=== PATIENT | female | born 1945 | race Caucasian/White ===

== ENCOUNTER 2018-04-26 21:48 | Emergency (ER) | payer OTHER, SELFPAY ==
[2018-04-26 22:07] VITALS: BP 138/64; PULSE 80; RESP 18; TEMP 36.8; O2SAT 96; BMI 33.3
--- NOTE | 2018-04-26 22:59 | DI.CT.S_ITS ---
PROCEDURE: CT HEAD/BRAIN WO CON INDICATIONS: fall with head injury TECHNIQUE: Noncontrast 4.5 mm thick angled axial sections acquired from the foramen magnum to the vertex, with coronal and sagittal reformats. For radiation dose reduction, the following was used: automated exposure control, adjustment of mA and/or kV according to patient size. COMPARISON: None. FINDINGS: Image quality: Excellent. CSF spaces: Basal cisterns are patent. No extra-axial fluid collections. The ventricles are symmetric in size and shape. Brain: No intracranial bleeds or masses. There is cerebral volume loss for age, with resultant ventricular and sulcal prominence. There are periventricular and deep white matter chronic small vessel ischemic changes. There is intracranial internal carotid artery atherosclerosis. Encephalomalacia is present within the right frontal temporal lobe, consistent with old ischemia. Skull and face: Calvarium and visualized facial bones appear intact, without suspicious lesions. Hyperostosis frontalis is incidentally noted. Sinuses: Visualized sinuses and mastoids are clear. IMPRESSION: 1. No acute intracranial process. 2. Moderate atrophy and chronic microvascular ischemic changes. Dictated by: Gertrude Melendez M.D. on 04/27/2018 at 7:52 Approved by: Gertrude Melendez M.D. on 04/27/2018 at 7:53
--- NOTE | 2018-04-26 22:59 | DI.CT.S_ITS ---
PROCEDURE: CT FACIAL BONES WO CON INDICATIONS: fall with facial swelling TECHNIQUE: Noncontrast 2.5 mm thick axial images acquired from the mandible through the frontal sinuses, with coronal and sagittal reformatting. For radiation dose reduction, the following was used: automated exposure control, adjustment of mA and/or kV according to patient size. COMPARISON: [facility], CT, CT HEAD/BRAIN WO CON, 04/26/2018, 23:06. FINDINGS: Image quality: Excellent. Bones and teeth: Orbital morales are intact. Sinus morales show no fracture or deformity. Nasal bones and septum are intact. Visualized portions of the mandible demonstrate no fractures or subluxation. There is a nondisplaced fracture of the left zygomatic arch. Pterygoid plates are intact. Visualized portions of the skull base and auditory canals are intact. Sinuses: Paranasal sinuses are aerated, without fluid levels, mucosal thickening, or mucoceles. Mastoid air cells are aerated. Soft tissues: Left periorbital soft tissue edema is present. No enlarged lymph nodes. No soft tissue lacerations or debris. Vascular: Visualized vascular structures appear normal in the absence of contrast. Bony vascular foramina and canals are intact. IMPRESSION: 1. Nondisplaced fracture of the left zygomatic arch. Dictated by: Gertrude Melendez M.D. on 04/27/2018 at 7:53 Approved by: Gertrude Melendez M.D. on 04/27/2018 at 7:55
[2018-04-26 23:14] VITALS: BP 137/62; PULSE 72; RESP 16; O2SAT 95
[2018-04-26] MEDS: TET,DIPH,PERTUSS(ACELL),VAC/PF 0.5 ML SYRINGE IM (23:30)
[2018-04-27 00:54] VITALS: BP 151/76; PULSE 86; RESP 18; O2SAT 96
--- NOTE | 2018-04-27 00:56 | PC.NURSE ---
patient ambulated from the ED with steady gait. patient did not want pre pack medications or prescriptions. Provider aware and ok with patient to be discharged.
--- NOTE | 2018-04-27 19:52 | ED.FALL ---
HPI - Fall General Chief Complaint: Fall Stated Complaint: GLF Time Seen by Provider: 04/26/18 22:10 Source: patient Mode of arrival: ambulatory Limitations: no limitations History of Present Illness HPI Narrative: 73-year-old nonsmoking female presents with a chief complaint of a mechanical fall resulting in facial injury. She was walking in her driveway dog jumped on her and force her to fall forward striking her face. She denies any loss of consciousness nor nausea or vomiting. She has full recall of the event. She denies any blood thinners or alcohol. She denies any distracting injuries. She has no blurred vision or trouble with ambulation. MD complaint: fall Onset (ago): minute(s) Fall from: standing Fall witnessed: yes, by family Place fall occurred: home Loss of consciousness: none Prolonged down time: no Symptoms prior to fall: none Context: tripped/slipped Location of injury: face Severity: mild Associated symptoms (after fall): headache Related Data Previous Rx's Medication Instructions Recorded hydrocodone-acetaminophen 1 tab PO Q4-6H PRN #14 tab 04/27/18 Allergies Allergy/AdvReac Type Severity Reaction Status Date / Time No Known Drug Allergies Allergy Verified 04/26/18 22:13 Review of Systems Review of Systems All systems reviewed & are unremarkable except as noted in HPI and below Constitutional Denies chills, Denies fever(s), Denies lethargy and Denies weakness Eyes Denies change in vision, Denies eye discharge, Denies irritation and Denies loss of vision ENT Ears, Nose, Mouth, and Throat: Denies change in voice, Denies neck pain and Denies sore throat Comments: Face pain and swelling Cardiovascular Denies chest pain, Denies irregular heart rhythm, Denies lightheadedness, Denies palpitations, Denies dyspnea, Denies dyspnea on exertion and Denies orthopnea Respiratory Denies cough, Denies dyspnea, Denies dyspnea on exertion and Denies wheezing Gastrointestinal Gastrointestinal: Denies abdominal pain, Denies change in bowel habits, Denies diarrhea, Denies nausea and Denies vomiting Genitourinary Denies hematuria, Denies flank pain, Denies urinary incontinence and Denies urinary urgency Musculoskeletal Denies neck pain Integumentary/Breasts Denies pruritus, Denies erythema, Denies rash and Denies wounds Neurologic Denies confusion, Denies loss of vision and Denies weakness Psychiatric Denies anxiety, Denies confusion, Denies depression, Denies homicidal ideation and Denies suicidal ideation Endocrine Denies palpitations Hematologic/Lymphatic Denies easy bruising Allergic/Immunologic Denies wheezing Exam Narrative Exam Narrative: GENERAL: Pleasant 73-year-old female, GCS 15, AO x3, mild distress HEAD: left-sided facial swelling over zygoma Atraumatic. EYES: Pupils equal round and reactive. Extraocular motions intact. No scleral icterus. No injection or drainage. No hyphema ENT: No nasal septal hematoma. Abrasion on nose but no laceration or suspicion of fracture Nose without bleeding, purulent drainage or septal hematoma. Throat without erythema, tonsillar hypertrophy or exudate. Uvula midline. Airway patent. NECK: Trachea midline. No JVD or lymphadenopathy. Supple, nontender, no meningeal signs. CARDIOVASCULAR: Regular rate and rhythm without murmurs, gallops, or rubs. RESPIRATORY: Clear to auscultation. Breath sounds equal bilaterally. No wheezes, rales, or rhonchi. GASTROINTESTINAL: Abdomen soft, non-tender, nondistended. No hepato-splenomegaly, or palpable masses. No guarding. EXTREMITIES: No clubbing, cyanosis, or edema. No joint tenderness, effusion, or edema noted. BACK: Nontender without deformity or crepitance. No flank tenderness. NEURO: AOx3. SKIN: No rash or erythema. Initial Vital Signs Initial Vital Signs: Vital Signs Temperature 98.3 F 04/26/18 22:07 Pulse Rate 80 04/26/18 22:07 Respiratory Rate 18 04/26/18 22:07 Blood Pressure 138/64 04/26/18 22:07 Pulse Oximetry 96 04/26/18 22:07 [facility] Social History Smoking Status: Never smoker Course Orders Ordered: Discontinued Medications Hydrocodone Bitart/Acetaminophen (Vicodin Prepack) 1 bottle MISC SEEINSTR ONE Stop: 04/27/18 00:31 Last Admin: 04/27/18 00:54 Dose: Not Given Diphtheria/Tetanus/Acell Pertussis (Adacel) 0.5 ml IM .ONCE ONE Stop: 04/26/18 23:20 Last Admin: 04/26/18 23:30 Dose: 0.5 ml Ondansetron HCl (Zofran Odt Prepack) 1 bottle MISC SEEINSTR ONE Stop: 04/27/18 00:31 Last Admin: 04/27/18 00:54 Dose: Not Given MDM - Fall Medical Records Attestation: I reviewed the patient's medical records. Imaging Data CT scan - head: Attestation: I personally reviewed and interpreted this imaging study as follows: Radiologist's impression: [address] [address] [address] Scan Report Signed Patient: Nithya Tavarez MMR#: [id number] : 3Acct:[id number] Age/Sex: 73 / FDate of Service: 04/26/18 Loc: ED Accession Number: [id number] Procedure: CT facial bones wo con Ordering Provider: Deondre Bush D.O. PROCEDURE: CT FACIAL BONES WO CON INDICATIONS: fall with facial swelling TECHNIQUE: Noncontrast 2.5 mm thick axial images acquired from the mandible through the frontal sinuses, with coronal and sagittal reformatting. For radiation dose reduction, the following was used: automated exposure control, adjustment of mA and/or kV according to patient size. COMPARISON: [facility], CT, CT HEAD/BRAIN WO CON, 04/26/2018, 23:06. FINDINGS: Image quality: Excellent. Bones and teeth: Orbital morales are intact. Sinus morales show no fracture or deformity. Nasal bones and septum are intact. Visualized portions of the mandible demonstrate no fractures or subluxation. There is a nondisplaced fracture of the left zygomatic arch. Pterygoid plates are intact. Visualized portions of the skull base and auditory canals are intact. Sinuses: Paranasal sinuses are aerated, without fluid levels, mucosal thickening, or mucoceles. Mastoid air cells are aerated. Soft tissues: Left periorbital soft tissue edema is present. No enlarged lymph nodes. No soft tissue lacerations or debris. Vascular: Visualized vascular structures appear normal in the absence of contrast. Bony vascular foramina and canals are intact. IMPRESSION: 1. Nondisplaced fracture of the left zygomatic arch. Dictated by: Gertrude Melendez M.D. on 04/27/2018 at 7:53 Approved by: Gertrude Melendez M.D. on 04/27/2018 at 7:55 Discharge Plan Departure Patient Disposition: Home Clinical Impression: Zygomatic fracture Discharge Date/Time: 04/27/18 00:55 Interventions: ED Discharge Assessment Last Done: 04/27/18 00:54 Instructions: DI for Zygomatic Fracture Activity Restrictions/Additional Instructions: There is no evidence of an emergent or life threatening illness at this time, but follow up with your doctor in 1-2 days is recommended nonetheless to continue to rule out serious underlying causes of your symptoms. Please call the office for an appointment. Please return to the Emergency Department for any worsening or persistent symptoms. Please take medications as directed. Prescriptions: New hydrocodone-acetaminophen 5-325 mg tablet 1 tab PO Q4-6H PRN (Reason: pain) Qty: 14 RF: 0 Referrals: Shiraz Martin DMD [Physician] -
== END 2018-04-27 00:55 | disposition home or self-care (01) ==
PROVIDERS: Emergency Provider Emergency Medicine
DX: S02.402A Zygomatic fracture, unspecified side, initial encounter for closed fracture (principal); W01.0XXA Fall on same level from slipping, tripping and stumbling without subsequent striking against object, initial encounter
CPT/HCPCS: 70450; 70486; 90471; 99282; 99284; 90715

== ENCOUNTER → 2018-05-03 07:58 | Outpatient (CLI) | payer OTHER, SELFPAY ==
[2018-05-03 10:37] LABS: Alanine Aminotransferase 22 IU/L (9-52); Albumin 4.1 g/dL (3.5-5.0); Albumin Globulin Ratio 1.5 (1.0-2.8); Alkaline Phosphatase 70 U/L (38-126); Aspartate Aminotransferase 27 IU/L (14-36); BUN Creatinine Ratio 17.5 (6-22); Bilirubin Total 0.6 mg/dL (0.2-1.3); Blood Urea Nitrogen 14 mg/dL (7-17); Calcium 9.4 mg/dL (8.4-10.2); Carbon Dioxide 27 mmol/L (22-32); Chloride 102 mmol/L (98-107); Cholesterol 207 mg/dL (140-199); Estimated Glomerular Filt Rate > 60.0 mL/min (>60); Globulin 2.8 g/dL (1.7-4.1); Glucose 116 mg/dL (80-110); HDL Cholesterol 58 mg/dL (40-60); HEMOLYSIS 47 (0-50); LDL Cholesterol Calculated 121 mg/dL (<100); Potassium 4.6 mmol/L (3.4-5.1); Sodium 140 mmol/L (137-145); Total Protein 6.9 g/dL (6.3-8.2); Triglycerides 140 mg/dL (35-150)
[2018-05-03 11:09] LABS: Thyroid Stimulating Hormone 3.92 uIU/mL (0.47-4.68)
== END ==
PROVIDERS: Visit Provider Internal Medicine
DX: E78.00 Pure hypercholesterolemia, unspecified (principal)
CPT/HCPCS: 36415; 80053; 80061; 84443

== ENCOUNTER → 2018-08-29 09:52 | Outpatient (CLI) | payer OTHER, SELFPAY ==
--- NOTE | 2018-08-29 | DI.MG.S_ITS ---
BILATERAL DIGITAL SCREENING MAMMOGRAM 3D/2D WITH CAD: 08/29/2018 CLINICAL: Routine screening. Family history of breast cancer. Comparison is made to exams dated: 08/06/2017 mammogram, 06/19/2016 mammogram, and 05/30/2015 mammogram - [facility]. There are scattered fibroglandular elements in both breasts. Current study was also evaluated with a Computer Aided Detection (CAD) system. There are benign calcifications in both breasts. There also is a benign biopsy clip in the right breast. No significant masses, calcifications, or other findings are seen in either breast. There has been no significant interval change. IMPRESSION: There is no mammographic evidence of malignancy. A 1 year screening mammogram is recommended. This exam was interpreted at Station ID: [id number]. NOTE: For mammograms, a report in lay terms will be sent to the patient. Approximately 15% of breast malignancies will not be visualized mammographically. In the management of a palpable breast mass, a negative mammogram must not discourage biopsy of a clinically suspicious lesion. Electronically Signed By: George wolf/joseph:08/29/2018 10:41:52 letter sent: Normal Exam ACR BI-RADS Category 2: Benign Finding(s) 3342F
== END ==
PROVIDERS: PCP Internal Medicine; Visit Provider Internal Medicine
DX: Z12.31 Encounter for screening mammogram for malignant neoplasm of breast (principal); Z80.3 Family history of malignant neoplasm of breast
CPT/HCPCS: 77063; 77067

== ENCOUNTER 2018-09-05 08:50 | Day surgery (SDC) | payer OTHER, SELFPAY ==
[2018-09-05] VITALS (7 sets, daily range): BP systolic 104–131; BP diastolic 54–81; PULSE 74–91; RESP 14–18; TEMP 36.2–36.9; O2SAT 95–97; BMI 35.3
--- NOTE | 2018-09-05 | PATH_ITS ---
[facility] Accession Number: [id number] . 01 Material submitted: . COLON POLYP AT 30CM . 02 Diagnosis: Biopsy, Colon Polyp at 30 cm: Tubular adenoma involving both biopsy fragments. MRV/09/08/2018 . 02 Electronically signed: . Sebas Thomason MD, Pathologist NPI- [id number] . 01 Gross description: . COLON POLYP AT 30CM: Received in formalin are 2 fragment(s) of koch, soft tissue measuring 0.3 x 0.3 x 0.3 cm to 0.3 x 0.3 x 0.2 cm submitted entirely in 1 cassette(s) /CKI /CKI . 02 Pathologist provided ICD-10: D12.4 . 02 CPT . 224032 Performed at: 01 [facility] [address] [place] [address], [place], [place] [id number] MD Randy Hutton MD Phone: [phone] Performed at: [facility] [address] [place], [place] [id number] MD Maine Terry MD Phone: [phone]
[2018-09-05] MEDS: SODIUM CHLORIDE 0.9% 1,000 ML 200 ML IV (09:47)
--- NOTE | 2018-09-05 10:22 | PM.HP.1 ---
History of Present Illness Date Patient Seen: 09/05/18 Time Patient Seen: 10:22 Chief complaint: [id number] SCREENING COLONOSCOPY Narrative: The patient is a woman here for screening colonoscopy. She is not sure when her last exam was but she is reasonably sure was over 10 years ago. Her grandmother may have had colon cancer. She is pretty sure she did. Patient History Medical History Anxiety (Acute) Arthritis (Acute) Depression (Acute) History of urinary incontinence (Acute) Hyperlipidemia (Acute) Hypothyroidism (Acute) Surgical History History of dilatation and curettage (Acute) History of throat surgery (Acute) Social History household members: spouse Smoking Status: Never smoker Family & Social History Social History: household members spouse Tobacco & Substance use: Smoking Status Never smoker alcohol intake frequency 0-2 drinks per day Substance Use Type does not use Meds Home Medications Medication Instructions Recorded Confirmed Type Vitamin D3 1,000 mg PO DAILY 09/05/18 09/05/18 History diclofenac sodium 50 mg PO QID PRN 09/05/18 09/05/18 History levothyroxine 88 mcg PO DAILY 09/05/18 09/05/18 History gsyubsfy-ojwz-rsq-folic acid 1 tab PO DAILY PRN 09/05/18 09/05/18 History sertraline 50 mg PO DAILY 09/05/18 09/05/18 History sertraline 100 mg PO DAILY 09/05/18 09/05/18 History Allergies Allergy/AdvReac Type Severity Reaction Status Date / Time No Known Drug Allergies Allergy Verified 09/05/18 09:53 Review of Systems Review of Systems All systems reviewed & are unremarkable except as noted in HPI and below Exam Vital Signs (past 8 hours): - 09/05/18 09:26 Temperature 98.5 F Pulse Rate 91 H Respiratory Rate 18 Blood Pressure 131/81 Pulse Oximetry 96 Oxygen Delivery Method Room Air Narrative Exam Narrative: Very pleasant cooperative woman in no apparent distress. Little overweight. Her eyes are nonicteric. Lungs are clear to auscultation. No rales or rhonchi. Heart regular rate and rhythm without murmur gallop. Abdomen is protuberant soft nontender without mass. Patient is alert and oriented x3. Assessment & Plan Assessment & Plan narrative: Patient for screening colonoscopy. I have discussed the procedure and the rationale with the patient including risks of bleeding, perforation which would necessitate a major operation, failure to find remove all lesions and the potential to tattoo. They appeared to understand and wished to proceed.
--- NOTE | 2018-09-05 10:24 | PM.PREOP ---
Pre-operative Note Interval Note History & Physical reviewed/Exam performed by Physician: Yes Changes to H&P: No ASA Class (for procedural sedation): II
[2018-09-05] MEDS: MIDAZOLAM 5 MG/5 ML VIAL IV (10:43)
[2018-09-05] MEDS: fentaNYL 250 MCG/5 ML INJ IV (10:44)
--- NOTE | 2018-09-05 11:09 | PM.OP.ENDO ---
Operative Date/Time/Diagnoses Date of procedure: 09/05/18 Time of procedure: 11:09 Post-op diagnosis: same (Sigmoid diverticulosis. One polyp at 30 cm. ) Procedure & Clinicians Study performed: Colonoscopy with cold biopsy Same procedure as scheduled: Yes Indications: Screening Surgeon: Cliff Longoria Procedure Notes SCOAP/Timeout: Perform Procedure in detail: The patient was placed in the left lateral decubitus position and underwent IV sedation directed by the surgeon consisting of fentanyl and Versed. Digital exam was unremarkable. The scope was inserted and advanced through the rectum into the sigmoid, descending, transverse, and ascending colon. A stiffener was applied as was pressure to the abdominal wall in order to reach the cecum.. The cecum was reached identified by the ileocecal valve and the appendiceal opening. The scope was gradually brought out. No Polyps were found. The scope ultimately was retroflexed in the rectum. The appearance was remarkable for scarring on old hemorrhoidal disease but no active inflammation was seen.. The scope was removed and the patient tolerated the procedure well. prep was very good. Scope withdrawal time: 12-1/2 minutes Sedation minutes: 34 Findings: diverticulosis (Sigmoid) and polyp (30 cm) Specimen(s): other (Polyp) Complications: none Recommendations: Colonscopy in 5 years Follow up: as needed Disposition: PACU
--- NOTE | 2018-09-05 11:12 | P.OP.ENDO_ITS ---
Operative Date/Time/Diagnoses Date of procedure: 09/05/18 Time of procedure: 11:09 Post-op diagnosis: same (Sigmoid diverticulosis. One polyp at 30 cm. ) Procedure & Clinicians Study performed: Colonoscopy with cold biopsy Same procedure as scheduled: Yes Indications: Screening Surgeon: Cliff Longoria Procedure Notes SCOAP/Timeout: Perform Procedure in detail: The patient was placed in the left lateral decubitus position and underwent IV sedation directed by the surgeon consisting of fentanyl and Versed. Digital exam was unremarkable. The scope was inserted and advanced through the rectum into the sigmoid, descending, transverse, and asc ending colon. A stiffener was applied as was pressure to the abdominal wall in order to reach the cecum.. The cecum was reached identified by the ileocecal valve and the appendiceal opening. The scope was gradually brought out. No Polyps were found. The scope ultimately was retroflexed in the rectum. The appearance was remarkable for scarring on old hemorrhoidal disease but no active inflammation was seen.. The scope was removed and the patient tolerated the procedure well. prep was very good. Scope withdrawal time: 12-1/2 minutes Sedation minutes: 34 Findings: diverticulosis (Sigmoid) and polyp (30 cm) Specimen(s): other (Polyp) Complications: none Recommendations: Colonscopy in 5 years Follow up: as needed Disposition: PACU
== END 2018-09-05 12:13 | disposition home or self-care (01) ==
PROVIDERS: PCP Internal Medicine; Visit Provider Specialist
PROC: 0DJD8ZZ Inspection of Lower Intestinal Tract, Via Natural or Artificial Opening Endoscopic (ICD-10-PCS; CPT 45378; principal; 2018-09-05 09:45)
DX: Z12.11 Encounter for screening for malignant neoplasm of colon (principal); F41.9 Anxiety disorder, unspecified; E78.5 Hyperlipidemia, unspecified; E03.9 Hypothyroidism, unspecified; D12.4 Benign neoplasm of descending colon; K57.30 Diverticulosis of large intestine without perforation or abscess without bleeding
CPT/HCPCS: 45380; 99152; 99153; J2250; J3010

== ENCOUNTER → 2018-09-30 07:08 | Outpatient (CLI) | payer OTHER, SELFPAY ==
[2018-09-30 08:22] LABS: Glucose 122 mg/dL (80-110)
[2018-09-30 09:02] LABS: Vitamin B12 353 pg/mL (239-931)
== END ==
PROVIDERS: PCP Internal Medicine; Visit Provider Internal Medicine
DX: G62.9 Polyneuropathy, unspecified (principal)
CPT/HCPCS: 36415; 82607; 82947

== ENCOUNTER → 2019-07-16 14:32 | Outpatient (CLI) | payer OTHER, SELFPAY | PROVIDERS: PCP Internal Medicine; Referring Provider Internal Medicine; Visit Provider Internal Medicine | DX: M85.851 Other specified disorders of bone density and structure, right thigh (principal); Z78.0 Asymptomatic menopausal state; E07.9 Disorder of thyroid, unspecified; Z87.891 Personal history of nicotine dependence | CPT/HCPCS: 77080 ==

== ENCOUNTER → 2020-06-14 12:26 | Outpatient (CLI) | payer OTHER, SELFPAY ==
--- NOTE | 2020-06-14 12:28 | DI.MG.S_ITS ---
BILATERAL DIGITAL SCREENING MAMMOGRAM 3D/2D WITH CAD: 06/14/2020 CLINICAL: Routine screening. Family history of breast cancer. Comparison is made to exams dated: 08/29/2018 mammogram, 08/06/2017 mammogram, and 06/19/2016 mammogram - [facility]. There are scattered fibroglandular elements in both breasts. Current study was also evaluated with a Computer Aided Detection (CAD) system. There are benign calcifications in both breasts. There also is a biopsy clip in the right breast. No significant masses, calcifications, or other findings are seen in either breast. There has been no significant interval change. IMPRESSION: BENIGN There is no mammographic evidence of malignancy. A 1 year screening mammogram is recommended. This exam was interpreted at Station ID: [id number]. NOTE: For mammograms, a report in lay terms will be sent to the patient. Approximately 15% of breast malignancies will not be visualized mammographically. In the management of a palpable breast mass, a negative mammogram must not discourage biopsy of a clinically suspicious lesion. Electronically Signed By: Andi pinzon/joseph:06/14/2020 14:23:53 letter sent: Normal Exam ACR BI-RADS Category 2: Benign Finding(s) 3342F
== END ==
PROVIDERS: PCP Internal Medicine; Referring Provider Internal Medicine; Visit Provider Internal Medicine
DX: Z12.31 Encounter for screening mammogram for malignant neoplasm of breast (principal); Z80.3 Family history of malignant neoplasm of breast
CPT/HCPCS: 77063; 77067

== ENCOUNTER → 2020-08-09 08:10 | Outpatient (CLI) | payer OTHER, SELFPAY ==
[2020-08-09 09:34] LABS: Alanine Aminotransferase 18 IU/L (<35); Albumin 4.2 g/dL (3.5-5.0); Albumin Globulin Ratio 1.4 (1.0-2.8); Alkaline Phosphatase 64 U/L (38-126); Aspartate Aminotransferase 29 IU/L (14-36); BUN Creatinine Ratio 19.3 (6-22); Bilirubin Total 0.5 mg/dL (0.2-1.3); Blood Urea Nitrogen 17 mg/dL (7-17); Calcium 9.7 mg/dL (8.4-10.2); Carbon Dioxide 29 mmol/L (22-32); Chloride 102 mmol/L (98-107); Cholesterol 216 mg/dL (140-199); Estimated Glomerular Filt Rate > 60.0 mL/min (>60); Globulin 3.1 g/dL (1.7-4.1); Glucose 115 mg/dL (80-110); HDL Cholesterol 48 mg/dL (40-60); HEMOLYSIS < 15 (0-50); LDL Cholesterol Calculated 144 mg/dL (<100); Potassium 4.2 mmol/L (3.4-5.1); Sodium 137 mmol/L (137-145); Total Protein 7.3 g/dL (6.3-8.2); Triglycerides 119 mg/dL (35-150)
[2020-08-09 10:06] LABS: TSH w/ Reflex to FT4 3.27 uIU/mL (0.47-4.68)
== END ==
PROVIDERS: PCP Internal Medicine; Referring Provider Internal Medicine; Visit Provider Internal Medicine
DX: E03.9 Hypothyroidism, unspecified (principal); E78.00 Pure hypercholesterolemia, unspecified
CPT/HCPCS: 80053; 80061; 84443

== ENCOUNTER → 2020-09-29 13:49 | Outpatient (CLI) | payer OTHER, SELFPAY ==
[2020-09-29 15:57] LABS: Free T3, Triiodothyronine Free 2.72 pg/mL (2.77-5.27); Free T4, Direct Thyroxine 1.01 ng/dL (0.78-2.19)
== END ==
PROVIDERS: PCP Internal Medicine; Referring Provider Internal Medicine; Visit Provider Internal Medicine
DX: E03.9 Hypothyroidism, unspecified (principal)
CPT/HCPCS: 36415; 84439; 84481

== ENCOUNTER → 2021-01-18 14:56 | Outpatient (CLI) | payer OTHER, SELFPAY ==
[2021-01-18 16:11] LABS: Free T3, Triiodothyronine Free 3.41 pg/mL (2.77-5.27)
[2021-01-18 16:25] LABS: TSH w/ Reflex to FT4 1.15 uIU/mL (0.47-4.68)
== END ==
PROVIDERS: PCP Internal Medicine; Referring Provider Internal Medicine; Visit Provider Internal Medicine
DX: E03.9 Hypothyroidism, unspecified (principal)
CPT/HCPCS: 36415; 84443; 84481

== ENCOUNTER 2021-04-14 14:20 | Observation (INO) | payer OTHER, SELFPAY ==
[2021-04-14] VITALS (35 sets, daily range): BP systolic 143–213; BP diastolic 56–145; PULSE 64–97; RESP 10–43; TEMP 36.5; O2SAT 91–100; BMI 34.3; BMI 35.4
--- NOTE | 2021-04-14 14:28 | DI.RAD.S_ITS ---
PROCEDURE: XR HUMERUS LT 2V INDICATIONS: left upper arm pain after fall TECHNIQUE: 3 views of the humerus were acquired. COMPARISON: None. FINDINGS: Bones: The left shoulder demonstrates anterior dislocation. There is a fracture of the greater tuberosity. Soft tissues: No suspicious soft tissue calcifications. IMPRESSION: Anterior dislocation with fracture of the greater tuberosity Dictated by: Salvador Bedoya M.D. on 04/14/2021 at 15:05 Approved by: Salvador Bedoya M.D. on 04/14/2021 at 15:08
[2021-04-14] MEDS: HYDROMORPHONE 0.5 MG INJ IV ×3 (15:05→23:53)
--- NOTE | 2021-04-14 15:26 | ED_ITS ---
HPI - Fall <Guillermo Hopson PA-C - Last Filed: 04/14/21 19:57> General Chief Complaint: Fall Stated Complaint: Fall Time Seen by Provider: 04/14/21 14:55 Source: patient Mode of arrival: EMS History of Present Illness HPI Narrative: Patient is a 76-year-old female presenting to the emergency department today for an evaluation of left arm pain following a ground level fall. Patient states that she was walking when she tripped and fell today landing on her left side and immediately feeling pain in her left arm. She states the pain travels from her shoulder to her left elbow. She denies feeling any numbness and tingling in the left upper extremity. Of note, she denies hitting her head or losing consciousness as a result of the fall and she denies feeling dizzy or lightheadedness prior to falling. She denies fever, chills, chest pain, shortness of breath, nausea, vomiting, diarrhea, dizziness, changes in vision. No other concerns voiced at this time. Related Data Home Medications Medication Instructions Recorded Confirmed Vitamin D3 1,000 mg PO DAILY 09/05/18 09/05/18 diclofenac sodium 50 mg 50 mg PO QID PRN 09/05/18 09/05/18 tablet,delayed release levothyroxine 88 mcg tablet 88 mcg PO DAILY 09/05/18 09/05/18 dngrtnrn-aadt-qry-folic acid 1 mg 1 tab PO DAILY PRN 09/05/18 09/05/18 tablet sertraline 100 mg tablet 100 mg PO DAILY 09/05/18 09/05/18 sertraline 50 mg tablet 50 mg PO DAILY 09/05/18 09/05/18 Allergies Allergy/AdvReac Type Severity Reaction Status Date / Time No Known Drug Allergies Allergy Verified 04/14/21 14:29 Review of Systems <Guillermo Hopson PA-C - Last Filed: 04/14/21 19:57> Constitutional Constitutional: Denies chills, Denies fever(s), Denies frequent falls, Denies lethargy and Denies weakness ENT Ears, Nose, Mouth, and Throat: Denies dizziness Cardiovascular Cardiovascular: Denies chest pain, Denies irregular heart rhythm, Denies lightheadedness, Denies palpitations, Denies dyspnea, Denies dyspnea on exertion and Denies orthopnea Respiratory Respiratory: Denies cough, Denies dyspnea, Denies dyspnea on exertion and Denies wheezing Gastrointestinal Gastrointestinal: Denies abdominal pain, Denies change in bowel habits, Denies diarrhea, Denies nausea and Denies vomiting Musculoskeletal Musculoskeletal: Reports arthralgias (Left shoulder), Denies numbness and Denies tingling Integumentary/Breasts Skin/Breast: Denies pruritus, Denies erythema, Denies rash and Denies wounds Neurologic Neurologic: Denies behavioral changes, Denies confusion, Denies dizziness, Denies frequent falls, Denies numbness, Denies tingling and Denies weakness Psychiatric Psychiatric: Denies behavioral changes and Denies confusion Endocrine Endocrine: Denies palpitations Allergic/Immunologic Allergic/Immunologic: Denies wheezing Patient History <Guillermo Hopson PA-C - Last Filed: 04/14/21 19:57> Medical History (Updated 04/14/21 @ 21:52 by Rocio Epperson MD) Anxiety Arthritis Depression History of urinary incontinence Hyperlipidemia Hypothyroidism Surgical History History of dilatation and curettage History of throat surgery Social History household members: spouse Smoking Status: Never smoker Smoking Status: Never smoker alcohol intake frequency: holidays/special occasions only Substance Use Type: does not use Exam <Guillermo Hopson PA-C - Last Filed: 04/14/21 19:57> Narrative Exam Narrative: GENERAL: 76 year old patient appears stated age. Well-developed patient, in mild distress. HEAD: Atraumatic. Normocephalic. EYES: Pupils equal round and reactive. Extraocular motions intact. No scleral icterus. No injection or drainage. ENT: Nose without bleeding, purulent drainage. Throat without erythema, tonsillar hypertrophy or exudate. Airway patent. NECK: Trachea midline. Non tender CARDIOVASCULAR: Regular rate and rhythm without murmurs, gallops, or rubs. RESPIRATORY: Clear to auscultation. Breath sounds equal bilaterally. No wheezes, rales, or rhonchi. GASTROINTESTINAL: Abdomen soft, non-tender, nondistended. EXTREMITIES: No edema. Positive site sign left upper extremity. Tenderness to palpation from the left shoulder extending distally to the left elbow. No significant swelling or ecchymosis appreciated throughout the left upper extremity. Capillary refill less than 2 seconds. BACK: Nontender without deformity or crepitance. No flank tenderness. NEURO: AOx3. SKIN: No rash or erythema of visible areas Initial Vital Signs Initial Vital Signs: Vital Signs Blood Pressure 213/94 H 04/14/21 14:34 Cardio Pulses: radial pulses present on the left <Rocio Epperson MD - Last Filed: 04/14/21 21:53> Initial Vital Signs Initial Vital Signs: Vital Signs Blood Pressure 213/94 H 04/14/21 14:34 <Rocio Epperson MD - Last Filed: 04/14/21 21:53> Orthopedic Joint Reduction Left shoulder: Time of procedure: 19:17 Time Out Performed: Yes Side: left Joint Reduction Location: shoulder Analgesia: procedural sedation Amount of anesthesic used (mL): 70 Shoulder Technique Used (if applicable): traction/counter-traction Technique used: traction/counter-traction Post-reduction neuro exam: intact Post-reduction vascular: intact Post Reduction X-Ray Obtained: Yes Post Reduction X-Ray Results: reduced Splint Applied: Yes Patient Tolerated Procedure: Well Additional Comments: Known fracture prior to reduction. Has been reviewed with Ortho. Will plan for CT scan out at the shoulders reduced. Procedural Sedation Time of procedure: 19:18 Consent signed: Yes Time out performed: Yes Indication: fracture/dislocation reduction ASA Class: III Mallampati Airway Classification: Class II Preparation: air sampling and monitoring applied, pulse oximeter, capnometry used, supplemental O2 applied, suction/airway equipment at bedside and IV secured IV Propofol dose (mg): 70 Intraservice time/total sedation time (min): 12 ED Sedation Level: Moderate (Concious) Patient Tolerated Procedure: Well Complications: significant emergence reaction Interventions: Oxygen applied Course <Guillermo Hopson PA-C - Last Filed: 04/14/21 19:57> Course Course Narrative: Left humerus x-ray obtained Orders Ordered: ED Orders 04/14/21 14:28 XR humerus LT 2V Stat 04/14/21 15:30 COVID19 - ADMIT (HEAD BATCHER swab/PCR) Stat Complete Blood Count AUTO DIFF Stat 04/14/21 19:03 XR shoulder LT 1V Stat 04/14/21 19:19 CT UE LT wo con Stat 04/14/21 19:52 CT chest abd pel w con Stat 04/14/21 19:53 CT cervical spine wo con Stat CT head/brain wo con Stat 04/14/21 20:00 EKG-12 Lead Stat 04/14/21 20:05 Comprehensive Metabolic Panel Stat Troponin I Stat 04/14/21 20:15 COVID19 - ADMIT (HEAD BATCHER swab/PCR) Stat Acetaminophen (Acetaminophen 325 Mg Tablet) 325 mg PO Q6HR PRN PRN Reason: Fever/Mild Pain (1-3) Last Admin: 04/14/21 16:41 Dose: 325 mg Documented by: KRISHNA Discontinued Medications Hydromorphone HCl (Hydromorphone 0.5 Mg Inj) 0.5 mg IV NOW ONE Stop: 04/14/21 14:59 Last Admin: 04/14/21 15:05 Dose: 0.5 mg Documented by: KRISHNA Hydromorphone HCl (Hydromorphone 0.5 Mg Inj) 0.5 mg IV NOW ONE Stop: 04/14/21 15:47 Last Admin: 04/14/21 15:51 Dose: 0.5 mg Documented by: KRISHNA Hydromorphone HCl (Hydromorphone 1 Mg Inj) 1 mg IV NOW ONE Stop: 04/14/21 19:46 Last Admin: 04/14/21 19:53 Dose: 1 mg Documented by: IVANIA Hydromorphone HCl (Hydromorphone 1 Mg Inj) 1 mg IV NOW ONE Stop: 04/14/21 19:57 Ketorolac Tromethamine (Ketorolac 30 Mg/Ml Vial) 15 mg IV NOW ONE Stop: 04/14/21 19:16 Last Admin: 04/14/21 19:20 Dose: 15 mg Documented by: KRISHNA Lorazepam (Lorazepam 2 Mg/Ml Inj) 0.5 mg IV NOW ONE Stop: 04/14/21 19:20 Last Admin: 04/14/21 19:22 Dose: 0.5 mg Documented by: KRISHNA Oxycodone HCl (Oxycodone Ir 5 Mg Tablet) 5 mg PO NOW ONE Stop: 04/14/21 16:36 Last Admin: 04/14/21 16:41 Dose: 5 mg Documented by: KRISHNA Propofol (Propofol 200 Mg/20 Ml Vial) 150 mg IV NOW ONE Stop: 04/14/21 17:07 Last Admin: 04/14/21 19:04 Dose: 70 mg Documented by: KBRYERS Consultations Consultation #1: Consult with Dr. Montelongo, requests that we attempt to reduce the left anterior shoulder dislocation in the ER. Following reduction he requested that we obtain a CT and have patient follow up with [facility] earliest available appointment. Time: 17:51 Vital Signs Vital signs: Vital Signs - 8 hr 04/14/21 14:34 04/14/21 15:10 04/14/21 15:12 Pulse Rate 70 Respiratory Rate 18 Blood Pressure 213/94 H 169/77 H Pulse Oximetry 98 04/14/21 15:55 04/14/21 17:34 04/14/21 18:00 Pulse Rate 68 64 74 Respiratory Rate 18 18 15 Blood Pressure 188/81 H 170/78 H Pulse Oximetry 96 96 96 04/14/21 18:25 04/14/21 18:27 04/14/21 18:30 Pulse Rate 75 74 76 Respiratory Rate 14 15 15 Blood Pressure 172/79 H 172/79 H 163/77 H Pulse Oximetry 95 95 97 04/14/21 18:35 04/14/21 18:40 04/14/21 18:45 Pulse Rate 78 79 80 Respiratory Rate 15 15 15 Blood Pressure 163/77 H 164/77 H 160/77 H Pulse Oximetry 96 95 96 04/14/21 18:50 04/14/21 18:55 04/14/21 18:56 Pulse Rate 79 88 87 Respiratory Rate 12 28 H 20 Blood Pressure 155/75 H 163/81 H Pulse Oximetry 96 97 98 04/14/21 19:00 04/14/21 19:05 04/14/21 19:10 Pulse Rate 86 79 87 Respiratory Rate 23 35 H 30 H Blood Pressure 154/65 H 178/80 H Pulse Oximetry 96 98 98 04/14/21 19:11 04/14/21 19:15 04/14/21 19:17 Pulse Rate 86 92 H 87 Respiratory Rate 39 H 33 H 35 H Blood Pressure 197/84 H 156/79 H Pulse Oximetry 100 98 04/14/21 19:20 04/14/21 19:25 04/14/21 19:35 Pulse Rate 97 H 86 85 Respiratory Rate 43 H 25 H 17 Blood Pressure 162/56 H 160/71 H Pulse Oximetry 99 97 98 04/14/21 19:39 04/14/21 19:40 04/14/21 19:42 Pulse Rate 84 84 86 Respiratory Rate 10 L 10 L 22 Blood Pressure 196/145 H 160/71 H Pulse Oximetry 96 96 97 04/14/21 19:45 04/14/21 19:46 04/14/21 19:50 Pulse Rate 88 88 90 Respiratory Rate 24 20 21 Blood Pressure 181/91 H 152/68 H Pulse Oximetry 97 98 97 04/14/21 19:55 04/14/21 20:00 04/14/21 20:05 Pulse Rate 88 81 80 Respiratory Rate 23 14 21 Blood Pressure 158/72 H 150/73 H 146/66 H Pulse Oximetry 98 95 96 04/14/21 20:10 Pulse Rate 78 Respiratory Rate 17 Blood Pressure 159/73 H Pulse Oximetry 91 <Rocio Epperson MD - Last Filed: 04/14/21 21:53> Course Additional Information: 8pm Care is reviewed with Guillermo Hopson. Her left shoulder was reduced relatively easily with propofol however as she was coming out of sedation she was increasingly agitated and complaining of increasing pain. Initial thought was more an emergence reaction with the dramatic affect of behavior exhibited. Now with propofol has definitely worn off and she has been here long enough that the ketamine given by medics should also have worn off she is still having dramatic pain far out of proportion for her injury. She is completely re-examined. She states that with the fall it was the freddie ulder in her armpit area that was hurting most. At this point she is tender along her neck more left lateral side, trapezius, shoulder, axilla, left chest. I am concerned that were missing other injuries that are actually the source of her pain. With her mental status at actually seems to be deteriorating while she is here in the emergency department will backup with evaluation and look at head neck chest abdomen pelvis CT. Will add labs and an EKG. Will continue to use Dilaudid for pain control. Even when she is sedated enough that she is having decreased respiratory effort she still complaining of severe pain. 930pm extended workup has now been completed. There is no evidence of STEMI, river other chest fractures, no scapular abnormalities. She has no intracranial hemorrhage no cervical spine trauma and no alternate explanation for this severe pain that she was experiencing. At this time the shoulder has been reduced and with large amounts of narcotic requiring continued oxygen saturation monitoring and intermittent oxygen administration she is finally resting. Care is reviewed with the hospitalist, Dr. Parra. Be admitted to the hospitalist service for pain control given her advanced age, severe pain and the fact that she lives independently. Care is briefly reviewed with Dr. Montelongo, orthopedist. Shared with him that the shoulder was successfully reduced she is in a sling. They will consult in the morning for further recommendations but anticipate sling and pain control with outpatient orthopedic follow-up as the only additional orthopedic intervention at this time. Patient is safe for transfer to the floor. Orders Ordered: ED Orders 04/14/21 14:28 XR humerus LT 2V Stat 04/14/21 15:30 COVID19 - ADMIT (HEAD BATCHER swab/PCR) Stat Complete Blood Count AUTO DIFF Stat 04/14/21 19:03 XR shoulder LT 1V Stat 04/14/21 19:19 CT UE LT wo con Stat 04/14/21 19:52 CT chest abd pel w con Stat 04/14/21 19:53 CT cervical spine wo con Stat CT head/brain wo con Stat 04/14/21 20:00 EKG-12 Lead Stat 04/14/21 20:05 Comprehensive Metabolic Panel Stat Troponin I Stat 04/14/21 20:15 COVID19 - ADMIT (HEAD BATCHER swab/PCR) Stat Acetaminophen (Acetaminophen 325 Mg Tablet) 325 mg PO Q6HR PRN PRN Reason: Fever/Mild Pain (1-3) Last Admin: 04/14/21 16:41 Dose: 325 mg Documented by: KRISHNA Discontinued Medications Hydromorphone HCl (Hydromorphone 0.5 Mg Inj) 0.5 mg IV NOW ONE Stop: 04/14/21 14:59 Last Admin: 04/14/21 15:05 Dose: 0.5 mg Documented by: KRISHNA Hydromorphone HCl (Hydromorphone 0.5 Mg Inj) 0.5 mg IV NOW ONE Stop: 04/14/21 15:47 Last Admin: 04/14/21 15:51 Dose: 0.5 mg Documented by: KRISHNA Hydromorphone HCl (Hydromorphone 1 Mg Inj) 1 mg IV NOW ONE Stop: 04/14/21 19:46 Last Admin: 04/14/21 19:53 Dose: 1 mg Documented by: IVANIA Hydromorphone HCl (Hydromorphone 1 Mg Inj) 1 mg IV NOW ONE Stop: 04/14/21 19:57 Ketorolac Tromethamine (Ketorolac 30 Mg/Ml Vial) 15 mg IV NOW ONE Stop: 04/14/21 19:16 Last Admin: 04/14/21 19:20 Dose: 15 mg Documented by: KRISHNA Lorazepam (Lorazepam 2 Mg/Ml Inj) 0.5 mg IV NOW ONE Stop: 04/14/21 19:20 Last Admin: 04/14/21 19:22 Dose: 0.5 mg Documented by: KRISHNA Oxycodone HCl (Oxycodone Ir 5 Mg Tablet) 5 mg PO NOW ONE Stop: 04/14/21 16:36 Last Admin: 04/14/21 16:41 Dose: 5 mg Documented by: KRISHNA Propofol (Propofol 200 Mg/20 Ml Vial) 150 mg IV NOW ONE Stop: 04/14/21 17:07 Last Admin: 04/14/21 19:04 Dose: 70 mg Documented by: KRISHNA Vital Signs Vital signs: Vital Signs - 8 hr 04/14/21 14:34 04/14/21 15:10 04/14/21 15:12 Pulse Rate 70 Respiratory Rate 18 Blood Pressure 213/94 H 169/77 H Pulse Oximetry 98 04/14/21 15:55 04/14/21 17:34 04/14/21 18:00 Pulse Rate 68 64 74 Respiratory Rate 18 18 15 Blood Pressure 188/81 H 170/78 H Pulse Oximetry 96 96 96 04/14/21 18:25 04/14/21 18:27 04/14/21 18:30 Pulse Rate 75 74 76 Respiratory Rate 14 15 15 Blood Pressure 172/79 H 172/79 H 163/77 H Pulse Oximetry 95 95 97 04/14/21 18:35 04/14/21 18:40 04/14/21 18:45 Pulse Rate 78 79 80 Respiratory Rate 15 15 15 Blood Pressure 163/77 H 164/77 H 160/77 H Pulse Oximetry 96 95 96 04/14/21 18:50 04/14/21 18:55 04/14/21 18:56 Pulse Rate 79 88 87 Respiratory Rate 12 28 H 20 Blood Pressure 155/75 H 163/81 H Pulse Oximetry 96 97 98 04/14/21 19:00 04/14/21 19:05 04/14/21 19:10 Pulse Rate 86 79 87 Respiratory Rate 23 35 H 30 H Blood Pressure 154/65 H 178/80 H Pulse Oximetry 96 98 98 04/14/21 19:11 04/14/21 19:15 04/14/21 19:17 Pulse Rate 86 92 H 87 Respiratory Rate 39 H 33 H 35 H Blood Pressure 197/84 H 156/79 H Pulse Oximetry 100 98 04/14/21 19:20 04/14/21 19:25 04/14/21 19:35 Pulse Rate 97 H 86 85 Respiratory Rate 43 H 25 H 17 Blood Pressure 162/56 H 160/71 H Pulse Oximetry 99 97 98 04/14/21 19:39 04/14/21 19:40 04/14/21 19:42 Pulse Rate 84 84 86 Respiratory Rate 10 L 10 L 22 Blood Pressure 196/145 H 160/71 H Pulse Oximetry 96 96 97 04/14/21 19:45 04/14/21 19:46 04/14/21 19:50 Pulse Rate 88 88 90 Respiratory Rate 24 20 21 Blood Pressure 181/91 H 152/68 H Pulse Oximetry 97 98 97 04/14/21 19:55 04/14/21 20:00 04/14/21 20:05 Pulse Rate 88 81 80 Respiratory Rate 23 14 21 Blood Pressure 158/72 H 150/73 H 146/66 H Pulse Oximetry 98 95 96 04/14/21 20:10 Pulse Rate 78 Respiratory Rate 17 Blood Pressure 159/73 H Pulse Oximetry 91 MDM - Fall <Guillermo Hopson PA-C - Last Filed: 04/14/21 19:57> Lab Data Result diagrams: 04/14/21 15:30 04/14/21 20:05 Labs: Lab Results 04/14/21 04/14/21 04/14/21 Range/Units 15:30 15:30 20:05 WBC 7.4 (4.5-11.0) X10^3/uL RBC 4.25 (4.0-5.2) X10^6/uL Hgb 13.1 (12.0-16.0) g/dL Hct 39.3 (36-46) % MCV 92.3 (80-100) fL MCH 30.7 (26-34) PG MCHC 33.3 (30-36) % RDW 13.7 (11.6-14.8) % Plt Count 187 (150-400) X10^3/uL Neut % (Auto) 74.1 (50-75) % Lymph % (Auto) 17.3 L (25-40) % [place] % (Auto) 7.0 (3-14) % Eos % (Auto) 0.8 L (2-4) % Baso % (Auto) 0.8 (0-2) % Neut # (Auto) 5500 (2949-2372) /uL Lymph # (Auto) 1300 (7854-3513) /uL [place] # (Auto) 500 (0-900) /uL Eos # (Auto) 100 (0-450) /uL Baso # (Auto) 100 (0-100) /uL Sodium 137 (137-145) mmol/L Potassium 4.3 (3.4-5.1) mmol/L Chloride 102 (98-107) mmol/L Carbon Dioxide 29 (22-32) mmol/L BUN 18 H (7-17) mg/dL Creatinine 0.84 (0.52-1.04) mg/dL Estimated GFR > 60.0 (>60) mL/min BUN/Creatinine Ratio 21.4 (6-22) Glucose 179 H (80-110) mg/dL Calcium 9.4 (8.4-10.2) mg/dL Total Bilirubin 0.5 (0.2-1.3) mg/dL AST 39 H (14-36) IU/L ALT 21 (<35) IU/L Alkaline Phosphatase 64 (38-126) U/L Troponin I (0.01-0.034) ng/mL Total Protein 7.2 (6.3-8.2) g/dL Albumin 4.3 (3.5-5.0) g/dL Globulin 2.9 (1.7-4.1) g/dL Albumin/Globulin Ratio 1.5 (1.0-2.8) SARS-CoV-2 (PCR) Negative (Negative) 04/14/21 04/14/21 Range/Units 20:05 20:15 WBC (4.5-11.0) X10^3/uL RBC (4.0-5.2) X10^6/uL Hgb (12.0-16.0) g/dL Hct (36-46) % MCV (80-100) fL MCH (26-34) PG MCHC (30-36) % RDW (11.6-14.8) % Plt Count (150-400) X10^3/uL Neut % (Auto) (50-75) % Lymph % (Auto) (25-40) % [place] % (Auto) (3-14) % Eos % (Auto) (2-4) % Baso % (Auto) (0-2) % Neut # (Auto) (4846-3049) /uL Lymph # (Auto) (5718-4513) /uL [place] # (Auto) (0-900) /uL Eos # (Auto) (0-450) /uL Baso # (Auto) (0-100) /uL Sodium (137-145) mmol/L Potassium (3.4-5.1) mmol/L Chloride (98-107) mmol/L Carbon Dioxide (22-32) mmol/L BUN (7-17) mg/dL Creatinine (0.52-1.04) mg/dL Estimated GFR (>60) mL/min BUN/Creatinine Ratio (6-22) Glucose (80-110) mg/dL Calcium (8.4-10.2) mg/dL Total Bilirubin (0.2-1.3) mg/dL AST (14-36) IU/L ALT (<35) IU/L Alkaline Phosphatase (38-126) U/L Troponin I < 0.012 (0.01-0.034) ng/mL Total Protein (6.3-8.2) g/dL Albumin (3.5-5.0) g/dL Globulin (1.7-4.1) g/dL Albumin/Globulin Ratio (1.0-2.8) SARS-CoV-2 (PCR) Negative (Negative) Point of Care Testing Test Results Not applicable Imaging Data Extremity x-ray #1: Radiologist's Impression: PROCEDURE: XR HUMERUS LT 2V INDICATIONS: left upper arm pain after fall TECHNIQUE: 3 views of the humerus were acquired. COMPARISON: None. FINDINGS: Bones: The left shoulder demonstrates anterior dislocation. There is a fracture of the greater tuberosity. Soft tissues: No suspicious soft tissue calcifications. IMPRESSION: Anterior dislocation with fracture of the greater tuberosity Dictated by: Salvador Bedoya M.D. on 04/14/2021 at 15:05 Approved by: Salvador Bedoya M.D. on 04/14/2021 at 15:08 Extremity x-ray #2: Radiologist's Impression: PROCEDURE: XR SHOULDER LT 1V INDICATIONS: reduction of dislocation TECHNIQUE: 1 views of the shoulder were acquired. COMPARISON: [facility], , XR HUMERUS LT 2V, 04/14/2021, 14:30. FINDINGS: Bones: Interval reduction of earlier noted anterior-inferior dislocation at glenohumeral joint is seen. Fracture involving base of the greater tuberosity with laterally displaced fracture fragment is again noted. Overall shoulder alignment has improved since earlier study. Mild to moderate acromioclavicular joint and glenohumeral joint osteoarthritic changes are seen. No suspicious bony lesions. Visualized ribs appear intact. Soft tissues: No suspicious soft tissue calcifications. IMPRESSION: Interval reduction of earlier noted anterior-inferior glenohumeral joint dislocation with improved shoulder alignment. Fracture involving base of the greater tuberosity with slightly displaced fractured fragments. No new fracture or dislocation. Dictated by: Khari Espinoza M.D. on 04/14/2021 at 19:16 Approved by: Khari Espinoza M.D. on 04/14/2021 at 19:18 CT scan - LUE: Radiologist's Impression: PROCEDURE: CT UE LT WO CON INDICATIONS: Post anterior shoulder dislocation reduction TECHNIQUE: Noncontrast 1-1.5 mm thick sections acquired from the acromioclavicular joint to the inferior scapula, with coronal and sagittal reformatting. COMPARISON: None. FINDINGS: Image quality: Excellent. Bones: Acute comminuted fracture involving lateral aspect of humeral head extending to involve greater tuberosity is seen with multiple anterior, lateral and posteriorly displaced fractured fragments. There is also likely Hill-Sachs deformity involving posterior lateral humeral head. There is no glenoid fracture. 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 No suspicious intraosseous lesion. Visualized left upper ribs are intact. Soft tissues: There is no significant glenohumeral joint effusion. No intra- articular loose bodies. No abnormal soft tissue calcifications. Subcutaneous soft tissue edema and swelling along lateral aspect of proximal humerus is seen. No gross full- thickness rotator cuff tendon rupture. No significant rotator cuff muscle atrophy. IMPRESSION: 1. Comminuted fracture involving greater tuberosity of left proximal humerus with mildly displaced fractured fragments. Superimposed Hill-Sachs deformity is also likely present. No evidence of glenoid fracture. Moderate acromioclavicular joint and glenohumeral joint osteoarthritis. 2. No abnormal soft tissue calcifications. No gross full-thickness rotator cuff tendon rupture. No significant joint effusion or intra-articular loose bodies. Dictated by: Khari Espinoza M.D. on 04/14/2021 at 19:44 Approved by: Khari Espinoza M.D. on 04/14/2021 at 19:47 MDM Narrative Medical decision making narrative: Patient is a 76-year-old female presenting to the emergency department today for an evaluation of left arm pain following a ground level fall. To consider fracture versus dislocation versus strain versus sprain. Left humerus x-ray showed anterior dislocation with fracture of the greater tuberosity. Propofol was used for conscious sedation and the dislocation was reduced. Post reduction shoulder x-ray shows interval reduction of earlier noted anterior-inferior glenohumeral joint dislocation with improved shoulder alignment. CT of the left upper extremity was obtained after patient was placed in sling. <Rocio Epperson MD - Last Filed: 04/14/21 21:53> Lab Data Labs: Lab Results 04/14/21 04/14/21 04/14/21 Range/Units 15:30 15:30 20:05 WBC 7.4 (4.5-11.0) X10^3/uL RBC 4.25 (4.0-5.2) X10^6/uL Hgb 13.1 (12.0-16.0) g/dL Hct 39.3 (36-46) % MCV 92.3 (80-100) fL MCH 30.7 (26-34) PG MCHC 33.3 (30-36) % RDW 13.7 (11.6-14.8) % Plt Count 187 (150-400) X10^3/uL Neut % (Auto) 74.1 (50-75) % Lymph % (Auto) 17.3 L (25-40) % [place] % (Auto) 7.0 (3-14) % Eos % (Auto) 0.8 L (2-4) % Baso % (Auto) 0.8 (0-2) % Neut # (Auto) 5500 (7620-9859) /uL Lymph # (Auto) 1300 (4280-3802) /uL [place] # (Auto) 500 (0-900) /uL Eos # (Auto) 100 (0-450) /uL Baso # (Auto) 100 (0-100) /uL Sodium 137 (137-145) mmol/L Potassium 4.3 (3.4-5.1) mmol/L Chloride 102 (98-107) mmol/L Carbon Dioxide 29 (22-32) mmol/L BUN 18 H (7-17) mg/dL Creatinine 0.84 (0.52-1.04) mg/dL Estimated GFR > 60.0 (>60) mL/min BUN/Creatinine Ratio 21.4 (6-22) Glucose 179 H (80-110) mg/dL Calcium 9.4 (8.4-10.2) mg/dL Total Bilirubin 0.5 (0.2-1.3) mg/dL AST 39 H (14-36) IU/L ALT 21 (<35) IU/L Alkaline Phosphatase 64 (38-126) U/L Troponin I (0.01-0.034) ng/mL Total Protein 7.2 (6.3-8.2) g/dL Albumin 4.3 (3.5-5.0) g/dL Globulin 2.9 (1.7-4.1) g/dL Albumin/Globulin Ratio 1.5 (1.0-2.8) SARS-CoV-2 (PCR) Negative (Negative) 04/14/21 04/14/21 Range/Units 20:05 20:15 WBC (4.5-11.0) X10^3/uL RBC (4.0-5.2) X10^6/uL Hgb (12.0-16.0) g/dL Hct (36-46) % MCV (80-100) fL MCH (26-34) PG MCHC (30-36) % RDW (11.6-14.8) % Plt Count (150-400) X10^3/uL Neut % (Auto) (50-75) % Lymph % (Auto) (25-40) % [place] % (Auto) (3-14) % Eos % (Auto) (2-4) % Baso % (Auto) (0-2) % Neut # (Auto) (0833-7633) /uL Lymph # (Auto) (8799-6227) /uL [place] # (Auto) (0-900) /uL Eos # (Auto) (0-450) /uL Baso # (Auto) (0-100) /uL Sodium (137-145) mmol/L Potassium (3.4-5.1) mmol/L Chloride (98-107) mmol/L Carbon Dioxide (22-32) mmol/L BUN (7-17) mg/dL Creatinine (0.52-1.04) mg/dL Estimated GFR (>60) mL/min BUN/Creatinine Ratio (6-22) Glucose (80-110) mg/dL Calcium (8.4-10.2) mg/dL Total Bilirubin (0.2-1.3) mg/dL AST (14-36) IU/L ALT (<35) IU/L Alkaline Phosphatase (38-126) U/L Troponin I < 0.012 (0.01-0.034) ng/mL Total Protein (6.3-8.2) g/dL Albumin (3.5-5.0) g/dL Globulin (1.7-4.1) g/dL Albumin/Globulin Ratio (1.0-2.8) SARS-CoV-2 (PCR) Negative (Negative) Point of Care Testing Test Results Not applicable Imaging Data CT scan - head: Radiologist's Impression: FINDINGS:? Image quality:? Excellent.? ? CSF spaces:? Basal cisterns are patent.? No extra-axial fluid collections.? The ventricles are symmetric in size and shape.? ? Brain:? No intracranial bleeds or masses.? 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 There is cerebral volume loss for age, with resultant ventricular and sulcal prominence.? There are periventricular and deep white matter chronic small vessel ischemic changes.? There is intracranial internal carotid artery atherosclerosis.? ? Skull and face:? Calvarium and visualized facial bones appear intact, without suspicious lesions.? ? Sinuses:? Visualized sinuses and mastoids are clear.? ? IMPRESSION:? No CT evidence of acute intracranial pathology.? No significant changes from previous study.? No acute skull fracture. ? ? Dictated by: Khari Espinoza M.D. on 04/14/2021 at 21:03 ? ? CT - cervical spine: Radiologist's Impression: FINDINGS:? Image quality:? Excellent.? ? Bones:? No fractures or dislocations.? Decreased disc height and degenerative endplate changes throughout cervical spine is seen more prominent at C5-6 and C6-7 levels.? There is suggestion of broad-based disc bulge and bilateral facet hypertrophic changes seen at C4-5 through C6-7 levels causing [id number] central canal stenosis and b ilateral neural foraminal narrowing.? Visualized superior ribs are intact.? ? Soft tissues:? Prevertebral soft tissues are normal in thickness.? No paravertebral hematomas.? No apical pneumothoraces.? ? ? IMPRESSION:? 1. No acute cervical spine fracture or dislocation. 2. Degenerative disc disease throughout cervical spine as above. ? ? Dictated by: Khari Espinoza M.D. on 04/14/2021 at 21:01 ? ? TRauma CT chest/abd/pelvic: Radiologist's Impression: FINDINGS:? Image quality:? Excellent.? ? CHEST:? Lungs:? No pulmonary contusions or lacerations.? There is biapical scarring.? Scattered atelectasis in periphery of bilateral lung boyd are seen.? 5 mm solid nodule is seen in lateral aspect of right middle lobe series 3, image 179. 3 mm solid nodule in anterior aspect of right middle lobe is seen series 3, image 163. 4 mm solid nodule in anterior aspect of left upper lobe is noted series 3, image 148.? Mild centrilobular emphysema is seen.? No acute airspace opacities.? No pneumothorax or hemothorax.? Central and peripheral airways appear patent and normal in caliber.? ? Mediastinum:? No mediastinal hematomas.? Heart size is normal.? No pericardial effusion.? Thoracic aorta and pulmonary arteries demonstrate normal size and enhancement.? Calcified lymph node is seen in right paratracheal space.? No mediastinal or hilar david opathy.? Esophagus is normal in caliber.? There is a large hiatal hernia.? ? Chest wall:? No rib fractures.? No subcutaneous emphysema.? No axillary or supraclavicular adenopathy.? Thyroid gland is within normal limits.? ? ? ABDOMEN:? Solid organs:? Liver is normal in size and enhancement, without lacerations.? Well-circumscribed hypodense area involving left hepatic lobe anterior periphery is seen measures 2.2 x 1.9 cm in size series 2, image 52 and likely represent a hepatic cyst.? Well-circumscribed 6 mm hypodensity in right hepatic lobe is also seen series 2, image 54.? Gallbladder is distended.? A few calcified stones are seen in dependent portion of gallbladder lumen, no discrete gallbladder wall thickening or pericholecystic fluid.? Biliary system is non-dilated.? Pancreas enhances normally, without transection.? Spleen is normal in size and enhancement, without lacerations.? No adrenal hematomas.? Both kidneys enhance normally, without hydronephrosis or lacerations.? ? Peritoneum and bowel:? No free fluid or air.? Unenhanced bowel loops demonstrate normal wall thickness and caliber.? ? Nodes and vessels:? No retroperitoneal or mesenteric adenopathy.? Aorta and inferior vena cava are normal in size and enhancement.? Moderate atherosclerotic calcifications throughout abdominal aorta is seen. ? Miscellaneous:? No ventral hernias.? ? ? PELVIS:? Genitourinary:? Bladder wall thickness is normal.? Uterus and right ovary shows no gross abnormality.? 14.9 x 8.7 x 10.4 cm cystic structure is noted in left adnexa with mild mass effect on the adjacent left lateral wall of ladder series 2, image 101 and series 4, image 40.? ? Miscellaneous:? No inguinal hernias or adenopathy.? ? Bones:? Again noted is comminuted fracture involving lateral aspect of left femoral head and likely presence of Hill-Sachs deformity in left humeral head.? No other fracture or dislocation is seen.? No vertebral compression fractures.? Degenerative disc disease in mid to lower thoracic spine and lumbar spine is seen more prominent at L3-4 and L4-5 levels. ? ? IMPRESSION:? 1. Comminuted fracture involving lateral aspect of left humeral head and greater trochanter better evaluated on dedicated left shoulder CT study performed earlier on the same day.? No other fracture or dislocation is seen.? No compression fracture is seen in thoracic and lumbar spine. 2. Scattered atelectasis and scarring in periphery of bilateral lung boyd.? No pleural effusion or pneumothorax.? Airway is patent.? Incidentally noted of tiny solid nodule seen in right upper and middle lobes as above, suggest CT chest follow-up in 12 months for evaluation of stability. 3.? Cholelithiasis, no CT evidence of acute cholecystitis. 4. No acute solid organ injury is seen in chest, abdomen or pelvis. 5. Incidentally noted of large cystic structure in left adnexa which may represent left ovarian cyst versus cystic neoplasm.? Nonurgent pelvic ultrasound can be done for follow-up.? ? Dictated by: Khari Espinoza M.D. on 04/14/2021 at 21:04 ? ? ECG Data Interpretation: Sinus rhythm at a rate of 76 Normal intervals, normal axis No acute ischemic changes Discharge Plan Departure Patient Disposition: Admitted as Observation Clinical Impression: Uncontrolled pain Fracture of proximal end of humerus Qualifiers: Encounter type: initial encounter Fracture type: closed Fracture morphology: other fracture Fracture alignment: displaced Laterality: left Qualified Code(s): S42.292A - Other displaced fracture of upper end of left humerus, initial encounter for closed fracture Anterior shoulder dislocation Qualifiers: Encounter type: initial encounter Laterality: left Qualified Code(s): S43.015A - Anterior dislocation of left humerus, initial encounter Fall Qualifiers: Encounter type: initial encounter Qualified Code(s): W19.XXXA - Unspecified fall, initial encounter Altered mental status Qualifiers: Altered mental status type: delirium Qualified Code(s): R41.0 - Disorientation, unspecified Admit Date/Time: 04/14/21 21:38 Admit Provider: Cee Parra
[2021-04-14 16:41] LABS: COVID19 - ADMIT (NP swab/PCR) Negative (Negative)
[2021-04-14] MEDS: OXYCODONE IR 5 MG TABLET PO (16:41)
[2021-04-14] MEDS: ACETAMINOPHEN 325 MG TABLET PO (16:41)
--- NOTE | 2021-04-14 16:51 | PC.NURSE ---
sister luis enrique cell # [phone]
--- NOTE | 2021-04-14 19:03 | DI.RAD.S_ITS ---
PROCEDURE: XR SHOULDER LT 1V INDICATIONS: reduction of dislocation TECHNIQUE: 1 views of the shoulder were acquired. COMPARISON: [facility], CR, XR HUMERUS LT 2V, 04/14/2021, 14:30. FINDINGS: Bones: Interval reduction of earlier noted anterior-inferior dislocation at glenohumeral joint is seen. Fracture involving base of the greater tuberosity with laterally displaced fracture fragment is again noted. Overall shoulder alignment has improved since earlier study. Mild to moderate acromioclavicular joint and glenohumeral joint osteoarthritic changes are seen. No suspicious bony lesions. Visualized ribs appear intact. Soft tissues: No suspicious soft tissue calcifications. IMPRESSION: Interval reduction of earlier noted anterior-inferior glenohumeral joint dislocation with improved shoulder alignment. Fracture involving base of the greater tuberosity with slightly displaced fractured fragments. No new fracture or dislocation. Dictated by: Khari Espinoza M.D. on 04/14/2021 at 19:16 Approved by: Khari Espinoza M.D. on 04/14/2021 at 19:18
[2021-04-14] MEDS: propofoL 200 MG/20 ML VIAL 150 MG IV (19:04)
--- NOTE | 2021-04-14 19:19 | DI.CT.S_ITS ---
PROCEDURE: CT UE LT WO CON INDICATIONS: Post anterior shoulder dislocation reduction TECHNIQUE: Noncontrast 1-1.5 mm thick sections acquired from the acromioclavicular joint to the inferior scapula, with coronal and sagittal reformatting. COMPARISON: None. FINDINGS: Image quality: Excellent. Bones: Acute comminuted fracture involving lateral aspect of humeral head extending to involve greater tuberosity is seen with multiple anterior, lateral and posteriorly displaced fractured fragments. There is also likely Hill-Sachs deformity involving posterior lateral humeral head. There is no glenoid fracture. 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 No suspicious intraosseous lesion. Visualized left upper ribs are intact. Soft tissues: There is no significant glenohumeral joint effusion. No intra-articular loose bodies. No abnormal soft tissue calcifications. Subcutaneous soft tissue edema and swelling along lateral aspect of proximal humerus is seen. No gross full-thickness rotator cuff tendon rupture. No significant rotator cuff muscle atrophy. IMPRESSION: 1. Comminuted fracture involving greater tuberosity of left proximal humerus with mildly displaced fractured fragments. Superimposed Hill-Sachs deformity is also likely present. No evidence of glenoid fracture. Moderate acromioclavicular joint and glenohumeral joint osteoarthritis. 2. No abnormal soft tissue calcifications. No gross full-thickness rotator cuff tendon rupture. No significant joint effusion or intra-articular loose bodies. Dictated by: Khari Espinoza M.D. on 04/14/2021 at 19:44 Approved by: Khari Espinoza M.D. on 04/14/2021 at 19:47
[2021-04-14] MEDS: KETOROLAC 30 MG/ML VIAL 15 MG IV (19:20)
[2021-04-14] MEDS: LORazepam 2 MG/ML INJ 0.5 MG IV (19:22)
--- NOTE | 2021-04-14 19:52 | DI.CT.S_ITS ---
PROCEDURE: CT CHEST ABD PEL W CON INDICATIONS: trauma, pain out of proportion TECHNIQUE: After the administration of intravenous contrast, 5 mm thick sections acquired from the lung apices to the symphysis. 2.5 mm thick coronal and sagittal reformats were acquired. Additional 7 mm thick coronal maximum intensity projection (MIP) reformats acquired through the lungs. Optional 10-minute delayed imaging may be performed from the kidneys to the bladder. For radiation dose reduction, the following was used: automated exposure control, adjustment of mA and/or kV according to patient size. COMPARISON: None. FINDINGS: Image quality: Excellent. CHEST: Lungs: No pulmonary contusions or lacerations. There is biapical scarring. Scattered atelectasis in periphery of bilateral lung boyd are seen. 5 mm solid nodule is seen in lateral aspect of right middle lobe series 3, image 179. 3 mm solid nodule in anterior aspect of right middle lobe is seen series 3, image 163. 4 mm solid nodule in anterior aspect of left upper lobe is noted series 3, image 148. Mild centrilobular emphysema is seen. No acute airspace opacities. No pneumothorax or hemothorax. Central and peripheral airways appear patent and normal in caliber. Mediastinum: No mediastinal hematomas. Heart size is normal. No pericardial effusion. Thoracic aorta and pulmonary arteries demonstrate normal size and enhancement. Calcified lymph node is seen in right paratracheal space. No mediastinal or hilar adenopathy. Esophagus is normal in caliber. There is a large hiatal hernia. Chest wall: No rib fractures. No subcutaneous emphysema. No axillary or supraclavicular adenopathy. Thyroid gland is within normal limits. ABDOMEN: Solid organs: Liver is normal in size and enhancement, without lacerations. Well-circumscribed hypodense area involving left hepatic lobe anterior periphery is seen measures 2.2 x 1.9 cm in size series 2, image 52 and likely represent a hepatic cyst. Well-circumscribed 6 mm hypodensity in right hepatic lobe is also seen series 2, image 54. Gallbladder is distended. A few calcified stones are seen in dependent portion of gallbladder lumen, no discrete gallbladder wall thickening or pericholecystic fluid. Biliary system is non-dilated. Pancreas enhances normally, without transection. Spleen is normal in size and enhancement, without lacerations. No adrenal hematomas. Both kidneys enhance normally, without hydronephrosis or lacerations. Peritoneum and bowel: No free fluid or air. Unenhanced bowel loops demonstrate normal wall thickness and caliber. Nodes and vessels: No retroperitoneal or mesenteric adenopathy. Aorta and inferior vena cava are normal in size and enhancement. Moderate atherosclerotic calcifications throughout abdominal aorta is seen. Miscellaneous: No ventral hernias. PELVIS: Genitourinary: Bladder wall thickness is normal. Uterus and right ovary shows no gross abnormality. 14.9 x 8.7 x 10.4 cm cystic structure is noted in left adnexa with mild mass effect on the adjacent left lateral wall of ladder series 2, image 101 and series 4, image 40. Miscellaneous: No inguinal hernias or adenopathy. Bones: Again noted is comminuted fracture involving lateral aspect of left femoral head and likely presence of Hill-Sachs deformity in left humeral head. No other fracture or dislocation is seen. No vertebral compression fractures. Degenerative disc disease in mid to lower thoracic spine and lumbar spine is seen more prominent at L3-4 and L4-5 levels. IMPRESSION: 1. Comminuted fracture involving lateral aspect of left humeral head and greater trochanter better evaluated on dedicated left shoulder CT study performed earlier on the same day. No other fracture or dislocation is seen. No compression fracture is seen in thoracic and lumbar spine. 2. Scattered atelectasis and scarring in periphery of bilateral lung boyd. No pleural effusion or pneumothorax. Airway is patent. Incidentally noted of tiny solid nodule seen in right upper and middle lobes as above, suggest CT chest follow-up in 12 months for evaluation of stability. 3. Cholelithiasis, no CT evidence of acute cholecystitis. 4. No acute solid organ injury is seen in chest, abdomen or pelvis. 5. Incidentally noted of large cystic structure in left adnexa which may represent left ovarian cyst versus cystic neoplasm. Nonurgent pelvic ultrasound can be done for follow-up. Dictated by: Khari Espinoza M.D. on 04/14/2021 at 21:04 Approved by: Khari Espinoza M.D. on 04/14/2021 at 21:13
[2021-04-14] MEDS: HYDROMORPHONE 1 MG INJ IV (19:53)
--- NOTE | 2021-04-14 19:53 | DI.CT.S_ITS ---
PROCEDURE: CT CERVICAL SPINE WO CON INDICATIONS: fall TECHNIQUE: Noncontrast 3 mm thick sections acquired from the skull base to the T4 level. Sagittal and coronal reformats were then constructed. For radiation dose reduction, the following was used: automated exposure control, adjustment of mA and/or kV according to patient size. COMPARISON: None. FINDINGS: Image quality: Excellent. Bones: No fractures or dislocations. Decreased disc height and degenerative endplate changes throughout cervical spine is seen more prominent at C5-6 and C6-7 levels. There is suggestion of broad-based disc bulge and bilateral facet hypertrophic changes seen at C4-5 through C6-7 levels causing [id number] central canal stenosis and bilateral neural foraminal narrowing. Visualized superior ribs are intact. Soft tissues: Prevertebral soft tissues are normal in thickness. No paravertebral hematomas. No apical pneumothoraces. IMPRESSION: 1. No acute cervical spine fracture or dislocation. 2. Degenerative disc disease throughout cervical spine as above. Dictated by: Khari Espinoza M.D. on 04/14/2021 at 21:01 Approved by: Khari Espinoza M.D. on 04/14/2021 at 21:03
--- NOTE | 2021-04-14 19:53 | DI.CT.S_ITS ---
PROCEDURE: CT HEAD/BRAIN WO CON INDICATIONS: altered mental status after fall TECHNIQUE: Noncontrast 4.5 mm thick angled axial sections acquired from the foramen magnum to the vertex, with coronal and sagittal reformats. For radiation dose reduction, the following was used: automated exposure control, adjustment of mA and/or kV according to patient size. COMPARISON: [facility], CT, CT HEAD/BRAIN WO CON, 04/26/2018, 23:06. FINDINGS: Image quality: Excellent. CSF spaces: Basal cisterns are patent. No extra-axial fluid collections. The ventricles are symmetric in size and shape. Brain: No intracranial bleeds or masses. 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 There is cerebral volume loss for age, with resultant ventricular and sulcal prominence. There are periventricular and deep white matter chronic small vessel ischemic changes. There is intracranial internal carotid artery atherosclerosis. Skull and face: Calvarium and visualized facial bones appear intact, without suspicious lesions. Sinuses: Visualized sinuses and mastoids are clear. IMPRESSION: No CT evidence of acute intracranial pathology. No significant changes from previous study. No acute skull fracture. Dictated by: Khari Espinoza M.D. on 04/14/2021 at 21:03 Approved by: Khari Espinoza M.D. on 04/14/2021 at 21:04
[2021-04-14 20:09] LABS: Add Manual Diff / Slide Review NO; Basophils Absolute Auto 100 /uL (0-100); Basophils Percent Auto 0.8 % (0-2); Eosinophils Absolute Auto 100 /uL (0-450); Eosinophils Percent Auto 0.8 % (2-4); Hematocrit 39.3 % (36-46); Hemoglobin 13.1 g/dL (12.0-16.0); Lymphocytes Absolute Auto 1300 /uL (1100-4500); Lymphocytes Percent Auto 17.3 % (25-40); Mean Corpuscular HGB Conc 33.3 % (30-36); Mean Corpuscular Hemoglobin 30.7 PG (26-34); Mean Corpuscular Volume 92.3 fL (80-100); Monocytes Absolute Auto 500 /uL (0-900); Neutrophils Absolute Auto 5500 /uL (1500-7000); Neutrophils Percent Auto 74.1 % (50-75); Platelet Count 187 X10^3/uL (150-400); Red Blood Cell Count 4.25 X10^6/uL (4.0-5.2); Red Cell Distribution Width 13.7 % (11.6-14.8); White Blood Cell Count 7.4 X10^3/uL (4.5-11.0)
[2021-04-14 20:26] LABS: Alanine Aminotransferase 21 IU/L (<35); Albumin 4.3 g/dL (3.5-5.0); Albumin Globulin Ratio 1.5 (1.0-2.8); Alkaline Phosphatase 64 U/L (38-126); Aspartate Aminotransferase 39 IU/L (14-36); BUN Creatinine Ratio 21.4 (6-22); Bilirubin Total 0.5 mg/dL (0.2-1.3); Blood Urea Nitrogen 18 mg/dL (7-17); Calcium 9.4 mg/dL (8.4-10.2); Carbon Dioxide 29 mmol/L (22-32); Chloride 102 mmol/L (98-107); Estimated Glomerular Filt Rate > 60.0 mL/min (>60); Globulin 2.9 g/dL (1.7-4.1); Glucose 179 mg/dL (80-110); HEMOLYSIS < 15 (0-50); Potassium 4.3 mmol/L (3.4-5.1); Sodium 137 mmol/L (137-145); Total Protein 7.2 g/dL (6.3-8.2)
[2021-04-14 20:38] LABS: Troponin I < 0.012 ng/mL (0.01-0.034)
[2021-04-14 21:49] LABS: COVID19 - ADMIT (NP swab/PCR) Negative (Negative)
--- NOTE | 2021-04-14 23:37 | P.HP_ITS ---
History of Present Illness History of Present Illness Date Patient Seen: 04/14/21 Time Patient Seen: 23:37 Chief complaint: Fall Narrative: The patient is a 76-year-old female with a history of anxiety, arthritis, depression, hyperlipidemia, hypothyroidism who was in her usual state of health until earlier today. Patient reports she was in her garage cleaning when she tripped and fell. She had no associated lightheadedness shortness of breath dizzy a tetanus nausea vomiting or diarrhea. Patient states she just lost her balance as there was lots of things in her garage. The patient presented to the emergency room with left arm pain following a fall. She had significant pain in his dish in to numbness and tingling and the left extremity. Patient had multiple imaging studies of the humerus. X-rays revealed anterior dislocation and fracture of the greater tuberosity. The patient did have a follow-up x-ray which revealed reduction of the anterior joint dislocation with improved alignment. There is a fracture involving the base of the greater tube rosity with slightly displaced fractured fragments. The patient had a subsequent upper extremity CT. This revealed a comminuted fracture involving the greater tuberosity of the left proximal humerus with the mildly displaced fracture fragments. There was a superimposed Hill-Sachs deformity. No glenoid fracture. There was no significant joint effusion or intra-articular loose bodies. The patient underwent a CT of the chest abdomen and pelvis. This confirmed a comminuted fracture on the lateral aspect of the left humeral head and greater trochanter. With scattered atelectasis and scarring in the peripheral bilateral lung bases. There was cholelithiasis but no acute cholecystitis. There was a large cystic structure in the left adnexa which may represent an ovarian cyst versus cystic neoplasm. Patient should have a nonurgent pelvic ultrasound as follow-up subsequently. The patient underwent a CT of the cervical spine. This revealed no cervical spine fracture, but there was degenerative disc disease throughout the cervical spine. She also had a head CT. There was no evidence of acute intracranial pathology. No significant changes from her prior study. No acute skull fracture. The patient did have a orthopedic consult from the emergency department. They felt that once the dislocation had been reduce she could be discharged home. Unfortunately she had significant pain and was unable to have her pain managed. She lives home alone she was admitted to the hospital for pain control and ultimate disposition. She required several medications including ketamine, fentanyl, Dilaudid before improvement of her symptoms. Patient History Medical History Anxiety Arthritis Depression History of urinary incontinence Hyperlipidemia Hypothyroidism Surgical History History of dilatation and curettage History of throat surgery Family & Social History Family History (Updated 04/14/21 @ 23:55 by Cee Parra MD) Sister Diabetes mellitus Social History: household members spouse Safety & Behavioral: Feels Safe in Current Yes Environment Been Physically Hurt or No Threatened By a Person Tobacco & Substance use: Smoking Status Never smoker alcohol intake frequency holiday/special occasion Substance Use Type does not use Meds Home Medications and Allergies Home Medications Medication Instructions Recorded Confirmed Type Vitamin D3 1,000 mg PO DAILY 09/05/18 09/05/18 History diclofenac sodium 50 mg 50 mg PO QID PRN 09/05/18 09/05/18 History tablet,delayed release levothyroxine 88 mcg tablet 88 mcg PO DAILY 09/05/18 09/05/18 History atfxrswn-mwlj-yew-folic acid 1 mg 1 tab PO DAILY PRN 09/05/18 09/05/18 History tablet sertraline 100 mg tablet 100 mg PO DAILY 09/05/18 09/05/18 History sertraline 50 mg tablet 50 mg PO DAILY 09/05/18 09/05/18 History Allergies Allergy/AdvReac Type Severity Reaction Status Date / Time No Known Drug Allergies Allergy Verified 04/14/21 14:29 Review of Systems Review of Systems Narrative: 10 point review of systems is negative except as above Exam Vital Signs (past 8 hours): - 04/14/21 15:55 04/14/21 17:34 04/14/21 18:00 Temperature Pulse Rate 68 64 74 Respiratory Rate 18 18 15 Blood Pressure 188/81 H 170/78 H Pulse Oximetry 96 96 96 04/14/21 18:25 04/14/21 18:27 04/14/21 18:30 Temperature Pulse Rate 75 74 76 Respiratory Rate 14 15 15 Blood Pressure 172/79 H 172/79 H 163/77 H Pulse Oximetry 95 95 97 04/14/21 18:35 04/14/21 18:40 04/14/21 18:45 Temperature Pulse Rate 78 79 80 Respiratory Rate 15 15 15 Blood Pressure 163/77 H 164/77 H 160/77 H Pulse Oximetry 96 95 96 04/14/21 18:50 04/14/21 18:55 04/14/21 18:56 Temperature Pulse Rate 79 88 87 Respiratory Rate 12 28 H 20 Blood Pressure 155/75 H 163/81 H Pulse Oximetry 96 97 98 04/14/21 19:00 04/14/21 19:05 04/14/21 19:10 Temperature Pulse Rate 86 79 87 Respiratory Rate 23 35 H 30 H Blood Pressure 154/65 H 178/80 H Pulse Oximetry 96 98 98 04/14/21 19:11 04/14/21 19:15 04/14/21 19:17 Temperature Pulse Rate 86 92 H 87 Respiratory Rate 39 H 33 H 35 H Blood Pressure 197/84 H 156/79 H Pulse Oximetry 100 98 04/14/21 19:20 04/14/21 19:25 04/14/21 19:35 Temperature Pulse Rate 97 H 86 85 Respiratory Rate 43 H 25 H 17 Blood Pressure 162/56 H 160/71 H Pulse Oximetry 99 97 98 04/14/21 19:39 04/14/21 19:40 04/14/21 19:42 Temperature Pulse Rate 84 84 86 Respiratory Rate 10 L 10 L 22 Blood Pressure 196/145 H 160/71 H Pulse Oximetry 96 96 97 04/14/21 19:45 04/14/21 19:46 04/14/21 19:50 Temperature Pulse Rate 88 88 90 Respiratory Rate 24 20 21 Blood Pressure 181/91 H 152/68 H Pulse Oximetry 97 98 97 04/14/21 19:55 04/14/21 20:00 04/14/21 20:05 Temperature Pulse Rate 88 81 80 Respiratory Rate 23 14 21 Blood Pressure 158/72 H 150/73 H 146/66 H Pulse Oximetry 98 95 96 04/14/21 20:10 04/14/21 22:20 Temperature 97.7 F Pulse Rate 78 82 Respiratory Rate 17 18 Blood Pressure 159/73 H 143/79 H Pulse Oximetry 91 94 Oxygen Delivery Method Room Air Oxygen Flow Rate 2 Narrative Exam Narrative: Pleasant female lying in bed more comfortable than earlier but still with some left shoulder pain HENMT Other: HEENT: Normocephalic atraumatic, extraocular muscles are intact, oropharynx is clear Resp Other: Lungs clear to auscultation Cardio Other: Cardiac exam: Regular rate and rhythm normal S1-S2 GI Other: Abdomen soft nontender nondistended Extrem Other: Left arm in a sling Psych Other: Patient is awake alert and appropriate, thought content is normal, no hallucinations, mood and affect appears appropriate Objective Labs Result Diagrams: 04/14/21 15:30 04/14/21 20:05 Labs: Laboratory Results - last 24 hr 04/14/21 04/14/21 04/14/21 15:30 15:30 20:05 WBC 7.4 RBC 4.25 Hgb 13.1 Hct 39.3 MCV 92.3 MCH 30.7 MCHC 33.3 RDW 13.7 Plt Count 187 Neut % (Auto) 74.1 Lymph % (Auto) 17.3 L [place] % (Auto) 7.0 Eos % (Auto) 0.8 L Baso % (Auto) 0.8 Neut # (Auto) 5500 Lymph # (Auto) 1300 [place] # (Auto) 500 Eos # (Auto) 100 Baso # (Auto) 100 Sodium 137 Potassium 4.3 Chloride 102 Carbon Dioxide 29 BUN 18 H Creatinine 0.84 Estimated GFR > 60.0 BUN/Creatinine Ratio 21.4 Glucose 179 H Calcium 9.4 Total Bilirubin 0.5 AST 39 H ALT 21 Alkaline Phosphatase 64 Troponin I Total Protein 7.2 Albumin 4.3 Globulin 2.9 Albumin/Globulin Ratio 1.5 SARS-CoV-2 (PCR) Negative 04/14/21 04/14/21 20:05 20:15 WBC RBC Hgb Hct MCV MCH MCHC RDW Plt Count Neut % (Auto) Lymph % (Auto) [place] % (Auto) Eos % (Auto) Baso % (Auto) Neut # (Auto) Lymph # (Auto) [place] # (Auto) Eos # (Auto) Baso # (Auto) Sodium Potassium Chloride Carbon Dioxide BUN Creatinine Estimated GFR BUN/Creatinine Ratio Glucose Calcium Total Bilirubin AST ALT Alkaline Phosphatase Troponin I < 0.012 Total Protein Albumin Globulin Albumin/Globulin Ratio SARS-CoV-2 (PCR) Negative Assessment & Plan Assessment & Plan narrative: 76-year-old female with a history of hypothyroidism, depression, admitted to the hospital following a ground level fall * Patient suffered a dislocated left shoulder, this was reduced in the emergency department, she has an associated fracture of the greater tuberosity * The patient has significant pain that was difficult to control in the emergency room * Her pain is better controlled at this time * Patient lives alone there is concern regarding her ability for self-care at discharge * Laboratory studies are unremarkable * Imaging studies as above which confirmed a reduced left shoulder dislocation, with a fracture involving the greater tuberosity, all other studies essentially unremarkable, she will require outpatient orthopedic evaluation * Will continue Toradol, Tylenol, Dilaudid for pain control * PT OT consultation tomorrow to determine whether the patient will be able to return home independently or will require nursing home prior to returning home Hypothyroidism * Continue L-thyroxine Depression * Continue Zoloft * Left adnexal cystic structure -patient will require pelvic ultrasound as an outpatient to determine whether this is an ovarian cyst versus cystic neoplasm Patient will be placed on Lovenox for DVT prophylaxis, She reports she is a full code will note that her record accordingly Her sister is her surrogate decision maker and DPOA Patient will be admitted under observation once evaluated by PT OT disposition will be made tomorrow. Time Spent With Patient Critical Care time: I spent a total of [] minutes of critical care time on this patient's care today; this time is exclusive of procedural time.
[2021-04-14] MEDS: KETOROLAC 30 MG/ML VIAL IV (23:47)
[2021-04-14] MEDS: DEXTROSE 5%-0.45% NS 1,000 ML 100 ML IV (23:50)
[2021-04-15] VITALS (7 sets, daily range): BP systolic 127–138; BP diastolic 50–69; PULSE 70–78; RESP 13–18; TEMP 36.6–37.6; O2SAT 94–96
[2021-04-15] MEDS: ACETAMINOPHEN 325 MG TABLET 650 MG PO (04:20)
[2021-04-15] MEDS: CALCIUM CARBONATE 500 MG TAB 1000 MG PO ×2 (06:21→14:42)
[2021-04-15] MEDS: LEVOTHYROXINE 88 MCG TABLET PO (06:21)
[2021-04-15 07:11] LABS: Basophils Absolute Auto 0 /uL (0-100); Basophils Percent Auto 0.3 % (0-2); Eosinophils Absolute Auto 0 /uL (0-450); Eosinophils Percent Auto 0.2 % (2-4); Hematocrit 37.3 % (36-46); Hemoglobin 12.5 g/dL (12.0-16.0); Lymphocytes Absolute Auto 1100 /uL (1100-4500); Lymphocytes Percent Auto 10.9 % (25-40); Mean Corpuscular HGB Conc 33.5 % (30-36); Mean Corpuscular Hemoglobin 30.7 PG (26-34); Mean Corpuscular Volume 91.9 fL (80-100); Monocytes Absolute Auto 800 /uL (0-900); Monocytes Percent Auto 7.5 % (3-14); Neutrophils Absolute Auto 8300 /uL (1500-7000); Neutrophils Percent Auto 81.1 % (50-75); Red Blood Cell Count 4.06 X10^6/uL (4.0-5.2); Red Cell Distribution Width 13.9 % (11.6-14.8); White Blood Cell Count 10.2 X10^3/uL (4.5-11.0)
[2021-04-15 07:24] LABS: BUN Creatinine Ratio 24.1 (6-22); Blood Urea Nitrogen 20 mg/dL (7-17); Calcium 9.2 mg/dL (8.4-10.2); Carbon Dioxide 25 mmol/L (22-32); Chloride 101 mmol/L (98-107); Estimated Glomerular Filt Rate > 60.0 mL/min (>60); Glucose 133 mg/dL (80-110); HEMOLYSIS 34 (0-50); Potassium 4.5 mmol/L (3.4-5.1); Sodium 133 mmol/L (137-145)
[2021-04-15 07:44] LABS: Add Manual Diff / Slide Review SLIDE REVIEW
[2021-04-15 07:45] LABS: Platelet Estimate Adequate on smear; RBC Morphology Normal Morphology
[2021-04-15] MEDS: HYDROCODONE/ACET 5/325 TABLET 2 TAB PO ×2 (08:01→13:30)
[2021-04-15] MEDS: DOCUSATE 100 MG CAPSULE PO ×2 (08:03→22:27)
[2021-04-15] MEDS: ENOXAPARIN 40 MG/0.4 ML SYRINGE SUBCUT (08:03)
--- NOTE | 2021-04-15 09:45 | PT.IIE ---
Medical History (Last Reviewed 04/14/21 @ 23:55 by Cee Parra MD) Anxiety Arthritis Depression History of urinary incontinence Hyperlipidemia Hypothyroidism Physical Therapy Inpatient Evaluation/Re-Eval M1 PT/OT-IP Prior Functional Status Start: 04/15/21 13:37 Freq: NEEDED Status: Active Protocol: Document 04/15/21 09:45 AB (Rec: 04/15/21 13:54 AB [email or web address]) Medical Review Prior Functional Status Medical History Reviewed Yes Communication able to make needs known Mobility and Gait pt stated that she is independent with all mobilities and ambulation without AD Social History Household Members none Living Arrangements House Number of Floors (Floors) One Floor Number of Stairs To Enter/Railing? 2 steps R rail from front entry 2 steps without rails from garage Home Environment High Toilet Home Equipment Front Wheel Walker,Four Wheel Walker,Quad Cane,Straight Cane ,Shower Seat without Backrest, Grab Bars In Shower M2 PT-IP Current Condition Start: 04/15/21 13:37 Freq: NEEDED Status: Active Protocol: Document 04/15/21 09:45 AB (Rec: 04/15/21 13:54 [facility] [place] Physical Therapy Current Condition Current Condition Evaluation Date 04/15/21 Treatment Diagnosis GLF s/p commi L prox humeral fx,L ant humeral disloc w/ reduction; diff walk Onset Date 04/14/21 M3 PT-IP Subjective Start: 04/15/21 13:37 Freq: NEEDED Status: Active Protocol: Document 04/15/21 09:45 AB (Rec: 04/15/21 13:54 [facility] [place] Subjective Physical Therapy Visit Type Type Initial Evaluation Visit Start Time 09:45 Visit Stop Time 10:40 Total Visit Minutes 55 Number of MERCHANDISING EXECUTION MANAGER Visits 0 Physical Therapy Visit Comments Patient Comments agreeable to do PT Therapy Pain Assessment Pain When Pain Assessed At Rest Pain Present Pain Present Pain Reported Location Left Upper Arm Intensity 4 Scale Used increases to 7/10 during mobility Pain Management Techniques Apply Cold,Distraction, Modification of Treatment,Re- positioning,Timing of Activity with Medications M4 PT-IP Mobility and Gait Start: 04/15/21 13:37 Freq: NEEDED Status: Active Protocol: Document 04/15/21 09:45 AB (Rec: 04/15/21 13:54 AB [email or web address]) PT-Bed Mobility Assessment Supine to Sit Supine to Sit Maximum Assistance,1 Person Assistance,2 Person Assistance ,Head of Bed Elevated PT-Transfer Assessment Sit to and From Stand Sit to and from Stand Maximum Assistance,1 Person Assistance,Use of Upper Extremities Equipment Transfer Assistive Device Gait Belt,Front Wheeled Walker Orthotic/Prosthetic Devices or Brace: Yes Transfers Transfer Destination Chair Transfer Technique Stand Step Pivot Transfer Ability Level of Assist Maximum Assistance,1 Person Assistance,Use of Upper Extremities Comments Mobility Comments educated pt on shoulder restrictions/precautions and NWB. pt completed supine to sit max A x 1-2 and max cues. required x 3 attempts to be able to get to sitting position. c/o increase shoulder pain. assisted with sling adjustment/positioning. pt completed sit to stand max A and stand transfer to chair using quad cane max A. agreed to ambulate and completed 10 ft using quad cane max A and max cues. unable to ambulate farther due to c/o increase pain. positioned pt on chair. call light and table placed within reach. Gait Assessment Gait Gait Assistance Required: Maximum Assistance Distance (Feet) 10 Able to Maintain Weight Bearing Status Yes During Gait Assistive Devices Assistive Device Gait Belt,Front Wheeled Walker Orthotic/Prosthetic Devices or Brace: No Gait Deviations General Gait Pattern Antalgic,Decreased Stride Length,Decreased Feet Clearance Factors Limiting Gait Function Factors Limiting Gait Function Decreased Activity Tolerance, Decreased Strength,Difficulty Following Directions,Limited Range of Motion,Pain,Poor Balance,Poor Safety Awareness PT-Balance Assessment Sitting Balance and Reactions Static Sitting Balance Ability Good Dynamic Sitting Balance Ability Fair Standing Balance and Reactions Static Standing Balance Ability Poor Dynamic Standing Balance Ability Poor Device Used quad cane M5 PT-IP Objective Assessments Start: 04/15/21 13:37 Freq: NEEDED Status: Active Protocol: Document 04/15/21 09:45 AB (Rec: 04/15/21 13:54 AB [email or web address]) Orientation Orientation/Cognition Level of Alertness Alert Orientation Name,Place,Situation Safety Awareness Decreased Safety Awareness Gross Range of Motion Lower Extremity ROM Assessment Within Functional Limits Strength Lower Extremity Strength Assessment Left Impaired Hip 4-/5 Knee 3+/5 Muscle Tone Muscle Tone WNL Yes M6 PT-IP Treatment Start: 04/15/21 13:37 Freq: NEEDED Status: Active Protocol: Document 04/15/21 09:45 AB (Rec: 04/15/21 13:54 AB [id number]) Physical Therapy Treatment Education Education Provided Precautions,Weight Bearing Status,Safety M7 PT-IP Assessment and Plan Start: 04/15/21 13:37 Freq: NEEDED Status: Active Protocol: Document 04/15/21 09:45 AB (Rec: 04/15/21 13:54 [id number]) PT Summary Assessment and Plan Potential Rehabilitation Potential Good Status of Condition at Evaluation Evolving Summary Impairments Pain,ROM,Strength,Balance, Coordination,Sensation,Tone, Cognition,Bed Mobility, Transfers,Gait,Activity Tolerance Assessment Summary pt requiring max A and max cues with bed mobility, transfers and ambulation using quad cane and unable to tolerate much activity due to c/o increase pain. Pt will require / assistance availability at this time but pt lives alone and will not have assistance at home. Pt will require SNF rehab at this time to improve strength and independence. Goals Bed Mobility Goal Standby Assistance Transfer Goal Standby Assistance,Cane Gait Goal Standby Assistance,Cane Gait Distance 150 Other Goals up/down 2 steps quad cane SBA Days to Meet Goals 10 Frequency of Treatment Frequency Of Treatment Twice a Day Treatment Plan Physical Therapy Treatment Plan Bed Mobility Training,Transfer Training,Gait Training, Therapeutic Exercise,Balance Retraining,Discharge Planning, Hot or Cold Pack,Neuromuscular Re-ed,Coordination Retraining Precautions Shoulder Precautions Sling Weight Bearing Status Weight Bearing Status Non-Weight Bearing Allowed Weight Bearing Amount (enter % LUE NWB or #) (%) Recommendations To Nursing Amount of Assist Needed 1 Person Assist Discharge Recommendations PT Discharge Recommendations SNF Rehab Transportation Needs at Discharge Wheelchair/Cabulance
[2021-04-15] MEDS: HYDROMORPHONE 0.5 MG INJ IV (10:41)
[2021-04-15] MEDS: KETOROLAC 30 MG/ML VIAL IV (10:43)
--- NOTE | 2021-04-15 12:01 | OT.IP.EVAL ---
Past Medical History (Last Reviewed 04/14/21 @ 23:55 by Cee Parra MD) Anxiety Arthritis Depression History of dilatation and curettage History of throat surgery History of urinary incontinence Hyperlipidemia Hypothyroidism Surgical History (Last Reviewed 04/14/21 @ 23:55 by Cee Parra MD) History of dilatation and curettage History of throat surgery Occupational Therapy Inpatient Evaluation/Re-Eval M1 PT/OT-IP Prior Functional Status Start: 04/15/21 13:37 Freq: NEEDED Status: Active Protocol: Document 04/15/21 15:02 CGR (Rec: 04/15/21 15:20 CGR [id number]) Medical Review Prior Functional Status Medical History Reviewed Yes Communication able to make needs known Mobility and Gait pt stated that she is independent with all mobilities and ambulation without AD Activities of Daily Living and IADL's Pt was IND in all ADLs. Social History Household Members none Living Arrangements House Number of Floors (Floors) One Floor Number of Stairs To Enter/Railing? 2 steps to enter with railing on L assending at front and no rail in garage. Home Environment High Toilet,Tub/Shower Home Equipment Front Wheel Walker,Four Wheel Walker,Quad Cane,Straight Cane ,Shower Seat without Backrest, Grab Bars In Shower Employment Status Retired Additional Social History Comment Pt has a sister that is in town visiting and can stay for a week and an neighbor that is willing to check in on the pt. M1 PT/OT-IP Prior Functional Status Start: 04/15/21 15:02 Freq: NEEDED Status: Active Protocol: Document 04/15/21 15:02 CGR (Rec: 04/15/21 15:20 CGR [id number]) Medical Review Prior Functional Status Medical History Reviewed Yes Communication able to make needs known Mobility and Gait pt stated that she is independent with all mobilities and ambulation without AD Activities of Daily Living and IADL's Pt was IND in all ADLs. Social History Household Members none Living Arrangements House Number of Floors (Floors) One Floor Number of Stairs To Enter/Railing? 2 steps to enter with railing on L assending at front and no rail in garage. Home Environment High Toilet,Tub/Shower Home Equipment Front Wheel Walker,Four Wheel Walker,Quad Cane,Straight Cane ,Shower Seat without Backrest, Grab Bars In Shower Employment Status Retired Additional Social History Comment Pt has a sister that is in town visiting and can stay for a week and an neighbor that is willing to check in on the pt. M2 OT-IP Current Condition Start: 04/15/21 15:02 Freq: Status: Active Protocol: Document 04/15/21 15:02 CGR (Rec: 04/15/21 15:20 CGR [id number]) Occupational Therapy Current Condition Current Condition Evaluation Date 04/15/21 Treatment Diagnosis Fall with L humeral head fx. Diagnosis Onset Date 04/14/21 Weight Bearing Status Weight Bearing Status Non-Weight Bearing M3 OT- IP Subjective and Pain Start: 04/15/21 15:02 Freq: Status: Active Protocol: Document 04/15/21 15:02 CGR (Rec: 04/15/21 15:20 CGR [id number]) OT- Subjective Occupational Therapy Visit Type Type Initial Evaluation Visit Start Time 11:23 Visit Stop Time 12:01 Total Visit Minutes 38 OT Pain Assessment Pain When Pain Assessed At Rest Pain Present Pain Present Denied Pain M4 OT- IP ADL's Start: 04/15/21 15:02 Freq: Status: Active Protocol: Document 04/15/21 15:02 CGR (Rec: 04/15/21 15:20 CGR [id number]) OT [id number] Comments OT Self-Feeding Comments not meal time OT ADL-Grooming General Evaluation Grooming Ability Standby Assistance Areas Needing Assistance Face Washing Comments OT Grooming Comments seated at sink OT ADL-Oral Care Comments Oral Care Comments did not perform. Pt was planning to perform but then got nauseated and returned to chair. OT ADL-Dressing Comments OT Dressing Comments not performed OT ADL-Toileting General Evaluation Toileting Ability Standby Assistance Comments OT Toileting Comments urination seated on toielt OT ADL-Bathing Comments OT Bathing Comments not performed M5 OT- IP IADL's Start: 04/15/21 15:02 Freq: Status: Active Protocol: Document 04/15/21 15:02 CGR (Rec: 04/15/21 15:20 CGR [id number]) OT-Instrumental Activities of Daily Living Deficits IADL Deficits Identified No Deficits Home Safety Awareness Awareness of Need for Assistance at Home Good Awareness Ability to Problem Solve Emergency Able to Problem Solve Situations Medication Management Medication Management No Deficits Identified Money Management Money Management No Deficits Identified Meal Preparation Meal Preparation Caregiver Provides Assist Accounting Systems Analyst Accounting Systems Analyst Caregiver Provides Assist Driving Driving Concerns Identified Regarding Safety M6 OT- IP Functional Cognition Start: 04/15/21 15:02 Freq: Status: Active Protocol: Document 04/15/21 15:02 CGR (Rec: 04/15/21 15:20 CGR [id number]) Cognitive Factors Limiting Selfcare Function Cognitive Ability Level of Alertness Alert Patient Orientation Name,Age,Birthday,Month,Date, Year,Day of Week,Place, Situation Attention Span Ability Capable of Focused Attention, Unable to Sustain Attention Ability to Follow Commands Able to Follow One Step Commands with Increased Time, Able to Follow One Step Commands with Repetition Cognitive Comments Cognitive Assessment Comments Pt is very sleepy during session but is able to answer and participate. OT- Vision and Hearing OT- Hearing Assessment OT- Hearing Assessment WFL OT- Vision Assessment Visual Acuity Glasses All The Time Visual Attentiveness WFL Occular Pursuits WFL Visual Convergence WFL Vision Assessment Comments pt wears trifocals M7 OT- IP Mobility and Balance Start: 04/15/21 15:02 Freq: Status: Active Protocol: Document 04/15/21 15:02 CGR (Rec: 04/15/21 15:20 CGR [id number]) OT-Transfer Assessment Sit to and From Stand Sit to and from Stand Contact Guard Assistance, Minimal Assistance Transfers Transfer Ability Contact Guard Assistance, Minimal Assistance Technique Transfer Destination Chair,Toilet Transfer Technique Stand Step Pivot Devices Transfer Assistive Devices Gait Belt,Small Based Quad Cane Comments Mobility Comments Pt ambulated to toilet from chair then ambulated to sink but reports feeling nauseated and started dryheaving. Bed rolled to pt and pt sat with improvement in symptoms. Pt washed face seated then stood and ambulated ~3 feet to chair . Pt left sitting up in chair. OT- Gait Assessment Gait Gait Assistance Required: Contact Guard Assist,Minimum Assistance Assistive Devices Assistive Device Gait Belt,Small Based Quad Cane Comments Gait Ability Comments Pt needs vc for proper use of quad cane. OT- Balance Assessment Sitting Balance and Reactions Static Sitting Balance Ability Good Dynamic Sitting Balance Ability Good M8 OT- IP Objective Assessments Start: 04/15/21 15:02 Freq: Status: Active Protocol: Document 11/13/21 15:02 CGR (Rec: 04/15/21 15:20 CGR [id number]) OT Gross Range of Motion Upper Extremity Range of Motion Assessment Left Impaired OT Strength Upper Extremity Strength Assessment Left Impaired OT- Coordination Assessment Upper Extremity Finger to Nose Test Left UE Impaired Finger Tapping Test Left UE Impaired OT-Muscle Tone Assessment Muscle Tone WNL Yes OT Sensation Assessment Edema Edema Present Edema Comments LUE M9 OT- IP Assessment and Plan Start: 04/15/21 15:02 Freq: Status: Active Protocol: Document 04/15/21 15:02 CGR (Rec: 04/15/21 15:20 CGR [id number]) OT Summary Assessment and Plan Potential Rehabilitation Potential Good Analytic Complexity at Evaluation High Summary OT Impairments Pain,Range of Motion,Strength, Balance,Coordination, Functional Cognition, Functional Mobility,Grooming, Dressing,Toileting,Bathing, Toilet Transfers,Shower Transfers,Activity Tolerance Progress Towards Goals Slow Progress due to Pain,Slow Progress due to Activity Tolerance Assessment Summary Pt presents as a high complexity evaluation s/p admit for fall with L humeral head fx. Pt appears diaphoretic after getting up to bathroom and requred the bed to be moved for her to sit down. Pt with poor endurance on this date likely d/t medication. Recommend d/c to SNF based on pt's performance today but is likely to progress to ok for d/c home with family assist and home health with private caregivers as needed. Goals Self-Feeding Goal Independent Grooming Goal Independent Dressing Goal Independent Toileting Goal Independent Bathing Goal Independent Toilet Transfer Goal Independent Shower Transfer Goal Independent Days to Meet Goals 10 Frequency of Treatment Frequency Of Treatment Once a Day Treatment Plan OT Treatment Plan ADL Training,Functional Mobility,Patient/Family Education,Discharge Planning Other Treatment Recommendations and Next enduance assessment, shower if Treatment Focus able Discharge Recommendations OT Discharge Recommendations Home vs SNF Home Equipment Needs BSC Transportation Needs at Discharge Private Vehicle
--- NOTE | 2021-04-15 13:03 | CM.DANOTE ---
DCP/Assessment: Reviewed chart. Patient is a 76yr old female admitted [facility]. Primary payor is 1)[employer] 2)Self pay. PCP is Dr. Witt. Met with patient this AM. Patient very pleasant alert and oriented sitting in recliner at time of visit. Patient reports having the most difficulty with controlling pain today. Patient with order to see PT and OT today. Initially, patient thought short term SNF would be beneficial but now she is contemplating going home with home health. Patient's sister currently in town visiting. Initially, sister was going to leave on 04-17 however, she has offered to stay longer to assist patient if needed. Currently patient's preference is to return home with home health. Spoke with Dr. Shah and he reports that he will be working on pain control for this patient today. If patient medically stable may d/c home tomorrow with HH. Current therapy recommendations is home vs. SNF. P: Home with HH vs. SNF when medically appropriate. KJS Discharge Planning/Care Management Advanced directive, confirm from FAMILY Start: 04/15/21 04:09 Freq: Q24H Status: Active Protocol: Document 04/15/21 04:09 (Rec: 04/15/21 04:11 [id number]) Advance Directive, confirm on record Time 04:11 Person contacted caridad Copy received No Time 04:11 Person contacted Caridad Copy received No Advanced directive available on record No CM Discharge Assessment Start: 04/15/21 13:00 Freq: Status: Active Protocol: Document 04/15/21 13:00 KJS (Rec: 04/15/21 13:03 [facility] [id number]) Discharge Planning Assessment Assigned Edger Technician TANK Soni Contact Information Caridad (sister) # Advance Directives? Yes Advance Directives on File Yes: in chart at [facility] History Provided By Patient,Medical Record Prior Living Arrangements House Household Members none Comment Patient's sister in town and can assist for a few days at time of d/c. Type of transporation used prior to Drives own vehicle admit Independent with ADL's Yes Is patient alert and oriented? Yes Needs Assistance With Bathing,Meal Prep,Home Chores / Shopping Caregiver for Another No DME Already Rented / Owned FWW / Walker,Cane Patient/Family Preference Home with Home Health Barriers to Discharge No Discharge Plan Home Transportation Arrangement Family to provide transport. Whiteboard Updated in Patient Room with Yes name and ext. # of Edger Technician Review Status In Process Next Review Type Continued Stay Review
--- NOTE | 2021-04-15 14:44 | P.PN_ITS ---
Subjective Subjective Date Patient Seen: 04/15/21 Time Patient Seen: 14:44 Interval history: continues to have intense L arm pain, required IV pain medications today. Pain medications help but not much. Exam Vital Signs (past 8 hours): - 04/15/21 08:00 04/15/21 12:00 Temperature 99.5 F 97.8 F Pulse Rate 78 70 Respiratory Rate 18 18 Blood Pressure 131/57 L 128/50 L Pulse Oximetry 95 94 Oxygen Delivery Method Room Air Oxygen Flow Rate 0 Narrative Exam Narrative: Pleasant female lying in bed more comfortable than earlier but still with some left shoulder pain HENMT Other:?HEENT:? Normocephalic atraumatic, extraocular muscles are intact, oropharynx is clear Resp Other:?Lungs clear to auscultation Cardio Other:?Cardiac exam: Regular rate and rhythm normal S1-S2 GI Other:?Abdomen soft nontender nondistended Extrem Other:?Left arm in a sling Psych Other:?Patient is awake alert and appropriate, thought content is normal, no martinez llucinations, mood and affect appears appropriate Objective Labs Result Diagrams: 04/15/21 06:55 04/15/21 06:55 Labs: Laboratory Results - last 24 hr 04/14/21 04/14/21 04/14/21 15:30 15:30 20:05 WBC 7.4 RBC 4.25 Hgb 13.1 Hct 39.3 MCV 92.3 MCH 30.7 MCHC 33.3 RDW 13.7 Plt Count 187 Neut % (Auto) 74.1 Lymph % (Auto) 17.3 L Baldwin % (Auto) 7.0 Eos % (Auto) 0.8 L Baso % (Auto) 0.8 Neut # (Auto) 5500 Lymph # (Auto) 1300 Baldwin # (Auto) 500 Eos # (Auto) 100 Baso # (Auto) 100 Platelet Estimate Plt Morphology Comment RBC Morphology Sodium 137 Potassium 4.3 Chloride 102 Carbon Dioxide 29 BUN 18 H Creatinine 0.84 Estimated GFR > 60.0 BUN/Creatinine Ratio 21.4 Glucose 179 H Calcium 9.4 Total Bilirubin 0.5 AST 39 H ALT 21 Alkaline Phosphatase 64 Troponin I Total Protein 7.2 Albumin 4.3 Globulin 2.9 Albumin/Globulin Ratio 1.5 SARS-CoV-2 (PCR) Negative 11/12/21 11/12/21 11/13/21 20:05 20:15 06:55 WBC 10.2 RBC 4.06 Hgb 12.5 Hct 37.3 MCV 91.9 MCH 30.7 MCHC 33.5 RDW 13.9 Plt Count TNP Neut % (Auto) 81.1 H Lymph % (Auto) 10.9 L Baldwin % (Auto) 7.5 Eos % (Auto) 0.2 L Baso % (Auto) 0.3 Neut # (Auto) 8300 H Lymph # (Auto) 1100 Baldwin # (Auto) 800 Eos # (Auto) 0 Baso # (Auto) 0 Platelet Estimate Adequate on smear Plt Morphology Comment RBC Morphology Normal morphology Sodium Potassium Chloride Carbon Dioxide BUN Creatinine Estimated GFR BUN/Creatinine Ratio Glucose Calcium Total Bilirubin AST ALT Alkaline Phosphatase Troponin I < 0.012 Total Protein Albumin Globulin Albumin/Globulin Ratio SARS-CoV-2 (PCR) Negative 04/15/21 06:55 WBC RBC Hgb Hct MCV MCH MCHC RDW Plt Count Neut % (Auto) Lymph % (Auto) Baldwin % (Auto) Eos % (Auto) Baso % (Auto) Neut # (Auto) Lymph # (Auto) Baldwin # (Auto) Eos # (Auto) Baso # (Auto) Platelet Estimate Plt Morphology Comment RBC Morphology Sodium 133 L Potassium 4.5 Chloride 101 Carbon Dioxide 25 BUN 20 H Creatinine 0.83 Estimated GFR > 60.0 BUN/Creatinine Ratio 24.1 H Glucose 133 H Calcium 9.2 Total Bilirubin AST ALT Alkaline Phosphatase Troponin I Total Protein Albumin Globulin Albumin/Globulin Ratio SARS-CoV-2 (PCR) [facility] Medical History Anxiety Arthritis Depression History of urinary incontinence Hyperlipidemia Hypothyroidism Surgical History History of dilatation and curettage History of throat surgery Family History (Updated 04/14/21 @ 23:55 by Cee Parra MD) Sister Diabetes mellitus Social History household members: none Smoking Status: Never smoker Assessment & Plan Assessment & Plan narrative: 76-year-old female with a history of hypothyroidism, depression, admitted to the hospital following a ground level fall. 1. Dislocated left shoulder, reduced. And Left humeral fracture. Likely pathologic after a ground level fall. -Patient suffered a dislocated left shoulder, this was reduced in the emergency department, she has an associated fracture of the greater tuberosity -The patient has significant pain that was difficult to control in the emergency room -Her pain is better controlled at this time, but still significant. -Patient lives alone there is concern regarding her ability for self-care at discharge, continue PT and OT. -Laboratory studies are unremarkable -Imaging studies as above which confirmed a reduced left shoulder dislocation, with a fracture involving the greater tuberosity, all other studies essentially unremarkable, she will require outpatient orthopedic evaluation -Will maximize non-opiate pain management, tylenol, motrin, lidocaine patch, and gabapentin. Opiates for prn relief. -Continue PT/OT 2. Hypothyroidism -Continue L-thyroxine 3. Depression -Continue Zoloft 4. Left adnexal cystic structure -patient will require pelvic ultrasound as an outpatient to determine whether this is an ovarian cyst versus cystic neoplasm Patient will be placed on Lovenox for DVT prophylaxis, She reports she is a full code will note that her record accordingly Her sister is her surrogate decision maker and DPOA Probable discharge home tomorrow if pain is better controlled. Time Spent With Patient Critical Care time: I spent a total of [] minutes of critical care time on this patient's care today; this time is exclusive of procedural time. Quality MIPS - Admit I confirm the patient?s Advance Care Plan is present, Code status is documented, Surrogate decision maker is in patient?s record [If Yes, STOP here]: Yes
[2021-04-15] MEDS: GABAPENTIN 300 MG CAPSULE PO ×2 (14:53→22:27)
[2021-04-15] MEDS: ACETAMINOPHEN 325 MG TABLET 975 MG PO ×2 (14:53→22:26)
--- NOTE | 2021-04-15 15:12 | PT.IPTN ---
Physical Therapy Treatment Note M2 PT-IP Current Condition Start: 04/15/21 13:37 Freq: NEEDED Status: Active Protocol: Document 04/15/21 09:45 AB (Rec: 04/15/21 13:54 AB [id number]) Physical Therapy Current Condition Current Condition Evaluation Date 04/15/21 Treatment Diagnosis GLF s/p commi L prox humeral fx,L ant humeral disloc w/ reduction; diff walk Onset Date 04/14/21 M3 PT-IP Subjective Start: 04/15/21 13:37 Freq: NEEDED Status: Active Protocol: Document 04/15/21 15:12 AB (Rec: 04/15/21 16:02 AB [id number]) Subjective Physical Therapy Visit Type Type Treatment Note Visit Start Time 15:12 Visit Stop Time 15:45 Total Visit Minutes 33 Number of AUTO BODY PAINTER Visits 0 Physical Therapy Visit Comments Patient Comments agreeable to do PT; sister in room with pt Therapy Pain Assessment Pain When Pain Assessed At Rest Pain Present Pain Present Pain Reported Location Left Upper Arm Scale Used pain scale not stated Pain Behaviors Guarding,Holding Area,Moaning, Wincing Pain Management Techniques Apply Cold,Distraction, Modification of Treatment,Re- positioning,Timing of Activity with Medications M4 PT-IP Mobility and Gait Start: 04/15/21 13:37 Freq: NEEDED Status: Active Protocol: Document 04/15/21 15:12 AB (Rec: 04/15/21 16:02 AB [id number]) PT-Transfer Assessment Sit to and From Stand Sit to and from Stand Moderate Assistance,Maximum Assistance,1 Person Assistance ,Use of Upper Extremities Equipment Transfer Assistive Device Gait Belt,Small Based Quad Cane Orthotic/Prosthetic Devices or Brace: Yes Comments Mobility Comments sister in room with pt. From medical case manager's note: pt plans to now go home with sister to assist her and have HHPT. pt' s sister that she can be with pt until . caregiver training conducted. educated sister on pt's shoulder precautions and NWB. educated on sling management. educated on use of safety belt and how to assist pt . sister was able to put safety belt on pt, assisted pt with sit to stand mod to max A and ambulated ~ 10 ft using quad cane mod A and cues. pt presents with unsteady gait with decrease LE elevation and sat back on chair and stated that she is tired and unable to do further activity. informed pt regarding home safety and being able to be more independent. Pt and sister understood and agreed that pt needs 24/7 assistance availability at this time. Gait Assessment Gait Gait Assistance Required: Moderate Assistance,1 Person Assist Distance (Feet) 10 Able to Maintain Weight Bearing Status Yes During Gait Assistive Devices Assistive Device Tripod Cane/Hurry Cane,Small Based Quad Cane Orthotic/Prosthetic Devices or Brace: Yes Gait Deviations General Gait Pattern Ataxic,Decreased Stride Length ,Decreased Feet Clearance,Wide Based Gait Factors Limiting Gait Function Factors Limiting Gait Function Decreased Activity Tolerance, Decreased Strength,Difficulty Following Directions,Limited Range of Motion,Pain,Poor Balance,Poor Safety Awareness M5 PT-IP Objective Assessments Start: 04/15/21 13:37 Freq: NEEDED Status: Active Protocol: Document 04/15/21 09:45 AB (Rec: 04/15/21 13:[email or web address] [facility] Orientation Orientation/Cognition Level of Alertness Alert Orientation Name,Place,Situation Safety Awareness Decreased Safety Awareness Gross Range of Motion Lower Extremity ROM Assessment Within Functional Limits Strength Lower Extremity Strength Assessment Left Impaired Hip 4-/5 Knee 3+/5 Muscle Tone Muscle Tone WNL Yes M6 PT-IP Treatment Start: 04/15/21 13:37 Freq: NEEDED Status: Active Protocol: Document 04/15/21 15:12 AB (Rec: 04/15/21 16:02 AB [id number]) Physical Therapy Treatment Education Education Provided Precautions,Weight Bearing Status,Safety Brace Education [place],Caregiver M7 PT-IP Assessment and Plan Start: 04/15/21 13:37 Freq: NEEDED Status: Active Protocol: Document 04/15/21 15:12 AB (Rec: 04/15/21 16:02 AB [id number]) PT Summary Assessment and Plan Potential Rehabilitation Potential Fair Summary Impairments Pain,ROM,Strength,Balance, Coordination,Sensation,Tone, Cognition,Bed Mobility, Transfers,Gait,Activity Tolerance Assessment Summary caregiver training initiated but pt unable to tolerate much activity. Pt's sister also only can stay until and pt will be alone. pt currently has a L prox comminuted fx and is on a sling and NWB. pt requiring mod to max A for sit to stand and mod A with ambulation using quad cane and unable to ambulate much due to pain. pt will still require SNF rehab at this time and pt is aware. Goals Bed Mobility Goal Standby Assistance Transfer Goal Standby Assistance,Cane Gait Goal Standby Assistance,Cane Gait Distance 150 Other Goals up/down 2 steps quad cane SBA Days to Meet Goals 10 Frequency of Treatment Frequency Of Treatment Twice a Day Treatment Plan Physical Therapy Treatment Plan Bed Mobility Training,Transfer Training,Gait Training, Therapeutic Exercise,Balance Retraining,Discharge Planning, Hot or Cold Pack,Neuromuscular Re-ed,Coordination Retraining Precautions Shoulder Precautions Sling Weight Bearing Status Weight Bearing Status Non-Weight Bearing Allowed Weight Bearing Amount (enter % LUE NWB or #) (%) Recommendations To Nursing Amount of Assist Needed 1 Person Assist Discharge Recommendations PT Discharge Recommendations SNF Rehab Transportation Needs at Discharge Wheelchair/Cabulance
[2021-04-15] MEDS: LIDOCAINE PATCH 1 EACH ADH..PATCH TOP (15:37)
[2021-04-15] MEDS: IBUPROFEN 400 MG TABLET 800 MG PO (22:26)
[2021-04-15] MEDS: SERTRALINE 50 MG TABLET 100 MG PO (22:27)
[2021-04-15] MEDS: SENNOSIDES 8.6 MG TABLET 17.2 MG PO (22:27)
[2021-04-15] MEDS: SODIUM CHLORIDE 0.9% FLUSH 10 ML IV (22:28)
[2021-04-16] MEDS: ACETAMINOPHEN 325 MG TABLET 975 MG PO ×2 (06:12→13:47)
[2021-04-16] MEDS: IBUPROFEN 400 MG TABLET 800 MG PO ×2 (06:14→13:09)
[2021-04-16] MEDS: LEVOTHYROXINE 88 MCG TABLET PO (06:14)
[2021-04-16 06:25] VITALS: BP 151/73; PULSE 84; RESP 17; TEMP 37; O2SAT 95
[2021-04-16 08:36] VITALS: BP 131/56; PULSE 72; RESP 18; TEMP 37.1; O2SAT 92
[2021-04-16] MEDS: DOCUSATE 100 MG CAPSULE PO (08:50)
[2021-04-16] MEDS: GABAPENTIN 300 MG CAPSULE PO ×2 (08:50→14:31)
[2021-04-16] MEDS: CALCIUM CARBONATE 500 MG TAB 1000 MG PO (08:50)
[2021-04-16] MEDS: LIDOCAINE PATCH 1 EACH ADH..PATCH TOP (08:51)
[2021-04-16] MEDS: ENOXAPARIN 40 MG/0.4 ML SYRINGE SUBCUT (08:51)
[2021-04-16] MEDS: SODIUM CHLORIDE 0.9% FLUSH 10 ML IV (08:52)
[2021-04-16] MEDS: OXYCODONE IR 10 MG TABLET PO ×2 (09:23→15:07)
--- NOTE | 2021-04-16 11:51 | PT.IPTN ---
Physical Therapy Treatment Note M2 PT-IP Current Condition Start: 04/15/21 13:37 Freq: NEEDED Status: Active Protocol: Document 04/15/21 09:45 AB (Rec: 04/15/21 13:54 AB [id number]) Physical Therapy Current Condition Current Condition Evaluation Date 04/15/21 Treatment Diagnosis GLF s/p commi L prox humeral fx,L ant humeral disloc w/ reduction; diff walk Onset Date 04/14/21 M3 PT-IP Subjective Start: 04/15/21 13:37 Freq: NEEDED Status: Active Protocol: Document 04/16/21 11:51 AW (Rec: 04/16/21 12:25 AW [id number]) Subjective Physical Therapy Visit Type Type Treatment Note Visit Start Time 11:23 Visit Stop Time 11:51 Total Visit Minutes 28 Notes SPT Araceli participated in tx. Number of MAORI LIAISON ADVISER Visits 0 Physical Therapy Visit Comments Patient Comments Pt had a shower this AM and is willing to participate with PT. Therapy Pain Assessment Pain When Pain Assessed At Rest Pain Present Pain Present Pain Reported Location Left Upper Arm Intensity 6 Scale Used Numeric (0 - 10) Pain Behaviors Guarding,Wincing Pain Management Techniques Apply Cold,Distraction, Modification of Treatment,Re- positioning,Timing of Activity with Medications M4 PT-IP Mobility and Gait Start: 04/15/21 13:37 Freq: NEEDED Status: Active Protocol: Document 04/16/21 11:51 AW (Rec: 04/16/21 12:25 AW [id number]) PT-Transfer Assessment Sit to and From Stand Sit to and from Stand Minimal Assistance,1 Person Assistance,Use of Upper Extremities Equipment Transfer Assistive Device Gait Belt,Small Based Quad Cane Orthotic/Prosthetic Devices or Brace: Yes Transfers Transfer Destination Bed,Chair Transfer Technique Stand Step Pivot Transfer Ability Level of Assist Minimal Assistance,1 Person Assistance,Use of Upper Extremities Comments Mobility Comments Pt was sitting up in chair as PT and SPT arrived. Her sling fit poorly and she agreed to get up to the sink/mirror for fitting. She stood min A x 1 and used SBQC to walk to the mirror min/mod A x 1. Sling was twisted and PT directed pt to sit on the bed. Educated pt on doffing and donning the sling. She then stood and walked back to the mirror for continued education on fitting . Pt then agreed to ambulate in the halls 80 feet with SBQC CGA to the therapy stairs for stair training. She ambulated back to the room in similar fashion and transferred back to the chair. Pt was positioned with legs elevated, pillows under left arm, call light and tray table in reach. Gait Assessment Gait Gait Assistance Required: Contact Guard Assist,Minimum Assistance,1 Person Assist Distance (Feet) 160 Able to Maintain Weight Bearing Status Yes During Gait Assistive Devices Assistive Device Small Based Quad Cane Orthotic/Prosthetic Devices or Brace: Yes Gait Deviations General Gait Pattern Antalgic,Decreased Stride Length,Decreased Feet Clearance,Wide Based Gait Factors Limiting Gait Function Factors Limiting Gait Function Decreased Activity Tolerance, Decreased Strength,Difficulty Following Directions,Limited Range of Motion,Pain,Poor Balance,Poor Safety Awareness Comments Gait Comments See mobility comments for details. Stair Climbing Assessment Evaluation Level of Assist On Stairs Minimal Assistance,Moderate Assistance,1 Person Assistance Devices Stair Climbing Assistive Devices Small Base Quad Cane,Right Railing Technique/Endurance Stair Climbing Direction Ascend and Descend Stair Climbing Technique Step to Step Number of Steps Climbed 3 Stair Climbing Set # Repetitions (reps) 1 Comments Stair Climbing Comments Pt ascended using R rail CGA, turned around at top of stairs , placed SBQC down one step to descend and then had LOB requiring therapist assist to arrest a fall. Pt stated her LOB destiny her which hurt her left arm. Pt was able to descend remaining steps with SBQC held in right hand min/ mod A x 1 and then walked back to the room. PT-Balance Assessment Sitting Balance and Reactions Static Sitting Balance Ability Good Dynamic Sitting Balance Ability Good Standing Balance and Reactions Static Standing Balance Ability Fair Dynamic Standing Balance Ability Poor Device Used quad cane M5 PT-IP Objective Assessments Start: 04/15/21 13:37 Freq: NEEDED Status: Active Protocol: Document 04/15/21 09:45 AB (Rec: 04/15/21 13:54 AB [id number]) Orientation Orientation/Cognition Level of Alertness Alert Orientation Name,Place,Situation Safety Awareness Decreased Safety Awareness Gross Range of Motion Lower Extremity ROM Assessment Within Functional Limits Strength Lower Extremity Strength Assessment Left Impaired Hip 4-/5 Knee 3+/5 Muscle Tone Muscle Tone WNL Yes M6 PT-IP Treatment Start: 04/15/21 13:37 Freq: NEEDED Status: Active Protocol: Document 04/16/21 11:51 AW (Rec: 04/16/21 12:25 AW [id number]) Physical Therapy Treatment Education Education Provided Precautions,Weight Bearing Status,Safety Brace Education Roberto Sanders,Patient M7 PT-IP Assessment and Plan Start: 04/15/21 13:37 Freq: NEEDED Status: Active Protocol: Document 04/16/21 11:51 AW (Rec: 04/16/21 12:25 AW [id number]) PT Summary Assessment and Plan Potential Rehabilitation Potential Good Summary Impairments Pain,ROM,Strength,Balance, Coordination,Sensation,Tone, Cognition,Bed Mobility, Transfers,Gait,Activity Tolerance Progress Towards Goals Progressing Toward Goals,Slow Progress due to Pain,Slow Progress - Other Assessment Summary Pt tolerated increase in activity today but continued to require CGA to min assist for ambulation with SBQC and up to mod assist for stair navigation. She had a LOB on the stairs requiring therapist assist to arrest a fall. Pt expresses desire to go home with home health. This PT spoke briefly with pt's sister who will only be able to stay with the pt until at the latest and is 84 years old herself. Pt will need 24/7 assist with all mobility at discharge and would benefit from SNF rehab to improve her mobility independence before returning home. Goals Bed Mobility Goal Standby Assistance Transfer Goal Standby Assistance,Cane Gait Goal Standby Assistance,Cane Gait Distance 150 Other Goals up/down 2 steps quad cane SBA Days to Meet Goals 10 Frequency of Treatment Frequency Of Treatment Twice a Day Treatment Plan Physical Therapy Treatment Plan Bed Mobility Training,Transfer Training,Gait Training, Therapeutic Exercise,Balance Retraining,Discharge Planning, Hot or Cold Pack,Neuromuscular Re-ed,Coordination Retraining Precautions Shoulder Precautions Sling Weight Bearing Status Weight Bearing Status Non-Weight Bearing Allowed Weight Bearing Amount (enter % LUE NWB or #) (%) Recommendations To Nursing Amount of Assist Needed 1 Person Assist Discharge Recommendations PT Discharge Recommendations Home with 24/7 Assist Available,Home Health,SNF Rehab Transportation Needs at Discharge Wheelchair/Cabulance
--- NOTE | 2021-04-16 12:25 | PT.IPTN ---
Physical Therapy Treatment Note M2 PT-IP Current Condition Start: 04/15/21 13:37 Freq: NEEDED Status: Active Protocol: Document 04/15/21 09:45 AB (Rec: 04/15/21 13:54 AB [id number]) Physical Therapy Current Condition Current Condition Evaluation Date 04/15/21 Treatment Diagnosis GLF s/p commi L prox humeral fx,L ant humeral disloc w/ reduction; diff walk Onset Date 04/14/21 M3 PT-IP Subjective Start: 04/15/21 13:37 Freq: NEEDED Status: Active Protocol: Document 04/16/21 11:51 AW (Rec: 04/16/21 12:25 AW [id number]) Subjective Physical Therapy Visit Type Type Treatment Note Visit Start Time 11:23 Visit Stop Time 11:51 Total Visit Minutes 28 Notes SPT Araceli participated in tx. Number of POSITIVE PRINTER OPERATOR Visits 0 Physical Therapy Visit Comments Patient Comments Pt had a shower this AM and is willing to participate with PT. Therapy Pain Assessment Pain When Pain Assessed At Rest Pain Present Pain Present Pain Reported Location Left Upper Arm Intensity 6 Scale Used Numeric (0 - 10) Pain Behaviors Guarding,Wincing Pain Management Techniques Apply Cold,Distraction, Modification of Treatment,Re- positioning,Timing of Activity with Medications M4 PT-IP Mobility and Gait Start: 04/15/21 13:37 Freq: NEEDED Status: Active Protocol: Document 04/16/21 11:51 AW (Rec: 04/16/21 12:25 AW [id number]) PT-Transfer Assessment Sit to and From Stand Sit to and from Stand Minimal Assistance,1 Person Assistance,Use of Upper Extremities Equipment Transfer Assistive Device Gait Belt,Small Based Quad Cane Orthotic/Prosthetic Devices or Brace: Yes Transfers Transfer Destination Bed,Chair Transfer Technique Stand Step Pivot Transfer Ability Level of Assist Minimal Assistance,1 Person Assistance,Use of Upper Extremities Comments Mobility Comments Pt was sitting up in chair as PT and SPT arrived. Her sling fit poorly and she agreed to get up to the sink/mirror for fitting. She stood min A x 1 and used SBQC to walk to the mirror min/mod A x 1. Sling was twisted and PT directed pt to sit on the bed. Educated pt on doffing and donning the sling. She then stood and walked back to the mirror for continued education on fitting . Pt then agreed to ambulate in the halls 80 feet with SBQC CGA to the therapy stairs for stair training. She ambulated back to the room in similar fashion and transferred back to the chair. Pt was positioned with legs elevated, pillows under left arm, call light and tray table in reach. Gait Assessment Gait Gait Assistance Required: Contact Guard Assist,Minimum Assistance,1 Person Assist Distance (Feet) 160 Able to Maintain Weight Bearing Status Yes During Gait Assistive Devices Assistive Device Small Based Quad Cane Orthotic/Prosthetic Devices or Brace: Yes Gait Deviations General Gait Pattern Antalgic,Decreased Stride Length,Decreased Feet Clearance,Wide Based Gait Factors Limiting Gait Function Factors Limiting Gait Function Decreased Activity Tolerance, Decreased Strength,Difficulty Following Directions,Limited Range of Motion,Pain,Poor Balance,Poor Safety Awareness Comments Gait Comments See mobility comments for details. Stair Climbing Assessment Evaluation Level of Assist On Stairs Minimal Assistance,Moderate Assistance,1 Person Assistance Devices Stair Climbing Assistive Devices Small Base Quad Cane,Right Railing Technique/Endurance Stair Climbing Direction Ascend and Descend Stair Climbing Technique Step to Step Number of Steps Climbed 3 Stair Climbing Set # Repetitions (reps) 1 Comments Stair Climbing Comments Pt ascended using R rail CGA, turned around at top of stairs , placed SBQC down one step to descend and then had LOB requiring therapist assist to arrest a fall. Pt stated her LOB destiny her which hurt her left arm. Pt was able to descend remaining steps with SBQC held in right hand min/ mod A x 1 and then walked back to the room. PT-Balance Assessment Sitting Balance and Reactions Static Sitting Balance Ability Good Dynamic Sitting Balance Ability Good Standing Balance and Reactions Static Standing Balance Ability Fair Dynamic Standing Balance Ability Poor Device Used quad cane M5 PT-IP Objective Assessments Start: 04/15/21 13:37 Freq: NEEDED Status: Active Protocol: Document 04/15/21 09:45 AB (Rec: 04/15/21 13:54 AB [id number]) Orientation Orientation/Cognition Level of Alertness Alert Orientation Name,Place,Situation Safety Awareness Decreased Safety Awareness Gross Range of Motion Lower Extremity ROM Assessment Within Functional Limits Strength Lower Extremity Strength Assessment Left Impaired Hip 4-/5 Knee 3+/5 Muscle Tone Muscle Tone WNL Yes M6 PT-IP Treatment Start: 04/15/21 13:37 Freq: NEEDED Status: Active Protocol: Document 04/16/21 11:51 AW (Rec: 04/16/21 12:25 AW [id number]) Physical Therapy Treatment Education Education Provided Precautions,Weight Bearing Status,Safety Brace Education Roberto Sanders,Patient M7 PT-IP Assessment and Plan Start: 04/15/21 13:37 Freq: NEEDED Status: Active Protocol: Document 04/16/21 11:51 AW (Rec: 04/16/21 12:25 AW [id number]) PT Summary Assessment and Plan Potential Rehabilitation Potential Good Summary Impairments Pain,ROM,Strength,Balance, Coordination,Sensation,Tone, Cognition,Bed Mobility, Transfers,Gait,Activity Tolerance Progress Towards Goals Progressing Toward Goals,Slow Progress due to Pain,Slow Progress - Other Assessment Summary Pt tolerated increase in activity today but continued to require CGA to min assist for ambulation with SBQC and up to mod assist for stair navigation. She had a LOB on the stairs requiring therapist assist to arrest a fall. Pt expresses desire to go home with home health. This PT spoke briefly with pt's sister who will only be able to stay with the pt until at the latest and is 84 years old herself. Pt will need 24/7 assist with all mobility at discharge and would benefit from SNF rehab to improve her mobility independence before returning home. Goals Bed Mobility Goal Standby Assistance Transfer Goal Standby Assistance,Cane Gait Goal Standby Assistance,Cane Gait Distance 150 Other Goals up/down 2 steps quad cane SBA Days to Meet Goals 10 Frequency of Treatment Frequency Of Treatment Twice a Day Treatment Plan Physical Therapy Treatment Plan Bed Mobility Training,Transfer Training,Gait Training, Therapeutic Exercise,Balance Retraining,Discharge Planning, Hot or Cold Pack,Neuromuscular Re-ed,Coordination Retraining Precautions Shoulder Precautions Sling Weight Bearing Status Weight Bearing Status Non-Weight Bearing Allowed Weight Bearing Amount (enter % LUE NWB or #) (%) Recommendations To Nursing Amount of Assist Needed 1 Person Assist Discharge Recommendations PT Discharge Recommendations Home with 24/7 Assist Available,Home Health,SNF Rehab Transportation Needs at Discharge Wheelchair/Cabulance
[2021-04-16 12:26] VITALS: BP 129/63; PULSE 74; RESP 18; TEMP 37.2; O2SAT 93
--- NOTE | 2021-04-16 13:30 | PM.DS.1 ---
History of Present Illness History of Present Illness Date Patient Seen: 04/16/21 Time Patient Seen: 13:30 Chief complaint: Fall Narrative: Per Dr. Parra , The patient is a 76-year-old female with a history of anxiety, arthritis, depression, hyperlipidemia, hypothyroidism who was in her usual state of health until earlier today.? Patient reports she was in her garage cleaning when she tripped and fell.? She had no associated lightheadedness shortness of breath dizzy a tetanus nausea vomiting or diarrhea.? Patient states she just lost her balance as there was lots of things in her garage.? The patient presented to the emergency room with left arm pain following a fall.? She had significant pain in his dish in to numbness and tingling and the left extremity.? Patient had multiple imaging studies of the humerus.? X-rays revealed anterior dislocation and fracture of the greater tuberosity.? The patient did have a follow-up x-ray which revealed reduction of the anterior joint dislocation with improved alignment.? There is a fracture involving the base of the greater tuberosity with slightly displaced fractured fragments.? The patient had a subsequent upper extremity CT.? This revealed a comminuted fracture involving the greater tuberosity of the left proximal humerus with the mildly displaced fracture fragments.? There was a superimposed Hill-Sachs deformity.? No glenoid fracture.? There was no significant joint effusion or intra-articular loose bodies.? The patient underwent a CT of the chest abdomen and pelvis.? This confirmed a comminuted fracture on the lateral aspect of the left humeral head and greater trochanter.? With scattered atelectasis and scarring in the peripheral bilateral lung bases.? There was cholelithiasis but no acute cholecystitis.? There was a large cystic structure in the left adnexa which may represent an ovarian cyst versus cystic neoplasm.? Patient should have a nonurgent pelvic ultrasound as follow-up subsequently.? The patient underwent a CT of the cervical spine.? This revealed no cervical spine fracture, but there was degenerative disc disease throughout the cervical spine.? She also had a head CT.? There was no evidence of acute intracranial pathology.? No significant changes from her prior study.? No acute skull fracture.? The patient did have a orthopedic consult from the emergency department.? They felt that once the dislocation had been reduce she could be discharged home.? Unfortunately she had significant pain and was unable to have her pain managed.? She lives home alone she was admitted to the hospital for pain control and ultimate disposition.? She required several medications including ketamine, fentanyl, Dilaudid before improvement of her symptoms. Discharge Providers Provider Date of admission: 04/14/21 21:38 Discharge Date: 04/16/21 Primary care physician: Nick Witt MD Consults: 04/14/21 23:15 Consult to Occupational Therapy Evaluate & Treat Comment: Physician Instructions: Evaluate and treat Consult to Physical Therapy Evaluate & Treat Comment: Physician Instructions: Evaluate and Treat Discharge provider: Devin Shah DO Summary Hospital Course Discharge Diagnosis: 1. Dislocated left shoulder, reduced. And Left humeral fracture. Likely pathologic after a ground level fall. 2. Hypothyroidism 3. Depression 4. Left adnexal cystic structure Hospital Course: 76-year-old female with a history of hypothyroidism, depression, admitted to the hospital following a ground level fall. She was found to have a dislocated left shoulder as well as a left humeral fracture. She had significant pain and difficulty moving in the emergency room. This improved over the course of her admission. She is able to move around with adequate pain control with a combination of opiate and non opiate pain remedies. She was discharged home with home. She will follow-up with Orthopedic surgery as an outpatient as was recommended in the emergency room. She was also found to have a left adnexal cystic structure and she is recommended to have an outpatient transvaginal ultrasound and follow-up with her primary care provider. Exam Vital Signs (past 8 hours): - 04/16/21 06:25 04/16/21 08:36 04/16/21 12:26 Temperature 98.6 F 98.7 F 98.9 F Pulse Rate 84 72 74 Respiratory Rate 17 18 18 Blood Pressure 151/73 H 131/56 L 129/63 Pulse Oximetry 95 92 93 Oxygen Delivery Method Room Air Oxygen Flow Rate 0 Narrative Exam Narrative: Pleasant female lying in bed more comfortable than earlier but still with some left shoulder pain HENMT Other:?HEENT:? Normocephalic atraumatic, extraocular muscles are intact, oropharynx is clear Resp Other:?Lungs clear to auscultation Cardio Other:?Cardiac exam: Regular rate and rhythm normal S1-S2 GI Other:?Abdomen soft nontender nondistended Extrem Other:?Left arm in a sling Psych Other:?Patient is awake alert and appropriate, thought content is normal, no hallucinations, mood and affect appears appropriate Objective Labs Result Diagrams: 04/15/21 06:55 04/15/21 06:55 [facility] Medical History Anxiety Arthritis Depression History of urinary incontinence Hyperlipidemia Hypothyroidism Surgical History History of dilatation and curettage History of throat surgery Family History (Updated 04/14/21 @ 23:55 by Cee Parra MD) Sister Diabetes mellitus Social History household members: none Smoking Status: Never smoker Discharge Plan Discharge Plan Patient Disposition: Home Provider Discharge Comment: You were admitted to the hospital with a dislocation and humerus fracture after a fall. Please call the orthopedic clinic tomorrow at to schedule a follow up appointment. Pain medications sent to [facility]. Instead of ibuprofen you can continue diclofenac at home. Discharge orders & Medications Prescriptions: New acetaminophen 325 mg Tablet 975 mg PO Q8H 30 Days Qty: 270 RF: 0 lidocaine 5 % Adhesive Patch,Medicated 1 ea topical BEDTIME 30 Days Qty: 30 RF: 0 gabapentin [Neurontin] 300 mg Capsule 300 mg PO TID 30 Days Qty: 90 RF: 0 oxycodone 10 mg Tablet 10 mg PO Q3HR PRN (Reason: Pain, Severe (7-10)) 7 Days Qty: 40 RF: 0 Continued sertraline 100 mg Tablet 100 mg PO DAILY RF: 0 levothyroxine 88 mcg Tablet 88 mcg PO DAILY RF: 0 diclofenac sodium 50 mg Tablet,Delayed Release (Dr/Ec) 50 mg PO QID PRN (Reason: arthritis) RF: 0 sertraline 50 mg Tablet 50 mg PO DAILY RF: 0 fovrtvyp-tocf-uqg-folic acid 1 mg Tablet 1 tab PO DAILY PRN (Reason: if i feel like it) RF: 0 Vitamin D3 1,000 mg PO DAILY RF: 0 Follow up/Referrals: Bruna Montelongo MD [Physician] - 2 Weeks Nick Witt MD [Primary Care Provider] - Diet/Activity/Treatments Diet: Diet as Tolerated Activity: As tolerated Visit Report/Discharge Packet Instructions: Shoulder Dislocation, DI for Shoulder Dislocation, How to Prevent Falls, DI for Prescription Opioid Use, Moderate Sedation Discharge Data Primary Care Provider: Nick Witt Attending Provider: Cee Parra
--- NOTE | 2021-04-16 14:20 | CM.DPC ---
DCP/continued: Reviewed chart. Per provider patient medically stable to d/c home with home health. SOAKER SODA WORKER met with patient and she is aware and agreeable to plan. Patient has no preference in HH agencies therefore, call made to [facility]. Per Raina they can accept referral and they plan to start services on 04-18-21. All information faxed to Raina including, order, F2F, and d/c summary. SOAKER SODA WORKER met with patient and sister/Caridad. All aware and agreeable to d/c plan. No additional d/c planning needs identified. P: Home today with HH arranged through [facility]. TANK Soni
--- NOTE | 2021-04-16 15:49 | PT.IPTN ---
Physical Therapy Treatment Note M2 PT-IP Current Condition Start: 04/15/21 13:37 Freq: NEEDED Status: Active Protocol: Document 04/15/21 09:45 AB (Rec: 04/15/21 13:54 AB [id number]) Physical Therapy Current Condition Current Condition Evaluation Date 04/15/21 Treatment Diagnosis GLF s/p commi L prox humeral fx,L ant humeral disloc w/ reduction; diff walk Onset Date 04/14/21 M3 PT-IP Subjective Start: 04/15/21 13:37 Freq: NEEDED Status: Active Protocol: Document 04/16/21 15:49 AW (Rec: 04/16/21 16:05 AW [id number]) Subjective Physical Therapy Visit Type Type Treatment Note Visit Start Time 15:25 Visit Stop Time 15:49 Total Visit Minutes 24 Notes SPT Araceli participated in tx. Pt's sister, Caridad, was present and participated in caregiver training. Number of APPETIZER PACKER Visits 0 Physical Therapy Visit Comments Patient Comments Pt is preparing for discharge. Therapy Pain Assessment Pain When Pain Assessed At Rest Pain Present Pain Present Pain Reported Location Left Upper Arm Scale Used not quantified Pain Behaviors Guarding,[place] Pain Management Techniques Apply Cold,Distraction, Modification of Treatment,Re- positioning,Timing of Activity with Medications M4 PT-IP Mobility and Gait Start: 04/15/21 13:37 Freq: NEEDED Status: Active Protocol: Document 04/16/21 15:49 JG (Rec: 04/16/21 16:11 JG [id number]) PT-Transfer Assessment Sit to and From Stand Sit to and from Stand Contact Guard Assistance,1 Person Assistance,Use of Upper Extremities Equipment Transfer Assistive Device Gait Belt,Small Based Quad Cane Orthotic/Prosthetic Devices or Brace: Yes Transfers Transfer Destination Chair Transfer Technique Stand Step Pivot Transfer Ability Level of Assist Minimal Assistance,1 Person Assistance,Use of Upper Extremities Comments Mobility Comments Pt was sitting up in chair when PT and SPT arrived. Her sister Caridad was present. Pt agreed to practice fitting the sling and stair amb for her sister to undergo caregiver training. Pt sit>stand, amb chair>sink mirror CGA w/quad cane. Pt stood for sling fitting practice CGA for several minutes. Pt sat in wc while going to/from therapeutic stairs. Pt ascend/ descend three 6 inch stairs CGA w/quad cane. During sling fitting and stair amb, PT provided sister w/caregiver education and pt w/verbal cues . Pt stand>sit CGA. Pt was able to maintain seated balance but required max A for donning clothing items for discharge. Gait Assessment Gait Gait Assistance Required: Contact Guard Assist,Minimum Assistance,1 Person Assist Distance (Feet) 20 Able to Maintain Weight Bearing Status Yes During Gait Assistive Devices Assistive Device Small Based Quad Cane Orthotic/Prosthetic Devices or Brace: Yes Gait Deviations General Gait Pattern Antalgic,Decreased Stride Length,Decreased Feet Clearance,Wide Based Gait Factors Limiting Gait Function Factors Limiting Gait Function Decreased Activity Tolerance, Decreased Strength,Difficulty Following Directions,Limited Range of Motion,Pain,Poor Balance,Poor Safety Awareness Comments Gait Comments See mobility comments for details. Stair Climbing Assessment Evaluation Level of Assist On Stairs Contact Guard Assistance,1 Person Assistance Devices Stair Climbing Assistive Devices Small Base Quad Cane,Right Railing Technique/Endurance Stair Climbing Direction Ascend and Descend Stair Climbing Technique Step to Step Number of Steps Climbed 3 Stair Climbing Set # Repetitions (reps) 1 Comments Stair Climbing Comments Pt ascended using R rail CGA, turned around at top of stairs , and reported that she didn't have a railing for garage steps where she will be accessing house after discharge. Pt descended stairs CGA w/SBQC. Pt maintained balance during stair amb. PT-Balance Assessment Sitting Balance and Reactions Static Sitting Balance Ability Good Dynamic Sitting Balance Ability Good Standing Balance and Reactions Static Standing Balance Ability Fair Dynamic Standing Balance Ability Poor Device Used quad cane M5 PT-IP Objective Assessments Start: 04/15/21 13:37 Freq: NEEDED Status: Active Protocol: Document 04/15/21 09:45 AB (Rec: 04/15/21 13:54 AB [id number]) Orientation Orientation/Cognition Level of Alertness Alert Orientation Name,Place,Situation Safety Awareness Decreased Safety Awareness Gross Range of Motion Lower Extremity ROM Assessment Within Functional Limits Strength Lower Extremity Strength Assessment Left Impaired Hip 4-/5 Knee 3+/5 Muscle Tone Muscle Tone WNL Yes M6 PT-IP Treatment Start: 04/15/21 13:37 Freq: NEEDED Status: Active Protocol: Document 04/16/21 15:49 AW (Rec: 04/16/21 16:05 AW [id number]) Physical Therapy Treatment Education Education Provided Precautions,Weight Bearing Status,Safety Brace Education Donning,[place],Patient, Caregiver Other Treatments Other Treatment Performed Continued to educate pt and her sister on proper fit of soft sling. Pt's sister was able to don the sling after pt got dressed. M7 PT-IP Assessment and Plan Start: 04/15/21 13:37 Freq: NEEDED Status: Active Protocol: Document 04/16/21 15:49 AW (Rec: 04/16/21 16:05 AW [id number]) PT Summary Assessment and Plan Summary Impairments Pain,ROM,Strength,Balance, Coordination,Sensation,Tone, Cognition,Bed Mobility, Transfers,Gait,Activity Tolerance Progress Towards Goals Progressing Toward Goals,Slow Progress due to Pain,Slow Progress - Other Assessment Summary Pt required CGA to min assist for ambulation with SBQC and transfers. Her sister was able to guard and provide appropriate cues. Both pt and her sister understood and could demonstrate donning/ doffing the sling. Pt understands recommendation for SNF rehab but would like to go home with her sister assisting and home health services. Goals Bed Mobility Goal Standby Assistance Transfer Goal Standby Assistance,Cane Gait Goal Standby Assistance,Cane Gait Distance 150 Other Goals up/down 2 steps quad cane SBA Days to Meet Goals 10 Frequency of Treatment Frequency Of Treatment Twice a Day Treatment Plan Physical Therapy Treatment Plan Bed Mobility Training,Transfer Training,Gait Training, Therapeutic Exercise,Balance Retraining,Discharge Planning, Hot or Cold Pack,Neuromuscular Re-ed,Coordination Retraining Precautions Shoulder Precautions Sling Weight Bearing Status Weight Bearing Status Non-Weight Bearing Allowed Weight Bearing Amount (enter % LUE NWB or #) (%) Recommendations To Nursing Amount of Assist Needed 1 Person Assist Discharge Recommendations PT Discharge Recommendations Home with 24/12 Assist Available,Home Health,SNF Rehab,Home vs SNF Transportation Needs at Discharge Private Vehicle,Wheelchair/ Cabulance
--- NOTE | 2021-04-16 16:13 | PC.NURSE ---
Day shift: Paperwork signed and all questions answered. Cleared by PT. Arm in sling. Pt agrees that she will call [facility] for f/u tomorrow. This is in Dr Urias d/c writings. Pt's Sister in room for teachings. scripts sent to Pt's pharmacy electronic. Pt has all personal belongings. CMS remains intact BLE's. Taken to car in WC by SUSY Coronado. Pt was having pain 7/10 on discharge as she worked with PT just prior. Left unit at approx 1415.
--- NOTE | 2021-04-18 14:36 | CM.DPNOTE ---
Late entry, Faxed dc summary to [facility] and received confirm. Mariia Jacome CM assist.
== END 2021-04-16 16:15 | disposition home or self-care (01) ==
LOC: ED 15:06 → AC 21:39
PROVIDERS: Emergency Medicine; Admitting Provider Internal Medicine; Emergency Provider Physician Assistant; PCP Internal Medicine; Visit Provider Internal Medicine
DX: S43.015A Anterior dislocation of left humerus, initial encounter (principal); S42.252A Displaced fracture of greater tuberosity of left humerus, initial encounter for closed fracture; W01.0XXA Fall on same level from slipping, tripping and stumbling without subsequent striking against object, initial encounter; Y93.01 Activity, walking, marching and hiking; G89.11 Acute pain due to trauma; R41.0 Disorientation, unspecified; R93.89 Abnormal findings on diagnostic imaging of other specified body structures; F32.9 Major depressive disorder, single episode, unspecified; E03.9 Hypothyroidism, unspecified; F41.9 Anxiety disorder, unspecified; Z20.822 Contact with and (suspected) exposure to COVID-19
CPT/HCPCS: 23675; 36415; 70450; 71260; 72125; 73020; 73060; 73200; 74177; 80048; 80053; 84484; 85025; 87635; 93005; 93010; 94760; 94762; 96374; 96375; 96376; 97116; 97162; 97167; 97530; 97535; 99152; 99285; 99291; C9803; G0378; J1170; J1650; J1885; J2060; J2704; Q9967

== ENCOUNTER → 2021-07-06 12:44 | Outpatient (CLI) | payer OTHER, SELFPAY ==
[2021-04-14 22:20] VITALS: BMI 35.4
--- NOTE | 2021-07-06 | DI.MRI.S_ITS ---
PROCEDURE: MR SHOULDER LT WO CON INDICATIONS: Pain in left shoulder TECHNIQUE: Noncontrast oblique coronal T2 fast spin echo with fat saturation, oblique sagittal T1 spin echo and T2 fast spin echo with fat saturation, axial T1 spin echo and T2 fast spin echo with fat saturation through the shoulder. COMPARISON: [facility] [place], [place], XR SHOULDER 2+ VIEWS LEFT, 06/22/2021, 11:00. FINDINGS: Image quality: Excellent. Rotator cuff: There is mild T2 signal elevation throughout the supraspinatus and infraspinatus tendons at the humeral insertion sites, extending the musculotendinous junctions, indicating tendinopathy. Full-thickness tearing of the mid and posterior supraspinatus tendon at the humeral insertion site measuring roughly 15 mm anteroposterior. Subscapularis and teres minor tendons are intact. Bones and bursae: No bone marrow contusions nor acute fractures. Flattening deformity of the superior humeral head, suggestive of Hill-Sachs deformity. Moderate acromioclavicular joint degeneration. The acromion demonstrates conventional anatomy, without an os acromiale. No pathologic subacromial-subdeltoid or subcoracoid bursal fluid is present. Capsule and soft tissues: Labrum grossly unremarkable The long head of the biceps tendon demonstrates normal location and morphology. The rotator interval appears normal, without fibrosis. The coracohumeral ligament is normal in thickness. IMPRESSION: 1. 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 2. Acromioclavicular joint osteoarthritis. 3. Possible Hill-Sachs deformity of the humeral head. Dictated by: Zayda Vanessa M.D. on 07/06/2021 at 14:16 Approved by: Zayda Vanessa M.D. on 07/06/2021 at 14:17
== END ==
PROVIDERS: PCP Internal Medicine; Referring Provider Orthopaedic Surgery; Visit Provider Orthopaedic Surgery
DX: M75.122 Complete rotator cuff tear or rupture of left shoulder, not specified as traumatic (principal); M19.012 Primary osteoarthritis, left shoulder; M25.512 Pain in left shoulder
CPT/HCPCS: 73221

== ENCOUNTER → 2021-08-03 10:13 | Outpatient (CLI) | payer OTHER, SELFPAY ==
[2021-04-14 22:20] VITALS: BMI 35.4
--- NOTE | 2021-08-03 10:14 | DI.MG.S_ITS ---
BILATERAL DIGITAL SCREENING MAMMOGRAM 3D/2D WITH CAD: 08/03/2021 CLINICAL: Routine screening. Family history of breast cancer. Comparison is made to exams dated: 06/14/2020 mammogram, 08/29/2018 mammogram, and 08/06/2017 mammogram - [facility]. There are scattered fibroglandular elements in both breasts. Current study was also evaluated with a Computer Aided Detection (CAD) system. There are benign calcifications in both breasts. There also is a biopsy clip in the right breast. No significant masses, calcifications, or other findings are seen in either breast. There has been no significant interval change. IMPRESSION: BENIGN There is no mammographic evidence of malignancy. A 1 year screening mammogram is recommended. This exam was interpreted at Station ID: [id number]. NOTE: For mammograms, a report in lay terms will be sent to the patient. Approximately 15% of breast malignancies will not be visualized mammographically. In the management of a palpable breast mass, a negative mammogram must not discourage biopsy of a clinically suspicious lesion. Electronically Signed By: Pretty white/joseph:08/03/2021 15:08:35 letter sent: Normal Exam ACR BI-RADS Category 2: Benign Finding(s) 3342F
== END ==
PROVIDERS: Family Provider Internal Medicine; PCP Internal Medicine; Referring Provider Internal Medicine; Visit Provider Internal Medicine
DX: Z12.31 Encounter for screening mammogram for malignant neoplasm of breast (principal); Z80.3 Family history of malignant neoplasm of breast
CPT/HCPCS: 77063; 77067

== ENCOUNTER → 2021-09-18 16:48 | Outpatient (CLI) | payer OTHER, SELFPAY ==
[2021-04-14 22:20] VITALS: BMI 35.4
[2021-09-18 18:44] LABS: Cancer Antigen 125 6.7 U/mL (0-35); Carcinoembryonic Antigen 1.5 ng/mL (0.1-3.0)
[2021-09-19 06:19] LABS: Cancer (Carbohydrate) Ag 19-9 12 U/mL (0-35)
[2021-09-20 13:03] LABS: Human Epididymis Prot 4 85.3 pmol/L (0.0-96.9)
== END ==
PROVIDERS: Family Provider Internal Medicine; PCP Internal Medicine; Referring Provider Obstetrics & Gynecology; Visit Provider Obstetrics & Gynecology
DX: N83.202 Unspecified ovarian cyst, left side (principal); N94.89 Other specified conditions associated with female genital organs and menstrual cycle
CPT/HCPCS: 36415; 82378; 86301; 86304; 86305

== ENCOUNTER 2021-09-24 15:40 | Emergency (ER) | payer OTHER, SELFPAY ==
[2021-04-14 22:20] VITALS: BMI 35.4
[2021-09-24 15:48] VITALS: BP 171/74; PULSE 85; RESP 18; TEMP 38.2; O2SAT 94; BMI 35.2
--- NOTE | 2021-09-24 16:07 | ED.CHESTPAIN ---
HPI - Chest Pain General Chief Complaint: Chest Pain Stated Complaint: Feels ill, body aches, chills Time Seen by Provider: 09/24/21 16:04 Source: patient Mode of arrival: Ambulatory Limitations: no limitations History of Present Illness HPI narrative: Patient is a 76-year-old female history of hypothyroid and no left ovarian mass presenting today with vomiting last night and low-grade fever. Up 3 times last night. She denies any diarrhea she is having some periumbilical pain as well. No diarrhea. She says that she hurts from head to toe and has for number of months. She previously my cell in April and had a CT scan which did find a left ovarian mass she just now set up with [facility] on September 18 and is getting further evaluation and biopsy as well. She denies any chest palpitations shortness of breath cough painful or frequent urination. Patient is also complaining of some chest discomfort. She says she has had this numerous times it is nonradiating she denies any shortness of breath with exertion. This does not feel any different than her previous times of chest discomfort. She has no known coronary artery disease. Related Data Home Medications Medication Instructions Recorded Confirmed Vitamin D3 1,000 mg PO DAILY 09/05/18 09/18/21 diclofenac sodium 50 mg 50 mg PO QID PRN 09/05/18 09/18/21 tablet,delayed release levothyroxine 88 mcg tablet 88 mcg PO DAILY 09/05/18 09/18/21 vqvusjni-cozb-zlk-folic acid 1 mg 1 tab PO DAILY PRN 09/05/18 09/18/21 tablet sertraline 100 mg tablet 100 mg PO DAILY 09/05/18 09/18/21 sertraline 50 mg tablet 50 mg PO DAILY 09/05/18 09/18/21 oxybutynin chloride 5 mg 5 mg PO DAILY 09/18/21 09/18/21 tablet,extended release 24 hr Previous Rx's Medication Instructions Recorded ondansetron 4 mg disintegrating 4 mg PO Q8H PRN #10 tab 09/24/21 tablet Allergies Allergy/AdvReac Type Severity Reaction Status Date / Time No Known Drug Allergies Allergy Verified 09/24/21 15:53 Review of Systems Review of Systems Narrative: GENERAL: Denies chills, fatigue, malaise, fever, sweats, travel HEENT: Denies sinus pain, ear pain, sore throat, difficulty swallowing, neck pain RESPIRATORY: Denies dyspnea, cough, wheezing, hemoptysis, sputum. CARDIOVASCULAR: Denies chest pain, palpitations, orthopnea, edema GASTROINTESTINAL: Denies nausea, vomiting, abdominal pain, diarrhea, constipation, melena. : Denies dysuria, frequency, incontinence, hematuria, urinary retention, flank pain. MUSCULOSKELETAL: Denies weakness, joint pain, or bony pain SKIN: No rash, no erythema, no pruritus NEUROLOGIC: Denies weakness, dizziness, headache, numbness, change in speech, confusion PSYCHIATRIC: No concerning psychosocial issues. 12 point review of systems is negative except for those stated above and HPI Patient History Medical History Anxiety Arthritis Depression History of urinary incontinence Hyperlipidemia Hypothyroidism Surgical History History of dilatation and curettage History of throat surgery Family History Sister Diabetes mellitus Social History household members: none Smoking Status: Never smoker Smoking Status: Never smoker alcohol intake frequency: holidays/special occasions only Substance Use Type: does not use Exam Initial Vital Signs Initial Vital Signs: Vital Signs Temperature 100.8 F H 09/24/21 15:48 Pulse Rate 85 09/24/21 15:48 Respiratory Rate 18 09/24/21 15:48 Blood Pressure 171/74 H 09/24/21 15:48 Pulse Oximetry 94 09/24/21 15:48 GENERAL: Alert 76-year-old femaleand in no acute distress. HEENT: Head atraumatic,EOMI, pupils reactive, face symmetric, moist mucous membranes CARDIOVASCULAR: Regular rate and rhythm without murmurs, rubs or gallops. RESPIRATORY: Breath sounds equal bilaterally, no wheezes rales or rhonchi. ABDOMEN: Soft, mid periumbilical and epigastric pain no lower abdominal tenderness no right upper quadrant tenderness no guarding or rebound EXTREMITIES: Normal range of motion, no clubbing or edema. Neurovascularly intact NEUROLOGICAL: Alert and oriented x4.Normal gait and speech. SKIN: Warm, dry, no laceration, no petechiae, no rashes or lesions. Course Orders Ordered: ED Orders 09/24/21 16:00 COVID19 -Nasal RAPID/Pre-Proc Stat Complete Blood Count AUTO DIFF Stat Comprehensive Metabolic Panel Stat Lactate (Lactic Acid) Stat Lipase Stat Procalcitonin Stat Troponin I Stat 09/24/21 16:14 CT abdomen pelvis w con Stat 09/24/21 16:20 Blood Culture Stat 09/24/21 17:24 Urine Microscopic Stat Ondansetron HCl (Ondansetron 4 Mg Odt Prepack) 1 bottle MISC SEEINSTR ONE Stop: 09/24/21 17:50 Discontinued Medications Sodium Chloride (Normal Saline 0.9%) 1,000 mls @ 1,000 mls/hr IV BOLUS ONE Stop: 09/24/21 17:13 Last Admin: 09/24/21 16:22 Dose: 1,000 mls/hr Documented by: ISABEL Vital Signs Vital signs: Vital Signs - 8 hr 09/24/21 15:48 Temperature 100.8 F H Pulse Rate 85 Respiratory Rate 18 Blood Pressure 171/74 H Pulse Oximetry 94 MDM - Chest Pain Lab Data Result diagrams: 09/24/21 16:00 09/24/21 16:00 Labs: Lab Results 09/24/21 09/24/21 09/24/21 Range/Units 16:00 16:00 16:00 WBC 12.8 H (4.5-11.0) X10^3/uL RBC 4.59 (4.0-5.2) X10^6/uL Hgb 13.7 (12.0-16.0) g/dL Hct 40.9 (36-46) % MCV 89.2 (80-100) fL MCH 30.0 (26-34) PG MCHC 33.6 (30-36) % RDW 13.5 (11.6-14.8) % Plt Count 262 (150-400) X10^3/uL Neut % (Auto) 86.8 H (50-75) % Lymph % (Auto) 7.1 L (25-40) % [place] % (Auto) 5.8 (3-14) % Eos % (Auto) 0.1 L (2-4) % Baso % (Auto) 0.2 (0-2) % Neut # (Auto) 03804 H (0109-5049) /uL Lymph # (Auto) 900 L (2662-4293) /uL [place] # (Auto) 700 (0-900) /uL Eos # (Auto) 0 (0-450) /uL Baso # (Auto) 0 (0-100) /uL Sodium 134 L (137-145) mmol/L Potassium 4.1 (3.4-5.1) mmol/L Chloride 99 (98-107) mmol/L Carbon Dioxide 25 (22-32) mmol/L BUN 17 (7-17) mg/dL Creatinine 0.76 (0.52-1.04) mg/dL Estimated GFR > 60 (>60) mL/min BUN/Creatinine Ratio 22.4 H (6-22) Glucose 145 H (80-110) mg/dL Lactate 1.6 (0.7-2.1) mmol/L Calcium 9.9 (8.4-10.2) mg/dL Total Bilirubin 0.7 (0.2-1.3) mg/dL AST 26 (14-36) IU/L ALT 16 (<35) IU/L Alkaline Phosphatase 77 (38-126) U/L Troponin I < 0.012 (0.01-0.034) ng/mL Total Protein 7.6 (6.3-8.2) g/dL Albumin 4.4 (3.5-5.0) g/dL Globulin 3.2 (1.7-4.1) g/dL Albumin/Globulin Ratio 1.4 (1.0-2.8) Lipase 80 (23-300) U/L Procalcitonin (<0.5) ng/mL SARS-CoV-2 (PCR) (Negative) 09/24/21 09/24/21 Range/Units 16:00 16:00 WBC (4.5-11.0) X10^3/uL RBC (4.0-5.2) X10^6/uL Hgb (12.0-16.0) g/dL Hct (36-46) % MCV (80-100) fL MCH (26-34) PG MCHC (30-36) % RDW (11.6-14.8) % Plt Count (150-400) X10^3/uL Neut % (Auto) (50-75) % Lymph % (Auto) (25-40) % [place] % (Auto) (3-14) % Eos % (Auto) (2-4) % Baso % (Auto) (0-2) % Neut # (Auto) (7340-1196) /uL Lymph # (Auto) (8315-5143) /uL [place] # (Auto) (0-900) /uL Eos # (Auto) (0-450) /uL Baso # (Auto) (0-100) /uL Sodium (137-145) mmol/L Potassium (3.4-5.1) mmol/L Chloride (98-107) mmol/L Carbon Dioxide (22-32) mmol/L BUN (7-17) mg/dL Creatinine (0.52-1.04) mg/dL Estimated GFR (>60) mL/min BUN/Creatinine Ratio (6-22) Glucose (80-110) mg/dL Lactate (0.7-2.1) mmol/L Calcium (8.4-10.2) mg/dL Total Bilirubin (0.2-1.3) mg/dL AST (14-36) IU/L ALT (<35) IU/L Alkaline Phosphatase (38-126) U/L Troponin I (0.01-0.034) ng/mL Total Protein (6.3-8.2) g/dL Albumin (3.5-5.0) g/dL Globulin (1.7-4.1) g/dL Albumin/Globulin Ratio (1.0-2.8) Lipase (23-300) U/L Procalcitonin 0.05 (<0.5) ng/mL SARS-CoV-2 (PCR) Negative (Negative) Urine Dip Bedside Urine Glucose Negative Bedside Urine Bilirubin - Negative Bedside Urine Ketone - Negative Urine Specific Gre[place] 1.015 Bedside Urine Occult Blood ++ Bedside Urine pH 7 Bedside Urine Protein - Negative Bedside Urine Urobilinogen - Negative Bedside Urine Nitrite - Negative Bedside Urine Leukocytes + [address] scan - abdomen/pelvis: Radiologist's Impression: Date of Service: 09/24/21 Loc: ED Accession Number: [id number] ?? Procedure: CT abdomen pelvis w con Ordering Provider: Farideh Hull D.O. PROCEDURE:? CT ABDOMEN PELVIS W CON ? INDICATIONS:? 76-year-old female with vomiting, history of ovarian mass ? TECHNIQUE:? After the administration of intravenous contrast, axial sections acquired from the lung bases to the pubic symphysis.? Coronal and sagittal reformats were performed.? For radiation dose reduction, the following was used:? automated exposure control, adjustment of mA and/or kV according to patient size.? ? COMPARISON:? [facility], CT, CT CHEST ABD PEL W CON, 04/14/2021, 20:33. ? FINDINGS: ? Lower thorax: The lung bases are clear.? Heart size normal.? Moderate hiatal hernia present with irregular wall thickening. ? Liver:? Several hepatic cysts noted, stable from the prior exam. ? Biliary system:? Cholelithiasis and gallbladder distension present.? No intra or extrahepatic bile duct dilatation. ? Pancreas:? Unremarkable without mass or inflammation evident. ? Spleen:? Normal in size and density. ? Adrenals:? Normal morphology and density. ? Reproductive system:? Large cystic structure in the left adnexa is again noted unchanged measuring 15 x 9 cm ? Urinary system:? Normal renal size and attenuation. No renal calculi, hydronephrosis, or solid mass present.? Urinary bladder unremarkable. ? Gastrointestinal system:? The bowel is unremarkable without evidence of bowel obstruction or inflammation. The stomach appears unremarkable.? Moderate fecal debris throughout the colon ? Appendix:? Normal appendix identified.? No evidence of appendicitis. ? Peritoneal spaces:? No mesenteric or retroperitoneal adenopathy.? No free air.? No free fluid.? ? Vasculature:? Aortic atherosclerotic vascular calcification noted without evidence of aneurysm. ? Abdominal wall:? Small periumbilical ventral hernia contains fat without bowel involvement ? Musculoskeletal:? Normal bone mineralization.? Degenerative disc disease and arthropathy noted in lower lumbar spine.? Severe central stenosis noted at L4-5? No acute fractures.? ? ? IMPRESSION: ? 1. Moderate hiatal hernia with irregular wall thickening is stable in size from the prior exam.? Consider follow-up direct visualization to assess wall thickening. ? 2. Moderate fecal debris throughout the colon without bowel obstruction ? 3. Cholelithiasis without CT evidence of acute cholecystitis. ? 4. Large left adnexal cystic lesion, stable ? ? ? Approved by: Gaetano Cohen M.D. on 09/24/2021 at 16:30? ECG Data Interpretation: Normal sinus rhythm rate 82 HI interval 134 QRS [address] changes no T-wave inversions MDM Narrative Medical decision making narrative: Patient having symptoms of vomiting last evening. Probable gastroenteritis. She has a stable ovarian cyst with negative cancer markers. This is being closely followed as an outpatient. She was also experiencing some chest discomfort. She has a negative troponin negative EKG this has also happened to her numerous times not any worse today. Patient is tolerating fluids without any difficulty. No signs of significant dehydration. Discussed oral rehydration and with her. Discharge Plan Departure Patient Disposition: Home Clinical Impression: Gastroenteritis Instructions: DI for Viral Gastroenteritis -- Adult Activity Restrictions/Additional Instructions: 1) You have been diagnosed with gastroenteritis 2) What to do: Drink frequent but small amounts of fluids. I recommend Gatorade or a Gatorade-like product, as it has small amounts of sugar and salts that improve fluid retention. (Pedialyte is also a good option) 3) Take medications as directed Zofran 4 mg every 8 hours if needed for nausea or vomiting 4) Follow up with your primary care provider in 2-3 days Please follow-up with [facility] in regards to your ovarian cyst 5) Return to ER if you should have any new or worsening symptoms such as, unable to hold down fluids despite use of anti-nausea medications and the small volume oral rehydration strategy. Prescriptions: New ondansetron 4 mg tablet,disintegrating 4 mg PO Q8H PRN (Reason: nausea and vomiting) Qty: 10 0RF No Action oxybutynin chloride 5 mg tablet extended release 24 hr 5 mg PO DAILY 0RF sertraline 100 mg Tablet 100 mg PO DAILY 0RF levothyroxine 88 mcg Tablet 88 mcg PO DAILY 0RF diclofenac sodium 50 mg Tablet,Delayed Release (Dr/Ec) 50 mg PO QID PRN (Reason: arthritis) 0RF sertraline 50 mg Tablet 50 mg PO DAILY 0RF Label Comments: Pt no longer taking 50 mcg. SHe takes 100 mcg currently tqytbnpz-rafr-fmq-folic acid 1 mg Tablet 1 tab PO DAILY PRN (Reason: if i feel like it) 0RF Label Comments: Pt stated I am no longer taking this. Vitamin D3 1,000 mg PO DAILY 0RF Referrals: Edna Carter MD [Physician] - Sun Oliva MD [Primary Care Provider] -
[2021-09-24 16:10] LABS: Add Manual Diff / Slide Review NO; Basophils Absolute Auto 0 /uL (0-100); Basophils Percent Auto 0.2 % (0-2); Eosinophils Absolute Auto 0 /uL (0-450); Eosinophils Percent Auto 0.1 % (2-4); Hematocrit 40.9 % (36-46); Hemoglobin 13.7 g/dL (12.0-16.0); Lymphocytes Absolute Auto 900 /uL (1100-4500); Lymphocytes Percent Auto 7.1 % (25-40); Mean Corpuscular HGB Conc 33.6 % (30-36); Mean Corpuscular Volume 89.2 fL (80-100); Monocytes Absolute Auto 700 /uL (0-900); Monocytes Percent Auto 5.8 % (3-14); Neutrophils Absolute Auto 11100 /uL (1500-7000); Neutrophils Percent Auto 86.8 % (50-75); Platelet Count 262 X10^3/uL (150-400); Red Blood Cell Count 4.59 X10^6/uL (4.0-5.2); Red Cell Distribution Width 13.5 % (11.6-14.8); White Blood Cell Count 12.8 X10^3/uL (4.5-11.0)
--- NOTE | 2021-09-24 16:14 | DI.CT.S_ITS ---
PROCEDURE: CT ABDOMEN PELVIS W CON INDICATIONS: 76-year-old female with vomiting, history of ovarian mass TECHNIQUE: After the administration of intravenous contrast, axial sections acquired from the lung bases to the pubic symphysis. Coronal and sagittal reformats were performed. For radiation dose reduction, the following was used: automated exposure control, adjustment of mA and/or kV according to patient size. COMPARISON: [facility], CT, CT CHEST ABD PEL W CON, 04/14/2021, 20:33. FINDINGS: Lower thorax: The lung bases are clear. Heart size normal. Moderate hiatal hernia present with irregular wall thickening. Liver: Several hepatic cysts noted, stable from the prior exam. Biliary system: Cholelithiasis and gallbladder distension present. No intra or extrahepatic bile duct dilatation. Pancreas: Unremarkable without mass or inflammation evident. Spleen: Normal in size and density. Adrenals: Normal morphology and density. Reproductive system: Large cystic structure in the left adnexa is again noted unchanged measuring 15 x 9 cm Urinary system: Normal renal size and attenuation. No renal calculi, hydronephrosis, or solid mass present. Urinary bladder unremarkable. Gastrointestinal system: The bowel is unremarkable without evidence of bowel obstruction or inflammation. The stomach appears unremarkable. Moderate fecal debris throughout the colon Appendix: Normal appendix identified. No evidence of appendicitis. Peritoneal spaces: No mesenteric or retroperitoneal adenopathy. No free air. No free fluid. Vasculature: Aortic atherosclerotic vascular calcification noted without evidence of aneurysm. Abdominal wall: Small periumbilical ventral hernia contains fat without bowel involvement Musculoskeletal: Normal bone mineralization. Degenerative disc disease and arthropathy noted in lower lumbar spine. Severe central stenosis noted at L4-5 No acute fractures. IMPRESSION: 1. Moderate hiatal hernia with irregular wall thickening is stable in size from the prior exam. Consider follow-up direct visualization to assess wall thickening. 2. Moderate fecal debris throughout the colon without bowel obstruction 3. Cholelithiasis without CT evidence of acute cholecystitis. 4. Large left adnexal cystic lesion, stable Approved by: Gaetano Cohen M.D. on 09/24/2021 at 16:30
[2021-09-24] MEDS: SODIUM CHLORIDE 0.9% 1,000 ML 1000 ML IV (16:22)
[2021-09-24 16:46] LABS: Alanine Aminotransferase 16 IU/L (<35); Albumin 4.4 g/dL (3.5-5.0); Albumin Globulin Ratio 1.4 (1.0-2.8); Alkaline Phosphatase 77 U/L (38-126); Aspartate Aminotransferase 26 IU/L (14-36); BUN Creatinine Ratio 22.4 (6-22); Bilirubin Total 0.7 mg/dL (0.2-1.3); Blood Urea Nitrogen 17 mg/dL (7-17); Calcium 9.9 mg/dL (8.4-10.2); Carbon Dioxide 25 mmol/L (22-32); Chloride 99 mmol/L (98-107); Estimated Glomerular Filt Rate > 60 mL/min (>60); Globulin 3.2 g/dL (1.7-4.1); Glucose 145 mg/dL (80-110); HEMOLYSIS < 15 (0-50); Lipase 80 U/L (23-300); Potassium 4.1 mmol/L (3.4-5.1); Sodium 134 mmol/L (137-145); Total Protein 7.6 g/dL (6.3-8.2)
[2021-09-24 16:47] LABS: COVID19 -Nasal RAPID Negative (Negative); Lactate (Lactic Acid) 1.6 mmol/L (0.7-2.1)
[2021-09-24 16:58] LABS: Troponin I < 0.012 ng/mL (0.01-0.034)
[2021-09-24 17:03] LABS: Procalcitonin 0.05 ng/mL (<0.5)
[2021-09-24 17:25] VITALS: PULSE 77; RESP 24; O2SAT 96
[2021-09-24 17:30] VITALS: BP 152/60; PULSE 78; RESP 25; TEMP 37.1; O2SAT 96
--- NOTE | 2021-09-24 17:49 | PC.NURSE ---
Pt tolerate PO fluids well
[2021-09-24 17:50] LABS: Bacteria Urine None Seen; Culture Indicated Urine Specimen Cultured; RBC Urine 0-1/HPF (0-5/HPF); WBC Urine 5-10/HPF (0-5/HPF)
[2021-09-24] MEDS: ONDANSETRON 4 MG ODT PREPACK 1 BOTTLE MISC (17:52)
== END 2021-09-24 17:58 | disposition home or self-care (01) ==
PROVIDERS: Emergency Medicine; Emergency Provider Emergency Medicine; Family Provider Internal Medicine; PCP Internal Medicine
DX: K52.9 Noninfective gastroenteritis and colitis, unspecified (principal); Z20.822 Contact with and (suspected) exposure to COVID-19
CPT/HCPCS: 36415; 74177; 80053; 81003; 81015; 83605; 83690; 84145; 84484; 85025; 87040; 87086; 87635; 93005; 96360; 99284; C9803; Q9967

== ENCOUNTER → 2022-01-23 09:00 | Outpatient (CLI) | payer OTHER, SELFPAY ==
[2021-04-14 22:20] VITALS: BMI 35.4
[2022-01-23 11:17] LABS: Hematocrit 40.1 % (36-46); Hemoglobin 13.7 g/dL (12.0-16.0); Mean Corpuscular HGB Conc 34.1 % (30-36); Mean Corpuscular Hemoglobin 30.4 PG (26-34); Mean Corpuscular Volume 89.2 fL (80-100); Platelet Count 270 X10^3/uL (150-400); Red Cell Distribution Width 14.2 % (11.6-14.8); White Blood Cell Count 6.1 X10^3/uL (4.5-11.0)
[2022-01-23 12:02] LABS: Alanine Aminotransferase 14 IU/L (<35); Albumin 4.3 g/dL (3.5-5.0); Albumin Globulin Ratio 1.3 (1.0-2.8); Alkaline Phosphatase 75 U/L (38-126); Aspartate Aminotransferase 26 IU/L (14-36); BUN Creatinine Ratio 16.5 (6-22); Bilirubin Total 0.6 mg/dL (0.2-1.3); Blood Urea Nitrogen 15 mg/dL (7-17); Calcium 9.8 mg/dL (8.4-10.2); Carbon Dioxide 31 mmol/L (22-32); Chloride 101 mmol/L (98-107); Cholesterol 259 mg/dL (140-199); Estimated Glomerular Filt Rate > 60 mL/min (>60); Globulin 3.2 g/dL (1.7-4.1); Glucose 106 mg/dL (80-110); HDL Cholesterol 58 mg/dL (40-60); HEMOLYSIS < 15 (0-50); LDL Cholesterol Calculated 177 mg/dL (<100); Potassium 4.3 mmol/L (3.4-5.1); Sodium 138 mmol/L (137-145); Total Protein 7.5 g/dL (6.3-8.2); Triglycerides 122 mg/dL (35-150)
[2022-01-23 12:06] LABS: Free T3, Triiodothyronine Free 2.55 pg/mL (2.77-5.27)
[2022-01-23 12:19] LABS: Thyroid Stimulating Hormone 1.54 uIU/mL (0.47-4.68)
== END ==
PROVIDERS: Family Provider Internal Medicine; PCP Student in an Organized Health Care Education/Training Program; Referring Provider Student in an Organized Health Care Education/Training Program; Visit Provider Student in an Organized Health Care Education/Training Program
DX: E78.2 Mixed hyperlipidemia (principal); E03.9 Hypothyroidism, unspecified
CPT/HCPCS: 36415; 80053; 80061; 84443; 84481; 85027

== ENCOUNTER → 2022-01-29 16:03 | Outpatient (CLI) | payer OTHER, SELFPAY ==
[2021-04-14 22:20] VITALS: BMI 35.4
--- NOTE | 2022-01-29 16:06 | DI.RAD.S_ITS ---
PROCEDURE: XR LUMBAR SPINE 2-3V INDICATIONS: worsening lower back pain TECHNIQUE: 3 views of the lumbar spine were acquired. COMPARISON: [facility], CT, CT ABDOMEN PELVIS W CON, 09/24/2021, 16:53. [facility], CR, L-SPINE 2-3 VIEWS, 01/12/2016, 13:23. FINDINGS: Bones: 5 tcn-lma-neetzld vertebrae are present. Levo skull doses centered at the L3 level. Multilevel disc height loss with endplate sclerosis and spurring, severe at the L3-L4, L4-L5 and L5-S1 levels. Moderate L4-L5 and L5-S1 facet joint arthropathy. No vertebral body compression fractures. No suspicious bony lesions. Soft tissues: Overlying bowel gas pattern is normal. No suspicious soft tissue calcifications. IMPRESSION: Multilevel lumbar spine spondylosis, most notably with severe disc degeneration L3-L4, L4-L5 and L5-S1. Dictated by: Hollis Marie RRA Interpreted: Andi Quevedo MD on 01/30/2022 at 11:56 Transcribed by: LILIANA on 01/30/2022 at 11:58 Approved by: Andi Quevedo M.D. on 01/30/2022 at 16:51
== END ==
PROVIDERS: Family Provider Internal Medicine; PCP Student in an Organized Health Care Education/Training Program; Referring Provider Student in an Organized Health Care Education/Training Program; Visit Provider Student in an Organized Health Care Education/Training Program
DX: M51.36 Other intervertebral disc degeneration, lumbar region (principal); M47.816 Spondylosis without myelopathy or radiculopathy, lumbar region
CPT/HCPCS: 72100

== ENCOUNTER → 2022-04-16 16:07 | Outpatient (CLI) | payer OTHER, SELFPAY ==
[2021-04-14 22:20] VITALS: BMI 35.4
--- NOTE | 2022-04-16 16:14 | DI.RAD.S_ITS ---
PROCEDURE: XR KNEE LT 3V INDICATIONS: CHRONIC LEFT KNEE PAIN TECHNIQUE: 3 views of the knee were acquired. COMPARISON: [facility] [place], [place], XR KNEE 4+ VIEWS LEFT, 09/13/2020, 14:25. Merged With [facility], [place], KNEE 3V LEFT, 01/12/2016, 13:26. FINDINGS: Bones: No fractures or dislocations. No suspicious bony lesions. Tricompartmental knee joint degeneration, most pronounced and severe at lateral femorotibial compartment. Soft tissues: Small joint effusion. No suspicious soft tissue calcifications. IMPRESSION: 1. Severe degenerative joint disease. 2. Small knee joint effusion. Dictated by: Kevyn Thomas M.D. on 04/17/2022 at 11:01 Approved by: Kevyn Thomas M.D. on 04/17/2022 at 11:03
== END ==
PROVIDERS: Family Provider Internal Medicine; PCP Student in an Organized Health Care Education/Training Program; Referring Provider Student in an Organized Health Care Education/Training Program; Visit Provider Student in an Organized Health Care Education/Training Program
DX: M25.562 Pain in left knee (principal); M17.12 Unilateral primary osteoarthritis, left knee; M25.462 Effusion, left knee
CPT/HCPCS: 73562

== ENCOUNTER 2022-05-11 10:30 | Outpatient (RCR) | payer OTHER, SELFPAY ==
[2021-04-14 22:20] VITALS: BMI 35.4
--- NOTE | 2021-07-26 17:38 | PT.OIE ---
Current Diagnoses Displaced fracture of greater tuberosity of left humerus, initial encounter for closed fracture (07/26/21) Unspecified dislocation of left shoulder joint, subsequent encounter (07/26/21) Past Medical History (Last Reviewed 04/14/21 @ 23:55 by Cee Parra MD) Anxiety Arthritis Depression History of dilatation and curettage History of throat surgery History of urinary incontinence Hyperlipidemia Hypothyroidism Past Surgical History (Last Reviewed 04/14/21 @ 23:55 by Cee Parra MD) History of dilatation and curettage History of throat surgery Visit Care Team Role Provider Type Nikc Witt MD Family Provider Physician Primary Care Provider Specialty: Internal Medicine Address: [address] [place] [address], [address] Email: [email or web address] Kenneth Burkett MD Attending Provider Physician Referring Provider Specialty: Orthopedic Surgery Address: [address] [place] [address], [address] Email: [email or web address] Physical Therapy Initial Evaluation PT-OP-A Visit Information Start: 07/26/21 12:44 Freq: Status: Active Protocol: Document 07/26/21 15:15 AW (Rec: 07/26/21 16:58 AW [id number]) Out-Patient Physical Therapy Visit Information Visit Information Visit Type Initial Evaluation Visit Start Time 14:30 Visit Stop Time 15:15 Total Visit Minutes 45 Visit Number 1 Evaluation Information Evaluation Date 07/26/21 PT-OP-B Current Condition Start: 07/26/21 12:44 Freq: Status: Active Protocol: Document 07/26/21 15:15 AW (Rec: 07/26/21 12:55 AW [id number]) Current Condition History of Current Condition Onset Date April 2021 Current Complaints left shoulder pain History of Current Condition Rd fell in April, resulting in comminuted left proximal humerus fracture with anterior dislocation. She has long-standing left knee pain which she feels may have contributed to her fall. Fracture was treated non- operatively and Rd was sent home in a soft sling after a brief hospital stay. Her sister was visiting from [place] at the time and extended her stay to help for a week but Rd has been managing without assist at home since her sister left. She did have one additional fall within one week of leaving the hospital. She believes she was impaired with oxycodone at that time and denies falls since then. She had home health services - primarily OT - but she was discharged at the end of June. She can get dressed and shower without assist but is doing all overhead activities one-handed. She is currently driving even though she has trouble lifting her arm. Pain is mostly in her anterior and posterior shoulder. She denies neck pain or radiating symptoms to her arm. She lives alone in a single level home with 2 steps to enter using right rail at front of house. Prior Treatments and Tests MRI 07/06/21: 1. 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 2. Acromioclavicular joint osteoarthritis. 3. Possible Hill-Sachs deformity of the humeral head. Future Testing and Treatments Planned None identified Treatment Goals Patient/Caregiver Goals Generally, I want to be able to use my left arm. Specifically, I want to be able to hug my boyfriend. Prior Functional Status Baseline Function- ADL's Independent Baseline Function- Mobility Independent Current Functional Impairments (Reported) Functional Limitations- ADL's Limited use of left arm for most dressing and hygiene tasks Personal Factors Other Personal Factors That May Effect Depression, knee pain, and Therapy/Recovery PT-OP-C Subjective Start: 07/26/21 12:44 Freq: Status: Active Protocol: Document 07/26/21 15:15 AW (Rec: 07/26/21 16:58 AW [id number]) Patient Questionnaires Quick Dash- Upper Extremity Quick Dash UE Score 70 Quick Dash UE Impairment 60 to 79% Impaired (Score 60- 79) OP-PT Pain Assessment Pain Assessment Grid Paper Pain Assessment Grid Completed Yes: Scanned to EMR PT-OP-F Manual Assessment Start: 07/26/21 12:44 Freq: Status: Active Protocol: Document 07/26/21 15:15 AW (Rec: 07/26/21 17:06 AW [id number]) Manual Assessments Soft Tissue Assessment Soft Tissue Mobility Assessment Hypertonicity in left upper traps. Tenderness generally in all surrounding muscles. Generally decreased muscle mass left shoulder compared with right. Joint Mobility Assessment Joint Mobility Assessment Stiffness in all planes of motion left shoulder with significant guarding even with PROM. PT-OP-G Mobility & Gait Start: 07/26/21 12:44 Freq: Status: Active Protocol: Document 07/26/21 15:15 AW (Rec: 07/26/21 17:06 AW [id number]) OP Gait Assessment Comments Gait Comments Generally unsteady and with decreased confidence. PT-OP-J Posture/Palpation/Skin Start: 07/26/21 12:44 Freq: Status: Active Protocol: Document 07/26/21 15:15 AW (Rec: 07/26/21 17:06 AW [id number]) Posture Evaluation Comments Posture Comments Forward shoulder posture bilaterally. Protective of left shoulder. PT-OP-K Range of Motion Start: 07/26/21 12:44 Freq: Status: Active Protocol: Document 07/26/21 15:15 AW (Rec: 07/26/21 17:14 AW [id number]) Cervical Spine Range of Motion Cervical Spine Active Testing Position Sitting Flexion 30 Extension 30 Rotation Left 25 Rotation Right 25 Lateral Flexion Left 45 Lateral Flexion Right 50 Comments Pt denies neck pain with all movements Shoulder Goniometric Range of Motion Shoulder Left Passive Shoulder ROM WFL No Testing Position Sitting Flexion 45 Abduction 55 Internal Rotation Behind Back (text) to left hip Comments ER < neutral passively in supine with 45 degrees abduction Right Active Flexion 140 Abduction 150 External Rotation at 0 degrees Abduction 65 Internal Rotation Behind Back (text) T7 Elbow/Forearm Range of Motion Elbow/Forearm Left Active ROM Testing Position Supine Elbow Flexion (degrees) 115 Elbow Extension (degrees) 5 PT-OP-M Strength Start: 07/26/21 12:44 Freq: Status: Active Protocol: Document 07/26/21 15:15 AW (Rec: 07/26/21 17:14 AW [id number]) Shoulder Strength Shoulder Manual Muscle Testing Right Flexion 4+ Good+ Extension 4+ Good+ Abduction (C5) 4+ Good+ External Rotation 4+ Good+ Internal Rotation 4+ Good+ PT-OP-Q Treatments Start: 07/26/21 12:44 Freq: Status: Active Protocol: Document 07/26/21 15:15 AW (Rec: 07/26/21 17:14 AW [id number]) Therapeutic Exercises Sitting Exercises table slides Sitting Exercise Name table slides Side left Comments flexion and scaption; HEP PT-OP-T Assessment and Plan Start: 07/26/21 12:44 Freq: Status: Active Protocol: Document 07/26/21 15:15 AW (Rec: 07/26/21 17:37 AW [id number]) Physical Therapy Assessment Rehab Potential Rehabilitation Potential Good Evaluation Complexity Number of Personal Factors/Comorbidities 1-2 Number of Body Systems Impaired 3 Clinical Presentation at Evaluation Evolving Impairments Impairments Functional Activities,Pain, Posture,ROM,Soft Tissue Mobility,Strength Goals Three Impairment QuickDash - 70% impairment Highballer Goal (LTG) Pt will score 45% or less impairment on QuickDash as a measure of improved ability to manage ADL's LTG Duration 12 weeks - 10/18/21 Two Impairment shoulder strength Short Term Goal (STG) Pt will improve her strength to be able to lift her arm to 90 degrees elevation to improve her ability to use her left arm in self-care activities. STG Duration 6 weeks - 09/06/21 Longterm Goal (LTG) Nithya will improve her left shoulder strength to be able to lift a book from table height. LTG Duration 12 weeks - 10/18/21 One Impairment shoulder ROM Short Term Goal (STG) Nithya will improve her shoulder flexion PROM to 90 degrees STG Duration 6 weeks - 09/06/21 Highballer Goal (LTG) Nithya will improve her shoulder abduction AROM to 90 degrees. LTG Duration 12 weeks - 10/18/21 Assessment Summary Assessment Nithya attends outpatient physical therapy three months after a fall that resulted in left proximal humerus fracture . She was treated non- operatively and had home health services. She presents with severely limited left shoulder range of motion, significant weakness, and reduced muscle bulk on the left side. She denies neck pain or any paresthesias. PT anticipates she will require extensive manual therapy and instruction in progressive exercise program to address range of motion and strength deficits with the goal of improving use of her left arm in daily activities. Physical Therapy Plan Frequency and Duration Frequency of Treatment 2x/Week Duration of Treatment 12 weeks Plan of Care Start Date 07/26/21 Plan of Care End Date 10/18/21 Therapeutic Interventions Therapeutic Interventions Aquatic Therapy,Home Exercise Program,Joint Mobilizations, Manual Therapy,Neuromuscular Re-education,Self-Care/Home Management,Soft Tissue Mobilization,Therapeutic Activities,Therapeutic Exercises Modalities Cold Pack/Ice Massage,Electric Stimulation,Hot Packs, Ultrasound Next Visit Focus/Plan Next Note Type Treatment Note Next Visit Plan review table slides for independent performance; manual therapy upper traps, pecs; PROM shoulder; consider ice and/or e stim for pain management
--- NOTE | 2021-07-26 17:38 | PT.OPPOC ---
Physical, Occupational & Speech Therapy At [facility] Current Diagnoses Displaced fracture of greater tuberosity of left humerus, initial encounter for closed fracture (07/26/21) Unspecified dislocation of left shoulder joint, subsequent encounter (07/26/21) Visit Care Team Role Provider Type Nick Witt MD Family Provider Physician Primary Care Provider Specialty: Internal Medicine Address: [address] [place] [address], [address] Email: [email or web address] Kenneth Burkett MD Attending Provider Physician Referring Provider Specialty: Orthopedic Surgery Address: [address] [place] [address], [address] Email: [email or web address] Plan Of Care PT-OP-T Assessment and Plan Start: 07/26/21 12:44 Freq: Status: Active Protocol: Document 07/26/21 15:15 AW (Rec: 07/26/21 17:37 AW [id number]) Physical Therapy Assessment Rehab Potential Rehabilitation Potential Good Evaluation Complexity Number of Personal Factors/Comorbidities 1-2 Number of Body Systems Impaired 3 Clinical Presentation at Evaluation Evolving Impairments Impairments Functional Activities,Pain, Posture,ROM,Soft Tissue Mobility,Strength Goals Three Impairment QuickDash - 70% impairment Washery Boss Goal (LTG) Pt will score 45% or less impairment on QuickDash as a measure of improved ability to manage ADL's LTG Duration 12 weeks - 10/18/21 Two Impairment shoulder strength Short Term Goal (STG) Pt will improve her strength to be able to lift her arm to 90 degrees elevation to improve her ability to use her left arm in self-care activities. STG Duration 6 weeks - 09/06/21 Washery Boss Goal (LTG) Nithya will improve her left shoulder strength to be able to lift a book from table height. LTG Duration 12 weeks - 10/18/21 One Impairment shoulder ROM Short Term Goal (STG) Nithya will improve her shoulder flexion PROM to 90 degrees STG Duration 6 weeks - 09/06/21 Washery Boss Goal (LTG) Nithya will improve her shoulder abduction AROM to 90 degrees. LTG Duration 12 weeks - 10/18/21 Assessment Summary Assessment Nithya attends outpatient physical therapy three months after a fall that resulted in left proximal humerus fracture . She was treated non- operatively and had home health services. She presents with severely limited left shoulder range of motion, significant weakness, and reduced muscle bulk on the left side. She denies neck pain or any paresthesias. PT anticipates she will require extensive manual therapy and instruction in progressive exercise program to address range of motion and strength deficits with the goal of improving use of her left arm in daily activities. Physical Therapy Plan Frequency and Duration Frequency of Treatment 2x/Week Duration of Treatment 12 weeks Plan of Care Start Date 07/26/21 Plan of Care End Date 10/18/21 Therapeutic Interventions Therapeutic Interventions Aquatic Therapy,Home Exercise Program,Joint Mobilizations, Manual Therapy,Neuromuscular Re-education,Self-Care/Home Management,Soft Tissue Mobilization,Therapeutic Activities,Therapeutic Exercises Modalities Cold Pack/Ice Massage,Electric Stimulation,Hot Packs, Ultrasound Next Visit Focus/Plan Next Note Type Treatment Note Next Visit Plan review table slides for independent performance; manual therapy upper traps, pecs; PROM shoulder; consider ice and/or e stim for pain management Plan of Care Dates Plan of Care Start Date 07/26/21 Plan of Care End Date 10/18/21 Electronically Signed by: Rox Gomez, ITALO 07/26/21 2305 Please Sign and Return: I have reviewed this Plan of Care and certify that the skilled therapy services above are required to meet the patient?s needs. Physician Signature Date Printed Name and Credentials Clinical Instructor Signature Printed Name and Credentials
--- NOTE | 2021-08-01 12:46 | PT.OTN ---
Current Diagnoses Displaced fracture of greater tuberosity of left humerus, initial encounter for closed fracture (08/01/21) Unspecified dislocation of left shoulder joint, subsequent encounter (08/01/21) Physical Therapy Treatment Note PT-OP-A Visit Information Start: 07/26/21 12:44 Freq: Status: Active Protocol: Document 08/01/21 11:15 AMB (Rec: 08/01/21 12:45 AMB [id number]) Out-Patient Physical Therapy Visit Information Visit Information Visit Type Treatment Note Visit Start Time 11:15 Visit Stop Time 12:00 Total Visit Minutes 45 Visit Number 2 PT-OP-B Current Condition Start: 07/26/21 12:44 Freq: Status: Active Protocol: Document 07/26/21 15:15 AW (Rec: 07/26/21 12:55 AW [id number]) Current Condition History of Current Condition Onset Date April 2021 Current Complaints left shoulder pain History of Current Condition Rd fell in April, resulting in comminuted left proximal humerus fracture with anterior dislocation. She has long-standing left knee pain which she feels may have contributed to her fall. Fracture was treated non- operatively and Rd was sent home in a soft sling after a brief hospital stay. Her sister was visiting from [place] at the time and extended her stay to help for a week but Rd has been managing without assist at home since her sister left. She did have one additional fall within one week of leaving the hospital. She believes she was impaired with oxycodone at that time and denies falls since then. She had home health services - primarily OT - but she was discharged at the end of June. She can get dressed and shower without assist but is doing all overhead activities one-handed. She is currently driving even though she has trouble lifting her arm. Pain is mostly in her anterior and posterior shoulder. She denies neck pain or radiating symptoms to her arm. She lives alone in a single level home with 2 steps to enter using right rail at front of house. Prior Treatments and Tests MRI 07/06/21: 1. 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 2. Acromioclavicular joint osteoarthritis. 3. Possible Hill-Sachs deformity of the humeral head. Future Testing and Treatments Planned None identified Treatment Goals Patient/Caregiver Goals Generally, I want to be able to use my left arm. Specifically, I want to be able to hug my boyfriend. Prior Functional Status Baseline Function- ADL's Independent Baseline Function- Mobility Independent Current Functional Impairments (Reported) Functional Limitations- ADL's Limited use of left arm for most dressing and hygiene tasks Personal Factors Other Personal Factors That May Effect Depression, knee pain, and Therapy/Recovery PT-OP-C Subjective Start: 07/26/21 12:44 Freq: Status: Active Protocol: Document 08/01/21 11:15 AMB (Rec: 08/01/21 12:45 AMB [id number]) OP-PT Subjective Patient Comments Patient Comments Brittany reports she has been doing her table slides, flexion is a lot easier than scaption. PT-OP-F Manual Assessment Start: 07/26/21 12:44 Freq: Status: Active Protocol: Document 07/26/21 15:15 AW (Rec: 07/26/21 17:06 AW [id number]) Manual Assessments Soft Tissue Assessment Soft Tissue Mobility Assessment Hypertonicity in left upper traps. Tenderness generally in all surrounding muscles. Generally decreased muscle mass left shoulder compared with right. Joint Mobility Assessment Joint Mobility Assessment Stiffness in all planes of motion left shoulder with significant guarding even with PROM. PT-OP-G Mobility & Gait Start: 07/26/21 12:44 Freq: Status: Active Protocol: Document 07/26/21 15:15 AW (Rec: 07/26/21 17:06 AW [id number]) OP Gait Assessment Comments Gait Comments Generally unsteady and with decreased confidence. PT-OP-J Posture/Palpation/Skin Start: 07/26/21 12:44 Freq: Status: Active Protocol: Document 07/26/21 15:15 AW (Rec: 07/26/21 17:06 AW [id number]) Posture Evaluation Comments Posture Comments Forward shoulder posture bilaterally. Protective of left shoulder. PT-OP-K Range of Motion Start: 07/26/21 12:44 Freq: Status: Active Protocol: Document 07/26/21 15:15 AW (Rec: 07/26/21 17:14 AW [id number]) Cervical Spine Range of Motion Cervical Spine Active Testing Position Sitting Flexion 30 Extension 30 Rotation Left 25 Rotation Right 25 Lateral Flexion Left 45 Lateral Flexion Right 50 Comments Pt denies neck pain with all movements Shoulder Goniometric Range of Motion Shoulder Left Passive Shoulder ROM WFL No Testing Position Sitting Flexion 45 Abduction 55 Internal Rotation Behind Back (text) to left hip Comments ER < neutral passively in supine with 45 degrees abduction Right Active Flexion 140 Abduction 150 External Rotation at 0 degrees Abduction 65 Internal Rotation Behind Back (text) T7 Elbow/Forearm Range of Motion Elbow/Forearm Left Active ROM Testing Position Supine Elbow Flexion (degrees) 115 Elbow Extension (degrees) 5 PT-OP-M Strength Start: 07/26/21 12:44 Freq: Status: Active Protocol: Document 07/26/21 15:15 AW (Rec: 07/26/21 17:14 AW [id number]) Shoulder Strength Shoulder Manual Muscle Testing Right Flexion 4+ Good+ Extension 4+ Good+ Abduction (C5) 4+ Good+ External Rotation 4+ Good+ Internal Rotation 4+ Good+ PT-OP-Q Treatments Start: 07/26/21 12:44 Freq: Status: Active Protocol: Document 08/01/21 11:15 AMB (Rec: 08/01/21 12:45 AMB [id number]) Therapeutic Exercises Supine Exercises AAROM Supine Exercise Name flexion, abduction, ER Reps/Minutes 2x5 ea rest breaks needed Comments with cane Sitting Exercises table slides Sitting Exercise Name table slides Side left Comments flexion and scaption; HEP Manual Therapy Treatment Soft Tissue Mobilization 1 Body Location upper traps, levator scap Mobilization Type Myofascial Release,Sustained Pressure Comments with education to try to avoid shoulder elevation during ADLs Manual Techniques 1 Type PROM all planes Comments limited into horiz abduction and ER PT-OP-R Modalities Start: 07/26/21 12:44 Freq: Status: Active Protocol: Document 08/01/21 11:15 AMB (Rec: 08/01/21 12:46 AMB [id number]) Hot Pack/Cold Pack Treatment Cold Pack Location L shoulder Patient Position Hooklying Treatment Duration (minutes) 7 Comments HOB elevated PT-OP-T Assessment and Plan Start: 07/26/21 12:44 Freq: Status: Active Protocol: Document 08/01/21 11:15 AMB (Rec: 08/01/21 12:45 AMB [id number]) Physical Therapy Assessment Goals Three Impairment QuickDash - 70% impairment Senior Living Goal (LTG) Pt will score 45% or less impairment on QuickDash as a measure of improved ability to manage ADL's LTG Duration 12 weeks - 10/18/21 Two Impairment shoulder strength Short Term Goal (STG) Pt will improve her strength to be able to lift her arm to 90 degrees elevation to improve her ability to use her left arm in self-care activities. STG Duration 6 weeks - 09/06/21 Senior Living Goal (LTG) Nithya will improve her left shoulder strength to be able to lift a book from table height. LTG Duration 12 weeks - 10/18/21 One Impairment shoulder ROM Short Term Goal (STG) Nithya will improve her shoulder flexion PROM to 90 degrees STG Duration 6 weeks - 09/06/21 Honing Machine Set Up Operator Goal (LTG) Nithya will improve her shoulder abduction AROM to 90 degrees. LTG Duration 12 weeks - 10/18/21 Assessment Summary Assessment Brittany tolerated AAROM activites with HOB elevated but did need hand over hand instruction, PROM tolerated more. Gave written HEP of flexion and abduction AAROM. Physical Therapy Plan Next Visit Focus/Plan Next Visit Plan Review AAROM with cane and table slides, progress manual , follow up on how pt tolerated ice.
--- NOTE | 2021-08-03 10:43 | PT.OTN ---
Current Diagnoses Displaced fracture of greater tuberosity of left humerus, initial encounter for closed fracture (08/03/21) Unspecified dislocation of left shoulder joint, subsequent encounter (08/03/21) Physical Therapy Treatment Note PT-OP-A Visit Information Start: 07/26/21 12:44 Freq: Status: Active Protocol: Document 08/03/21 08:17 AW (Rec: 08/03/21 10:43 AW [id number]) Out-Patient Physical Therapy Visit Information Visit Information Visit Type Treatment Note Visit Start Time 09:00 Visit Stop Time 09:55 Total Visit Minutes 55 Visit Number 3 Evaluation Information Evaluation Date 07/26/21 PT-OP-B Current Condition Start: 07/26/21 12:44 Freq: Status: Active Protocol: Document 07/26/21 15:15 AW (Rec: 07/26/21 12:55 AW [id number]) Current Condition History of Current Condition Onset Date April 2021 Current Complaints left shoulder pain History of Current Condition Rd fell in April, resulting in comminuted left proximal humerus fracture with anterior dislocation. She has long-standing left knee pain which she feels may have contributed to her fall. Fracture was treated non- operatively and Rd was sent home in a soft sling after a brief hospital stay. Her sister was visiting from [place] at the time and extended her stay to help for a week but Rd has been managing without assist at home since her sister left. She did have one additional fall within one week of leaving the hospital. She believes she was impaired with oxycodone at that time and denies falls since then. She had home health services - primarily OT - but she was discharged at the end of June. She can get dressed and shower without assist but is doing all overhead activities one-handed. She is currently driving even though she has trouble lifting her arm. Pain is mostly in her anterior and posterior shoulder. She denies neck pain or radiating symptoms to her arm. She lives alone in a single level home with 2 steps to enter using right rail at front of house. Prior Treatments and Tests MRI 07/06/21: 1. 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 2. Acromioclavicular joint osteoarthritis. 3. Possible Hill-Sachs deformity of the humeral head. Future Testing and Treatments Planned None identified Treatment Goals Patient/Caregiver Goals Generally, I want to be able to use my left arm. Specifically, I want to be able to hug my boyfriend. Prior Functional Status Baseline Function- ADL's Independent Baseline Function- Mobility Independent Current Functional Impairments (Reported) Functional Limitations- ADL's Limited use of left arm for most dressing and hygiene tasks Personal Factors Other Personal Factors That May Effect Depression, knee pain, and Therapy/Recovery PT-OP-C Subjective Start: 07/26/21 12:44 Freq: Status: Active Protocol: Document 08/03/21 08:17 AW (Rec: 08/03/21 10:43 AW [id number]) OP-PT Subjective Patient Comments Patient Comments AAROM with cane at home was painful. Pt reports she used her right arm instead to move her left arm into flexion. PT-OP-F Manual Assessment Start: 07/26/21 12:44 Freq: Status: Active Protocol: Document 07/26/21 15:15 AW (Rec: 07/26/21 17:06 AW [id number]) Manual Assessments Soft Tissue Assessment Soft Tissue Mobility Assessment Hypertonicity in left upper traps. Tenderness generally in all surrounding muscles. Generally decreased muscle mass left shoulder compared with right. Joint Mobility Assessment Joint Mobility Assessment Stiffness in all planes of motion left shoulder with significant guarding even with PROM. PT-OP-G Mobility & Gait Start: 07/26/21 12:44 Freq: Status: Active Protocol: Document 07/26/21 15:15 AW (Rec: 07/26/21 17:06 AW [id number]) OP Gait Assessment Comments Gait Comments Generally unsteady and with decreased confidence. PT-OP-J Posture/Palpation/Skin Start: 07/26/21 12:44 Freq: Status: Active Protocol: Document 07/26/21 15:15 AW (Rec: 07/26/21 17:06 AW [id number]) Posture Evaluation Comments Posture Comments Forward shoulder posture bilaterally. Protective of left shoulder. PT-OP-K Range of Motion Start: 07/26/21 12:44 Freq: Status: Active Protocol: Document 07/26/21 15:15 AW (Rec: 07/26/21 17:14 AW [id number]) Cervical Spine Range of Motion Cervical Spine Active Testing Position Sitting Flexion 30 Extension 30 Rotation Left 25 Rotation Right 25 Lateral Flexion Left 45 Lateral Flexion Right 50 Comments Pt denies neck pain with all movements Shoulder Goniometric Range of Motion Shoulder Left Passive Shoulder ROM WFL No Testing Position Sitting Flexion 45 Abduction 55 Internal Rotation Behind Back (text) to left hip Comments ER < neutral passively in supine with 45 degrees abduction Right Active Flexion 140 Abduction 150 External Rotation at 0 degrees Abduction 65 Internal Rotation Behind Back (text) T7 Elbow/Forearm Range of Motion Elbow/Forearm Left Active ROM Testing Position Supine Elbow Flexion (degrees) 115 Elbow Extension (degrees) 5 PT-OP-M Strength Start: 07/26/21 12:44 Freq: Status: Active Protocol: Document 07/26/21 15:15 AW (Rec: 07/26/21 17:14 AW [id number]) Shoulder Strength Shoulder Manual Muscle Testing Right Flexion 4+ Good+ Extension 4+ Good+ Abduction (C5) 4+ Good+ External Rotation 4+ Good+ Internal Rotation 4+ Good+ PT-OP-Q Treatments Start: 07/26/21 12:44 Freq: Status: Active Protocol: Document 08/03/21 08:17 AW (Rec: 08/03/21 10:43 AW [id number]) Therapeutic Exercises Supine Exercises AAROM Supine Exercise Name flexion, abduction, ER Reps/Minutes 2x5 ea rest breaks needed Comments with cane Sitting Exercises scapular retraction Sitting Exercise Name scapular retraction Resistance AROM Reps/Minutes 3SH x 10 Comments HEP cervical retraction Sitting Exercise Name cervical retraction Resistance AROM Reps/Minutes 3SH x 8 Comments HEP table slides Sitting Exercise Name table slides Side left Comments flexion and scaption; HEP Manual Therapy Treatment Soft Tissue Mobilization 1 Body Location upper traps, levator scap, bicep Mobilization Type Myofascial Release,Sustained Pressure Manual Techniques 1 Type PROM all planes Comments Pt severely guarded. Gentle long axis traction helpful. PT-OP-R Modalities Start: 07/26/21 12:44 Freq: Status: Active Protocol: Document 08/03/21 08:17 AW (Rec: 08/03/21 10:43 AW [id number]) Electric Stimulation Electric Stimulation Interferential Current (IFC) Body Location left shoulder Duration (Minutes) 12 Intensity 10 Target/Sweep Target Patient Position Hooklying Comments HOB elevated PT-OP-T Assessment and Plan Start: 07/26/21 12:44 Freq: Status: Active Protocol: Document 08/03/21 08:17 AW (Rec: 08/03/21 10:43 AW [id number]) Physical Therapy Assessment Goals Three Impairment QuickDash - 70% impairment Livestock Speculator Goal (LTG) Pt will score 45% or less impairment on QuickDash as a measure of improved ability to manage ADL's LTG Duration 12 weeks - 10/18/21 Two Impairment shoulder strength Short Term Goal (STG) Pt will improve her strength to be able to lift her arm to 90 degrees elevation to improve her ability to use her left arm in self-care activities. STG Duration 6 weeks - 09/06/21 Livestock Speculator Goal (LTG) Nithya will improve her left shoulder strength to be able to lift a book from table height. LTG Duration 12 weeks - 10/18/21 One Impairment shoulder ROM Short Term Goal (STG) Nithya will improve her shoulder flexion PROM to 90 degrees STG Duration 6 weeks - 09/06/21 Group Home Goal (LTG) Nithya will improve her shoulder abduction AROM to 90 degrees. LTG Duration 12 weeks - 10/18/21 Assessment Summary Assessment Pt was severely guarded during all ROM activities. Gentle long axis traction was helpful and PROM into abduction did improve. Issued addition to HEP with cervical and scapular retraction. Physical Therapy Plan Next Visit Focus/Plan Next Note Type Treatment Note Next Visit Plan Continue MEMO, table slides. Review cervical and scap retraction. Follow up on response to e-stim.
--- NOTE | 2021-08-11 16:12 | PT.OTN ---
Current Diagnoses Displaced fracture of greater tuberosity of left humerus, initial encounter for closed fracture (08/11/21) Unspecified dislocation of left shoulder joint, subsequent encounter (08/11/21) Physical Therapy Treatment Note PT-OP-A Visit Information Start: 07/26/21 12:44 Freq: Status: Active Protocol: Document 08/11/21 11:15 AMB (Rec: 08/11/21 12:38 AMB [id number]) Out-Patient Physical Therapy Visit Information Visit Information Visit Type Treatment Note Visit Start Time 11:15 Visit Stop Time 12:00 Total Visit Minutes 45 Visit Number 4 PT-OP-B Current Condition Start: 07/26/21 12:44 Freq: Status: Active Protocol: Document 07/26/21 15:15 AW (Rec: 07/26/21 12:55 AW [id number]) Current Condition History of Current Condition Onset Date April 2021 Current Complaints left shoulder pain History of Current Condition Rd fell in April, resulting in comminuted left proximal humerus fracture with anterior dislocation. She has long-standing left knee pain which she feels may have contributed to her fall. Fracture was treated non- operatively and Rd was sent home in a soft sling after a brief hospital stay. Her sister was visiting from [place] at the time and extended her stay to help for a week but Rd has been managing without assist at home since her sister left. She did have one additional fall within one week of leaving the hospital. She believes she was impaired with oxycodone at that time and denies falls since then. She had home health services - primarily OT - but she was discharged at the end of June. She can get dressed and shower without assist but is doing all overhead activities one-handed. She is currently driving even though she has trouble lifting her arm. Pain is mostly in her anterior and posterior shoulder. She denies neck pain or radiating symptoms to her arm. She lives alone in a single level home with 2 steps to enter using right rail at front of house. Prior Treatments and Tests MRI 07/06/21: 1. 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 2. Acromioclavicular joint osteoarthritis. 3. Possible Hill-Sachs deformity of the humeral head. Future Testing and Treatments Planned None identified Treatment Goals Patient/Caregiver Goals Generally, I want to be able to use my left arm. Specifically, I want to be able to hug my boyfriend. Prior Functional Status Baseline Function- ADL's Independent Baseline Function- Mobility Independent Current Functional Impairments (Reported) Functional Limitations- ADL's Limited use of left arm for most dressing and hygiene tasks Personal Factors Other Personal Factors That May Effect Depression, knee pain, and Therapy/Recovery PT-OP-C Subjective Start: 07/26/21 12:44 Freq: Status: Active Protocol: Document 08/11/21 11:15 AMB (Rec: 08/11/21 12:38 AMB [id number]) OP-PT Subjective Patient Comments Patient Comments Pt reports she has been doing her chin tucks, scap retractions, and table slide. Didn't think e-stim was super helpful but not against it, just didn't notice much. PT-OP-F Manual Assessment Start: 07/26/21 12:44 Freq: Status: Active Protocol: Document 07/26/21 15:15 AW (Rec: 07/26/21 17:06 AW [id number]) Manual Assessments Soft Tissue Assessment Soft Tissue Mobility Assessment Hypertonicity in left upper traps. Tenderness generally in all surrounding muscles. Generally decreased muscle mass left shoulder compared with right. Joint Mobility Assessment Joint Mobility Assessment Stiffness in all planes of motion left shoulder with significant guarding even with PROM. PT-OP-G Mobility & Gait Start: 07/26/21 12:44 Freq: Status: Active Protocol: Document 07/26/21 15:15 AW (Rec: 07/26/21 17:06 AW [id number]) OP Gait Assessment Comments Gait Comments Generally unsteady and with decreased confidence. PT-OP-J Posture/Palpation/Skin Start: 07/26/21 12:44 Freq: Status: Active Protocol: Document 07/26/21 15:15 AW (Rec: 07/26/21 17:06 AW [id number]) Posture Evaluation Comments Posture Comments Forward shoulder posture bilaterally. Protective of left shoulder. PT-OP-K Range of Motion Start: 07/26/21 12:44 Freq: Status: Active Protocol: Document 07/26/21 15:15 AW (Rec: 07/26/21 17:14 AW [id number]) Cervical Spine Range of Motion Cervical Spine Active Testing Position Sitting Flexion 30 Extension 30 Rotation Left 25 Rotation Right 25 Lateral Flexion Left 45 Lateral Flexion Right 50 Comments Pt denies neck pain with all movements Shoulder Goniometric Range of Motion Shoulder Left Passive Shoulder ROM WFL No Testing Position Sitting Flexion 45 Abduction 55 Internal Rotation Behind Back (text) to left hip Comments ER < neutral passively in supine with 45 degrees abduction Right Active Flexion 140 Abduction 150 External Rotation at 0 degrees Abduction 65 Internal Rotation Behind Back (text) T7 Elbow/Forearm Range of Motion Elbow/Forearm Left Active ROM Testing Position Supine Elbow Flexion (degrees) 115 Elbow Extension (degrees) 5 PT-OP-M Strength Start: 07/26/21 12:44 Freq: Status: Active Protocol: Document 07/26/21 15:15 AW (Rec: 07/26/21 17:14 AW [id number]) Shoulder Strength Shoulder Manual Muscle Testing Right Flexion 4+ Good+ Extension 4+ Good+ Abduction (C5) 4+ Good+ External Rotation 4+ Good+ Internal Rotation 4+ Good+ PT-OP-Q Treatments Start: 07/26/21 12:44 Freq: Status: Active Protocol: Document 08/11/21 11:15 AMB (Rec: 08/11/21 12:38 AMB [id number]) Therapeutic Exercises Sidelying Exercises abduction Sidelying Exercise Name 0-10 degrees Reps/Minutes 5 Sitting Exercises samantha Comments briefly tried and d/shannan not tolerated scapular retraction Sitting Exercise Name scapular retraction Resistance AROM Reps/Minutes 3SH x 10 Comments HEP cervical retraction Sitting Exercise Name cervical retraction Resistance AROM Reps/Minutes 3SH x 8 Comments HEP table slides Sitting Exercise Name table slides Side left Comments flexion and scaption; HEP Manual Therapy Treatment Soft Tissue Mobilization 1 Body Location upper traps, levator scap, rhomboids Mobilization Type Myofascial Release,Sustained Pressure Manual Techniques 1 Type PROM all planes Comments less guarded into flexion today PT-OP-R Modalities Start: 07/26/21 12:44 Freq: Status: Active Protocol: Document 08/03/21 08:17 AW (Rec: 08/03/21 10:43 AW [id number]) Electric Stimulation Electric Stimulation Interferential Current (IFC) Body Location left shoulder Duration (Minutes) 12 Intensity 10 Target/Sweep Target Patient Position Hooklying Comments HOB elevated PT-OP-T Assessment and Plan Start: 07/26/21 12:44 Freq: Status: Active Protocol: Document 08/11/21 11:15 AMB (Rec: 03/11/22 12:38 AMB [id number]) Physical Therapy Assessment Goals Three Impairment QuickDash - 70% impairment Manager Sterile Goal (LTG) Pt will score 45% or less impairment on QuickDash as a measure of improved ability to manage ADL's LTG Duration 12 weeks - 10/18/21 Two Impairment shoulder strength Short Term Goal (STG) Pt will improve her strength to be able to lift her arm to 90 degrees elevation to improve her ability to use her left arm in self-care activities. STG Duration 6 weeks - 09/06/21 Snf Goal (LTG) Nithya will improve her left shoulder strength to be able to lift a book from table height. LTG Duration 12 weeks - 10/18/21 One Impairment shoulder ROM Short Term Goal (STG) Nithya will improve her shoulder flexion PROM to 90 degrees STG Duration 6 weeks - 09/06/21 Snf Goal (LTG) Nithya will improve her shoulder abduction AROM to 90 degrees. LTG Duration 12 weeks - 10/18/21 Assessment Summary Assessment Pt was less guarded with flexion today, PROM tolerated to approx 120 degrees. Abduction and any rotation continues to be painful. Was able to start on very small AROM that did not increase pt' s pain but pt fatigued very quickly. Physical Therapy Plan Next Visit Focus/Plan Next Note Type Treatment Note Next Visit Plan Continue MEMO, doe slides. Review cervical and scap retraction, shoulder abduction in sidelying.
--- NOTE | 2021-08-15 11:55 | PT.OTN ---
Current Diagnoses Displaced fracture of greater tuberosity of left humerus, initial encounter for closed fracture (08/15/21) Unspecified dislocation of left shoulder joint, subsequent encounter (08/15/21) Physical Therapy Treatment Note PT-OP-A Visit Information Start: 07/26/21 12:44 Freq: Status: Active Protocol: Document 08/15/21 11:38 AW (Rec: 08/15/21 11:50 AW [id number]) Out-Patient Physical Therapy Visit Information Visit Information Visit Type Treatment Note Visit Start Time 09:45 Visit Stop Time 10:30 Total Visit Minutes 45 Visit Number 5 Evaluation Information Evaluation Date 07/26/21 PT-OP-B Current Condition Start: 07/26/21 12:44 Freq: Status: Active Protocol: Document 07/26/21 15:15 AW (Rec: 07/26/21 12:55 AW [id number]) Current Condition History of Current Condition Onset Date April 2021 Current Complaints left shoulder pain History of Current Condition Rd fell in April, resulting in comminuted left proximal humerus fracture with anterior dislocation. She has long-standing left knee pain which she feels may have contributed to her fall. Fracture was treated non- operatively and Rd was sent home in a soft sling after a brief hospital stay. Her sister was visiting from [place] at the time and extended her stay to help for a week but Rd has been managing without assist at home since her sister left. She did have one additional fall within one week of leaving the hospital. She believes she was impaired with oxycodone at that time and denies falls since then. She had home health services - primarily OT - but she was discharged at the end of June. She can get dressed and shower without assist but is doing all overhead activities one-handed. She is currently driving even though she has trouble lifting her arm. Pain is mostly in her anterior and posterior shoulder. She denies neck pain or radiating symptoms to her arm. She lives alone in a single level home with 2 steps to enter using right rail at front of house. Prior Treatments and Tests MRI 07/06/21: 1. 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 2. Acromioclavicular joint osteoarthritis. 3. Possible Hill-Sachs deformity of the humeral head. Future Testing and Treatments Planned None identified Treatment Goals Patient/Caregiver Goals Generally, I want to be able to use my left arm. Specifically, I want to be able to hug my boyfriend. Prior Functional Status Baseline Function- ADL's Independent Baseline Function- Mobility Independent Current Functional Impairments (Reported) Functional Limitations- ADL's Limited use of left arm for most dressing and hygiene tasks Personal Factors Other Personal Factors That May Effect Depression, knee pain, and Therapy/Recovery PT-OP-C Subjective Start: 07/26/21 12:44 Freq: Status: Active Protocol: Document 08/15/21 11:38 AW (Rec: 08/15/21 11:50 AW [id number]) OP-PT Subjective Patient Comments Patient Comments Exercises at home are still bothersome but feel more sore than painful. Sidelying abduction was difficult due to right hip pain in that position. PT-OP-F Manual Assessment Start: 07/26/21 12:44 Freq: Status: Active Protocol: Document 07/26/21 15:15 AW (Rec: 07/26/21 17:06 AW [id number]) Manual Assessments Soft Tissue Assessment Soft Tissue Mobility Assessment Hypertonicity in left upper traps. Tenderness generally in all surrounding muscles. Generally decreased muscle mass left shoulder compared with right. Joint Mobility Assessment Joint Mobility Assessment Stiffness in all planes of motion left shoulder with significant guarding even with PROM. PT-OP-G Mobility & Gait Start: 07/26/21 12:44 Freq: Status: Active Protocol: Document 07/26/21 15:15 AW (Rec: 07/26/21 17:06 AW [id number]) OP Gait Assessment Comments Gait Comments Generally unsteady and with decreased confidence. PT-OP-J Posture/Palpation/Skin Start: 07/26/21 12:44 Freq: Status: Active Protocol: Document 07/26/21 15:15 AW (Rec: 07/26/21 17:06 AW [id number]) Posture Evaluation Comments Posture Comments Forward shoulder posture bilaterally. Protective of left shoulder. PT-OP-K Range of Motion Start: 07/26/21 12:44 Freq: Status: Active Protocol: Document 07/26/21 15:15 AW (Rec: 07/26/21 17:14 AW [id number]) Cervical Spine Range of Motion Cervical Spine Active Testing Position Sitting Flexion 30 Extension 30 Rotation Left 25 Rotation Right 25 Lateral Flexion Left 45 Lateral Flexion Right 50 Comments Pt denies neck pain with all movements Shoulder Goniometric Range of Motion Shoulder Left Passive Shoulder ROM WFL No Testing Position Sitting Flexion 45 Abduction 55 Internal Rotation Behind Back (text) to left hip Comments ER < neutral passively in supine with 45 degrees abduction Right Active Flexion 140 Abduction 150 External Rotation at 0 degrees Abduction 65 Internal Rotation Behind Back (text) T7 Elbow/Forearm Range of Motion Elbow/Forearm Left Active ROM Testing Position Supine Elbow Flexion (degrees) 115 Elbow Extension (degrees) 5 PT-OP-M Strength Start: 07/26/21 12:44 Freq: Status: Active Protocol: Document 07/26/21 15:15 AW (Rec: 07/26/21 17:14 AW [id number]) Shoulder Strength Shoulder Manual Muscle Testing Right Flexion 4+ Good+ Extension 4+ Good+ Abduction (C5) 4+ Good+ External Rotation 4+ Good+ Internal Rotation 4+ Good+ PT-OP-Q Treatments Start: 07/26/21 12:44 Freq: Status: Active Protocol: Document 08/15/21 11:38 AW (Rec: 08/15/21 11:50 AW [id number]) Therapeutic Exercises Sidelying Exercises abduction Sidelying Exercise Name 0-10 degrees Reps/Minutes 5 Comments attempted to modify position but pt unable to tolerate Sitting Exercises scapular retraction Sitting Exercise Name scapular retraction Resistance AROM Reps/Minutes 3SH x 10 Comments HEP cervical retraction Sitting Exercise Name cervical retraction Resistance AROM Reps/Minutes 3SH x 8 Comments HEP table slides Sitting Exercise Name table slides Side left Comments flexion and scaption; HEP Standing Exercises tennis ball self STM Standing Exercise Name pecs Side left Manual Therapy Treatment Soft Tissue Mobilization 1 Body Location upper traps, levator scap, pecs Mobilization Type Myofascial Release,Sustained Pressure Comments Educated pt on use of tennis ball for pectoral mm Manual Techniques 1 Type PROM all planes Comments less guarded into abduction and ER today PT-OP-R Modalities Start: 07/26/21 12:44 Freq: Status: Active Protocol: Document 08/03/21 08:17 AW (Rec: 08/03/21 10:43 AW [id number]) Electric Stimulation Electric Stimulation Interferential Current (IFC) Body Location left shoulder Duration (Minutes) 12 Intensity 10 Target/Sweep Target Patient Position Hooklying Comments HOB elevated PT-OP-T Assessment and Plan Start: 07/26/21 12:44 Freq: Status: Active Protocol: Document 08/15/21 11:38 AW (Rec: 08/15/21 11:50 AW [id number]) Physical Therapy Assessment Goals Three Impairment QuickDash - 70% impairment Prison Goal (LTG) Pt will score 45% or less impairment on QuickDash as a measure of improved ability to manage ADL's LTG Duration 12 weeks - 10/18/21 Two Impairment shoulder strength Short Term Goal (STG) Pt will improve her strength to be able to lift her arm to 90 degrees elevation to improve her ability to use her left arm in self-care activities. STG Duration 6 weeks - 09/06/21 Prison Goal (LTG) Nithya will improve her left shoulder strength to be able to lift a book from table height. LTG Duration 12 weeks - 10/18/21 One Impairment shoulder ROM Short Term Goal (STG) Nithya will improve her shoulder flexion PROM to 90 degrees STG Duration 6 weeks - 09/06/21 Annealing Torch Operator Goal (LTG) Nithya will improve her shoulder abduction AROM to 90 degrees. LTG Duration 12 weeks - 10/18/21 Assessment Summary Assessment Pt tolerated sidelying poorly today so was unable to progress sidelying AROM. Slight improvement in passive external rotation noted. Added more appointments to twice weekly schedule. Physical Therapy Plan Next Visit Focus/Plan Next Note Type Treatment Note Next Visit Plan Continue MEMO, doe slides. Review cervical and scap retraction, shoulder abduction in sidelying if tolerated. Consider gentle isometrics?
--- NOTE | 2021-08-18 12:51 | PT.OTN ---
Current Diagnoses Displaced fracture of greater tuberosity of left humerus, initial encounter for closed fracture (08/18/21) Unspecified dislocation of left shoulder joint, subsequent encounter (08/18/21) Physical Therapy Treatment Note PT-OP-A Visit Information Start: 07/26/21 12:44 Freq: Status: Active Protocol: Document 08/18/21 11:15 AMB (Rec: 08/18/21 12:51 AMB [id number]) Out-Patient Physical Therapy Visit Information Visit Information Visit Type Treatment Note Visit Start Time 11:15 Visit Stop Time 12:00 Total Visit Minutes 45 Visit Number 6 PT-OP-B Current Condition Start: 07/26/21 12:44 Freq: Status: Active Protocol: Document 07/26/21 15:15 AW (Rec: 07/26/21 12:55 AW [id number]) Current Condition History of Current Condition Onset Date April 2021 Current Complaints left shoulder pain History of Current Condition Rd fell in April, resulting in comminuted left proximal humerus fracture with anterior dislocation. She has long-standing left knee pain which she feels may have contributed to her fall. Fracture was treated non- operatively and Rd was sent home in a soft sling after a brief hospital stay. Her sister was visiting from [place] at the time and extended her stay to help for a week but Rd has been managing without assist at home since her sister left. She did have one additional fall within one week of leaving the hospital. She believes she was impaired with oxycodone at that time and denies falls since then. She had home health services - primarily OT - but she was discharged at the end of June. She can get dressed and shower without assist but is doing all overhead activities one-handed. She is currently driving even though she has trouble lifting her arm. Pain is mostly in her anterior and posterior shoulder. She denies neck pain or radiating symptoms to her arm. She lives alone in a single level home with 2 steps to enter using right rail at front of house. Prior Treatments and Tests MRI 07/06/21: 1. 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 2. Acromioclavicular joint osteoarthritis. 3. Possible Hill-Sachs deformity of the humeral head. Future Testing and Treatments Planned None identified Treatment Goals Patient/Caregiver Goals Generally, I want to be able to use my left arm. Specifically, I want to be able to hug my boyfriend. Prior Functional Status Baseline Function- ADL's Independent Baseline Function- Mobility Independent Current Functional Impairments (Reported) Functional Limitations- ADL's Limited use of left arm for most dressing and hygiene tasks Personal Factors Other Personal Factors That May Effect Depression, knee pain, and Therapy/Recovery PT-OP-C Subjective Start: 07/26/21 12:44 Freq: Status: Active Protocol: Document 08/18/21 11:15 AMB (Rec: 08/18/21 12:51 AMB [id number]) OP-PT Subjective Patient Comments Patient Comments Sidelying is hard due to hip pain- better on bed at home than here, but still tough position. PT-OP-F Manual Assessment Start: 07/26/21 12:44 Freq: Status: Active Protocol: Document 07/26/21 15:15 AW (Rec: 07/26/21 17:06 AW [id number]) Manual Assessments Soft Tissue Assessment Soft Tissue Mobility Assessment Hypertonicity in left upper traps. Tenderness generally in all surrounding muscles. Generally decreased muscle mass left shoulder compared with right. Joint Mobility Assessment Joint Mobility Assessment Stiffness in all planes of motion left shoulder with significant guarding even with PROM. PT-OP-G Mobility & Gait Start: 07/26/21 12:44 Freq: Status: Active Protocol: Document 07/26/21 15:15 AW (Rec: 07/26/21 17:06 AW [id number]) OP Gait Assessment Comments Gait Comments Generally unsteady and with decreased confidence. PT-OP-J Posture/Palpation/Skin Start: 07/26/21 12:44 Freq: Status: Active Protocol: Document 07/26/21 15:15 AW (Rec: 07/26/21 17:06 AW [id number]) Posture Evaluation Comments Posture Comments Forward shoulder posture bilaterally. Protective of left shoulder. PT-OP-K Range of Motion Start: 07/26/21 12:44 Freq: Status: Active Protocol: Document 07/26/21 15:15 AW (Rec: 07/26/21 17:14 AW [id number]) Cervical Spine Range of Motion Cervical Spine Active Testing Position Sitting Flexion 30 Extension 30 Rotation Left 25 Rotation Right 25 Lateral Flexion Left 45 Lateral Flexion Right 50 Comments Pt denies neck pain with all movements Shoulder Goniometric Range of Motion Shoulder Left Passive Shoulder ROM WFL No Testing Position Sitting Flexion 45 Abduction 55 Internal Rotation Behind Back (text) to left hip Comments ER < neutral passively in supine with 45 degrees abduction Right Active Flexion 140 Abduction 150 External Rotation at 0 degrees Abduction 65 Internal Rotation Behind Back (text) T7 Elbow/Forearm Range of Motion Elbow/Forearm Left Active ROM Testing Position Supine Elbow Flexion (degrees) 115 Elbow Extension (degrees) 5 PT-OP-M Strength Start: 07/26/21 12:44 Freq: Status: Active Protocol: Document 07/26/21 15:15 AW (Rec: 07/26/21 17:14 AW [id number]) Shoulder Strength Shoulder Manual Muscle Testing Right Flexion 4+ Good+ Extension 4+ Good+ Abduction (C5) 4+ Good+ External Rotation 4+ Good+ Internal Rotation 4+ Good+ PT-OP-Q Treatments Start: 07/26/21 12:44 Freq: Status: Active Protocol: Document 08/18/21 11:15 AMB (Rec: 08/18/21 12:51 AMB [id number]) Therapeutic Exercises Supine Exercises flexion AROM Supine Exercise Name fatigues very quickly Reps/Minutes 1 rep Comments 0-30 degrees Sitting Exercises scapular retraction Sitting Exercise Name scapular retraction Resistance AROM Reps/Minutes 3SH x 10 Comments HEP cervical retraction Sitting Exercise Name cervical retraction Resistance AROM Reps/Minutes 3SH x 8 Comments HEP Manual Therapy Treatment Soft Tissue Mobilization 1 Body Location upper traps, levator scap, pecs Mobilization Type Myofascial Release,Sustained Pressure Manual Techniques 1 Type PROM all planes Comments less guarded into abduction and ER today-- joint distraction helped PT-OP-R Modalities Start: 07/26/21 12:44 Freq: Status: Active Protocol: Document 08/03/21 08:17 AW (Rec: 08/03/21 10:43 AW [id number]) Electric Stimulation Electric Stimulation Interferential Current (IFC) Body Location left shoulder Duration (Minutes) 12 Intensity 10 Target/Sweep Target Patient Position Hooklying Comments HOB elevated PT-OP-T Assessment and Plan Start: 07/26/21 12:44 Freq: Status: Active Protocol: Document 08/18/21 11:15 AMB (Rec: 08/18/21 12:51 AMB [id number]) Physical Therapy Assessment Goals Three Impairment QuickDash - 70% impairment Snf Goal (LTG) Pt will score 45% or less impairment on QuickDash as a measure of improved ability to manage ADL's LTG Duration 12 weeks - 10/18/21 Two Impairment shoulder strength Short Term Goal (STG) Pt will improve her strength to be able to lift her arm to 90 degrees elevation to improve her ability to use her left arm in self-care activities. STG Duration 6 weeks - 09/06/21 Bookkeeping Service Sales Agent Goal (LTG) Nithya will improve her left shoulder strength to be able to lift a book from table height. LTG Duration 12 weeks - 10/18/21 One Impairment shoulder ROM Short Term Goal (STG) Nithya will improve her shoulder flexion PROM to 90 degrees STG Duration 6 weeks - 09/06/21 Snf Goal (LTG) Nithya will improve her shoulder abduction AROM to 90 degrees. LTG Duration 12 weeks - 10/18/21 Assessment Summary Assessment Pt's PROM is showing some improvement, strength is still very limited, pt was able to hold arm in 90 degrees flexion while in supine for a few seconds today which was an improvement, but did not give as HEP, could consider isometrics HEP next visit. Physical Therapy Plan Next Visit Focus/Plan Next Note Type Treatment Note Next Visit Plan Continue AAROM, table slides. Review cervical and scap retraction, Consider gentle isometrics?
--- NOTE | 2021-08-23 12:13 | PT.OTN ---
Current Diagnoses Displaced fracture of greater tuberosity of left humerus, initial encounter for closed fracture (08/23/21) Unspecified dislocation of left shoulder joint, subsequent encounter (08/23/21) Physical Therapy Treatment Note PT-OP-A Visit Information Start: 07/26/21 12:44 Freq: Status: Active Protocol: Document 08/23/21 11:18 AW (Rec: 08/23/21 12:13 AW [id number]) Out-Patient Physical Therapy Visit Information Visit Information Visit Type Treatment Note Visit Start Time 11:15 Visit Stop Time 12:00 Total Visit Minutes 45 Visit Number 7 Evaluation Information Evaluation Date 07/26/21 PT-OP-B Current Condition Start: 07/26/21 12:44 Freq: Status: Active Protocol: Document 07/26/21 15:15 AW (Rec: 07/26/21 12:55 AW [id number]) Current Condition History of Current Condition Onset Date April 2021 Current Complaints left shoulder pain History of Current Condition Rd fell in April, resulting in comminuted left proximal humerus fracture with anterior dislocation. She has long-standing left knee pain which she feels may have contributed to her fall. Fracture was treated non- operatively and Rd was sent home in a soft sling after a brief hospital stay. Her sister was visiting from [place] at the time and extended her stay to help for a week but Rd has been managing without assist at home since her sister left. She did have one additional fall within one week of leaving the hospital. She believes she was impaired with oxycodone at that time and denies falls since then. She had home health services - primarily OT - but she was discharged at the end of June. She can get dressed and shower without assist but is doing all overhead activities one-handed. She is currently driving even though she has trouble lifting her arm. Pain is mostly in her anterior and posterior shoulder. She denies neck pain or radiating symptoms to her arm. She lives alone in a single level home with 2 steps to enter using right rail at front of house. Prior Treatments and Tests MRI 07/06/21: 1. 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 2. Acromioclavicular joint osteoarthritis. 3. Possible Hill-Sachs deformity of the humeral head. Future Testing and Treatments Planned None identified Treatment Goals Patient/Caregiver Goals Generally, I want to be able to use my left arm. Specifically, I want to be able to hug my boyfriend. Prior Functional Status Baseline Function- ADL's Independent Baseline Function- Mobility Independent Current Functional Impairments (Reported) Functional Limitations- ADL's Limited use of left arm for most dressing and hygiene tasks Personal Factors Other Personal Factors That May Effect Depression, knee pain, and Therapy/Recovery PT-OP-C Subjective Start: 07/26/21 12:44 Freq: Status: Active Protocol: Document 08/23/21 11:18 AW (Rec: 08/23/21 12:13 AW [id number]) OP-PT Subjective Patient Comments Patient Comments Nithya hasn't done any ROM exercises since last visit but has done scapular and cervical retraction. She notes two days in that interval where she did not feel the need to take pain medication. PT-OP-F Manual Assessment Start: 07/26/21 12:44 Freq: Status: Active Protocol: Document 07/26/21 15:15 AW (Rec: 07/26/21 17:06 AW [id number]) Manual Assessments Soft Tissue Assessment Soft Tissue Mobility Assessment Hypertonicity in left upper traps. Tenderness generally in all surrounding muscles. Generally decreased muscle mass left shoulder compared with right. Joint Mobility Assessment Joint Mobility Assessment Stiffness in all planes of motion left shoulder with significant guarding even with PROM. PT-OP-G Mobility & Gait Start: 07/26/21 12:44 Freq: Status: Active Protocol: Document 07/26/21 15:15 AW (Rec: 07/26/21 17:06 AW [id number]) OP Gait Assessment Comments Gait Comments Generally unsteady and with decreased confidence. PT-OP-J Posture/Palpation/Skin Start: 07/26/21 12:44 Freq: Status: Active Protocol: Document 07/26/21 15:15 AW (Rec: 07/26/21 17:06 AW [id number]) Posture Evaluation Comments Posture Comments Forward shoulder posture bilaterally. Protective of left shoulder. PT-OP-K Range of Motion Start: 07/26/21 12:44 Freq: Status: Active Protocol: Document 07/26/21 15:15 AW (Rec: 07/26/21 17:14 AW [id number]) Cervical Spine Range of Motion Cervical Spine Active Testing Position Sitting Flexion 30 Extension 30 Rotation Left 25 Rotation Right 25 Lateral Flexion Left 45 Lateral Flexion Right 50 Comments Pt denies neck pain with all movements Shoulder Goniometric Range of Motion Shoulder Left Passive Shoulder ROM WFL No Testing Position Sitting Flexion 45 Abduction 55 Internal Rotation Behind Back (text) to left hip Comments ER < neutral passively in supine with 45 degrees abduction Right Active Flexion 140 Abduction 150 External Rotation at 0 degrees Abduction 65 Internal Rotation Behind Back (text) T7 Elbow/Forearm Range of Motion Elbow/Forearm Left Active ROM Testing Position Supine Elbow Flexion (degrees) 115 Elbow Extension (degrees) 5 PT-OP-M Strength Start: 07/26/21 12:44 Freq: Status: Active Protocol: Document 07/26/21 15:15 AW (Rec: 07/26/21 17:14 AW [id number]) Shoulder Strength Shoulder Manual Muscle Testing Right Flexion 4+ Good+ Extension 4+ Good+ Abduction (C5) 4+ Good+ External Rotation 4+ Good+ Internal Rotation 4+ Good+ PT-OP-Q Treatments Start: 07/26/21 12:44 Freq: Status: Active Protocol: Document 08/23/21 11:18 AW (Rec: 08/23/21 12:13 AW [id number]) Therapeutic Exercises Supine Exercises flexion AROM Supine Exercise Name AROM x 2; isometric hold at 30 degrees held 5 seconds x 2 Comments 0-30 degrees Sitting Exercises shoulder isometrics Sitting Exercise Name flexion, abduction Equipment Used seated pushing into R hand; standing at wall Comments clinic only scapular retraction Sitting Exercise Name scapular retraction Resistance AROM Reps/Minutes 3SH x 10 Comments HEP cervical retraction Sitting Exercise Name cervical retraction Resistance AROM Reps/Minutes 3SH x 8 Comments HEP Manual Therapy Treatment Soft Tissue Mobilization 1 Body Location upper traps, levator scap, pecs Mobilization Type Myofascial Release,Sustained Pressure Manual Techniques 1 Type PROM all planes Comments less guarded into abduction and ER today-- joint distraction helped PT-OP-R Modalities Start: 07/26/21 12:44 Freq: Status: Active Protocol: Document 08/03/21 08:17 AW (Rec: 08/03/21 10:43 AW [id number]) Electric Stimulation Electric Stimulation Interferential Current (IFC) Body Location left shoulder Duration (Minutes) 12 Intensity 10 Target/Sweep Target Patient Position Hooklying Comments HOB elevated PT-OP-T Assessment and Plan Start: 07/26/21 12:44 Freq: Status: Active Protocol: Document 08/23/21 11:18 AW (Rec: 08/23/21 12:13 AW [id number]) Physical Therapy Assessment Goals Three Impairment QuickDash - 70% impairment Fdc Goal (LTG) Pt will score 45% or less impairment on QuickDash as a measure of improved ability to manage ADL's LTG Duration 12 weeks - 10/18/21 Two Impairment shoulder strength Short Term Goal (STG) Pt will improve her strength to be able to lift her arm to 90 degrees elevation to improve her ability to use her left arm in self-care activities. STG Duration 6 weeks - 09/06/21 Real Estate Assessor Goal (LTG) Nithya will improve her left shoulder strength to be able to lift a book from table height. LTG Duration 12 weeks - 10/18/21 One Impairment shoulder ROM Short Term Goal (STG) Nithya will improve her shoulder flexion PROM to 90 degrees STG Duration 6 weeks - 09/06/21 Real Estate Assessor Goal (LTG) Nithya will improve her shoulder abduction AROM to 90 degrees. LTG Duration 12 weeks - 10/18/21 Assessment Summary Assessment PROM continues to progress slowly. Pt did hold 30 degrees flexion while supine today 3 reps 5 seconds each. Initiated isometrics today in flexion and abduction but pt requires lots of cues for set up and direction of force. Will continue to work in clinic before adding to HEP. Physical Therapy Plan Next Visit Focus/Plan Next Note Type Treatment Note Next Visit Plan Continue MEMO, table slides. Review cervical and scap retraction, Consider gentle isometrics?
--- NOTE | 2021-08-25 15:17 | PT.OTN ---
Current Diagnoses Displaced fracture of greater tuberosity of left humerus, initial encounter for closed fracture (08/25/21) Unspecified dislocation of left shoulder joint, subsequent encounter (08/25/21) Physical Therapy Treatment Note PT-OP-A Visit Information Start: 07/26/21 12:44 Freq: Status: Active Protocol: Document 08/25/21 11:15 AMB (Rec: 08/25/21 15:17 AMB [id number]) Out-Patient Physical Therapy Visit Information Visit Information Visit Type Treatment Note Visit Start Time 11:15 Visit Stop Time 12:00 Total Visit Minutes 45 Visit Number 8 PT-OP-B Current Condition Start: 07/26/21 12:44 Freq: Status: Active Protocol: Document 07/26/21 15:15 AW (Rec: 07/26/21 12:55 AW [id number]) Current Condition History of Current Condition Onset Date April 2021 Current Complaints left shoulder pain History of Current Condition Rd fell in April, resulting in comminuted left proximal humerus fracture with anterior dislocation. She has long-standing left knee pain which she feels may have contributed to her fall. Fracture was treated non- operatively and Rd was sent home in a soft sling after a brief hospital stay. Her sister was visiting from [place] at the time and extended her stay to help for a week but Rd has been managing without assist at home since her sister left. She did have one additional fall within one week of leaving the hospital. She believes she was impaired with oxycodone at that time and denies falls since then. She had home health services - primarily OT - but she was discharged at the end of June. She can get dressed and shower without assist but is doing all overhead activities one-handed. She is currently driving even though she has trouble lifting her arm. Pain is mostly in her anterior and posterior shoulder. She denies neck pain or radiating symptoms to her arm. She lives alone in a single level home with 2 steps to enter using right rail at front of house. Prior Treatments and Tests MRI 07/06/21: 1. 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 2. Acromioclavicular joint osteoarthritis. 3. Possible Hill-Sachs deformity of the humeral head. Future Testing and Treatments Planned None identified Treatment Goals Patient/Caregiver Goals Generally, I want to be able to use my left arm. Specifically, I want to be able to hug my boyfriend. Prior Functional Status Baseline Function- ADL's Independent Baseline Function- Mobility Independent Current Functional Impairments (Reported) Functional Limitations- ADL's Limited use of left arm for most dressing and hygiene tasks Personal Factors Other Personal Factors That May Effect Depression, knee pain, and Therapy/Recovery PT-OP-C Subjective Start: 07/26/21 12:44 Freq: Status: Active Protocol: Document 08/25/21 11:15 AMB (Rec: 08/25/21 15:17 AMB [id number]) OP-PT Subjective Patient Comments Patient Comments Nithya states she has noticed improvement in the arm. Especially with lifting it forward. PT-OP-F Manual Assessment Start: 07/26/21 12:44 Freq: Status: Active Protocol: Document 07/26/21 15:15 AW (Rec: 07/26/21 17:06 AW [id number]) Manual Assessments Soft Tissue Assessment Soft Tissue Mobility Assessment Hypertonicity in left upper traps. Tenderness generally in all surrounding muscles. Generally decreased muscle mass left shoulder compared with right. Joint Mobility Assessment Joint Mobility Assessment Stiffness in all planes of motion left shoulder with significant guarding even with PROM. PT-OP-G Mobility & Gait Start: 07/26/21 12:44 Freq: Status: Active Protocol: Document 07/26/21 15:15 AW (Rec: 07/26/21 17:06 AW [id number]) OP Gait Assessment Comments Gait Comments Generally unsteady and with decreased confidence. PT-OP-J Posture/Palpation/Skin Start: 07/26/21 12:44 Freq: Status: Active Protocol: Document 07/26/21 15:15 AW (Rec: 07/26/21 17:06 AW [id number]) Posture Evaluation Comments Posture Comments Forward shoulder posture bilaterally. Protective of left shoulder. PT-OP-K Range of Motion Start: 07/26/21 12:44 Freq: Status: Active Protocol: Document 07/26/21 15:15 AW (Rec: 07/26/21 17:14 AW [id number]) Cervical Spine Range of Motion Cervical Spine Active Testing Position Sitting Flexion 30 Extension 30 Rotation Left 25 Rotation Right 25 Lateral Flexion Left 45 Lateral Flexion Right 50 Comments Pt denies neck pain with all movements Shoulder Goniometric Range of Motion Shoulder Left Passive Shoulder ROM WFL No Testing Position Sitting Flexion 45 Abduction 55 Internal Rotation Behind Back (text) to left hip Comments ER < neutral passively in supine with 45 degrees abduction Right Active Flexion 140 Abduction 150 External Rotation at 0 degrees Abduction 65 Internal Rotation Behind Back (text) T7 Elbow/Forearm Range of Motion Elbow/Forearm Left Active ROM Testing Position Supine Elbow Flexion (degrees) 115 Elbow Extension (degrees) 5 PT-OP-M Strength Start: 07/26/21 12:44 Freq: Status: Active Protocol: Document 07/26/21 15:15 AW (Rec: 07/26/21 17:14 AW [id number]) Shoulder Strength Shoulder Manual Muscle Testing Right Flexion 4+ Good+ Extension 4+ Good+ Abduction (C5) 4+ Good+ External Rotation 4+ Good+ Internal Rotation 4+ Good+ PT-OP-Q Treatments Start: 07/26/21 12:44 Freq: Status: Active Protocol: Document 08/25/21 11:15 AMB (Rec: 08/25/21 15:17 AMB [id number]) Therapeutic Exercises Supine Exercises flexion AROM Supine Exercise Name AROM x 2; isometric hold at 30 degrees held 5 seconds x 2 Comments 0-30 degrees Sitting Exercises shoulder isometrics Sitting Exercise Name flexion, extension Equipment Used seated pushing into R hand; standing at wall Reps/Minutes 5x5 Comments HEP cervical retraction Sitting Exercise Name cervical retraction Resistance AROM Reps/Minutes 3SH x 8 Comments HEP Manual Therapy Treatment Soft Tissue Mobilization 1 Body Location upper traps, levator scap, pecs Mobilization Type Myofascial Release,Sustained Pressure Joint Mobilizations 1 Joint GH AP Grade III Body Position Hooklying Manual Techniques 1 Type PROM all planes Comments less guarded into abduction and ER today-- joint distraction helped PT-OP-R Modalities Start: 07/26/21 12:44 Freq: Status: Active Protocol: Document 08/03/21 08:17 AW (Rec: 08/03/21 10:43 AW [id number]) Electric Stimulation Electric Stimulation Interferential Current (IFC) Body Location left shoulder Duration (Minutes) 12 Intensity 10 Target/Sweep Target Patient Position Hooklying Comments HOB elevated PT-OP-T Assessment and Plan Start: 07/26/21 12:44 Freq: Status: Active Protocol: Document 08/25/21 11:15 AMB (Rec: 08/25/21 15:17 AMB [id number]) Physical Therapy Assessment Goals Three Impairment QuickDash - 70% impairment Mcc Goal (LTG) Pt will score 45% or less impairment on QuickDash as a measure of improved ability to manage ADL's LTG Duration 12 weeks - 10/18/21 Two Impairment shoulder strength Short Term Goal (STG) Pt will improve her strength to be able to lift her arm to 90 degrees elevation to improve her ability to use her left arm in self-care activities. STG Duration 6 weeks - 09/06/21 Bunch Breaker Machine Operator Goal (LTG) Nithya will improve her left shoulder strength to be able to lift a book from table height. LTG Duration 12 weeks - 10/18/21 One Impairment shoulder ROM Short Term Goal (STG) Nithya will improve her shoulder flexion PROM to 90 degrees STG Duration 6 weeks - 09/06/21 Mcc Goal (LTG) Nithya will improve her shoulder abduction AROM to 90 degrees. LTG Duration 12 weeks - 10/18/21 Assessment Summary Assessment Pt better with isometrics today, gave flexion and extension as HEP. Pt needed continued cues for abduction and ER that would make it difficult for HEP at this time . Flexion PROM is improving well, abduction continues to be quite stiff. Physical Therapy Plan Next Visit Focus/Plan Next Note Type Treatment Note Next Visit Plan Continue AAROM, table slides. Review cervical and scap retraction, isometrics for flexion and extension, consider adding more isometrics if form improves.
--- NOTE | 2021-08-31 12:12 | PT.OTN ---
Current Diagnoses Displaced fracture of greater tuberosity of left humerus, initial encounter for closed fracture (08/31/21) Unspecified dislocation of left shoulder joint, subsequent encounter (08/31/21) Physical Therapy Treatment Note PT-OP-A Visit Information Start: 07/26/21 12:44 Freq: Status: Active Protocol: Document 08/31/21 11:17 AW (Rec: 08/31/21 12:12 AW [id number]) Out-Patient Physical Therapy Visit Information Visit Information Visit Type Treatment Note Visit Start Time 11:15 Visit Stop Time 11:55 Total Visit Minutes 40 Visit Number 9 Evaluation Information Evaluation Date 07/26/21 PT-OP-B Current Condition Start: 07/26/21 12:44 Freq: Status: Active Protocol: Document 07/26/21 15:15 AW (Rec: 07/26/21 12:55 AW [id number]) Current Condition History of Current Condition Onset Date April 2021 Current Complaints left shoulder pain History of Current Condition Nithya fell in April, resulting in comminuted left proximal humerus fracture with anterior dislocation. She has long-standing left knee pain which she feels may have contributed to her fall. Fracture was treated non- operatively and Rd was sent home in a soft sling after a brief hospital stay. Her sister was visiting from [place] at the time and extended her stay to help for a week but Nithya has been managing without assist at home since her sister left. She did have one additional fall within one week of leaving the hospital. She believes she was impaired with oxycodone at that time and denies falls since then. She had home health services - primarily OT - but she was discharged at the end of June. She can get dressed and shower without assist but is doing all overhead activities one-handed. She is currently driving even though she has trouble lifting her arm. Pain is mostly in her anterior and posterior shoulder. She denies neck pain or radiating symptoms to her arm. She lives alone in a single level home with 2 steps to enter using right rail at front of house. Prior Treatments and Tests MRI 07/06/21: 1. 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 2. Acromioclavicular joint osteoarthritis. 3. Possible Hill-Sachs deformity of the humeral head. Future Testing and Treatments Planned None identified Treatment Goals Patient/Caregiver Goals Generally, I want to be able to use my left arm. Specifically, I want to be able to hug my boyfriend. Prior Functional Status Baseline Function- ADL's Independent Baseline Function- Mobility Independent Current Functional Impairments (Reported) Functional Limitations- ADL's Limited use of left arm for most dressing and hygiene tasks Personal Factors Other Personal Factors That May Effect Depression, knee pain, and Therapy/Recovery PT-OP-C Subjective Start: 07/26/21 12:44 Freq: Status: Active Protocol: Document 08/31/21 11:17 AW (Rec: 08/31/21 12:12 AW [id number]) OP-PT Subjective Patient Comments Patient Comments Nithya was sick earlier this week but feels better now. She feels extra sore today. PT-OP-F Manual Assessment Start: 07/26/21 12:44 Freq: Status: Active Protocol: Document 07/26/21 15:15 AW (Rec: 07/26/21 17:06 AW [id number]) Manual Assessments Soft Tissue Assessment Soft Tissue Mobility Assessment Hypertonicity in left upper traps. Tenderness generally in all surrounding muscles. Generally decreased muscle mass left shoulder compared with right. Joint Mobility Assessment Joint Mobility Assessment Stiffness in all planes of motion left shoulder with significant guarding even with PROM. PT-OP-G Mobility & Gait Start: 07/26/21 12:44 Freq: Status: Active Protocol: Document 07/26/21 15:15 AW (Rec: 07/26/21 17:06 AW [id number]) OP Gait Assessment Comments Gait Comments Generally unsteady and with decreased confidence. PT-OP-J Posture/Palpation/Skin Start: 07/26/21 12:44 Freq: Status: Active Protocol: Document 07/26/21 15:15 AW (Rec: 07/26/21 17:06 AW [id number]) Posture Evaluation Comments Posture Comments Forward shoulder posture bilaterally. Protective of left shoulder. PT-OP-K Range of Motion Start: 07/26/21 12:44 Freq: Status: Active Protocol: Document 07/26/21 15:15 AW (Rec: 07/26/21 17:14 AW [id number]) Cervical Spine Range of Motion Cervical Spine Active Testing Position Sitting Flexion 30 Extension 30 Rotation Left 25 Rotation Right 25 Lateral Flexion Left 45 Lateral Flexion Right 50 Comments Pt denies neck pain with all movements Shoulder Goniometric Range of Motion Shoulder Left Passive Shoulder ROM WFL No Testing Position Sitting Flexion 45 Abduction 55 Internal Rotation Behind Back (text) to left hip Comments ER < neutral passively in supine with 45 degrees abduction Right Active Flexion 140 Abduction 150 External Rotation at 0 degrees Abduction 65 Internal Rotation Behind Back (text) T7 Elbow/Forearm Range of Motion Elbow/Forearm Left Active ROM Testing Position Supine Elbow Flexion (degrees) 115 Elbow Extension (degrees) 5 PT-OP-M Strength Start: 07/26/21 12:44 Freq: Status: Active Protocol: Document 07/26/21 15:15 AW (Rec: 07/26/21 17:14 AW [id number]) Shoulder Strength Shoulder Manual Muscle Testing Right Flexion 4+ Good+ Extension 4+ Good+ Abduction (C5) 4+ Good+ External Rotation 4+ Good+ Internal Rotation 4+ Good+ PT-OP-Q Treatments Start: 07/26/21 12:44 Freq: Status: Active Protocol: Document 08/31/21 11:17 AW (Rec: 08/31/21 12:12 AW [id number]) Therapeutic Exercises Supine Exercises flexion AROM Supine Exercise Name AROM x 2; isometric hold at 30 degrees held 5 seconds x 2 Comments 0-30 degrees AAROM Supine Exercise Name flexion Reps/Minutes x5 ea rest breaks needed Comments with cane; highly irritable Sitting Exercises closed chain ER Sitting Exercise Name closed chain ER Equipment Used PT stabilizes L shoulder and pt turns away Reps/Minutes x5 AROM flexion Sitting Exercise Name AROM flexion Reps/Minutes 5SH x 3 Comments cues for scapular stability shoulder isometrics Sitting Exercise Name flexion, extension, abduction Equipment Used seated pushing into R hand; standing at wall Reps/Minutes 5x5 Comments flex, ext for HEP; review abduction next visit for possible HEP add scapular retraction Sitting Exercise Name scapular retraction Resistance AROM Reps/Minutes 3SH x 10 Comments HEP Manual Therapy Treatment Soft Tissue Mobilization 1 Body Location upper traps, levator scap, pecs Mobilization Type Myofascial Release,Sustained Pressure Joint Mobilizations 1 Joint GH AP Grade III Body Position Hooklying Manual Techniques 1 Type PROM all planes Comments least guarded into abduction and ER today-- joint distraction helped PT-OP-R Modalities Start: 07/26/21 12:44 Freq: Status: Active Protocol: Document 08/03/21 08:17 AW (Rec: 08/03/21 10:43 AW [id number]) Electric Stimulation Electric Stimulation Interferential Current (IFC) Body Location left shoulder Duration (Minutes) 12 Intensity 10 Target/Sweep Target Patient Position Hooklying Comments HOB elevated PT-OP-T Assessment and Plan Start: 07/26/21 12:44 Freq: Status: Active Protocol: Document 08/31/21 11:17 AW (Rec: 08/31/21 12:12 AW [id number]) Physical Therapy Assessment Goals Three Impairment QuickDash - 70% impairment Public Events Facilities Rental Manager Goal (LTG) Pt will score 45% or less impairment on QuickDash as a measure of improved ability to manage ADL's LTG Duration 12 weeks - 10/18/21 Two Impairment shoulder strength Short Term Goal (STG) Pt will improve her strength to be able to lift her arm to 90 degrees elevation to improve her ability to use her left arm in self-care activities. STG Duration 6 weeks - 09/06/21 Mcc Goal (LTG) Nithya will improve her left shoulder strength to be able to lift a book from table height. LTG Duration 12 weeks - 10/18/21 One Impairment shoulder ROM Short Term Goal (STG) Nithya will improve her shoulder flexion PROM to 90 degrees STG Duration 6 weeks - 09/06/21 M[facility] Goal (LTG) Nithya will improve her shoulder abduction AROM to 90 degrees. LTG Duration 12 weeks - 10/18/21 Assessment Summary Assessment Reviewed isometrics today and pt sets up flexion and extension well. Needs continued cues for abduction. Pt able to lift arm in seated position to ~30 degrees and hold 5 seconds three times. Physical Therapy Plan Next Visit Focus/Plan Next Note Type Progress Note Next Visit Plan Continue AAROM, table slides. Review cervical and scap retraction, isometrics for flexion and extension, consider adding more isometrics if form improves.
--- NOTE | 2021-09-06 13:46 | PT.OTN ---
Current Diagnoses Displaced fracture of greater tuberosity of left humerus, initial encounter for closed fracture (09/06/21) Unspecified dislocation of left shoulder joint, subsequent encounter (09/06/21) Physical Therapy Treatment Note PT-OP-A Visit Information Start: 07/26/21 12:44 Freq: Status: Active Protocol: Document 09/06/21 08:40 AW (Rec: 09/06/21 09:47 AW [id number]) Out-Patient Physical Therapy Visit Information Visit Information Visit Type Progress Note Visit Start Time 09:00 Visit Stop Time 09:45 Total Visit Minutes 45 Visit Number 10 Evaluation Information Evaluation Date 07/26/21 PT-OP-B Current Condition Start: 07/26/21 12:44 Freq: Status: Active Protocol: Document 07/26/21 15:15 AW (Rec: 07/26/21 12:55 AW [id number]) Current Condition History of Current Condition Onset Date April 2021 Current Complaints left shoulder pain History of Current Condition Nithya fell in April, resulting in comminuted left proximal humerus fracture with anterior dislocation. She has long-standing left knee pain which she feels may have contributed to her fall. Fracture was treated non- operatively and Rd was sent home in a soft sling after a brief hospital stay. Her sister was visiting from [place] at the time and extended her stay to help for a week but Nithya has been managing without assist at home since her sister left. She did have one additional fall within one week of leaving the hospital. She believes she was impaired with oxycodone at that time and denies falls since then. She had home health services - primarily OT - but she was discharged at the end of June. She can get dressed and shower without assist but is doing all overhead activities one-handed. She is currently driving even though she has trouble lifting her arm. Pain is mostly in her anterior and posterior shoulder. She denies neck pain or radiating symptoms to her arm. She lives alone in a single level home with 2 steps to enter using right rail at front of house. Prior Treatments and Tests MRI 07/06/21: 1. 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 2. Acromioclavicular joint osteoarthritis. 3. Possible Hill-Sachs deformity of the humeral head. Future Testing and Treatments Planned None identified Treatment Goals Patient/Caregiver Goals Generally, I want to be able to use my left arm. Specifically, I want to be able to hug my boyfriend. Prior Functional Status Baseline Function- ADL's Independent Baseline Function- Mobility Independent Current Functional Impairments (Reported) Functional Limitations- ADL's Limited use of left arm for most dressing and hygiene tasks Personal Factors Other Personal Factors That May Effect Depression, knee pain, and Therapy/Recovery PT-OP-C Subjective Start: 07/26/21 12:44 Freq: Status: Active Protocol: Document 09/06/21 08:40 AW (Rec: 09/06/21 09:47 AW [id number]) OP-PT Subjective Patient Comments Patient Comments Nithya is feeling better now. She reports trying to use the her left arm more and it feels a little stronger. PT-OP-F Manual Assessment Start: 07/26/21 12:44 Freq: Status: Active Protocol: Document 07/26/21 15:15 AW (Rec: 07/26/21 17:06 AW [id number]) Manual Assessments Soft Tissue Assessment Soft Tissue Mobility Assessment Hypertonicity in left upper traps. Tenderness generally in all surrounding muscles. Generally decreased muscle mass left shoulder compared with right. Joint Mobility Assessment Joint Mobility Assessment Stiffness in all planes of motion left shoulder with significant guarding even with PROM. PT-OP-G Mobility & Gait Start: 07/26/21 12:44 Freq: Status: Active Protocol: Document 07/26/21 15:15 AW (Rec: 07/26/21 17:06 AW [id number]) OP Gait Assessment Comments Gait Comments Generally unsteady and with decreased confidence. PT-OP-J Posture/Palpation/Skin Start: 07/26/21 12:44 Freq: Status: Active Protocol: Document 07/26/21 15:15 AW (Rec: 07/26/21 17:06 AW [id number]) Posture Evaluation Comments Posture Comments Forward shoulder posture bilaterally. Protective of left shoulder. PT-OP-K Range of Motion Start: 07/26/21 12:44 Freq: Status: Active Protocol: Document 07/26/21 15:15 AW (Rec: 07/26/21 17:14 AW [id number]) Cervical Spine Range of Motion Cervical Spine Active Testing Position Sitting Flexion 30 Extension 30 Rotation Left 25 Rotation Right 25 Lateral Flexion Left 45 Lateral Flexion Right 50 Comments Pt denies neck pain with all movements Shoulder Goniometric Range of Motion Shoulder Left Passive Shoulder ROM WFL No Testing Position Sitting Flexion 45 Abduction 55 Internal Rotation Behind Back (text) to left hip Comments ER < neutral passively in supine with 45 degrees abduction Right Active Flexion 140 Abduction 150 External Rotation at 0 degrees Abduction 65 Internal Rotation Behind Back (text) T7 Elbow/Forearm Range of Motion Elbow/Forearm Left Active ROM Testing Position Supine Elbow Flexion (degrees) 115 Elbow Extension (degrees) 5 PT-OP-M Strength Start: 07/26/21 12:44 Freq: Status: Active Protocol: Document 07/26/21 15:15 AW (Rec: 07/26/21 17:14 AW [id number]) Shoulder Strength Shoulder Manual Muscle Testing Right Flexion 4+ Good+ Extension 4+ Good+ Abduction (C5) 4+ Good+ External Rotation 4+ Good+ Internal Rotation 4+ Good+ PT-OP-Q Treatments Start: 07/26/21 12:44 Freq: Status: Active Protocol: Document 09/06/21 08:40 AW (Rec: 09/06/21 09:47 AW [id number]) Therapeutic Exercises Supine Exercises flexion AROM Supine Exercise Name flexion AROM; hold at 30-40 deg Reps/Minutes 10SH x 5 Comments quality hold with less shaking Sitting Exercises closed chain ER Sitting Exercise Name closed chain ER Equipment Used PT stabilizes L shoulder and pt turns away Reps/Minutes x5 shoulder isometrics Sitting Exercise Name flexion, extension, abduction Equipment Used seated pushing into R hand; standing at wall Reps/Minutes 5x5 Comments flex, ext for HEP; review abduction next visit for possible HEP add scapular retraction Sitting Exercise Name scapular retraction Resistance AROM Reps/Minutes during isometrics Standing Exercises isometric adduction Standing Exercise Name isometric adduction Side bilateral Equipment Used [employer]; neutral rotation Reps/Minutes 5SH x 10 Comments review next visit Manual Therapy Treatment Soft Tissue Mobilization 1 Body Location upper traps, levator scap, pecs Mobilization Type Myofascial Release,Sustained Pressure Joint Mobilizations 1 Joint GH AP Grade III Body Position Hooklying Manual Techniques 1 Type PROM all planes Comments Flexion improving. ER remains limited to neutral PT-OP-R Modalities Start: 07/26/21 12:44 Freq: Status: Active Protocol: Document 08/03/21 08:17 AW (Rec: 08/03/21 10:43 AW [id number]) Electric Stimulation Electric Stimulation Interferential Current (IFC) Body Location left shoulder Duration (Minutes) 12 Intensity 10 Target/Sweep Target Patient Position Hooklying Comments HOB elevated PT-OP-T Assessment and Plan Start: 07/26/21 12:44 Freq: Status: Active Protocol: Document 09/06/21 08:40 AW (Rec: 09/06/21 09:47 AW [id number]) Physical Therapy Assessment Goals Three Impairment QuickDash - 70% impairment Assisted Goal (LTG) Pt will score 45% or less impairment on QuickDash as a measure of improved ability to manage ADL's LTG Duration 12 weeks - 10/18/21 Two Impairment shoulder strength Short Term Goal (STG) Pt will improve her strength to be able to lift her arm to 90 degrees elevation to improve her ability to use her left arm in self-care activities. 09/06/21 - Pt lifts her arm to 55 degrees in flexion. STG Duration 6 weeks - 09/06/21 Airflight Attendants Supervisor Goal (LTG) Nithya will improve her left shoulder strength to be able to lift a book from table height. LTG Duration 12 weeks - 10/18/21 One Impairment shoulder ROM Short Term Goal (STG) Nithya will improve her shoulder flexion PROM to 90 degrees 09/06/21 - GOAL MET STG Duration 6 weeks - 09/06/21 Airflight Attendants Supervisor Goal (LTG) Nithya will improve her shoulder abduction AROM to 90 degrees. LTG Duration 12 weeks - 10/18/21 Progress Towards Goals Progress Towards Goals Progressing Toward Goals,Slow Progress - Other Progress Comments Pt has progressed her flexion PROM to 90 degrees and AROM to 55 degrees with minimal complaint. She feels she is getting stronger and is using her left arm more in daily function. Assessment Summary Assessment Pt was able to tolerate isometric adduction with trekking poles. She is receptive to cues for postural stability and neutral shoulder rotation during this activity. Strength is improving in flexion/extension and pt states she is using her left arm more in daily activities. Physical Therapy Plan Next Visit Focus/Plan Next Note Type Treatment Note Next Visit Plan Continue AAROM, table slides. Review cervical and scap retraction, isometrics for flexion and extension, consider adding more isometrics if form improves.
--- NOTE | 2021-09-08 16:00 | PT.OTN ---
Current Diagnoses Displaced fracture of greater tuberosity of left humerus, initial encounter for closed fracture (09/08/21) Unspecified dislocation of left shoulder joint, subsequent encounter (09/08/21) Physical Therapy Treatment Note PT-OP-A Visit Information Start: 07/26/21 12:44 Freq: Status: Active Protocol: Document 09/08/21 11:15 AMB (Rec: 09/08/21 13:01 AMB [id number]) Out-Patient Physical Therapy Visit Information Visit Information Visit Type Treatment Note Visit Start Time 11:15 Visit Stop Time 12:00 Total Visit Minutes 45 Visit Number 11 PT-OP-B Current Condition Start: 07/26/21 12:44 Freq: Status: Active Protocol: Document 07/26/21 15:15 AW (Rec: 07/26/21 12:55 AW [id number]) Current Condition History of Current Condition Onset Date April 2021 Current Complaints left shoulder pain History of Current Condition Nithya fell in April, resulting in comminuted left proximal humerus fracture with anterior dislocation. She has long-standing left knee pain which she feels may have contributed to her fall. Fracture was treated non- operatively and Rd was sent home in a soft sling after a brief hospital stay. Her sister was visiting from [place] at the time and extended her stay to help for a week but Nithya has been managing without assist at home since her sister left. She did have one additional fall within one week of leaving the hospital. She believes she was impaired with oxycodone at that time and denies falls since then. She had home health services - primarily OT - but she was discharged at the end of June. She can get dressed and shower without assist but is doing all overhead activities one-handed. She is currently driving even though she has trouble lifting her arm. Pain is mostly in her anterior and posterior shoulder. She denies neck pain or radiating symptoms to her arm. She lives alone in a single level home with 2 steps to enter using right rail at front of house. Prior Treatments and Tests MRI 07/06/21: 1. 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 2. Acromioclavicular joint osteoarthritis. 3. Possible Hill-Sachs deformity of the humeral head. Future Testing and Treatments Planned None identified Treatment Goals Patient/Caregiver Goals Generally, I want to be able to use my left arm. Specifically, I want to be able to hug my boyfriend. Prior Functional Status Baseline Function- ADL's Independent Baseline Function- Mobility Independent Current Functional Impairments (Reported) Functional Limitations- ADL's Limited use of left arm for most dressing and hygiene tasks Personal Factors Other Personal Factors That May Effect Depression, knee pain, and Therapy/Recovery PT-OP-C Subjective Start: 07/26/21 12:44 Freq: Status: Active Protocol: Document 09/08/21 11:15 AMB (Rec: 09/08/21 13:01 AMB [id number]) OP-PT Subjective Patient Comments Patient Comments Nithya reports she was able to get her vacuum up on her counter yesterday with the left arm helping, did have a bit of soreness after that. PT-OP-F Manual Assessment Start: 07/26/21 12:44 Freq: Status: Active Protocol: Document 07/26/21 15:15 AW (Rec: 07/26/21 17:06 AW [id number]) Manual Assessments Soft Tissue Assessment Soft Tissue Mobility Assessment Hypertonicity in left upper traps. Tenderness generally in all surrounding muscles. Generally decreased muscle mass left shoulder compared with right. Joint Mobility Assessment Joint Mobility Assessment Stiffness in all planes of motion left shoulder with significant guarding even with PROM. PT-OP-G Mobility & Gait Start: 07/26/21 12:44 Freq: Status: Active Protocol: Document 07/26/21 15:15 AW (Rec: 07/26/21 17:06 AW [id number]) OP Gait Assessment Comments Gait Comments Generally unsteady and with decreased confidence. PT-OP-J Posture/Palpation/Skin Start: 07/26/21 12:44 Freq: Status: Active Protocol: Document 07/26/21 15:15 AW (Rec: 07/26/21 17:06 AW [id number]) Posture Evaluation Comments Posture Comments Forward shoulder posture bilaterally. Protective of left shoulder. PT-OP-K Range of Motion Start: 07/26/21 12:44 Freq: Status: Active Protocol: Document 07/26/21 15:15 AW (Rec: 07/26/21 17:14 AW [id number]) Cervical Spine Range of Motion Cervical Spine Active Testing Position Sitting Flexion 30 Extension 30 Rotation Left 25 Rotation Right 25 Lateral Flexion Left 45 Lateral Flexion Right 50 Comments Pt denies neck pain with all movements Shoulder Goniometric Range of Motion Shoulder Left Passive Shoulder ROM WFL No Testing Position Sitting Flexion 45 Abduction 55 Internal Rotation Behind Back (text) to left hip Comments ER < neutral passively in supine with 45 degrees abduction Right Active Flexion 140 Abduction 150 External Rotation at 0 degrees Abduction 65 Internal Rotation Behind Back (text) T7 Elbow/Forearm Range of Motion Elbow/Forearm Left Active ROM Testing Position Supine Elbow Flexion (degrees) 115 Elbow Extension (degrees) 5 PT-OP-M Strength Start: 07/26/21 12:44 Freq: Status: Active Protocol: Document 07/26/21 15:15 AW (Rec: 07/26/21 17:14 AW [id number]) Shoulder Strength Shoulder Manual Muscle Testing Right Flexion 4+ Good+ Extension 4+ Good+ Abduction (C5) 4+ Good+ External Rotation 4+ Good+ Internal Rotation 4+ Good+ PT-OP-Q Treatments Start: 07/26/21 12:44 Freq: Status: Active Protocol: Document 09/08/21 14:30 AMB (Rec: 09/10/21 09:20 AMB [id number]) Therapeutic Exercises Sitting Exercises closed chain ER Sitting Exercise Name closed chain ER Equipment Used PT stabilizes L shoulder and pt turns away Reps/Minutes x5 shoulder isometrics Sitting Exercise Name flexion, extension, abduction Equipment Used seated pushing into R hand; standing at wall Reps/Minutes 5x5 Comments flex, ext for HEP; review abduction next visit for possible HEP add scapular retraction Sitting Exercise Name scapular retraction Resistance AROM Reps/Minutes during isometrics Standing Exercises isometric adduction Standing Exercise Name isometric adduction Side bilateral Equipment Used trekking poles; neutral rotation Reps/Minutes 5SH x 10 Comments pt does not have trekking poles at home- options for doorway/cane Manual Therapy Treatment Soft Tissue Mobilization 1 Body Location infraspinatus, suprasinatus, rhomboids, subscap Mobilization Type Myofascial Release,Sustained Pressure Joint Mobilizations 1 Joint GH AP Grade III Body Position Hooklying Manual Techniques 1 Type PROM all planes Comments Flexion improving. ER remains limited to neutral when in abduction PT-OP-R Modalities Start: 07/26/21 12:44 Freq: Status: Active Protocol: Document 08/03/21 08:17 AW (Rec: 08/03/21 10:43 AW [id number]) Electric Stimulation Electric Stimulation Interferential Current (IFC) Body Location left shoulder Duration (Minutes) 12 Intensity 10 Target/Sweep Target Patient Position Hooklying Comments HOB elevated PT-OP-T Assessment and Plan Start: 07/26/21 12:44 Freq: Status: Active Protocol: Document 09/08/21 11:15 AMB (Rec: 09/08/21 13:01 AMB [id number]) Physical Therapy Assessment Goals Three Impairment QuickDash - 70% impairment Television Writer Goal (LTG) Pt will score 45% or less impairment on QuickDash as a measure of improved ability to manage ADL's LTG Duration 12 weeks - 10/18/21 Two Impairment shoulder strength Short Term Goal (STG) Pt will improve her strength to be able to lift her arm to 90 degrees elevation to improve her ability to use her left arm in self-care activities. 09/06/21 - Pt lifts her arm to 55 degrees in flexion. STG Duration 6 weeks - 09/06/21 Jail Goal (LTG) Nithya will improve her left shoulder strength to be able to lift a book from table height. LTG Duration 12 weeks - 10/18/21 One Impairment shoulder ROM Short Term Goal (STG) Nithya will improve her shoulder flexion PROM to 90 degrees 09/06/21 - GOAL MET STG Duration 6 weeks - 09/06/21 Television Writer Goal (LTG) Nithya will improve her shoulder abduction AROM to 90 degrees. LTG Duration 12 weeks - 10/18/21 Assessment Summary Assessment Pt tolerated increased ROM well, does report increased soreness the day after PT. Encouraged in continued HEP, pt does not have trekking poles at home, but could use cane, doorway. Physical Therapy Plan Next Visit Focus/Plan Next Note Type Treatment Note Next Visit Plan Continue AAROM, table slides. Review cervical and scap retraction, isometrics for flexion and extension, consider adding more isometrics if form improves.
--- NOTE | 2021-09-13 13:05 | PT.OTN ---
Current Diagnoses Displaced fracture of greater tuberosity of left humerus, initial encounter for closed fracture (09/13/21) Unspecified dislocation of left shoulder joint, subsequent encounter (09/13/21) Physical Therapy Treatment Note PT-OP-A Visit Information Start: 07/26/21 12:44 Freq: Status: Active Protocol: Document 09/13/21 11:15 AMB (Rec: 09/13/21 12:34 AMB [id number]) Out-Patient Physical Therapy Visit Information Visit Information Visit Type Treatment Note Visit Start Time 11:15 Visit Stop Time 12:00 Total Visit Minutes 45 Visit Number 12 PT-OP-B Current Condition Start: 07/26/21 12:44 Freq: Status: Active Protocol: Document 07/26/21 15:15 AW (Rec: 07/26/21 12:55 AW [id number]) Current Condition History of Current Condition Onset Date April 2021 Current Complaints left shoulder pain History of Current Condition Nithya fell in April, resulting in comminuted left proximal humerus fracture with anterior dislocation. She has long-standing left knee pain which she feels may have contributed to her fall. Fracture was treated non- operatively and Rd was sent home in a soft sling after a brief hospital stay. Her sister was visiting from [place] at the time and extended her stay to help for a week but Nithya has been managing without assist at home since her sister left. She did have one additional fall within one week of leaving the hospital. She believes she was impaired with oxycodone at that time and denies falls since then. She had home health services - primarily OT - but she was discharged at the end of June. She can get dressed and shower without assist but is doing all overhead activities one-handed. She is currently driving even though she has trouble lifting her arm. Pain is mostly in her anterior and posterior shoulder. She denies neck pain or radiating symptoms to her arm. She lives alone in a single level home with 2 steps to enter using right rail at front of house. Prior Treatments and Tests MRI 07/06/21: 1. 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 2. Acromioclavicular joint osteoarthritis. 3. Possible Hill-Sachs deformity of the humeral head. Future Testing and Treatments Planned None identified Treatment Goals Patient/Caregiver Goals Generally, I want to be able to use my left arm. Specifically, I want to be able to hug my boyfriend. Prior Functional Status Baseline Function- ADL's Independent Baseline Function- Mobility Independent Current Functional Impairments (Reported) Functional Limitations- ADL's Limited use of left arm for most dressing and hygiene tasks Personal Factors Other Personal Factors That May Effect Depression, knee pain, and Therapy/Recovery PT-OP-C Subjective Start: 07/26/21 12:44 Freq: Status: Active Protocol: Document 09/13/21 11:15 AMB (Rec: 09/13/21 12:34 AMB [id number]) OP-PT Subjective Patient Comments Patient Comments Nithya reports her shoulder blades are sore after last PT session. PT-OP-F Manual Assessment Start: 07/26/21 12:44 Freq: Status: Active Protocol: Document 07/26/21 15:15 AW (Rec: 07/26/21 17:06 AW [id number]) Manual Assessments Soft Tissue Assessment Soft Tissue Mobility Assessment Hypertonicity in left upper traps. Tenderness generally in all surrounding muscles. Generally decreased muscle mass left shoulder compared with right. Joint Mobility Assessment Joint Mobility Assessment Stiffness in all planes of motion left shoulder with significant guarding even with PROM. PT-OP-G Mobility & Gait Start: 07/26/21 12:44 Freq: Status: Active Protocol: Document 07/26/21 15:15 AW (Rec: 07/26/21 17:06 AW [id number]) OP Gait Assessment Comments Gait Comments Generally unsteady and with decreased confidence. PT-OP-J Posture/Palpation/Skin Start: 07/26/21 12:44 Freq: Status: Active Protocol: Document 07/26/21 15:15 AW (Rec: 07/26/21 17:06 AW [id number]) Posture Evaluation Comments Posture Comments Forward shoulder posture bilaterally. Protective of left shoulder. PT-OP-K Range of Motion Start: 07/26/21 12:44 Freq: Status: Active Protocol: Document 07/26/21 15:15 AW (Rec: 07/26/21 17:14 AW [id number]) Cervical Spine Range of Motion Cervical Spine Active Testing Position Sitting Flexion 30 Extension 30 Rotation Left 25 Rotation Right 25 Lateral Flexion Left 45 Lateral Flexion Right 50 Comments Pt denies neck pain with all movements Shoulder Goniometric Range of Motion Shoulder Left Passive Shoulder ROM WFL No Testing Position Sitting Flexion 45 Abduction 55 Internal Rotation Behind Back (text) to left hip Comments ER < neutral passively in supine with 45 degrees abduction Right Active Flexion 140 Abduction 150 External Rotation at 0 degrees Abduction 65 Internal Rotation Behind Back (text) T7 Elbow/Forearm Range of Motion Elbow/Forearm Left Active ROM Testing Position Supine Elbow Flexion (degrees) 115 Elbow Extension (degrees) 5 PT-OP-M Strength Start: 07/26/21 12:44 Freq: Status: Active Protocol: Document 07/26/21 15:15 AW (Rec: 07/26/21 17:14 AW [id number]) Shoulder Strength Shoulder Manual Muscle Testing Right Flexion 4+ Good+ Extension 4+ Good+ Abduction (C5) 4+ Good+ External Rotation 4+ Good+ Internal Rotation 4+ Good+ PT-OP-Q Treatments Start: 07/26/21 12:44 Freq: Status: Active Protocol: Document 09/13/21 11:15 AMB (Rec: 09/13/21 13:05 AMB [id number]) Therapeutic Exercises Supine Exercises AAROM Supine Exercise Name flexion Reps/Minutes x5 ea rest breaks needed Comments better tolerated Sitting Exercises closed chain ER Sitting Exercise Name closed chain ER Equipment Used PT stabilizes L shoulder and pt turns away Reps/Minutes x5 shoulder isometrics Sitting Exercise Name flexion, extension, abduction Equipment Used seated pushing into R hand; standing at wall Reps/Minutes 5x5 Comments flex, ext for HEP; review abduction next visit for possible HEP add scapular retraction Sitting Exercise Name scapular retraction Resistance AROM Reps/Minutes during isometrics Standing Exercises isometric adduction Standing Exercise Name isometric adduction Side bilateral Reps/Minutes 5SH x 10 Comments cued against bed rail as pt doesn;t have [employer] Manual Therapy Treatment Soft Tissue Mobilization 1 Body Location infraspinatus, suprasinatus, rhomboids, subscap Mobilization Type Myofascial Release,Sustained Pressure Manual Techniques 1 Type PROM all planes Comments Flexion improving. ER remains limited to neutral when in abduction Other Other Manual Treatments instruction in theracane usage vs tennis balls PT-OP-R Modalities Start: 07/26/21 12:44 Freq: Status: Active Protocol: Document 08/03/21 08:17 AW (Rec: 08/03/21 10:43 AW [id number]) Electric Stimulation Electric Stimulation Interferential Current (IFC) Body Location left shoulder Duration (Minutes) 12 Intensity 10 Target/Sweep Target Patient Position Hooklying Comments HOB elevated PT-OP-T Assessment and Plan Start: 07/26/21 12:44 Freq: Status: Active Protocol: Document 09/13/21 11:15 AMB (Rec: 09/13/21 12:34 AMB [id number]) Physical Therapy Assessment Goals Three Impairment QuickDash - 70% impairment Cnc Machinist Goal (LTG) Pt will score 45% or less impairment on QuickDash as a measure of improved ability to manage ADL's LTG Duration 12 weeks - 10/18/21 Two Impairment shoulder strength Short Term Goal (STG) Pt will improve her strength to be able to lift her arm to 90 degrees elevation to improve her ability to use her left arm in self-care activities. 09/06/21 - Pt lifts her arm to 55 degrees in flexion. STG Duration 6 weeks - 09/06/21 Cnc Machinist Goal (LTG) Nithya will improve her left shoulder strength to be able to lift a book from table height. LTG Duration 12 weeks - 10/18/21 One Impairment shoulder ROM Short Term Goal (STG) Nithya will improve her shoulder flexion PROM to 90 degrees 09/06/21 - GOAL MET STG Duration 6 weeks - 09/06/21 Cnc Machinist Goal (LTG) Nithya will improve her shoulder abduction AROM to 90 degrees. LTG Duration 12 weeks - 10/18/21 Assessment Summary Assessment Nithya did well with theracane today. Continues to have tightness at subscap. Physical Therapy Plan Next Visit Focus/Plan Next Note Type Treatment Note Next Visit Plan Continue AAROM, table slides. Review cervical and scap retraction, isometrics for flexion and extension, consider adding more isometrics if form improves.
--- NOTE | 2021-09-15 15:41 | PT.OTN ---
Current Diagnoses Displaced fracture of greater tuberosity of left humerus, initial encounter for closed fracture (09/15/21) Unspecified dislocation of left shoulder joint, subsequent encounter (09/15/21) Physical Therapy Treatment Note PT-OP-A Visit Information Start: 07/26/21 12:44 Freq: Status: Active Protocol: Document 09/15/21 14:30 AMB (Rec: 09/15/21 15:37 AMB [id number]) Out-Patient Physical Therapy Visit Information Visit Information Visit Type Treatment Note Visit Start Time 11:15 Visit Stop Time 12:00 Total Visit Minutes 45 Visit Number 13 PT-OP-B Current Condition Start: 07/26/21 12:44 Freq: Status: Active Protocol: Document 07/26/21 15:15 AW (Rec: 07/26/21 12:55 AW [id number]) Current Condition History of Current Condition Onset Date April 2021 Current Complaints left shoulder pain History of Current Condition Nithya fell in April, resulting in comminuted left proximal humerus fracture with anterior dislocation. She has long-standing left knee pain which she feels may have contributed to her fall. Fracture was treated non- operatively and Rd was sent home in a soft sling after a brief hospital stay. Her sister was visiting from [place] at the time and extended her stay to help for a week but Nithya has been managing without assist at home since her sister left. She did have one additional fall within one week of leaving the hospital. She believes she was impaired with oxycodone at that time and denies falls since then. She had home health services - primarily OT - but she was discharged at the end of June. She can get dressed and shower without assist but is doing all overhead activities one-handed. She is currently driving even though she has trouble lifting her arm. Pain is mostly in her anterior and posterior shoulder. She denies neck pain or radiating symptoms to her arm. She lives alone in a single level home with 2 steps to enter using right rail at front of house. Prior Treatments and Tests MRI 07/06/21: 1. 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 2. Acromioclavicular joint osteoarthritis. 3. Possible Hill-Sachs deformity of the humeral head. Future Testing and Treatments Planned None identified Treatment Goals Patient/Caregiver Goals Generally, I want to be able to use my left arm. Specifically, I want to be able to hug my boyfriend. Prior Functional Status Baseline Function- ADL's Independent Baseline Function- Mobility Independent Current Functional Impairments (Reported) Functional Limitations- ADL's Limited use of left arm for most dressing and hygiene tasks Personal Factors Other Personal Factors That May Effect Depression, knee pain, and Therapy/Recovery PT-OP-C Subjective Start: 07/26/21 12:44 Freq: Status: Active Protocol: Document 09/15/21 14:30 AMB (Rec: 09/15/21 15:37 AMB [id number]) OP-PT Subjective Patient Comments Patient Comments Nithya reports she has continued shoulder pain, she did order a theracane and it gets here tomorrow PT-OP-F Manual Assessment Start: 07/26/21 12:44 Freq: Status: Active Protocol: Document 07/26/21 15:15 AW (Rec: 07/26/21 17:06 AW [id number]) Manual Assessments Soft Tissue Assessment Soft Tissue Mobility Assessment Hypertonicity in left upper traps. Tenderness generally in all surrounding muscles. Generally decreased muscle mass left shoulder compared with right. Joint Mobility Assessment Joint Mobility Assessment Stiffness in all planes of motion left shoulder with significant guarding even with PROM. PT-OP-G Mobility & Gait Start: 07/26/21 12:44 Freq: Status: Active Protocol: Document 07/26/21 15:15 AW (Rec: 07/26/21 17:06 AW [id number]) OP Gait Assessment Comments Gait Comments Generally unsteady and with decreased confidence. PT-OP-J Posture/Palpation/Skin Start: 07/26/21 12:44 Freq: Status: Active Protocol: Document 07/26/21 15:15 AW (Rec: 07/26/21 17:06 AW [id number]) Posture Evaluation Comments Posture Comments Forward shoulder posture bilaterally. Protective of left shoulder. PT-OP-K Range of Motion Start: 07/26/21 12:44 Freq: Status: Active Protocol: Document 07/26/21 15:15 AW (Rec: 07/26/21 17:14 AW [id number]) Cervical Spine Range of Motion Cervical Spine Active Testing Position Sitting Flexion 30 Extension 30 Rotation Left 25 Rotation Right 25 Lateral Flexion Left 45 Lateral Flexion Right 50 Comments Pt denies neck pain with all movements Shoulder Goniometric Range of Motion Shoulder Left Passive Shoulder ROM WFL No Testing Position Sitting Flexion 45 Abduction 55 Internal Rotation Behind Back (text) to left hip Comments ER < neutral passively in supine with 45 degrees abduction Right Active Flexion 140 Abduction 150 External Rotation at 0 degrees Abduction 65 Internal Rotation Behind Back (text) T7 Elbow/Forearm Range of Motion Elbow/Forearm Left Active ROM Testing Position Supine Elbow Flexion (degrees) 115 Elbow Extension (degrees) 5 PT-OP-M Strength Start: 07/26/21 12:44 Freq: Status: Active Protocol: Document 07/26/21 15:15 AW (Rec: 07/26/21 17:14 AW [id number]) Shoulder Strength Shoulder Manual Muscle Testing Right Flexion 4+ Good+ Extension 4+ Good+ Abduction (C5) 4+ Good+ External Rotation 4+ Good+ Internal Rotation 4+ Good+ PT-OP-Q Treatments Start: 07/26/21 12:44 Freq: Status: Active Protocol: Document 09/15/21 14:30 AMB (Rec: 09/15/21 15:37 AMB [id number]) Therapeutic Exercises Sitting Exercises closed chain ER Sitting Exercise Name closed chain ER Equipment Used PT stabilizes L shoulder and pt turns away Reps/Minutes x5 Comments cued scapular retraction shoulder isometrics Sitting Exercise Name flexion, extension, abduction, added ER and IR tolerated well Equipment Used seated pushing into R hand; standing at wall Reps/Minutes 5x5 Comments flex, ext for HEP; samantha Comments briefly tried and d/shannan not tolerated table slides Sitting Exercise Name table slides Side left Comments flexion and scaption; HEP Standing Exercises 1 Standing Exercise Name wall walk-d/c not tolerated Manual Therapy Treatment Soft Tissue Mobilization 1 Body Location infraspinatus, suprasinatus, rhomboids, subscap Mobilization Type Myofascial Release,Sustained Pressure Manual Techniques 1 Type PROM all planes Comments Flexion improving. PT-OP-R Modalities Start: 07/26/21 12:44 Freq: Status: Active Protocol: Document 08/03/21 08:17 AW (Rec: 08/03/21 10:43 AW [id number]) Electric Stimulation Electric Stimulation Interferential Current (IFC) Body Location left shoulder Duration (Minutes) 12 Intensity 10 Target/Sweep Target Patient Position Hooklying Comments HOB elevated PT-OP-T Assessment and Plan Start: 07/26/21 12:44 Freq: Status: Active Protocol: Document 09/15/21 14:30 AMB (Rec: 09/15/21 15:37 AMB [id number]) Physical Therapy Assessment Assessment Summary Assessment Nithya is continuing to have shoulder discomfort with end range motion and it continues to be challenging to lift the arm against gravity for any time. She is doing well with isometrics and passive range, but AAROM continues to be challenging. Physical Therapy Plan Next Visit Focus/Plan Next Note Type Treatment Note Next Visit Plan Provide written handout for isometric ER/IR/abduction at next visit.
--- NOTE | 2021-09-19 15:47 | PT.OTN ---
Current Diagnoses Displaced fracture of greater tuberosity of left humerus, initial encounter for closed fracture (09/19/21) Unspecified dislocation of left shoulder joint, subsequent encounter (09/19/21) Physical Therapy Treatment Note PT-OP-A Visit Information Start: 07/26/21 12:44 Freq: Status: Active Protocol: Document 09/19/21 14:31 AMB (Rec: 09/19/21 15:47 AMB [id number]) Out-Patient Physical Therapy Visit Information Visit Information Visit Type Treatment Note Visit Start Time 14:30 Visit Stop Time 15:15 Total Visit Minutes 45 Visit Number 14 PT-OP-B Current Condition Start: 07/26/21 12:44 Freq: Status: Active Protocol: Document 07/26/21 15:15 AW (Rec: 07/26/21 12:55 AW [id number]) Current Condition History of Current Condition Onset Date April 2021 Current Complaints left shoulder pain History of Current Condition Nithya fell in April, resulting in comminuted left proximal humerus fracture with anterior dislocation. She has long-standing left knee pain which she feels may have contributed to her fall. Fracture was treated non- operatively and Rd was sent home in a soft sling after a brief hospital stay. Her sister was visiting from [place] at the time and extended her stay to help for a week but Nithya has been managing without assist at home since her sister left. She did have one additional fall within one week of leaving the hospital. She believes she was impaired with oxycodone at that time and denies falls since then. She had home health services - primarily OT - but she was discharged at the end of June. She can get dressed and shower without assist but is doing all overhead activities one-handed. She is currently driving even though she has trouble lifting her arm. Pain is mostly in her anterior and posterior shoulder. She denies neck pain or radiating symptoms to her arm. She lives alone in a single level home with 2 steps to enter using right rail at front of house. Prior Treatments and Tests MRI 07/06/21: 1. 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 2. Acromioclavicular joint osteoarthritis. 3. Possible Hill-Sachs deformity of the humeral head. Future Testing and Treatments Planned None identified Treatment Goals Patient/Caregiver Goals Generally, I want to be able to use my left arm. Specifically, I want to be able to hug my boyfriend. Prior Functional Status Baseline Function- ADL's Independent Baseline Function- Mobility Independent Current Functional Impairments (Reported) Functional Limitations- ADL's Limited use of left arm for most dressing and hygiene tasks Personal Factors Other Personal Factors That May Effect Depression, knee pain, and Therapy/Recovery PT-OP-C Subjective Start: 07/26/21 12:44 Freq: Status: Active Protocol: Document 09/19/21 14:31 AMB (Rec: 09/19/21 15:47 AMB [id number]) OP-PT Subjective Patient Comments Patient Comments Nithya reports she is likely going to have surgery to remove an ovarian mass (unsure what kind yet) that has yet to be scheduled, will be down in [facility] and may affect PT appts. PT-OP-F Manual Assessment Start: 07/26/21 12:44 Freq: Status: Active Protocol: Document 07/26/21 15:15 AW (Rec: 07/26/21 17:06 AW [id number]) Manual Assessments Soft Tissue Assessment Soft Tissue Mobility Assessment Hypertonicity in left upper traps. Tenderness generally in all surrounding muscles. Generally decreased muscle mass left shoulder compared with right. Joint Mobility Assessment Joint Mobility Assessment Stiffness in all planes of motion left shoulder with significant guarding even with PROM. PT-OP-G Mobility & Gait Start: 07/26/21 12:44 Freq: Status: Active Protocol: Document 07/26/21 15:15 AW (Rec: 07/26/21 17:06 AW [id number]) OP Gait Assessment Comments Gait Comments Generally unsteady and with decreased confidence. PT-OP-J Posture/Palpation/Skin Start: 07/26/21 12:44 Freq: Status: Active Protocol: Document 07/26/21 15:15 AW (Rec: 07/26/21 17:06 AW [id number]) Posture Evaluation Comments Posture Comments Forward shoulder posture bilaterally. Protective of left shoulder. PT-OP-K Range of Motion Start: 07/26/21 12:44 Freq: Status: Active Protocol: Document 07/26/21 15:15 AW (Rec: 07/26/21 17:14 AW [id number]) Cervical Spine Range of Motion Cervical Spine Active Testing Position Sitting Flexion 30 Extension 30 Rotation Left 25 Rotation Right 25 Lateral Flexion Left 45 Lateral Flexion Right 50 Comments Pt denies neck pain with all movements Shoulder Goniometric Range of Motion Shoulder Left Passive Shoulder ROM WFL No Testing Position Sitting Flexion 45 Abduction 55 Internal Rotation Behind Back (text) to left hip Comments ER < neutral passively in supine with 45 degrees abduction Right Active Flexion 140 Abduction 150 External Rotation at 0 degrees Abduction 65 Internal Rotation Behind Back (text) T7 Elbow/Forearm Range of Motion Elbow/Forearm Left Active ROM Testing Position Supine Elbow Flexion (degrees) 115 Elbow Extension (degrees) 5 PT-OP-M Strength Start: 07/26/21 12:44 Freq: Status: Active Protocol: Document 07/26/21 15:15 AW (Rec: 07/26/21 17:14 AW [id number]) Shoulder Strength Shoulder Manual Muscle Testing Right Flexion 4+ Good+ Extension 4+ Good+ Abduction (C5) 4+ Good+ External Rotation 4+ Good+ Internal Rotation 4+ Good+ PT-OP-Q Treatments Start: 07/26/21 12:44 Freq: Status: Active Protocol: Document 09/19/21 14:31 AMB (Rec: 09/19/21 15:47 AMB [id number]) Therapeutic Exercises Supine Exercises flexion AROM Supine Exercise Name flexion AROM; 30d to 90d Reps/Minutes 10SH x 5 Comments quality hold with less shaking Sitting Exercises shoulder isometrics Sitting Exercise Name flexion, extension, abduction, added ER and IR tolerated well Equipment Used seated pushing into R hand; standing at wall Reps/Minutes 5x5 Comments flex, ext, IR for HEP; table slides Sitting Exercise Name table slides Side left Comments flexion and scaption; HEP Manual Therapy Treatment Soft Tissue Mobilization 1 Body Location infraspinatus, suprasinatus, rhomboids, subscap Mobilization Type Myofascial Release,Sustained Pressure Manual Techniques 1 Type PROM all planes Comments Flexion improving. PT-OP-R Modalities Start: 07/26/21 12:44 Freq: Status: Active Protocol: Document 08/03/21 08:17 AW (Rec: 08/03/21 10:43 AW [id number]) Electric Stimulation Electric Stimulation Interferential Current (IFC) Body Location left shoulder Duration (Minutes) 12 Intensity 10 Target/Sweep Target Patient Position Hooklying Comments HOB elevated PT-OP-T Assessment and Plan Start: 07/26/21 12:44 Freq: Status: Active Protocol: Document 09/19/21 14:31 AMB (Rec: 09/19/21 15:47 AMB [id number]) Physical Therapy Assessment Goals Three Impairment QuickDash - 70% impairment Back Sizer Goal (LTG) Pt will score 45% or less impairment on QuickDash as a measure of improved ability to manage ADL's LTG Duration 12 weeks - 10/18/21 Two Impairment shoulder strength Short Term Goal (STG) Pt will improve her strength to be able to lift her arm to 90 degrees elevation to improve her ability to use her left arm in self-care activities. 09/06/21 - Pt lifts her arm to 55 degrees in flexion. STG Duration 6 weeks - 09/06/21 Back Sizer Goal (LTG) Nithya will improve her left shoulder strength to be able to lift a book from table height. LTG Duration 12 weeks - 10/18/21 One Impairment shoulder ROM Short Term Goal (STG) Nithya will improve her shoulder flexion PROM to 90 degrees 09/06/21 - GOAL MET STG Duration 6 weeks - 09/06/21 Back Sizer Goal (LTG) Nithya will improve her shoulder abduction AROM to 90 degrees. LTG Duration 12 weeks - 10/18/21 Assessment Summary Assessment Nithya is tolerating more, able to hold arm up into flexion 3x before fatigue. Less sore after PT as well. Scapular protraction remains quite challenging, but pt is seeing changes which is motivating to her. Physical Therapy Plan Frequency and Duration Frequency of Treatment 2x/Week Duration of Treatment 12 weeks Plan of Care Start Date 07/26/21 Plan of Care End Date 10/18/21 Therapeutic Interventions Therapeutic Interventions Aquatic Therapy,Home Exercise Program,Joint Mobilizations, Manual Therapy,Neuromuscular Re-education,Self-Care/Home Management,Soft Tissue Mobilization,Therapeutic Activities,Therapeutic Exercises Modalities Cold Pack/Ice Massage,Electric Stimulation,Hot Packs, Ultrasound Next Visit Focus/Plan Next Note Type Treatment Note Next Visit Plan Progress ROM/strengthening as needed, manual for scapular muscles, has pt heard back about surgery scheduling.
--- NOTE | 2021-09-21 17:12 | PT.OTN ---
Current Diagnoses Displaced fracture of greater tuberosity of left humerus, initial encounter for closed fracture (09/21/21) Unspecified dislocation of left shoulder joint, subsequent encounter (09/21/21) Physical Therapy Treatment Note PT-OP-A Visit Information Start: 07/26/21 12:44 Freq: Status: Active Protocol: Document 09/21/21 13:32 AW (Rec: 09/21/21 14:33 AW [id number]) Out-Patient Physical Therapy Visit Information Visit Information Visit Type Treatment Note Visit Start Time 13:45 Visit Stop Time 14:30 Total Visit Minutes 45 Visit Number 15 PT-OP-B Current Condition Start: 07/26/21 12:44 Freq: Status: Active Protocol: Document 07/26/21 15:15 AW (Rec: 07/26/21 12:55 AW [id number]) Current Condition History of Current Condition Onset Date April 2021 Current Complaints left shoulder pain History of Current Condition Nithya fell in April, resulting in comminuted left proximal humerus fracture with anterior dislocation. She has long-standing left knee pain which she feels may have contributed to her fall. Fracture was treated non- operatively and Rd was sent home in a soft sling after a brief hospital stay. Her sister was visiting from [place] at the time and extended her stay to help for a week but Nithya has been managing without assist at home since her sister left. She did have one additional fall within one week of leaving the hospital. She believes she was impaired with oxycodone at that time and denies falls since then. She had home health services - primarily OT - but she was discharged at the end of June. She can get dressed and shower without assist but is doing all overhead activities one-handed. She is currently driving even though she has trouble lifting her arm. Pain is mostly in her anterior and posterior shoulder. She denies neck pain or radiating symptoms to her arm. She lives alone in a single level home with 2 steps to enter using right rail at front of house. Prior Treatments and Tests MRI 07/06/21: 1. 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 2. Acromioclavicular joint osteoarthritis. 3. Possible Hill-Sachs deformity of the humeral head. Future Testing and Treatments Planned None identified Treatment Goals Patient/Caregiver Goals Generally, I want to be able to use my left arm. Specifically, I want to be able to hug my boyfriend. Prior Functional Status Baseline Function- ADL's Independent Baseline Function- Mobility Independent Current Functional Impairments (Reported) Functional Limitations- ADL's Limited use of left arm for most dressing and hygiene tasks Personal Factors Other Personal Factors That May Effect Depression, knee pain, and Therapy/Recovery PT-OP-C Subjective Start: 07/26/21 12:44 Freq: Status: Active Protocol: Document 09/21/21 13:32 AW (Rec: 09/21/21 14:33 AW [id number]) OP-PT Subjective Patient Comments Patient Comments Nithya got her theracane but doesn't feel she is able to get the spots she wants with it. Surgery scheduling still in process. PT-OP-F Manual Assessment Start: 07/26/21 12:44 Freq: Status: Active Protocol: Document 07/26/21 15:15 AW (Rec: 07/26/21 17:06 AW [id number]) Manual Assessments Soft Tissue Assessment Soft Tissue Mobility Assessment Hypertonicity in left upper traps. Tenderness generally in all surrounding muscles. Generally decreased muscle mass left shoulder compared with right. Joint Mobility Assessment Joint Mobility Assessment Stiffness in all planes of motion left shoulder with significant guarding even with PROM. PT-OP-G Mobility & Gait Start: 07/26/21 12:44 Freq: Status: Active Protocol: Document 07/26/21 15:15 AW (Rec: 07/26/21 17:06 AW [id number]) OP Gait Assessment Comments Gait Comments Generally unsteady and with decreased confidence. PT-OP-J Posture/Palpation/Skin Start: 07/26/21 12:44 Freq: Status: Active Protocol: Document 07/26/21 15:15 AW (Rec: 07/26/21 17:06 AW [id number]) Posture Evaluation Comments Posture Comments Forward shoulder posture bilaterally. Protective of left shoulder. PT-OP-K Range of Motion Start: 07/26/21 12:44 Freq: Status: Active Protocol: Document 07/26/21 15:15 AW (Rec: 07/26/21 17:14 AW [id number]) Cervical Spine Range of Motion Cervical Spine Active Testing Position Sitting Flexion 30 Extension 30 Rotation Left 25 Rotation Right 25 Lateral Flexion Left 45 Lateral Flexion Right 50 Comments Pt denies neck pain with all movements Shoulder Goniometric Range of Motion Shoulder Left Passive Shoulder ROM WFL No Testing Position Sitting Flexion 45 Abduction 55 Internal Rotation Behind Back (text) to left hip Comments ER < neutral passively in supine with 45 degrees abduction Right Active Flexion 140 Abduction 150 External Rotation at 0 degrees Abduction 65 Internal Rotation Behind Back (text) T7 Elbow/Forearm Range of Motion Elbow/Forearm Left Active ROM Testing Position Supine Elbow Flexion (degrees) 115 Elbow Extension (degrees) 5 PT-OP-M Strength Start: 07/26/21 12:44 Freq: Status: Active Protocol: Document 07/26/21 15:15 AW (Rec: 07/26/21 17:14 AW [id number]) Shoulder Strength Shoulder Manual Muscle Testing Right Flexion 4+ Good+ Extension 4+ Good+ Abduction (C5) 4+ Good+ External Rotation 4+ Good+ Internal Rotation 4+ Good+ PT-OP-Q Treatments Start: 07/26/21 12:44 Freq: Status: Active Protocol: Document 09/21/21 13:32 AW (Rec: 09/21/21 14:33 AW [id number]) Therapeutic Exercises Supine Exercises flexion AROM Supine Exercise Name flexion AROM; 30d to 70d today due to pain Reps/Minutes 10SH x 5 Sitting Exercises triceps extension Sitting Exercise Name triceps extension Side bilateral Resistance body weight Reps/Minutes 2x5 reps shoulder isometrics Sitting Exercise Name flexion, extension, abduction, added ER and IR tolerated well Equipment Used seated pushing into R hand; standing at wall Reps/Minutes 5x5 Comments flex, ext, IR for HEP; Standing Exercises isometric adduction Standing Exercise Name isometric adduction Side bilateral Equipment Used [place] Reps/Minutes 5SH x 10 Comments pt using cane at home Manual Therapy Treatment Soft Tissue Mobilization 1 Body Location infraspinatus, suprasinatus, rhomboids, subscap Mobilization Type Myofascial Release,Sustained Pressure Manual Techniques 1 Type PROM all planes Comments Flexion improving. PT-OP-R Modalities Start: 07/26/21 12:44 Freq: Status: Active Protocol: Document 08/03/21 08:17 AW (Rec: 08/03/21 10:43 AW [id number]) Electric Stimulation Electric Stimulation Interferential Current (IFC) Body Location left shoulder Duration (Minutes) 12 Intensity 10 Target/Sweep Target Patient Position Hooklying Comments HOB elevated PT-OP-T Assessment and Plan Start: 07/26/21 12:44 Freq: Status: Active Protocol: Document 09/21/21 13:32 AW (Rec: 09/21/21 14:33 AW [id number]) Physical Therapy Assessment Goals Three Impairment QuickDash - 70% impairment Electric Sealing Machine Operator Goal (LTG) Pt will score 45% or less impairment on QuickDash as a measure of improved ability to manage ADL's LTG Duration 12 weeks - 10/18/21 Two Impairment shoulder strength Short Term Goal (STG) Pt will improve her strength to be able to lift her arm to 90 degrees elevation to improve her ability to use her left arm in self-care activities. 09/06/21 - Pt lifts her arm to 55 degrees in flexion. STG Duration 6 weeks - 09/06/21 Long-Term Goal (LTG) Nithya will improve her left shoulder strength to be able to lift a book from table height. LTG Duration 12 weeks - 10/18/21 One Impairment shoulder ROM Short Term Goal (STG) Nithya will improve her shoulder flexion PROM to 90 degrees 09/06/21 - GOAL MET STG Duration 6 weeks - 09/06/21 Long-Term Goal (LTG) Nithya will improve her shoulder abduction AROM to 90 degrees. LTG Duration 12 weeks - 10/18/21 Assessment Summary Assessment Pt feeling slightly more sore today and unable to flex her shoulder past ~70 degrees but was still able to hold it 5 seconds. Pt feels she is using her left arm more often and is encouraged. Physical Therapy Plan Frequency and Duration Frequency of Treatment 2x/Week Duration of Treatment 12 weeks Plan of Care Start Date 07/26/21 Plan of Care End Date 10/18/21 Therapeutic Interventions Therapeutic Interventions Aquatic Therapy,Home Exercise Program,Joint Mobilizations, Manual Therapy,Neuromuscular Re-education,Self-Care/Home Management,Soft Tissue Mobilization,Therapeutic Activities,Therapeutic Exercises Modalities Cold Pack/Ice Massage,Electric Stimulation,Hot Packs, Ultrasound Next Visit Focus/Plan Next Note Type Treatment Note Next Visit Plan Progress ROM/strengthening as needed, manual for scapular muscles, has pt heard back about surgery scheduling.
--- NOTE | 2021-10-05 12:49 | PT.OTN ---
Current Diagnoses Displaced fracture of greater tuberosity of left humerus, initial encounter for closed fracture (10/05/21) Unspecified dislocation of left shoulder joint, subsequent encounter (10/05/21) Physical Therapy Treatment Note PT-OP-A Visit Information Start: 07/26/21 12:44 Freq: Status: Active Protocol: Document 10/05/21 11:15 AMB (Rec: 10/05/21 12:44 AMB [id number]) Out-Patient Physical Therapy Visit Information Visit Information Visit Type Treatment Note Visit Start Time 11:15 Visit Stop Time 12:00 Total Visit Minutes 45 Visit Number 16 PT-OP-B Current Condition Start: 07/26/21 12:44 Freq: Status: Active Protocol: Document 07/26/21 15:15 AW (Rec: 07/26/21 12:55 AW [id number]) Current Condition History of Current Condition Onset Date April 2021 Current Complaints left shoulder pain History of Current Condition Nithya fell in April, resulting in comminuted left proximal humerus fracture with anterior dislocation. She has long-standing left knee pain which she feels may have contributed to her fall. Fracture was treated non- operatively and Rd was sent home in a soft sling after a brief hospital stay. Her sister was visiting from [place] at the time and extended her stay to help for a week but Nithya has been managing without assist at home since her sister left. She did have one additional fall within one week of leaving the hospital. She believes she was impaired with oxycodone at that time and denies falls since then. She had home health services - primarily OT - but she was discharged at the end of June. She can get dressed and shower without assist but is doing all overhead activities one-handed. She is currently driving even though she has trouble lifting her arm. Pain is mostly in her anterior and posterior shoulder. She denies neck pain or radiating symptoms to her arm. She lives alone in a single level home with 2 steps to enter using right rail at front of house. Prior Treatments and Tests MRI 07/06/21: 1. 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 2. Acromioclavicular joint osteoarthritis. 3. Possible Hill-Sachs deformity of the humeral head. Future Testing and Treatments Planned None identified Treatment Goals Patient/Caregiver Goals Generally, I want to be able to use my left arm. Specifically, I want to be able to hug my boyfriend. Prior Functional Status Baseline Function- ADL's Independent Baseline Function- Mobility Independent Current Functional Impairments (Reported) Functional Limitations- ADL's Limited use of left arm for most dressing and hygiene tasks Personal Factors Other Personal Factors That May Effect Depression, knee pain, and Therapy/Recovery PT-OP-C Subjective Start: 07/26/21 12:44 Freq: Status: Active Protocol: Document 10/05/21 11:15 AMB (Rec: 10/05/21 12:44 AMB [id number]) OP-PT Subjective Patient Comments Patient Comments Nithya has missed some PT appointments due to not feeling well the last few weeks. Found a hiatal hernia at the ER and wondering how much that is impacting her pain. Going down to [facility] next week for consult on the ovarian mass. Shoulder has not been as much of a priority because of all the other medical stuff. PT-OP-F Manual Assessment Start: 07/26/21 12:44 Freq: Status: Active Protocol: Document 07/26/21 15:15 AW (Rec: 07/26/21 17:06 AW [id number]) Manual Assessments Soft Tissue Assessment Soft Tissue Mobility Assessment Hypertonicity in left upper traps. Tenderness generally in all surrounding muscles. Generally decreased muscle mass left shoulder compared with right. Joint Mobility Assessment Joint Mobility Assessment Stiffness in all planes of motion left shoulder with significant guarding even with PROM. PT-OP-G Mobility & Gait Start: 07/26/21 12:44 Freq: Status: Active Protocol: Document 07/26/21 15:15 AW (Rec: 07/26/21 17:06 AW [id number]) OP Gait Assessment Comments Gait Comments Generally unsteady and with decreased confidence. PT-OP-J Posture/Palpation/Skin Start: 07/26/21 12:44 Freq: Status: Active Protocol: Document 07/26/21 15:15 AW (Rec: 07/26/21 17:06 AW [id number]) Posture Evaluation Comments Posture Comments Forward shoulder posture bilaterally. Protective of left shoulder. PT-OP-K Range of Motion Start: 07/26/21 12:44 Freq: Status: Active Protocol: Document 07/26/21 15:15 AW (Rec: 07/26/21 17:14 AW [id number]) Cervical Spine Range of Motion Cervical Spine Active Testing Position Sitting Flexion 30 Extension 30 Rotation Left 25 Rotation Right 25 Lateral Flexion Left 45 Lateral Flexion Right 50 Comments Pt denies neck pain with all movements Shoulder Goniometric Range of Motion Shoulder Left Passive Shoulder ROM WFL No Testing Position Sitting Flexion 45 Abduction 55 Internal Rotation Behind Back (text) to left hip Comments ER < neutral passively in supine with 45 degrees abduction Right Active Flexion 140 Abduction 150 External Rotation at 0 degrees Abduction 65 Internal Rotation Behind Back (text) T7 Elbow/Forearm Range of Motion Elbow/Forearm Left Active ROM Testing Position Supine Elbow Flexion (degrees) 115 Elbow Extension (degrees) 5 PT-OP-M Strength Start: 07/26/21 12:44 Freq: Status: Active Protocol: Document 07/26/21 15:15 AW (Rec: 07/26/21 17:14 AW [id number]) Shoulder Strength Shoulder Manual Muscle Testing Right Flexion 4+ Good+ Extension 4+ Good+ Abduction (C5) 4+ Good+ External Rotation 4+ Good+ Internal Rotation 4+ Good+ PT-OP-Q Treatments Start: 07/26/21 12:44 Freq: Status: Active Protocol: Document 10/05/21 11:15 AMB (Rec: 10/05/21 12:44 AMB [id number]) Therapeutic Exercises Supine Exercises elbow extension Reps/Minutes 30x3 Comments with overpressure AAROM Supine Exercise Name flexion Reps/Minutes x5 ea rest breaks needed Comments better tolerated Sitting Exercises shoulder isometrics Sitting Exercise Name flexion, extension, abduction, added ER and IR tolerated well Equipment Used seated pushing into R hand; standing at wall Reps/Minutes 5x5 Comments flex, ext, IR for HEP; Manual Therapy Treatment Soft Tissue Mobilization 1 Body Location infraspinatus, suprasinatus, rhomboids, subscap Mobilization Type Myofascial Release,Sustained Pressure Comments added biceps today Manual Techniques 1 Type PROM all planes Comments Flexion improving. PT-OP-R Modalities Start: 07/26/21 12:44 Freq: Status: Active Protocol: Document 08/03/21 08:17 AW (Rec: 08/03/21 10:43 AW [id number]) Electric Stimulation Electric Stimulation Interferential Current (IFC) Body Location left shoulder Duration (Minutes) 12 Intensity 10 Target/Sweep Target Patient Position Hooklying Comments HOB elevated PT-OP-T Assessment and Plan Start: 07/26/21 12:44 Freq: Status: Active Protocol: Document 10/05/21 11:15 AMB (Rec: 10/05/21 12:44 AMB [id number]) Physical Therapy Assessment Goals Three Impairment QuickDash - 70% impairment Care Home Goal (LTG) Pt will score 45% or less impairment on QuickDash as a measure of improved ability to manage ADL's LTG Duration 12 weeks - 10/18/21 Two Impairment shoulder strength Short Term Goal (STG) Pt will improve her strength to be able to lift her arm to 90 degrees elevation to improve her ability to use her left arm in self-care activities. 09/06/21 - Pt lifts her arm to 55 degrees in flexion. STG Duration 6 weeks - 09/06/21 Television Director Goal (LTG) Nithya will improve her left shoulder strength to be able to lift a book from table height. LTG Duration 12 weeks - 10/18/21 One Impairment shoulder ROM Short Term Goal (STG) Nithya will improve her shoulder flexion PROM to 90 degrees 09/06/21 - GOAL MET STG Duration 6 weeks - 09/06/21 Television Director Goal (LTG) Nithya will improve her shoulder abduction AROM to 90 degrees. LTG Duration 12 weeks - 10/18/21 Assessment Summary Assessment Nithya's PROM in flexion is improving well, active motion continues to be more limited, pt is able to continue to do isometrics, but anti gravity movement continues to be limited. She needed Garett to perform supine to sit transfer at the end of therapy today. Per another therapists report , she needed Garett to recover from LOB as she was exiting the clinic. Physical Therapy Plan Next Visit Focus/Plan Next Note Type Treatment Note Next Visit Plan Progress ROM/strengthening as needed, manual for scapular muscles, has pt heard back about surgery scheduling.
--- NOTE | 2021-10-10 16:35 | PT.OTN ---
Current Diagnoses Displaced fracture of greater tuberosity of left humerus, initial encounter for closed fracture (10/10/21) Unspecified dislocation of left shoulder joint, subsequent encounter (10/10/21) Physical Therapy Treatment Note PT-OP-A Visit Information Start: 07/26/21 12:44 Freq: Status: Active Protocol: Document 10/10/21 14:30 AMB (Rec: 10/10/21 16:34 AMB [id number]) Out-Patient Physical Therapy Visit Information Visit Information Visit Type Treatment Note Visit Start Time 14:30 Visit Stop Time 15:15 Total Visit Minutes 45 Visit Number 17 PT-OP-B Current Condition Start: 07/26/21 12:44 Freq: Status: Active Protocol: Document 07/26/21 15:15 AW (Rec: 07/26/21 12:55 AW [id number]) Current Condition History of Current Condition Onset Date April 2021 Current Complaints left shoulder pain History of Current Condition Nithya fell in April, resulting in comminuted left proximal humerus fracture with anterior dislocation. She has long-standing left knee pain which she feels may have contributed to her fall. Fracture was treated non- operatively and Rd was sent home in a soft sling after a brief hospital stay. Her sister was visiting from [place] at the time and extended her stay to help for a week but Nithya has been managing without assist at home since her sister left. She did have one additional fall within one week of leaving the hospital. She believes she was impaired with oxycodone at that time and denies falls since then. She had home health services - primarily OT - but she was discharged at the end of June. She can get dressed and shower without assist but is doing all overhead activities one-handed. She is currently driving even though she has trouble lifting her arm. Pain is mostly in her anterior and posterior shoulder. She denies neck pain or radiating symptoms to her arm. She lives alone in a single level home with 2 steps to enter using right rail at front of house. Prior Treatments and Tests MRI 07/06/21: 1. 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 2. Acromioclavicular joint osteoarthritis. 3. Possible Hill-Sachs deformity of the humeral head. Future Testing and Treatments Planned None identified Treatment Goals Patient/Caregiver Goals Generally, I want to be able to use my left arm. Specifically, I want to be able to hug my boyfriend. Prior Functional Status Baseline Function- ADL's Independent Baseline Function- Mobility Independent Current Functional Impairments (Reported) Functional Limitations- ADL's Limited use of left arm for most dressing and hygiene tasks Personal Factors Other Personal Factors That May Effect Depression, knee pain, and Therapy/Recovery PT-OP-C Subjective Start: 07/26/21 12:44 Freq: Status: Active Protocol: Document 10/10/21 14:30 AMB (Rec: 10/10/21 16:34 AMB [id number]) OP-PT Subjective Patient Comments Patient Comments Nithya is concerned about her lack of abduction. Going to [place] this week to look at ovaries. PT-OP-F Manual Assessment Start: 07/26/21 12:44 Freq: Status: Active Protocol: Document 07/26/21 15:15 AW (Rec: 07/26/21 17:06 AW [id number]) Manual Assessments Soft Tissue Assessment Soft Tissue Mobility Assessment Hypertonicity in left upper traps. Tenderness generally in all surrounding muscles. Generally decreased muscle mass left shoulder compared with right. Joint Mobility Assessment Joint Mobility Assessment Stiffness in all planes of motion left shoulder with significant guarding even with PROM. PT-OP-G Mobility & Gait Start: 07/26/21 12:44 Freq: Status: Active Protocol: Document 07/26/21 15:15 AW (Rec: 07/26/21 17:06 AW [id number]) OP Gait Assessment Comments Gait Comments Generally unsteady and with decreased confidence. PT-OP-J Posture/Palpation/Skin Start: 07/26/21 12:44 Freq: Status: Active Protocol: Document 07/26/21 15:15 AW (Rec: 07/26/21 17:06 AW [id number]) Posture Evaluation Comments Posture Comments Forward shoulder posture bilaterally. Protective of left shoulder. PT-OP-K Range of Motion Start: 07/26/21 12:44 Freq: Status: Active Protocol: Document 07/26/21 15:15 AW (Rec: 07/26/21 17:14 AW [id number]) Cervical Spine Range of Motion Cervical Spine Active Testing Position Sitting Flexion 30 Extension 30 Rotation Left 25 Rotation Right 25 Lateral Flexion Left 45 Lateral Flexion Right 50 Comments Pt denies neck pain with all movements Shoulder Goniometric Range of Motion Shoulder Left Passive Shoulder ROM WFL No Testing Position Sitting Flexion 45 Abduction 55 Internal Rotation Behind Back (text) to left hip Comments ER < neutral passively in supine with 45 degrees abduction Right Active Flexion 140 Abduction 150 External Rotation at 0 degrees Abduction 65 Internal Rotation Behind Back (text) T7 Elbow/Forearm Range of Motion Elbow/Forearm Left Active ROM Testing Position Supine Elbow Flexion (degrees) 115 Elbow Extension (degrees) 5 PT-OP-M Strength Start: 07/26/21 12:44 Freq: Status: Active Protocol: Document 07/26/21 15:15 AW (Rec: 07/26/21 17:14 AW [id number]) Shoulder Strength Shoulder Manual Muscle Testing Right Flexion 4+ Good+ Extension 4+ Good+ Abduction (C5) 4+ Good+ External Rotation 4+ Good+ Internal Rotation 4+ Good+ PT-OP-Q Treatments Start: 07/26/21 12:44 Freq: Status: Active Protocol: Document 10/10/21 14:30 AMB (Rec: 10/10/21 16:34 AMB [id number]) Therapeutic Exercises Supine Exercises snow richa Reps/Minutes 10 Comments partial ROM, with therapist assist AAROM Supine Exercise Name flexion Reps/Minutes x5 ea rest breaks needed Comments better tolerated Sitting Exercises abduction AAROM Equipment Used dowel Reps/Minutes 5 shoulder isometrics Sitting Exercise Name flexion, extension, abduction, added ER and IR tolerated well Equipment Used seated pushing into R hand; standing at wall Reps/Minutes 5x5 scapular retraction Sitting Exercise Name scapular retraction Resistance AROM Reps/Minutes during isometrics Standing Exercises table slide Standing Exercise Name scaption/abduction Reps/Minutes 10 Manual Therapy Treatment Soft Tissue Mobilization 1 Body Location infraspinatus, suprasinatus, rhomboids, subscap Mobilization Type Myofascial Release,Sustained Pressure Manual Techniques 1 Type PROM all planes Comments Flexion improving, worked more on abduction today, challenging PT-OP-R Modalities Start: 07/26/21 12:44 Freq: Status: Active Protocol: Document 08/03/21 08:17 AW (Rec: 08/03/21 10:43 AW [id number]) Electric Stimulation Electric Stimulation Interferential Current (IFC) Body Location left shoulder Duration (Minutes) 12 Intensity 10 Target/Sweep Target Patient Position Hooklying Comments HOB elevated PT-OP-T Assessment and Plan Start: 07/26/21 12:44 Freq: Status: Active Protocol: Document 10/10/21 14:30 AMB (Rec: 10/10/21 16:34 AMB [id number]) Physical Therapy Assessment Goals Three Impairment QuickDash - 70% impairment Single Needle Operator Goal (LTG) Pt will score 45% or less impairment on QuickDash as a measure of improved ability to manage ADL's LTG Duration 12 weeks - 10/18/21 Two Impairment shoulder strength Short Term Goal (STG) Pt will improve her strength to be able to lift her arm to 90 degrees elevation to improve her ability to use her left arm in self-care activities. 09/06/21 - Pt lifts her arm to 55 degrees in flexion. STG Duration 6 weeks - 09/06/21 Single Needle Operator Goal (LTG) Nithya will improve her left shoulder strength to be able to lift a book from table height. LTG Duration 12 weeks - 10/18/21 One Impairment shoulder ROM Short Term Goal (STG) Nithya will improve her shoulder flexion PROM to 90 degrees 09/06/21 - GOAL MET STG Duration 6 weeks - 09/06/21 Single Needle Operator Goal (LTG) Nithya will improve her shoulder abduction AROM to 90 degrees. LTG Duration 12 weeks - 10/18/21 Assessment Summary Assessment Worked on abduction per Nithya' s request today, educated on PROM vs AROM, that usuallay PROM will improve first, she can continue to work on her isometrics to work on strengthening, did tolerate addition to HEP today. Physical Therapy Plan Next Visit Focus/Plan Next Note Type Treatment Note Next Visit Plan Progress ROM/strengthening as needed, reassess abduction exercises (MEMO davis with cane, table slide abduction.
--- NOTE | 2021-10-17 12:27 | PT.OTN ---
Current Diagnoses Displaced fracture of greater tuberosity of left humerus, initial encounter for closed fracture (10/17/21) Unspecified dislocation of left shoulder joint, subsequent encounter (10/17/21) Physical Therapy Treatment Note PT-OP-A Visit Information Start: 07/26/21 12:44 Freq: Status: Active Protocol: Document 10/17/21 09:53 AW (Rec: 10/17/21 10:32 AW [id number]) Out-Patient Physical Therapy Visit Information Visit Information Visit Type Treatment Note Visit Start Time 09:45 Visit Stop Time 10:30 Total Visit Minutes 45 Visit Number 18 PT-OP-B Current Condition Start: 07/26/21 12:44 Freq: Status: Active Protocol: Document 07/26/21 15:15 AW (Rec: 07/26/21 12:55 AW [id number]) Current Condition History of Current Condition Onset Date April 2021 Current Complaints left shoulder pain History of Current Condition Nithya fell in April, resulting in comminuted left proximal humerus fracture with anterior dislocation. She has long-standing left knee pain which she feels may have contributed to her fall. Fracture was treated non- operatively and Rd was sent home in a soft sling after a brief hospital stay. Her sister was visiting from [place] at the time and extended her stay to help for a week but Nithya has been managing without assist at home since her sister left. She did have one additional fall within one week of leaving the hospital. She believes she was impaired with oxycodone at that time and denies falls since then. She had home health services - primarily OT - but she was discharged at the end of June. She can get dressed and shower without assist but is doing all overhead activities one-handed. She is currently driving even though she has trouble lifting her arm. Pain is mostly in her anterior and posterior shoulder. She denies neck pain or radiating symptoms to her arm. She lives alone in a single level home with 2 steps to enter using right rail at front of house. Prior Treatments and Tests MRI 07/06/21: 1. 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 2. Acromioclavicular joint osteoarthritis. 3. Possible Hill-Sachs deformity of the humeral head. Future Testing and Treatments Planned None identified Treatment Goals Patient/Caregiver Goals Generally, I want to be able to use my left arm. Specifically, I want to be able to hug my boyfriend. Prior Functional Status Baseline Function- ADL's Independent Baseline Function- Mobility Independent Current Functional Impairments (Reported) Functional Limitations- ADL's Limited use of left arm for most dressing and hygiene tasks Personal Factors Other Personal Factors That May Effect Depression, knee pain, and Therapy/Recovery PT-OP-C Subjective Start: 07/26/21 12:44 Freq: Status: Active Protocol: Document 10/17/21 09:53 AW (Rec: 10/17/21 10:32 AW [id number]) OP-PT Subjective Patient Comments Patient Comments Nithya went to [place]. She is planning to have a full hysterectomy likely in November or December. She is excited today that she is able to reach behind her back with her left arm which is helpful to dry off after a shower. PT-OP-F Manual Assessment Start: 07/26/21 12:44 Freq: Status: Active Protocol: Document 07/26/21 15:15 AW (Rec: 07/26/21 17:06 AW [id number]) Manual Assessments Soft Tissue Assessment Soft Tissue Mobility Assessment Hypertonicity in left upper traps. Tenderness generally in all surrounding muscles. Generally decreased muscle mass left shoulder compared with right. Joint Mobility Assessment Joint Mobility Assessment Stiffness in all planes of motion left shoulder with significant guarding even with PROM. PT-OP-G Mobility & Gait Start: 07/26/21 12:44 Freq: Status: Active Protocol: Document 07/26/21 15:15 AW (Rec: 07/26/21 17:06 AW [id number]) OP Gait Assessment Comments Gait Comments Generally unsteady and with decreased confidence. PT-OP-J Posture/Palpation/Skin Start: 07/26/21 12:44 Freq: Status: Active Protocol: Document 07/26/21 15:15 AW (Rec: 07/26/21 17:06 AW [id number]) Posture Evaluation Comments Posture Comments Forward shoulder posture bilaterally. Protective of left shoulder. PT-OP-K Range of Motion Start: 07/26/21 12:44 Freq: Status: Active Protocol: Document 07/26/21 15:15 AW (Rec: 07/26/21 17:14 AW [id number]) Cervical Spine Range of Motion Cervical Spine Active Testing Position Sitting Flexion 30 Extension 30 Rotation Left 25 Rotation Right 25 Lateral Flexion Left 45 Lateral Flexion Right 50 Comments Pt denies neck pain with all movements Shoulder Goniometric Range of Motion Shoulder Left Passive Shoulder ROM WFL No Testing Position Sitting Flexion 45 Abduction 55 Internal Rotation Behind Back (text) to left hip Comments ER < neutral passively in supine with 45 degrees abduction Right Active Flexion 140 Abduction 150 External Rotation at 0 degrees Abduction 65 Internal Rotation Behind Back (text) T7 Elbow/Forearm Range of Motion Elbow/Forearm Left Active ROM Testing Position Supine Elbow Flexion (degrees) 115 Elbow Extension (degrees) 5 PT-OP-M Strength Start: 07/26/21 12:44 Freq: Status: Active Protocol: Document 07/26/21 15:15 AW (Rec: 07/26/21 17:14 AW [id number]) Shoulder Strength Shoulder Manual Muscle Testing Right Flexion 4+ Good+ Extension 4+ Good+ Abduction (C5) 4+ Good+ External Rotation 4+ Good+ Internal Rotation 4+ Good+ PT-OP-Q Treatments Start: 07/26/21 12:44 Freq: Status: Active Protocol: Document 10/17/21 09:53 AW (Rec: 10/17/21 10:32 AW [id number]) Therapeutic Exercises Sitting Exercises samantha Sitting Exercise Name pulleys - abduction and flexion Reps/Minutes 2 min x 2 Comments pt tolerates, states arm gets tired but not painful until end of 2nd set scapular retraction Sitting Exercise Name scapular retraction Resistance AROM Reps/Minutes during isometrics table slides Sitting Exercise Name table slides Side left Comments flexion and scaption; HEP Standing Exercises resisted extension Standing Exercise Name extension Side left Resistance TB1 Reps/Minutes 2x5 Comments clinic only resisted row Standing Exercise Name row Resistance TB1 Reps/Minutes 2x5 Comments clinic only resisted IR Standing Exercise Name IR Resistance TB1 Reps/Minutes 2x5 Comments max cues for set up; clinic only Manual Therapy Treatment Soft Tissue Mobilization 1 Body Location infraspinatus, suprasinatus, rhomboids, subscap, teres minor Mobilization Type Myofascial Release,Sustained Pressure Manual Techniques 1 Type PROM all planes Body Position Sitting Comments Flexion improving, worked more on abduction today, improving PT-OP-R Modalities Start: 07/26/21 12:44 Freq: Status: Active Protocol: Document 08/03/21 08:17 AW (Rec: 08/03/21 10:43 AW [id number]) Electric Stimulation Electric Stimulation Interferential Current (IFC) Body Location left shoulder Duration (Minutes) 12 Intensity 10 Target/Sweep Target Patient Position Hooklying Comments HOB elevated PT-OP-T Assessment and Plan Start: 07/26/21 12:44 Freq: Status: Active Protocol: Document 10/17/21 09:53 AW (Rec: 10/17/21 10:32 AW [id number]) Physical Therapy Assessment Goals Three Impairment QuickDash - 70% impairment General Administrator Goal (LTG) Pt will score 45% or less impairment on QuickDash as a measure of improved ability to manage ADL's LTG Duration 12 weeks - 01/10/22 Two Impairment shoulder strength Short Term Goal (STG) Pt will improve her strength to be able to lift her arm to 90 degrees elevation to improve her ability to use her left arm in self-care activities. 09/06/21 - Pt lifts her arm to 55 degrees in flexion. STG Duration 6 weeks - 11/29/21 [facility] Goal (LTG) Nithya will improve her left shoulder strength to be able to lift a book from table height. LTG Duration 12 weeks - 01/10/22 One Impairment shoulder ROM Short Term Goal (STG) Nithya will improve her shoulder flexion PROM to 90 degrees 09/06/21 - GOAL MET STG Duration 6 weeks - 09/06/21 General Administrator Goal (LTG) Nithya will improve her shoulder abduction AROM to 90 degrees. 10/17/21 - Flexion remains limited and painful LTG Duration 12 weeks - 01/10/22 Progress Towards Goals Progress Towards Goals Progressing Toward Goals,Slow Progress - Other Progress Comments Nithya works hard in therapy. PROM is improving. AROM is much slower to improve but she is now able to reach behind her back to dry off after a shower. Assessment Summary Assessment Nithya tolerated pulleys today in scaption, flexion, abduction without significant increase in pain. Initiated gentle resisted shoulder movement in IR, extension, and scapular retraction. Nithya required max cues to set up. Will plan to continue these exercises in the clinic only. Physical Therapy Plan Frequency and Duration Frequency of Treatment 2x/Week Duration of Treatment 12 weeks Plan of Care Start Date 10/18/21 Plan of Care End Date 01/10/22 Next Visit Focus/Plan Next Note Type Treatment Note Next Visit Plan Progress ROM/strengthening as needed, reassess abduction exercises (snow richa, MEMO with cane, table slide abduction) and lightly resisted IR, ext.
--- NOTE | 2021-10-17 12:27 | PT.OPPOC ---
Physical, Occupational & Speech Therapy At [facility] Current Diagnoses Displaced fracture of greater tuberosity of left humerus, initial encounter for closed fracture (10/17/21) Unspecified dislocation of left shoulder joint, subsequent encounter (10/17/21) Visit Care Team Role Provider Type Nick Witt MD Family Provider Physician Primary Care Provider Specialty: Internal Medicine Address: [address] [place] [address], [id number] Email: [email or web address] Kenneth Burkett MD Attending Provider Physician Referring Provider Specialty: Orthopedics Orthopedic Surgery Address: [address] [place] [address], [id number] Email: [email or web address] Plan Of Care PT-OP-T Assessment and Plan Start: 07/26/21 12:44 Freq: Status: Active Protocol: Document 10/17/21 09:53 AW (Rec: 10/17/21 10:32 AW [id number]) Physical Therapy Assessment Goals Three Impairment QuickDash - 70% impairment Assembled Wood Products Repairer Goal (LTG) Pt will score 45% or less impairment on QuickDash as a measure of improved ability to manage ADL's LTG Duration 12 weeks - 01/10/22 Two Impairment shoulder strength Short Term Goal (STG) Pt will improve her strength to be able to lift her arm to 90 degrees elevation to improve her ability to use her left arm in self-care activities. 09/06/21 - Pt lifts her arm to 55 degrees in flexion. STG Duration 6 weeks - 11/29/21 Assembled Wood Products Repairer Goal (LTG) Nithya will improve her left shoulder strength to be able to lift a book from table height. LTG Duration 12 weeks - 01/10/22 One Impairment shoulder ROM Short Term Goal (STG) Nithya will improve her shoulder flexion PROM to 90 degrees 09/06/21 - GOAL MET STG Duration 6 weeks - 09/06/21 [facility] Goal (LTG) Nithya will improve her shoulder abduction AROM to 90 degrees. 10/17/21 - Flexion remains limited and painful LTG Duration 12 weeks - 01/10/22 Progress Towards Goals Progress Towards Goals Progressing Toward Goals,Slow Progress - Other Progress Comments Nithya works hard in therapy. PROM is improving. AROM is much slower to improve but she is now able to reach behind her back to dry off after a shower. Assessment Summary Assessment Nithya tolerated pulleys today in scaption, flexion, abduction without significant increase in pain. Initiated gentle resisted shoulder movement in IR, extension, and scapular retraction. Nithya required max cues to set up. Will plan to continue these exercises in the clinic only. Physical Therapy Plan Frequency and Duration Frequency of Treatment 2x/Week Duration of Treatment 12 weeks Plan of Care Start Date 10/18/21 Plan of Care End Date 01/10/22 Next Visit Focus/Plan Next Note Type Treatment Note Next Visit Plan Progress ROM/strengthening as needed, reassess abduction exercises (karyn chaudhry, MEMO with cane, table slide abduction) and lightly resisted IR, ext. Plan of Care Dates Plan of Care Start Date 10/18/21 Plan of Care End Date 01/10/22 Electronically Signed by: Rox Gomez, PT 10/17/21 [id number] If you are in agreement with this Plan of Care, please return a signed and dated copy. I have reviewed this Plan of Care and certify that the skilled therapy services above are required to meet the patient?s needs. Physician Signature Date Printed Name and Credentials Clinical Instructor Signature Printed Name and Credentials
--- NOTE | 2021-10-19 12:00 | PT.OTN ---
Current Diagnoses Displaced fracture of greater tuberosity of left humerus, initial encounter for closed fracture (10/19/21) Unspecified dislocation of left shoulder joint, subsequent encounter (10/19/21) Physical Therapy Treatment Note PT-OP-A Visit Information Start: 07/26/21 12:44 Freq: Status: Active Protocol: Document 10/19/21 11:15 DCW (Rec: 10/19/21 12:00 DCW [id number]) Out-Patient Physical Therapy Visit Information Visit Information Visit Type Treatment Note Visit Start Time 11:15 Visit Stop Time 12:00 Total Visit Minutes 45 Visit Number 19 PT-OP-B Current Condition Start: 07/26/21 12:44 Freq: Status: Active Protocol: Document 07/26/21 15:15 AW (Rec: 07/26/21 12:55 AW [id number]) Current Condition History of Current Condition Onset Date April 2021 Current Complaints left shoulder pain History of Current Condition Nithya fell in April, resulting in comminuted left proximal humerus fracture with anterior dislocation. She has long-standing left knee pain which she feels may have contributed to her fall. Fracture was treated non- operatively and Rd was sent home in a soft sling after a brief hospital stay. Her sister was visiting from [place] at the time and extended her stay to help for a week but Nithya has been managing without assist at home since her sister left. She did have one additional fall within one week of leaving the hospital. She believes she was impaired with oxycodone at that time and denies falls since then. She had home health services - primarily OT - but she was discharged at the end of June. She can get dressed and shower without assist but is doing all overhead activities one-handed. She is currently driving even though she has trouble lifting her arm. Pain is mostly in her anterior and posterior shoulder. She denies neck pain or radiating symptoms to her arm. She lives alone in a single level home with 2 steps to enter using right rail at front of house. Prior Treatments and Tests MRI 07/06/21: 1. 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 2. Acromioclavicular joint osteoarthritis. 3. Possible Hill-Sachs deformity of the humeral head. Future Testing and Treatments Planned None identified Treatment Goals Patient/Caregiver Goals Generally, I want to be able to use my left arm. Specifically, I want to be able to hug my boyfriend. Prior Functional Status Baseline Function- ADL's Independent Baseline Function- Mobility Independent Current Functional Impairments (Reported) Functional Limitations- ADL's Limited use of left arm for most dressing and hygiene tasks Personal Factors Other Personal Factors That May Effect Depression, knee pain, and Therapy/Recovery PT-OP-C Subjective Start: 07/26/21 12:44 Freq: Status: Active Protocol: Document 10/19/21 11:15 DCW (Rec: 10/19/21 12:00 DCW [id number]) OP-PT Subjective Patient Comments Patient Comments I was stellar on Saturday, I don't think I will be that good today. PT-OP-F Manual Assessment Start: 07/26/21 12:44 Freq: Status: Active Protocol: Document 07/26/21 15:15 AW (Rec: 07/26/21 17:06 AW [id number]) Manual Assessments Soft Tissue Assessment Soft Tissue Mobility Assessment Hypertonicity in left upper traps. Tenderness generally in all surrounding muscles. Generally decreased muscle mass left shoulder compared with right. Joint Mobility Assessment Joint Mobility Assessment Stiffness in all planes of motion left shoulder with significant guarding even with PROM. PT-OP-G Mobility & Gait Start: 07/26/21 12:44 Freq: Status: Active Protocol: Document 07/26/21 15:15 AW (Rec: 07/26/21 17:06 AW [id number]) OP Gait Assessment Comments Gait Comments Generally unsteady and with decreased confidence. PT-OP-J Posture/Palpation/Skin Start: 07/26/21 12:44 Freq: Status: Active Protocol: Document 07/26/21 15:15 AW (Rec: 07/26/21 17:06 AW [id number]) Posture Evaluation Comments Posture Comments Forward shoulder posture bilaterally. Protective of left shoulder. PT-OP-K Range of Motion Start: 07/26/21 12:44 Freq: Status: Active Protocol: Document 07/26/21 15:15 AW (Rec: 07/26/21 17:14 AW [id number]) Cervical Spine Range of Motion Cervical Spine Active Testing Position Sitting Flexion 30 Extension 30 Rotation Left 25 Rotation Right 25 Lateral Flexion Left 45 Lateral Flexion Right 50 Comments Pt denies neck pain with all movements Shoulder Goniometric Range of Motion Shoulder Left Passive Shoulder ROM WFL No Testing Position Sitting Flexion 45 Abduction 55 Internal Rotation Behind Back (text) to left hip Comments ER < neutral passively in supine with 45 degrees abduction Right Active Flexion 140 Abduction 150 External Rotation at 0 degrees Abduction 65 Internal Rotation Behind Back (text) T7 Elbow/Forearm Range of Motion Elbow/Forearm Left Active ROM Testing Position Supine Elbow Flexion (degrees) 115 Elbow Extension (degrees) 5 PT-OP-M Strength Start: 07/26/21 12:44 Freq: Status: Active Protocol: Document 07/26/21 15:15 AW (Rec: 07/26/21 17:14 AW [id number]) Shoulder Strength Shoulder Manual Muscle Testing Right Flexion 4+ Good+ Extension 4+ Good+ Abduction (C5) 4+ Good+ External Rotation 4+ Good+ Internal Rotation 4+ Good+ PT-OP-Q Treatments Start: 07/26/21 12:44 Freq: Status: Active Protocol: Document 10/19/21 11:15 DCW (Rec: 10/19/21 12:00 DCW [id number]) Therapeutic Exercises Sitting Exercises abduction AAROM Equipment Used dowel Reps/Minutes 5 samantha Sitting Exercise Name pulleys - abduction and flexion Reps/Minutes 2 min x 2 Comments pt could not tolerate today scapular retraction Sitting Exercise Name scapular retraction, circles Resistance AROM Reps/Minutes during isometrics Standing Exercises resisted extension Standing Exercise Name extension Side left Resistance TB1 Reps/Minutes 2x5 Comments clinic only resisted row Standing Exercise Name row Resistance TB1 Reps/Minutes 2x5 Comments clinic only resisted IR Standing Exercise Name IR Resistance TB1 Reps/Minutes 2x5 Comments max cues for set up; clinic only Manual Therapy Treatment Soft Tissue Mobilization 1 Body Location infraspinatus, suprasinatus, rhomboids, subscap, teres minor Mobilization Type Myofascial Release,Sustained Pressure Manual Techniques 1 Type PROM all planes Body Position Sitting Comments Flexion improving, worked more on abduction today, improving PT-OP-R Modalities Start: 07/26/21 12:44 Freq: Status: Active Protocol: Document 08/03/21 08:17 AW (Rec: 08/03/21 10:43 AW [id number]) Electric Stimulation Electric Stimulation Interferential Current (IFC) Body Location left shoulder Duration (Minutes) 12 Intensity 10 Target/Sweep Target Patient Position Hooklying Comments HOB elevated PT-OP-T Assessment and Plan Start: 07/26/21 12:44 Freq: Status: Active Protocol: Document 10/19/21 11:15 DCW (Rec: 10/19/21 12:00 DCW [id number]) Physical Therapy Assessment Goals Three Impairment QuickDash - 70% impairment Custodial Goal (LTG) Pt will score 45% or less impairment on QuickDash as a measure of improved ability to manage ADL's LTG Duration 12 weeks - 01/10/22 Two Impairment shoulder strength Short Term Goal (STG) Pt will improve her strength to be able to lift her arm to 90 degrees elevation to improve her ability to use her left arm in self-care activities. 09/06/21 - Pt lifts her arm to 55 degrees in flexion. STG Duration 6 weeks - 11/29/21 Custodial Goal (LTG) Nithya will improve her left shoulder strength to be able to lift a book from table height. LTG Duration 12 weeks - 01/10/22 One Impairment shoulder ROM Short Term Goal (STG) Nithya will improve her shoulder flexion PROM to 90 degrees 09/06/21 - GOAL MET STG Duration 6 weeks - 09/06/21 Custodial Goal (LTG) Nithya will improve her shoulder abduction AROM to 90 degrees. 10/17/21 - Flexion remains limited and painful LTG Duration 12 weeks - 01/10/22 Assessment Summary Assessment Pt appeared to be more limited today with mobility, feels she overdid it Ольга because she felt good. PROM seems to be improving overall, still struggling with AROM. Physical Therapy Plan Frequency and Duration Frequency of Treatment 2x/Week Duration of Treatment 12 weeks Plan of Care Start Date 10/18/21 Plan of Care End Date 01/10/22 Next Visit Focus/Plan Next Note Type Treatment Note Next Visit Plan Progress ROM/strengthening as needed, reassess abduction exercises (snow richa, AAROM with cane, table slide abduction) and lightly resisted IR, ext.
--- NOTE | 2021-10-24 14:49 | PT.OTN ---
Current Diagnoses Displaced fracture of greater tuberosity of left humerus, initial encounter for closed fracture (10/24/21) Unspecified dislocation of left shoulder joint, subsequent encounter (10/24/21) Physical Therapy Treatment Note PT-OP-A Visit Information Start: 07/26/21 12:44 Freq: Status: Active Protocol: Document 10/24/21 13:49 SAK (Rec: 10/24/21 14:46 SAK [id number]) Out-Patient Physical Therapy Visit Information Visit Information Visit Type Treatment Note Visit Start Time 13:49 Total Visit Minutes 20 Visit Number 19 PT-OP-B Current Condition Start: 07/26/21 12:44 Freq: Status: Active Protocol: Document 07/26/21 15:15 AW (Rec: 07/26/21 12:55 AW [id number]) Current Condition History of Current Condition Onset Date April 2021 Current Complaints left shoulder pain History of Current Condition Nithya fell in April, resulting in comminuted left proximal humerus fracture with anterior dislocation. She has long-standing left knee pain which she feels may have contributed to her fall. Fracture was treated non- operatively and Rd was sent home in a soft sling after a brief hospital stay. Her sister was visiting from [place] at the time and extended her stay to help for a week but Nithya has been managing without assist at home since her sister left. She did have one additional fall within one week of leaving the hospital. She believes she was impaired with oxycodone at that time and denies falls since then. She had home health services - primarily OT - but she was discharged at the end of June. She can get dressed and shower without assist but is doing all overhead activities one-handed. She is currently driving even though she has trouble lifting her arm. Pain is mostly in her anterior and posterior shoulder. She denies neck pain or radiating symptoms to her arm. She lives alone in a single level home with 2 steps to enter using right rail at front of house. Prior Treatments and Tests MRI 07/06/21: 1. 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 2. Acromioclavicular joint osteoarthritis. 3. Possible Hill-Sachs deformity of the humeral head. Future Testing and Treatments Planned None identified Treatment Goals Patient/Caregiver Goals Generally, I want to be able to use my left arm. Specifically, I want to be able to hug my boyfriend. Prior Functional Status Baseline Function- ADL's Independent Baseline Function- Mobility Independent Current Functional Impairments (Reported) Functional Limitations- ADL's Limited use of left arm for most dressing and hygiene tasks Personal Factors Other Personal Factors That May Effect Depression, knee pain, and Therapy/Recovery PT-OP-C Subjective Start: 07/26/21 12:44 Freq: Status: Active Protocol: Document 10/24/21 13:49 SAK (Rec: 10/24/21 14:46 SAK [id number]) OP-PT Subjective Patient Comments Patient Comments Everything hurts today. OVerall getting better but today very sore. PT-OP-F Manual Assessment Start: 07/26/21 12:44 Freq: Status: Active Protocol: Document 07/26/21 15:15 AW (Rec: 07/26/21 17:06 AW [id number]) Manual Assessments Soft Tissue Assessment Soft Tissue Mobility Assessment Hypertonicity in left upper traps. Tenderness generally in all surrounding muscles. Generally decreased muscle mass left shoulder compared with right. Joint Mobility Assessment Joint Mobility Assessment Stiffness in all planes of motion left shoulder with significant guarding even with PROM. PT-OP-G Mobility & Gait Start: 07/26/21 12:44 Freq: Status: Active Protocol: Document 07/26/21 15:15 AW (Rec: 07/26/21 17:06 AW [id number]) OP Gait Assessment Comments Gait Comments Generally unsteady and with decreased confidence. PT-OP-J Posture/Palpation/Skin Start: 07/26/21 12:44 Freq: Status: Active Protocol: Document 07/26/21 15:15 AW (Rec: 07/26/21 17:06 AW [id number]) Posture Evaluation Comments Posture Comments Forward shoulder posture bilaterally. Protective of left shoulder. PT-OP-K Range of Motion Start: 07/26/21 12:44 Freq: Status: Active Protocol: Document 07/26/21 15:15 AW (Rec: 07/26/21 17:14 AW [id number]) Cervical Spine Range of Motion Cervical Spine Active Testing Position Sitting Flexion 30 Extension 30 Rotation Left 25 Rotation Right 25 Lateral Flexion Left 45 Lateral Flexion Right 50 Comments Pt denies neck pain with all movements Shoulder Goniometric Range of Motion Shoulder Left Passive Shoulder ROM WFL No Testing Position Sitting Flexion 45 Abduction 55 Internal Rotation Behind Back (text) to left hip Comments ER < neutral passively in supine with 45 degrees abduction Right Active Flexion 140 Abduction 150 External Rotation at 0 degrees Abduction 65 Internal Rotation Behind Back (text) T7 Elbow/Forearm Range of Motion Elbow/Forearm Left Active ROM Testing Position Supine Elbow Flexion (degrees) 115 Elbow Extension (degrees) 5 PT-OP-M Strength Start: 07/26/21 12:44 Freq: Status: Active Protocol: Document 07/26/21 15:15 AW (Rec: 07/26/21 17:14 AW [id number]) Shoulder Strength Shoulder Manual Muscle Testing Right Flexion 4+ Good+ Extension 4+ Good+ Abduction (C5) 4+ Good+ External Rotation 4+ Good+ Internal Rotation 4+ Good+ PT-OP-Q Treatments Start: 07/26/21 12:44 Freq: Status: Active Protocol: Document 10/24/21 13:49 SAK (Rec: 10/24/21 14:46 SAK [id number]) Therapeutic Exercises Sitting Exercises shoulder extension Sitting Exercise Name AAROM with wand Reps/Minutes 10x5 shoulder rolls Reps/Minutes 5x christine, 5x unil shoulder flex Equipment Used vertical dowel resting on ground Reps/Minutes 10x Comments lean forward samantha Sitting Exercise Name pulleys - abduction and flexion Reps/Minutes 2 min x 2 Comments pt could not tolerate today scapular retraction Sitting Exercise Name scapular retraction, circles Resistance AROM Reps/Minutes during isometrics Standing Exercises pendulum Reps/Minutes 10x Comments states forgot about doing these,helpful resisted extension Standing Exercise Name extension Side left Resistance TB1 Reps/Minutes 2x5 Comments clinic only resisted row Standing Exercise Name row Resistance TB1 Reps/Minutes 2x5 Comments clinic only resisted IR Standing Exercise Name IR Resistance TB1 Reps/Minutes 2x5 Comments max cues for set up; clinic only Manual Therapy Treatment Soft Tissue Mobilization 1 Body Location infraspinatus, suprasinatus, rhomboids, subscap, teres minor Mobilization Type Myofascial Release,Sustained Pressure Manual Techniques 1 Type PROM all planes Body Position Supine Comments pain-free ROM Self-Care/Home Management Treatment Education Patient Education Home Exercise Program,Pain Management,Posture PT-OP-R Modalities Start: 07/26/21 12:44 Freq: Status: Active Protocol: Document 10/24/21 13:49 SAK (Rec: 10/24/21 14:46 [facility] [id number]) Hot Pack/Cold Pack Treatment Cold Pack Location L shoulder Patient Position Hooklying Treatment Duration (minutes) 7 PT-OP-T Assessment and Plan Start: 07/26/21 12:44 Freq: Status: Active Protocol: Document 10/24/21 13:49 [facility] (Rec: 10/24/21 14:46 [facility] [id number]) Physical Therapy Assessment Goals Three Impairment QuickDash - 70% impairment Snf Goal (LTG) Pt will score 45% or less impairment on QuickDash as a measure of improved ability to manage ADL's LTG Duration 12 weeks - 01/10/22 Two Impairment shoulder strength Short Term Goal (STG) Pt will improve her strength to be able to lift her arm to 90 degrees elevation to improve her ability to use her left arm in self-care activities. 09/06/21 - Pt lifts her arm to 55 degrees in flexion. STG Duration 6 weeks - 11/29/21 Snf Goal (LTG) Nithya will improve her left shoulder strength to be able to lift a book from table height. LTG Duration 12 weeks - 01/10/22 One Impairment shoulder ROM Short Term Goal (STG) Nithya will improve her shoulder flexion PROM to 90 degrees 09/06/21 - GOAL MET STG Duration 6 weeks - 09/06/21 Construction Project Coordinator Goal (LTG) Nithya will improve her shoulder abduction AROM to 90 degrees. 10/17/21 -flexion remains limited and painful LTG Duration 12 weeks - 01/10/22 Progress Towards Goals Progress Towards Goals Progressing Toward Goals,Slow Progress - Other Assessment Summary Assessment Difficulty with AROM, though PROM and AAROM improving. Encouraged use of ice and heat at home as needed; patient states she will try to find heating pad, doesn't like ice but was willing to try today. Needed assistance supine to sit. Physical Therapy Plan Frequency and Duration Frequency of Treatment 2x/Week Duration of Treatment 12 weeks Plan of Care Start Date 10/18/21 Plan of Care End Date 01/10/22 Next Visit Focus/Plan Next Note Type Treatment Note Next Visit Plan Continue gentle progression of ROM and strengthening left shoulder per POC. Assess response to ice, AAROM with wand/cane, resumption of pendulums.
--- NOTE | 2021-10-24 14:51 | PT.OPPN ---
Current Diagnoses Displaced fracture of greater tuberosity of left humerus, initial encounter for closed fracture (10/24/21) Unspecified dislocation of left shoulder joint, subsequent encounter (10/24/21) Physical Therapy Progress Note PT-OP-A Visit Information Start: 07/26/21 12:44 Freq: Status: Active Protocol: Document 10/24/21 13:49 SAK (Rec: 10/24/21 14:46 SAK [id number]) Out-Patient Physical Therapy Visit Information Visit Information Visit Type Treatment Note Visit Start Time 13:49 Total Visit Minutes 20 Visit Number 19 PT-OP-B Current Condition Start: 07/26/21 12:44 Freq: Status: Active Protocol: Document 07/26/21 15:15 AW (Rec: 07/26/21 12:55 AW [id number]) Current Condition History of Current Condition Onset Date April 2021 Current Complaints left shoulder pain History of Current Condition Nithya fell in April, resulting in comminuted left proximal humerus fracture with anterior dislocation. She has long-standing left knee pain which she feels may have contributed to her fall. Fracture was treated non- operatively and Rd was sent home in a soft sling after a brief hospital stay. Her sister was visiting from [place] at the time and extended her stay to help for a week but Nithya has been managing without assist at home since her sister left. She did have one additional fall within one week of leaving the hospital. She believes she was impaired with oxycodone at that time and denies falls since then. She had home health services - primarily OT - but she was discharged at the end of June. She can get dressed and shower without assist but is doing all overhead activities one-handed. She is currently driving even though she has trouble lifting her arm. Pain is mostly in her anterior and posterior shoulder. She denies neck pain or radiating symptoms to her arm. She lives alone in a single level home with 2 steps to enter using right rail at front of house. Prior Treatments and Tests MRI 07/06/21: 1. 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 2. Acromioclavicular joint osteoarthritis. 3. Possible Hill-Sachs deformity of the humeral head. Future Testing and Treatments Planned None identified Treatment Goals Patient/Caregiver Goals Generally, I want to be able to use my left arm. Specifically, I want to be able to hug my boyfriend. Prior Functional Status Baseline Function- ADL's Independent Baseline Function- Mobility Independent Current Functional Impairments (Reported) Functional Limitations- ADL's Limited use of left arm for most dressing and hygiene tasks Personal Factors Other Personal Factors That May Effect Depression, knee pain, and Therapy/Recovery PT-OP-C Subjective Start: 07/26/21 12:44 Freq: Status: Active Protocol: Document 10/24/21 13:49 SAK (Rec: 10/24/21 14:46 SAK [id number]) OP-PT Subjective Patient Comments Patient Comments Everything hurts today. OVerall getting better but today very sore. PT-OP-F Manual Assessment Start: 07/26/21 12:44 Freq: Status: Active Protocol: Document 07/26/21 15:15 AW (Rec: 07/26/21 17:06 AW [id number]) Manual Assessments Soft Tissue Assessment Soft Tissue Mobility Assessment Hypertonicity in left upper traps. Tenderness generally in all surrounding muscles. Generally decreased muscle mass left shoulder compared with right. Joint Mobility Assessment Joint Mobility Assessment Stiffness in all planes of motion left shoulder with significant guarding even with PROM. PT-OP-G Mobility & Gait Start: 07/26/21 12:44 Freq: Status: Active Protocol: Document 07/26/21 15:15 AW (Rec: 07/26/21 17:06 AW [id number]) OP Gait Assessment Comments Gait Comments Generally unsteady and with decreased confidence. PT-OP-J Posture/Palpation/Skin Start: 07/26/21 12:44 Freq: Status: Active Protocol: Document 07/26/21 15:15 AW (Rec: 07/26/21 17:06 AW [id number]) Posture Evaluation Comments Posture Comments Forward shoulder posture bilaterally. Protective of left shoulder. PT-OP-K Range of Motion Start: 07/26/21 12:44 Freq: Status: Active Protocol: Document 07/26/21 15:15 AW (Rec: 07/26/21 17:14 AW [id number]) Cervical Spine Range of Motion Cervical Spine Active Testing Position Sitting Flexion 30 Extension 30 Rotation Left 25 Rotation Right 25 Lateral Flexion Left 45 Lateral Flexion Right 50 Comments Pt denies neck pain with all movements Shoulder Goniometric Range of Motion Shoulder Measured in Degrees Left Passive Shoulder ROM WFL No Testing Position Sitting Flexion 45 Abduction 55 Internal Rotation Behind Back (text) to left hip Comments ER < neutral passively in supine with 45 degrees abduction Right Active Flexion 140 Abduction 150 External Rotation at 0 degrees Abduction 65 Internal Rotation Behind Back (text) T7 Elbow/Forearm Range of Motion Elbow/Forearm Measured in Degrees Left Active ROM Testing Position Supine Elbow Flexion (degrees) 115 Elbow Extension (degrees) 5 PT-OP-M Strength Start: 07/26/21 12:44 Freq: Status: Active Protocol: Document 07/26/21 15:15 AW (Rec: 07/26/21 17:14 AW [id number]) Shoulder Strength Shoulder Manual Muscle Testing Right Flexion 4+ Good+ Extension 4+ Good+ Abduction (C5) 4+ Good+ External Rotation 4+ Good+ Internal Rotation 4+ Good+ PT-OP-T Assessment and Plan Start: 07/26/21 12:44 Freq: Status: Active Protocol: Document 10/24/21 13:49 SAK (Rec: 10/24/21 14:46 SAK [id number]) Physical Therapy Assessment Goals Three Impairment QuickDash - 70% impairment [employer]iter Goal (LTG) Pt will score 45% or less impairment on QuickDash as a measure of improved ability to manage ADL's LTG Duration 12 weeks - 01/10/22 Two Impairment shoulder strength Short Term Goal (STG) Pt will improve her strength to be able to lift her arm to 90 degrees elevation to improve her ability to use her left arm in self-care activities. 09/06/21 - Pt lifts her arm to 55 degrees in flexion. STG Duration 6 weeks - 11/29/21 Snf Goal (LTG) Nithya will improve her left shoulder strength to be able to lift a book from table height. LTG Duration 12 weeks - 01/10/22 One Impairment shoulder ROM Short Term Goal (STG) Nithya will improve her shoulder flexion PROM to 90 degrees 09/06/21 - GOAL MET STG Duration 6 weeks - 09/06/21 [employer] Goal (LTG) Nithya will improve her shoulder abduction AROM to 90 degrees. 10/17/21 -flexion remains limited and painful LTG Duration 12 weeks - 01/10/22 Progress Towards Goals Progress Towards Goals Progressing Toward Goals,Slow Progress - Other Assessment Summary Assessment Difficulty with AROM, though PROM and AAROM improving. Encouraged use of ice and heat at home as needed; patient states she will try to find heating pad, doesn't like ice but was willing to try today. Needed assistance supine to sit. Physical Therapy Plan Frequency and Duration Frequency of Treatment 2x/Week Duration of Treatment 12 weeks Plan of Care Start Date 10/18/21 Plan of Care End Date 01/10/22 Next Visit Focus/Plan Next Note Type Treatment Note Next Visit Plan Continue gentle progression of ROM and strengthening left shoulder per POC. Assess response to ice, AAROM with wand/cane, resumption of pendulums.
--- NOTE | 2021-10-31 12:07 | PT.OTN ---
Current Diagnoses Displaced fracture of greater tuberosity of left humerus, initial encounter for closed fracture (10/31/21) Unspecified dislocation of left shoulder joint, subsequent encounter (10/31/21) Physical Therapy Treatment Note PT-OP-A Visit Information Start: 07/26/21 12:44 Freq: Status: Active Protocol: Document 10/31/21 11:03 AW (Rec: 10/31/21 12:07 AW [id number]) Out-Patient Physical Therapy Visit Information Visit Information Visit Type Treatment Note Visit Start Time 11:15 Visit Stop Time 11:56 Total Visit Minutes 41 Visit Number 20 PT-OP-B Current Condition Start: 07/26/21 12:44 Freq: Status: Active Protocol: Document 07/26/21 15:15 AW (Rec: 07/26/21 12:55 AW [id number]) Current Condition History of Current Condition Onset Date April 2021 Current Complaints left shoulder pain History of Current Condition Nithya fell in April, resulting in comminuted left proximal humerus fracture with anterior dislocation. She has long-standing left knee pain which she feels may have contributed to her fall. Fracture was treated non- operatively and Rd was sent home in a soft sling after a brief hospital stay. Her sister was visiting from [place] at the time and extended her stay to help for a week but Nithya has been managing without assist at home since her sister left. She did have one additional fall within one week of leaving the hospital. She believes she was impaired with oxycodone at that time and denies falls since then. She had home health services - primarily OT - but she was discharged at the end of June. She can get dressed and shower without assist but is doing all overhead activities one-handed. She is currently driving even though she has trouble lifting her arm. Pain is mostly in her anterior and posterior shoulder. She denies neck pain or radiating symptoms to her arm. She lives alone in a single level home with 2 steps to enter using right rail at front of house. Prior Treatments and Tests MRI 07/06/21: 1. 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 2. Acromioclavicular joint osteoarthritis. 3. Possible Hill-Sachs deformity of the humeral head. Future Testing and Treatments Planned None identified Treatment Goals Patient/Caregiver Goals Generally, I want to be able to use my left arm. Specifically, I want to be able to hug my boyfriend. Prior Functional Status Baseline Function- ADL's Independent Baseline Function- Mobility Independent Current Functional Impairments (Reported) Functional Limitations- ADL's Limited use of left arm for most dressing and hygiene tasks Personal Factors Other Personal Factors That May Effect Depression, knee pain, and Therapy/Recovery PT-OP-C Subjective Start: 07/26/21 12:44 Freq: Status: Active Protocol: Document 10/31/21 11:03 AW (Rec: 10/31/21 12:07 AW [id number]) OP-PT Subjective Patient Comments Patient Comments I took some aspirin before coming in today. PT-OP-F Manual Assessment Start: 07/26/21 12:44 Freq: Status: Active Protocol: Document 07/26/21 15:15 AW (Rec: 07/26/21 17:06 AW [id number]) Manual Assessments Soft Tissue Assessment Soft Tissue Mobility Assessment Hypertonicity in left upper traps. Tenderness generally in all surrounding muscles. Generally decreased muscle mass left shoulder compared with right. Joint Mobility Assessment Joint Mobility Assessment Stiffness in all planes of motion left shoulder with significant guarding even with PROM. PT-OP-G Mobility & Gait Start: 07/26/21 12:44 Freq: Status: Active Protocol: Document 07/26/21 15:15 AW (Rec: 07/26/21 17:06 AW [id number]) OP Gait Assessment Comments Gait Comments Generally unsteady and with decreased confidence. PT-OP-J Posture/Palpation/Skin Start: 07/26/21 12:44 Freq: Status: Active Protocol: Document 07/26/21 15:15 AW (Rec: 07/26/21 17:06 AW [id number]) Posture Evaluation Comments Posture Comments Forward shoulder posture bilaterally. Protective of left shoulder. PT-OP-K Range of Motion Start: 07/26/21 12:44 Freq: Status: Active Protocol: Document 07/26/21 15:15 AW (Rec: 07/26/21 17:14 AW [id number]) Cervical Spine Range of Motion Cervical Spine Active Testing Position Sitting Flexion 30 Extension 30 Rotation Left 25 Rotation Right 25 Lateral Flexion Left 45 Lateral Flexion Right 50 Comments Pt denies neck pain with all movements Shoulder Goniometric Range of Motion Shoulder Left Passive Shoulder ROM WFL No Testing Position Sitting Flexion 45 Abduction 55 Internal Rotation Behind Back (text) to left hip Comments ER < neutral passively in supine with 45 degrees abduction Right Active Flexion 140 Abduction 150 External Rotation at 0 degrees Abduction 65 Internal Rotation Behind Back (text) T7 Elbow/Forearm Range of Motion Elbow/Forearm Left Active ROM Testing Position Supine Elbow Flexion (degrees) 115 Elbow Extension (degrees) 5 PT-OP-M Strength Start: 07/26/21 12:44 Freq: Status: Active Protocol: Document 07/26/21 15:15 AW (Rec: 07/26/21 17:14 AW [id number]) Shoulder Strength Shoulder Manual Muscle Testing Right Flexion 4+ Good+ Extension 4+ Good+ Abduction (C5) 4+ Good+ External Rotation 4+ Good+ Internal Rotation 4+ Good+ PT-OP-Q Treatments Start: 07/26/21 12:44 Freq: Status: Active Protocol: Document 10/31/21 11:03 AW (Rec: 10/31/21 12:07 AW [id number]) Therapeutic Exercises Sitting Exercises shoulder extension Sitting Exercise Name AAROM with wand Reps/Minutes 10x5 shoulder rolls Reps/Minutes 5x christine, 5x unil shoulder flex Equipment Used vertical dowel resting on ground Reps/Minutes 10x Comments lean forward; pt reports sharp report anterior shoulder abduction AAROM Equipment Used dowel Reps/Minutes 5 scapular retraction Sitting Exercise Name scapular retraction, circles Resistance AROM Standing Exercises wall posture Standing Exercise Name wall posture Comments focus scapular stab Manual Therapy Treatment Soft Tissue Mobilization 1 Body Location infraspinatus, suprasinatus, rhomboids, subscap, teres minor Mobilization Type Myofascial Release,Sustained Pressure Manual Techniques 1 Type PROM all planes Body Position Supine Comments pain-free ROM Self-Care/Home Management Treatment Education Patient Education Home Exercise Program Other Education Reviewed MEMO storm for home. PT-OP-R Modalities Start: 07/26/21 12:44 Freq: Status: Active Protocol: Document 10/24/21 13:49 SAK (Rec: 10/24/21 14:46 SAK [id number]) Hot Pack/Cold Pack Treatment Cold Pack Location L shoulder Patient Position Hooklying Treatment Duration (minutes) 7 PT-OP-T Assessment and Plan Start: 07/26/21 12:44 Freq: Status: Active Protocol: Document 10/31/21 11:03 AW (Rec: 10/31/21 12:07 AW [id number]) Physical Therapy Assessment Goals Three Impairment QuickDash - 70% impairment Rn Charge Goal (LTG) Pt will score 45% or less impairment on QuickDash as a measure of improved ability to manage ADL's LTG Duration 12 weeks - 01/10/22 Two Impairment shoulder strength Short Term Goal (STG) Pt will improve her strength to be able to lift her arm to 90 degrees elevation to improve her ability to use her left arm in self-care activities. 09/06/21 - Pt lifts her arm to 55 degrees in flexion. STG Duration 6 weeks - 11/29/21 Rn Charge Goal (LTG) Nithya will improve her left shoulder strength to be able to lift a book from table height. LTG Duration 12 weeks - 01/10/22 One Impairment shoulder ROM Short Term Goal (STG) Nithya will improve her shoulder flexion PROM to 90 degrees 09/06/21 - GOAL MET STG Duration 6 weeks - 09/06/21 [facility] Goal (LTG) Nithya will improve her shoulder abduction AROM to 90 degrees. 10/17/21 -flexion remains limited and painful LTG Duration 12 weeks - 01/10/22 Assessment Summary Assessment Pt still has not found heating pad at home but will continue to look. PROM is improving. AAROM requires cues for set up but is also improving. Plan to revisit resisted shoulder movements next visit. Physical Therapy Plan Frequency and Duration Frequency of Treatment 2x/Week Duration of Treatment 12 weeks Plan of Care Start Date 10/18/21 Plan of Care End Date 01/10/22 Next Visit Focus/Plan Next Note Type Treatment Note Next Visit Plan Start with pendulums. Continue gentle progression of ROM and strengthening left shoulder per POC. Assess response to AAROM with wand/cane, resumption of pendulums.
--- NOTE | 2021-11-02 12:07 | PT.OTN ---
Current Diagnoses Displaced fracture of greater tuberosity of left humerus, initial encounter for closed fracture (11/02/21) Unspecified dislocation of left shoulder joint, subsequent encounter (11/02/21) Physical Therapy Treatment Note PT-OP-A Visit Information Start: 07/26/21 12:44 Freq: Status: Active Protocol: Document 11/02/21 11:18 AW (Rec: 11/02/21 12:07 AW [id number]) Out-Patient Physical Therapy Visit Information Visit Information Visit Type Treatment Note Visit Start Time 11:16 Visit Stop Time 12:00 Total Visit Minutes 44 Visit Number 21 Number of CONSUMER SERVICES CONSULTANT Visits 0 PT-OP-B Current Condition Start: 07/26/21 12:44 Freq: Status: Active Protocol: Document 07/26/21 15:15 AW (Rec: 07/26/21 12:55 AW [id number]) Current Condition History of Current Condition Onset Date April 2021 Current Complaints left shoulder pain History of Current Condition Nithya fell in April, resulting in comminuted left proximal humerus fracture with anterior dislocation. She has long-standing left knee pain which she feels may have contributed to her fall. Fracture was treated non- operatively and Rd was sent home in a soft sling after a brief hospital stay. Her sister was visiting from [place] at the time and extended her stay to help for a week but Nithya has been managing without assist at home since her sister left. She did have one additional fall within one week of leaving the hospital. She believes she was impaired with oxycodone at that time and denies falls since then. She had home health services - primarily OT - but she was discharged at the end of June. She can get dressed and shower without assist but is doing all overhead activities one-handed. She is currently driving even though she has trouble lifting her arm. Pain is mostly in her anterior and posterior shoulder. She denies neck pain or radiating symptoms to her arm. She lives alone in a single level home with 2 steps to enter using right rail at front of house. Prior Treatments and Tests MRI 07/06/21: 1. 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 2. Acromioclavicular joint osteoarthritis. 3. Possible Hill-Sachs deformity of the humeral head. Future Testing and Treatments Planned None identified Treatment Goals Patient/Caregiver Goals Generally, I want to be able to use my left arm. Specifically, I want to be able to hug my boyfriend. Prior Functional Status Baseline Function- ADL's Independent Baseline Function- Mobility Independent Current Functional Impairments (Reported) Functional Limitations- ADL's Limited use of left arm for most dressing and hygiene tasks Personal Factors Other Personal Factors That May Effect Depression, knee pain, and Therapy/Recovery PT-OP-C Subjective Start: 07/26/21 12:44 Freq: Status: Active Protocol: Document 11/02/21 11:18 AW (Rec: 11/02/21 12:07 AW [id number]) OP-PT Subjective Patient Comments Patient Comments I had a good day yesterday but woke up with hurting again today. PT-OP-F Manual Assessment Start: 07/26/21 12:44 Freq: Status: Active Protocol: Document 07/26/21 15:15 AW (Rec: 07/26/21 17:06 AW [id number]) Manual Assessments Soft Tissue Assessment Soft Tissue Mobility Assessment Hypertonicity in left upper traps. Tenderness generally in all surrounding muscles. Generally decreased muscle mass left shoulder compared with right. Joint Mobility Assessment Joint Mobility Assessment Stiffness in all planes of motion left shoulder with significant guarding even with PROM. PT-OP-G Mobility & Gait Start: 07/26/21 12:44 Freq: Status: Active Protocol: Document 07/26/21 15:15 AW (Rec: 07/26/21 17:06 AW [id number]) OP Gait Assessment Comments Gait Comments Generally unsteady and with decreased confidence. PT-OP-J Posture/Palpation/Skin Start: 07/26/21 12:44 Freq: Status: Active Protocol: Document 07/26/21 15:15 AW (Rec: 07/26/21 17:06 AW [id number]) Posture Evaluation Comments Posture Comments Forward shoulder posture bilaterally. Protective of left shoulder. PT-OP-K Range of Motion Start: 07/26/21 12:44 Freq: Status: Active Protocol: Document 07/26/21 15:15 AW (Rec: 07/26/21 17:14 AW [id number]) Cervical Spine Range of Motion Cervical Spine Active Testing Position Sitting Flexion 30 Extension 30 Rotation Left 25 Rotation Right 25 Lateral Flexion Left 45 Lateral Flexion Right 50 Comments Pt denies neck pain with all movements Shoulder Goniometric Range of Motion Shoulder Left Passive Shoulder ROM WFL No Testing Position Sitting Flexion 45 Abduction 55 Internal Rotation Behind Back (text) to left hip Comments ER < neutral passively in supine with 45 degrees abduction Right Active Flexion 140 Abduction 150 External Rotation at 0 degrees Abduction 65 Internal Rotation Behind Back (text) T7 Elbow/Forearm Range of Motion Elbow/Forearm Left Active ROM Testing Position Supine Elbow Flexion (degrees) 115 Elbow Extension (degrees) 5 PT-OP-M Strength Start: 07/26/21 12:44 Freq: Status: Active Protocol: Document 07/26/21 15:15 AW (Rec: 07/26/21 17:14 AW [id number]) Shoulder Strength Shoulder Manual Muscle Testing Right Flexion 4+ Good+ Extension 4+ Good+ Abduction (C5) 4+ Good+ External Rotation 4+ Good+ Internal Rotation 4+ Good+ PT-OP-Q Treatments Start: 07/26/21 12:44 Freq: Status: Active Protocol: Document 11/02/21 11:18 AW (Rec: 11/02/21 12:07 AW [id number]) Therapeutic Exercises Supine Exercises flexion AROM Supine Exercise Name flexion AROM; 0-45 degrees Reps/Minutes 10SH x 5 Comments improving initiation and eccentric control Sitting Exercises shoulder extension Sitting Exercise Name AAROM with wand Reps/Minutes 10x5 shoulder rolls Reps/Minutes 5x christine, 5x unil abduction AAROM Equipment Used dowel Reps/Minutes 5 triceps extension Sitting Exercise Name triceps extension Side bilateral Resistance body weight Reps/Minutes 2x8 reps shoulder isometrics Sitting Exercise Name flexion, extension, abduction, added ER and IR tolerated well Equipment Used seated pushing into R hand; standing at wall Reps/Minutes 5x5 Standing Exercises pendulum Standing Exercise Name A/P, lateral, circles Comments difficult to relax arm able to focus more on LE weight shift today resisted extension Standing Exercise Name extension Side left Resistance TB1 Reps/Minutes 2x5 Comments clinic only resisted row Standing Exercise Name row Resistance TB1 Reps/Minutes 2x5 Comments clinic only resisted IR Standing Exercise Name IR Resistance TB1 Reps/Minutes 2x5 Comments max cues for set up; clinic only isometric adduction Standing Exercise Name isometric adduction Side bilateral Equipment Used Amarin Reps/Minutes 5SH x 5 Comments pt using cane at home Manual Therapy Treatment Soft Tissue Mobilization 1 Body Location infraspinatus, suprasinatus, rhomboids, subscap, teres minor Mobilization Type Myofascial Release,Sustained Pressure Manual Techniques 1 Type PROM all planes Body Position Supine Comments pain-free ROM PT-OP-R Modalities Start: 07/26/21 12:44 Freq: Status: Active Protocol: Document 10/24/21 13:49 SAK (Rec: 10/24/21 14:46 SAK [id number]) Hot Pack/Cold Pack Treatment Cold Pack Location L shoulder Patient Position Hooklying Treatment Duration (minutes) 7 PT-OP-T Assessment and Plan Start: 07/26/21 12:44 Freq: Status: Active Protocol: Document 11/02/21 11:18 AW (Rec: 11/02/21 12:07 AW [id number]) Physical Therapy Assessment Goals Three Impairment QuickDash - 70% impairment [facility] Goal (LTG) Pt will score 45% or less impairment on QuickDash as a measure of improved ability to manage ADL's LTG Duration 12 weeks - 01/10/22 Two Impairment shoulder strength Short Term Goal (STG) Pt will improve her strength to be able to lift her arm to 90 degrees elevation to improve her ability to use her left arm in self-care activities. 09/06/21 - Pt lifts her arm to 55 degrees in flexion. STG Duration 6 weeks - 11/29/21 [facility] Goal (LTG) Nithya will improve her left shoulder strength to be able to lift a book from table height. LTG Duration 12 weeks - 01/10/22 One Impairment shoulder ROM Short Term Goal (STG) Nithya will improve her shoulder flexion PROM to 90 degrees 09/06/21 - GOAL MET STG Duration 6 weeks - 09/06/21 Back Up Scan Coordinator Goal (LTG) Nithya will improve her shoulder abduction AROM to 90 degrees. 10/17/21 -flexion remains limited and painful LTG Duration 12 weeks - 01/10/22 Assessment Summary Assessment Nithya was limited today by sharp pain in anterior shoulder with most resisted movements. Initiation and eccentric control of flexion are improving. Physical Therapy Plan Frequency and Duration Frequency of Treatment 2x/Week Duration of Treatment 12 weeks Plan of Care Start Date 10/18/21 Plan of Care End Date 01/10/22 Next Visit Focus/Plan Next Note Type Treatment Note Next Visit Plan Continue gentle progression of ROM and strengthening left shoulder per POC.
--- NOTE | 2021-11-08 11:59 | PT.OTN ---
Current Diagnoses Displaced fracture of greater tuberosity of left humerus, initial encounter for closed fracture (11/08/21) Unspecified dislocation of left shoulder joint, subsequent encounter (11/08/21) Physical Therapy Treatment Note PT-OP-A Visit Information Start: 07/26/21 12:44 Freq: Status: Active Protocol: Document 11/08/21 11:15 DCW (Rec: 11/08/21 11:59 DCW [id number]) Out-Patient Physical Therapy Visit Information Visit Information Visit Type Treatment Note Visit Start Time 11:15 Visit Stop Time 11:56 Total Visit Minutes 41 Visit Number 22 Number of MANAGER OF FINANCIAL REPORTING Visits 0 PT-OP-B Current Condition Start: 07/26/21 12:44 Freq: Status: Active Protocol: Document 07/26/21 15:15 AW (Rec: 07/26/21 12:55 AW [id number]) Current Condition History of Current Condition Onset Date April 2021 Current Complaints left shoulder pain History of Current Condition Nithya fell in April, resulting in comminuted left proximal humerus fracture with anterior dislocation. She has long-standing left knee pain which she feels may have contributed to her fall. Fracture was treated non- operatively and Rd was sent home in a soft sling after a brief hospital stay. Her sister was visiting from [place] at the time and extended her stay to help for a week but Nithya has been managing without assist at home since her sister left. She did have one additional fall within one week of leaving the hospital. She believes she was impaired with oxycodone at that time and denies falls since then. She had home health services - primarily OT - but she was discharged at the end of June. She can get dressed and shower without assist but is doing all overhead activities one-handed. She is currently driving even though she has trouble lifting her arm. Pain is mostly in her anterior and posterior shoulder. She denies neck pain or radiating symptoms to her arm. She lives alone in a single level home with 2 steps to enter using right rail at front of house. Prior Treatments and Tests MRI 07/06/21: 1. 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 2. Acromioclavicular joint osteoarthritis. 3. Possible Hill-Sachs deformity of the humeral head. Future Testing and Treatments Planned None identified Treatment Goals Patient/Caregiver Goals Generally, I want to be able to use my left arm. Specifically, I want to be able to hug my boyfriend. Prior Functional Status Baseline Function- ADL's Independent Baseline Function- Mobility Independent Current Functional Impairments (Reported) Functional Limitations- ADL's Limited use of left arm for most dressing and hygiene tasks Personal Factors Other Personal Factors That May Effect Depression, knee pain, and Therapy/Recovery PT-OP-C Subjective Start: 07/26/21 12:44 Freq: Status: Active Protocol: Document 11/08/21 11:15 DCW (Rec: 11/08/21 11:59 DCW [id number]) OP-PT Subjective Patient Comments Patient Comments It's frustrating. I just want it to work. PT-OP-F Manual Assessment Start: 07/26/21 12:44 Freq: Status: Active Protocol: Document 07/26/21 15:15 AW (Rec: 07/26/21 17:06 AW [id number]) Manual Assessments Soft Tissue Assessment Soft Tissue Mobility Assessment Hypertonicity in left upper traps. Tenderness generally in all surrounding muscles. Generally decreased muscle mass left shoulder compared with right. Joint Mobility Assessment Joint Mobility Assessment Stiffness in all planes of motion left shoulder with significant guarding even with PROM. PT-OP-G Mobility & Gait Start: 07/26/21 12:44 Freq: Status: Active Protocol: Document 07/26/21 15:15 AW (Rec: 07/26/21 17:06 AW [id number]) OP Gait Assessment Comments Gait Comments Generally unsteady and with decreased confidence. PT-OP-J Posture/Palpation/Skin Start: 07/26/21 12:44 Freq: Status: Active Protocol: Document 07/26/21 15:15 AW (Rec: 07/26/21 17:06 AW [id number]) Posture Evaluation Comments Posture Comments Forward shoulder posture bilaterally. Protective of left shoulder. PT-OP-K Range of Motion Start: 07/26/21 12:44 Freq: Status: Active Protocol: Document 07/26/21 15:15 AW (Rec: 07/26/21 17:14 AW [id number]) Cervical Spine Range of Motion Cervical Spine Active Testing Position Sitting Flexion 30 Extension 30 Rotation Left 25 Rotation Right 25 Lateral Flexion Left 45 Lateral Flexion Right 50 Comments Pt denies neck pain with all movements Shoulder Goniometric Range of Motion Shoulder Left Passive Shoulder ROM WFL No Testing Position Sitting Flexion 45 Abduction 55 Internal Rotation Behind Back (text) to left hip Comments ER < neutral passively in supine with 45 degrees abduction Right Active Flexion 140 Abduction 150 External Rotation at 0 degrees Abduction 65 Internal Rotation Behind Back (text) T7 Elbow/Forearm Range of Motion Elbow/Forearm Left Active ROM Testing Position Supine Elbow Flexion (degrees) 115 Elbow Extension (degrees) 5 PT-OP-M Strength Start: 07/26/21 12:44 Freq: Status: Active Protocol: Document 07/26/21 15:15 AW (Rec: 07/26/21 17:14 AW [id number]) Shoulder Strength Shoulder Manual Muscle Testing Right Flexion 4+ Good+ Extension 4+ Good+ Abduction (C5) 4+ Good+ External Rotation 4+ Good+ Internal Rotation 4+ Good+ PT-OP-Q Treatments Start: 07/26/21 12:44 Freq: Status: Active Protocol: Document 11/08/21 11:15 DCW (Rec: 11/08/21 11:59 DCW [id number]) Therapeutic Exercises Sitting Exercises shoulder extension Sitting Exercise Name AAROM with wand Reps/Minutes 10x5 shoulder rolls Reps/Minutes 5x christine, 5x unil abduction AAROM Equipment Used dowel Reps/Minutes 5 shoulder isometrics Sitting Exercise Name flexion, extension, abduction, ER, IR Equipment Used seated pushing into therapist hand Reps/Minutes 5x5 Standing Exercises resisted extension Standing Exercise Name extension Side left Resistance TB1 Reps/Minutes 2x5 Comments clinic only resisted row Standing Exercise Name row Resistance TB1 Reps/Minutes 2x5 Comments clinic only resisted IR Standing Exercise Name IR Resistance TB1 Reps/Minutes 2x5 Comments max cues for set up; clinic only Manual Therapy Treatment Soft Tissue Mobilization 1 Body Location infraspinatus, suprasinatus, rhomboids, subscap, teres minor Mobilization Type Myofascial Release,Sustained Pressure Manual Techniques 1 Type PROM all planes Body Position Supine Comments pain-free ROM PT-OP-R Modalities Start: 07/26/21 12:44 Freq: Status: Active Protocol: Document 10/24/21 13:49 SAK (Rec: 10/24/21 14:46 SAK [id number]) Hot Pack/Cold Pack Treatment Cold Pack Location L shoulder Patient Position Hooklying Treatment Duration (minutes) 7 PT-OP-T Assessment and Plan Start: 07/26/21 12:44 Freq: Status: Active Protocol: Document 11/08/21 11:15 DCW (Rec: 11/08/21 11:59 DCW [id number]) Physical Therapy Assessment Goals Three Impairment QuickDash - 70% impairment Care Home Goal (LTG) Pt will score 45% or less impairment on QuickDash as a measure of improved ability to manage ADL's LTG Duration 12 weeks - 01/10/22 Two Impairment shoulder strength Short Term Goal (STG) Pt will improve her strength to be able to lift her arm to 90 degrees elevation to improve her ability to use her left arm in self-care activities. 09/06/21 - Pt lifts her arm to 55 degrees in flexion. STG Duration 6 weeks - 11/29/21 Care Home Goal (LTG) Nithya will improve her left shoulder strength to be able to lift a book from table height. LTG Duration 12 weeks - 01/10/22 One Impairment shoulder ROM Short Term Goal (STG) Nithya will improve her shoulder flexion PROM to 90 degrees 09/06/21 - GOAL MET STG Duration 6 weeks - 09/06/21 Care Home Goal (LTG) Nithya will improve her shoulder abduction AROM to 90 degrees. 10/17/21 -flexion remains limited and painful LTG Duration 12 weeks - 01/10/22 Assessment Summary Assessment Less pain with movement today, still showing limited ROM and general shoulder weakness, but is slowly improving. Physical Therapy Plan Frequency and Duration Frequency of Treatment 2x/Week Duration of Treatment 12 weeks Plan of Care Start Date 10/18/21 Plan of Care End Date 01/10/22 Next Visit Focus/Plan Next Note Type Treatment Note Next Visit Plan Continue gentle progression of ROM and strengthening left shoulder per POC.
--- NOTE | 2021-11-14 15:28 | PT.OTN ---
Current Diagnoses Displaced fracture of greater tuberosity of left humerus, initial encounter for closed fracture (11/14/21) Unspecified dislocation of left shoulder joint, subsequent encounter (11/14/21) Physical Therapy Treatment Note PT-OP-A Visit Information Start: 07/26/21 12:44 Freq: Status: Active Protocol: Document 11/14/21 13:00 AW (Rec: 11/14/21 14:31 AW [id number]) Out-Patient Physical Therapy Visit Information Visit Information Visit Type Treatment Note Visit Start Time 13:45 Visit Stop Time 14:30 Total Visit Minutes 45 Visit Number 23 Number of DAIRY FARMER Visits 0 PT-OP-B Current Condition Start: 07/26/21 12:44 Freq: Status: Active Protocol: Document 07/26/21 15:15 AW (Rec: 07/26/21 12:55 AW [id number]) Current Condition History of Current Condition Onset Date April 2021 Current Complaints left shoulder pain History of Current Condition Nithya fell in April, resulting in comminuted left proximal humerus fracture with anterior dislocation. She has long-standing left knee pain which she feels may have contributed to her fall. Fracture was treated non- operatively and Rd was sent home in a soft sling after a brief hospital stay. Her sister was visiting from [place] at the time and extended her stay to help for a week but Nithya has been managing without assist at home since her sister left. She did have one additional fall within one week of leaving the hospital. She believes she was impaired with oxycodone at that time and denies falls since then. She had home health services - primarily OT - but she was discharged at the end of June. She can get dressed and shower without assist but is doing all overhead activities one-handed. She is currently driving even though she has trouble lifting her arm. Pain is mostly in her anterior and posterior shoulder. She denies neck pain or radiating symptoms to her arm. She lives alone in a single level home with 2 steps to enter using right rail at front of house. Prior Treatments and Tests MRI 07/06/21: 1. 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 2. Acromioclavicular joint osteoarthritis. 3. Possible Hill-Sachs deformity of the humeral head. Future Testing and Treatments Planned None identified Treatment Goals Patient/Caregiver Goals Generally, I want to be able to use my left arm. Specifically, I want to be able to hug my boyfriend. Prior Functional Status Baseline Function- ADL's Independent Baseline Function- Mobility Independent Current Functional Impairments (Reported) Functional Limitations- ADL's Limited use of left arm for most dressing and hygiene tasks Personal Factors Other Personal Factors That May Effect Depression, knee pain, and Therapy/Recovery PT-OP-C Subjective Start: 07/26/21 12:44 Freq: Status: Active Protocol: Document 11/14/21 13:00 AW (Rec: 11/14/21 14:31 AW [id number]) OP-PT Subjective Patient Comments Patient Comments I have news for you. I can reach my spine. PT-OP-F Manual Assessment Start: 07/26/21 12:44 Freq: Status: Active Protocol: Document 07/26/21 15:15 AW (Rec: 07/26/21 17:06 AW [id number]) Manual Assessments Soft Tissue Assessment Soft Tissue Mobility Assessment Hypertonicity in left upper traps. Tenderness generally in all surrounding muscles. Generally decreased muscle mass left shoulder compared with right. Joint Mobility Assessment Joint Mobility Assessment Stiffness in all planes of motion left shoulder with significant guarding even with PROM. PT-OP-G Mobility & Gait Start: 07/26/21 12:44 Freq: Status: Active Protocol: Document 07/26/21 15:15 AW (Rec: 07/26/21 17:06 AW [id number]) OP Gait Assessment Comments Gait Comments Generally unsteady and with decreased confidence. PT-OP-J Posture/Palpation/Skin Start: 07/26/21 12:44 Freq: Status: Active Protocol: Document 07/26/21 15:15 AW (Rec: 07/26/21 17:06 AW [id number]) Posture Evaluation Comments Posture Comments Forward shoulder posture bilaterally. Protective of left shoulder. PT-OP-K Range of Motion Start: 07/26/21 12:44 Freq: Status: Active Protocol: Document 07/26/21 15:15 AW (Rec: 07/26/21 17:14 AW [id number]) Cervical Spine Range of Motion Cervical Spine Active Testing Position Sitting Flexion 30 Extension 30 Rotation Left 25 Rotation Right 25 Lateral Flexion Left 45 Lateral Flexion Right 50 Comments Pt denies neck pain with all movements Shoulder Goniometric Range of Motion Shoulder Left Passive Shoulder ROM WFL No Testing Position Sitting Flexion 45 Abduction 55 Internal Rotation Behind Back (text) to left hip Comments ER < neutral passively in supine with 45 degrees abduction Right Active Flexion 140 Abduction 150 External Rotation at 0 degrees Abduction 65 Internal Rotation Behind Back (text) T7 Elbow/Forearm Range of Motion Elbow/Forearm Left Active ROM Testing Position Supine Elbow Flexion (degrees) 115 Elbow Extension (degrees) 5 PT-OP-M Strength Start: 07/26/21 12:44 Freq: Status: Active Protocol: Document 07/26/21 15:15 AW (Rec: 07/26/21 17:14 AW [id number]) Shoulder Strength Shoulder Manual Muscle Testing Right Flexion 4+ Good+ Extension 4+ Good+ Abduction (C5) 4+ Good+ External Rotation 4+ Good+ Internal Rotation 4+ Good+ PT-OP-Q Treatments Start: 07/26/21 12:44 Freq: Status: Active Protocol: Document 11/14/21 13:00 AW (Rec: 11/14/21 14:31 AW [id number]) Therapeutic Exercises Supine Exercises rhythmic stabilization Supine Exercise Name rhythmic stabilization Side left Resistance vs light PT manual resistance into IR, flex, abd flexion AROM Supine Exercise Name flexion AROM; 0-45 degrees Reps/Minutes 10SH x 8 Comments improving initiation and eccentric control Sitting Exercises shoulder extension Sitting Exercise Name AAROM with wand Reps/Minutes 10x5 shoulder rolls Reps/Minutes 5x christine, 5x unil triceps extension Sitting Exercise Name triceps extension Side bilateral Resistance body weight Reps/Minutes 2x8 reps Comments push off to full standing today shoulder isometrics Sitting Exercise Name flexion, extension, abduction, ER, IR Equipment Used seated pushing into therapist hand Reps/Minutes 5x5 Standing Exercises pendulum Standing Exercise Name A/P, lateral, circles Comments more relaxed today; better LE weight shift resisted extension Standing Exercise Name extension Side left Resistance TB1 Reps/Minutes 2x5 Comments clinic only resisted row Standing Exercise Name row Resistance TB1 Reps/Minutes 2x5 Comments clinic only resisted IR Standing Exercise Name IR Resistance TB1 Reps/Minutes 2x5 Comments max cues for set up; clinic only Manual Therapy Treatment Soft Tissue Mobilization 1 Body Location infraspinatus, suprasinatus, rhomboids, subscap, teres minor Mobilization Type Myofascial Release,Sustained Pressure Manual Techniques 1 Type PROM all planes Body Position Supine Comments pain-free ROM PT-OP-R Modalities Start: 07/26/21 12:44 Freq: Status: Active Protocol: Document 10/24/21 13:49 SAK (Rec: 10/24/21 14:46 SAK [id number]) Hot Pack/Cold Pack Treatment Cold Pack Location L shoulder Patient Position Hooklying Treatment Duration (minutes) 7 PT-OP-T Assessment and Plan Start: 07/26/21 12:44 Freq: Status: Active Protocol: Document 11/14/21 13:00 AW (Rec: 11/14/21 14:31 AW [id number]) Physical Therapy Assessment Goals Three Impairment QuickDash - 70% impairment [employer] Goal (LTG) Pt will score 45% or less impairment on QuickDash as a measure of improved ability to manage ADL's LTG Duration 12 weeks - 01/10/22 Two Impairment shoulder strength Short Term Goal (STG) Pt will improve her strength to be able to lift her arm to 90 degrees elevation to improve her ability to use her left arm in self-care activities. 09/06/21 - Pt lifts her arm to 55 degrees in flexion. STG Duration 6 weeks - 11/29/21 [facility] Goal (LTG) Nithya will improve her left shoulder strength to be able to lift a book from table height. LTG Duration 12 weeks - 01/10/22 One Impairment shoulder ROM Short Term Goal (STG) Nithya will improve her shoulder flexion PROM to 90 degrees 09/06/21 - GOAL MET STG Duration 6 weeks - 09/06/21 [employer] Goal (LTG) Nithya will improve her shoulder abduction AROM to 90 degrees. 10/17/21 -flexion remains limited and painful LTG Duration 12 weeks - 01/10/22 Assessment Summary Assessment Pt's ROM and strength are slowly improving. Pt is able to increase force in isometric exercises vs PT resistance. She happily reports she is able to get her left hand to her spine in the shower today. Physical Therapy Plan Frequency and Duration Frequency of Treatment 2x/Week Duration of Treatment 12 weeks Plan of Care Start Date 10/18/21 Plan of Care End Date 01/10/22 Next Visit Focus/Plan Next Note Type Treatment Note Next Visit Plan Continue gentle progression of ROM and strengthening left shoulder per POC.
--- NOTE | 2021-11-22 16:57 | PT.OTN ---
Current Diagnoses Displaced fracture of greater tuberosity of left humerus, initial encounter for closed fracture (11/22/21) Unspecified dislocation of left shoulder joint, subsequent encounter (11/22/21) Physical Therapy Treatment Note PT-OP-A Visit Information Start: 07/26/21 12:44 Freq: Status: Active Protocol: Document 11/22/21 16:07 AW (Rec: 11/22/21 16:57 AW [id number]) Out-Patient Physical Therapy Visit Information Visit Information Visit Type Treatment Note Visit Start Time 16:06 Visit Stop Time 16:45 Total Visit Minutes 39 Visit Number 24 PT-OP-B Current Condition Start: 07/26/21 12:44 Freq: Status: Active Protocol: Document 07/26/21 15:15 AW (Rec: 07/26/21 12:55 AW [id number]) Current Condition History of Current Condition Onset Date April 2021 Current Complaints left shoulder pain History of Current Condition Nithya fell in April, resulting in comminuted left proximal humerus fracture with anterior dislocation. She has long-standing left knee pain which she feels may have contributed to her fall. Fracture was treated non- operatively and Rd was sent home in a soft sling after a brief hospital stay. Her sister was visiting from [place] at the time and extended her stay to help for a week but Nithya has been managing without assist at home since her sister left. She did have one additional fall within one week of leaving the hospital. She believes she was impaired with oxycodone at that time and denies falls since then. She had home health services - primarily OT - but she was discharged at the end of June. She can get dressed and shower without assist but is doing all overhead activities one-handed. She is currently driving even though she has trouble lifting her arm. Pain is mostly in her anterior and posterior shoulder. She denies neck pain or radiating symptoms to her arm. She lives alone in a single level home with 2 steps to enter using right rail at front of house. Prior Treatments and Tests MRI 07/06/21: 1. 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 2. Acromioclavicular joint osteoarthritis. 3. Possible Hill-Sachs deformity of the humeral head. Future Testing and Treatments Planned None identified Treatment Goals Patient/Caregiver Goals Generally, I want to be able to use my left arm. Specifically, I want to be able to hug my boyfriend. Prior Functional Status Baseline Function- ADL's Independent Baseline Function- Mobility Independent Current Functional Impairments (Reported) Functional Limitations- ADL's Limited use of left arm for most dressing and hygiene tasks Personal Factors Other Personal Factors That May Effect Depression, knee pain, and Therapy/Recovery PT-OP-C Subjective Start: 07/26/21 12:44 Freq: Status: Active Protocol: Document 11/22/21 16:07 AW (Rec: 11/22/21 16:57 AW [id number]) OP-PT Subjective Patient Comments Patient Comments I fell. I was carrying a large sheet on cardboard in the garage and I fell down on my left side. Didn't get checked out. I didn't really feel any injury. PT-OP-F Manual Assessment Start: 07/26/21 12:44 Freq: Status: Active Protocol: Document 07/26/21 15:15 AW (Rec: 07/26/21 17:06 AW [id number]) Manual Assessments Soft Tissue Assessment Soft Tissue Mobility Assessment Hypertonicity in left upper traps. Tenderness generally in all surrounding muscles. Generally decreased muscle mass left shoulder compared with right. Joint Mobility Assessment Joint Mobility Assessment Stiffness in all planes of motion left shoulder with significant guarding even with PROM. PT-OP-G Mobility & Gait Start: 07/26/21 12:44 Freq: Status: Active Protocol: Document 07/26/21 15:15 AW (Rec: 07/26/21 17:06 AW [id number]) OP Gait Assessment Comments Gait Comments Generally unsteady and with decreased confidence. PT-OP-J Posture/Palpation/Skin Start: 07/26/21 12:44 Freq: Status: Active Protocol: Document 07/26/21 15:15 AW (Rec: 07/26/21 17:06 AW [id number]) Posture Evaluation Comments Posture Comments Forward shoulder posture bilaterally. Protective of left shoulder. PT-OP-K Range of Motion Start: 07/26/21 12:44 Freq: Status: Active Protocol: Document 07/26/21 15:15 AW (Rec: 07/26/21 17:14 AW [id number]) Cervical Spine Range of Motion Cervical Spine Active Testing Position Sitting Flexion 30 Extension 30 Rotation Left 25 Rotation Right 25 Lateral Flexion Left 45 Lateral Flexion Right 50 Comments Pt denies neck pain with all movements Shoulder Goniometric Range of Motion Shoulder Left Passive Shoulder ROM WFL No Testing Position Sitting Flexion 45 Abduction 55 Internal Rotation Behind Back (text) to left hip Comments ER < neutral passively in supine with 45 degrees abduction Right Active Flexion 140 Abduction 150 External Rotation at 0 degrees Abduction 65 Internal Rotation Behind Back (text) T7 Elbow/Forearm Range of Motion Elbow/Forearm Left Active ROM Testing Position Supine Elbow Flexion (degrees) 115 Elbow Extension (degrees) 5 PT-OP-M Strength Start: 07/26/21 12:44 Freq: Status: Active Protocol: Document 07/26/21 15:15 AW (Rec: 07/26/21 17:14 AW [id number]) Shoulder Strength Shoulder Manual Muscle Testing Right Flexion 4+ Good+ Extension 4+ Good+ Abduction (C5) 4+ Good+ External Rotation 4+ Good+ Internal Rotation 4+ Good+ PT-OP-Q Treatments Start: 07/26/21 12:44 Freq: Status: Active Protocol: Document 11/22/21 16:07 AW (Rec: 11/22/21 16:57 AW [id number]) Therapeutic Exercises Supine Exercises rhythmic stabilization Supine Exercise Name rhythmic stabilization Side left Resistance vs light PT manual resistance into IR, flex, abd flexion AROM Supine Exercise Name flexion AROM; 0-55 degrees Reps/Minutes 10SH x 8 Comments improving initiation and eccentric control Sidelying Exercises abduction Sidelying Exercise Name 0-10 degrees Reps/Minutes x8 Comments good tolerance; less pain but quick to fatigue Sitting Exercises shoulder rolls Reps/Minutes 5x christine, 5x unil triceps extension Sitting Exercise Name triceps extension Side bilateral Resistance body weight Reps/Minutes 2x8 reps Comments push off to full standing today; encouraged for HEP shoulder isometrics Sitting Exercise Name flexion, extension, abduction, ER, IR Equipment Used seated pushing into therapist hand Reps/Minutes 5x5 Standing Exercises pendulum Standing Exercise Name A/P, lateral, circles Comments HEP review resisted extension Standing Exercise Name extension Side left Resistance TB1 Reps/Minutes 2x5 Comments clinic only resisted row Standing Exercise Name row Resistance TB1 Reps/Minutes 2x5 Comments clinic only Manual Therapy Treatment Soft Tissue Mobilization 1 Body Location infraspinatus, suprasinatus, rhomboids, subscap, teres minor Mobilization Type Myofascial Release,Sustained Pressure Manual Techniques 1 Type PROM all planes Body Position Supine Comments pain-free ROM Self-Care/Home Management Treatment Education Patient Education Home Exercise Program Other Education Added sit to stand with tricep push up for shoulder and LE strength. PT-OP-R Modalities Start: 07/26/21 12:44 Freq: Status: Active Protocol: Document 10/24/21 13:49 SAK (Rec: 10/24/21 14:46 SAK [id number]) Hot Pack/Cold Pack Treatment Cold Pack Location L shoulder Patient Position Hooklying Treatment Duration (minutes) 7 PT-OP-T Assessment and Plan Start: 07/26/21 12:44 Freq: Status: Active Protocol: Document 11/22/21 16:07 AW (Rec: 11/22/21 16:57 AW [id number]) Physical Therapy Assessment Goals Three Impairment QuickDash - 70% impairment Sn[facility] Goal (LTG) Pt will score 45% or less impairment on QuickDash as a measure of improved ability to manage ADL's LTG Duration 12 weeks - 01/10/22 Two Impairment shoulder strength Short Term Goal (STG) Pt will improve her strength to be able to lift her arm to 90 degrees elevation to improve her ability to use her left arm in self-care activities. 09/06/21 - Pt lifts her arm to 55 degrees in flexion. STG Duration 6 weeks - 11/29/21 Sn[facility] Goal (LTG) Nithya will improve her left shoulder strength to be able to lift a book from table height. LTG Duration 12 weeks - 01/10/22 One Impairment shoulder ROM Short Term Goal (STG) Nithya will improve her shoulder flexion PROM to 90 degrees 09/06/21 - GOAL MET STG Duration 6 weeks - 09/06/21 Snf Goal (LTG) Nithya will improve her shoulder abduction AROM to 90 degrees. 10/17/21 -flexion remains limited and painful LTG Duration 12 weeks - 01/10/22 Assessment Summary Assessment Nithya fell in her garage last week but was not injured. Discussed not carrying large objects in crowded environments to reduce risk. Her strength and stability in flexion continue to improve. Abduction remains much more limited. Physical Therapy Plan Frequency and Duration Frequency of Treatment 2x/Week Duration of Treatment 12 weeks Plan of Care Start Date 10/18/21 Plan of Care End Date 01/10/22 Therapeutic Interventions Therapeutic Interventions Aquatic Therapy,Home Exercise Program,Joint Mobilizations, Manual Therapy,Neuromuscular Re-education,Self-Care/Home Management,Soft Tissue Mobilization,Therapeutic Activities,Therapeutic Exercises Modalities Cold Pack/Ice Massage,Electric Stimulation,Hot Packs, Ultrasound Next Visit Focus/Plan Next Note Type Treatment Note Next Visit Plan Continue gentle progression of ROM and strengthening left shoulder per POC.
--- NOTE | 2021-12-01 12:44 | PT.OTN ---
Current Diagnoses Displaced fracture of greater tuberosity of left humerus, initial encounter for closed fracture (12/01/21) Unspecified dislocation of left shoulder joint, subsequent encounter (12/01/21) Physical Therapy Treatment Note PT-OP-A Visit Information Start: 07/26/21 12:44 Freq: Status: Active Protocol: Document 12/01/21 12:00 DCW (Rec: 12/01/21 12:44 DCW [id number]) Out-Patient Physical Therapy Visit Information Visit Information Visit Type Treatment Note Visit Start Time 12:00 Visit Stop Time 12:45 Total Visit Minutes 45 Visit Number 25 PT-OP-B Current Condition Start: 07/26/21 12:44 Freq: Status: Active Protocol: Document 07/26/21 15:15 AW (Rec: 07/26/21 12:55 AW [id number]) Current Condition History of Current Condition Onset Date April 2021 Current Complaints left shoulder pain History of Current Condition Nithya fell in April, resulting in comminuted left proximal humerus fracture with anterior dislocation. She has long-standing left knee pain which she feels may have contributed to her fall. Fracture was treated non- operatively and Rd was sent home in a soft sling after a brief hospital stay. Her sister was visiting from [place] at the time and extended her stay to help for a week but Nithya has been managing without assist at home since her sister left. She did have one additional fall within one week of leaving the hospital. She believes she was impaired with oxycodone at that time and denies falls since then. She had home health services - primarily OT - but she was discharged at the end of June. She can get dressed and shower without assist but is doing all overhead activities one-handed. She is currently driving even though she has trouble lifting her arm. Pain is mostly in her anterior and posterior shoulder. She denies neck pain or radiating symptoms to her arm. She lives alone in a single level home with 2 steps to enter using right rail at front of house. Prior Treatments and Tests MRI 07/06/21: 1. 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 2. Acromioclavicular joint osteoarthritis. 3. Possible Hill-Sachs deformity of the humeral head. Future Testing and Treatments Planned None identified Treatment Goals Patient/Caregiver Goals Generally, I want to be able to use my left arm. Specifically, I want to be able to hug my boyfriend. Prior Functional Status Baseline Function- ADL's Independent Baseline Function- Mobility Independent Current Functional Impairments (Reported) Functional Limitations- ADL's Limited use of left arm for most dressing and hygiene tasks Personal Factors Other Personal Factors That May Effect Depression, knee pain, and Therapy/Recovery PT-OP-C Subjective Start: 07/26/21 12:44 Freq: Status: Active Protocol: Document 12/01/21 12:00 DCW (Rec: 12/01/21 12:44 DCW [id number]) OP-PT Subjective Patient Comments Patient Comments I think I overused it and it' s sore today, but I think it's okay. PT-OP-F Manual Assessment Start: 07/26/21 12:44 Freq: Status: Active Protocol: Document 07/26/21 15:15 AW (Rec: 07/26/21 17:06 AW [id number]) Manual Assessments Soft Tissue Assessment Soft Tissue Mobility Assessment Hypertonicity in left upper traps. Tenderness generally in all surrounding muscles. Generally decreased muscle mass left shoulder compared with right. Joint Mobility Assessment Joint Mobility Assessment Stiffness in all planes of motion left shoulder with significant guarding even with PROM. PT-OP-G Mobility & Gait Start: 07/26/21 12:44 Freq: Status: Active Protocol: Document 07/26/21 15:15 AW (Rec: 07/26/21 17:06 AW [id number]) OP Gait Assessment Comments Gait Comments Generally unsteady and with decreased confidence. PT-OP-J Posture/Palpation/Skin Start: 07/26/21 12:44 Freq: Status: Active Protocol: Document 07/26/21 15:15 AW (Rec: 07/26/21 17:06 AW [id number]) Posture Evaluation Comments Posture Comments Forward shoulder posture bilaterally. Protective of left shoulder. PT-OP-K Range of Motion Start: 07/26/21 12:44 Freq: Status: Active Protocol: Document 07/26/21 15:15 AW (Rec: 07/26/21 17:14 AW [id number]) Cervical Spine Range of Motion Cervical Spine Active Testing Position Sitting Flexion 30 Extension 30 Rotation Left 25 Rotation Right 25 Lateral Flexion Left 45 Lateral Flexion Right 50 Comments Pt denies neck pain with all movements Shoulder Goniometric Range of Motion Shoulder Left Passive Shoulder ROM WFL No Testing Position Sitting Flexion 45 Abduction 55 Internal Rotation Behind Back (text) to left hip Comments ER < neutral passively in supine with 45 degrees abduction Right Active Flexion 140 Abduction 150 External Rotation at 0 degrees Abduction 65 Internal Rotation Behind Back (text) T7 Elbow/Forearm Range of Motion Elbow/Forearm Left Active ROM Testing Position Supine Elbow Flexion (degrees) 115 Elbow Extension (degrees) 5 PT-OP-M Strength Start: 07/26/21 12:44 Freq: Status: Active Protocol: Document 07/26/21 15:15 AW (Rec: 07/26/21 17:14 AW [id number]) Shoulder Strength Shoulder Manual Muscle Testing Right Flexion 4+ Good+ Extension 4+ Good+ Abduction (C5) 4+ Good+ External Rotation 4+ Good+ Internal Rotation 4+ Good+ PT-OP-Q Treatments Start: 07/26/21 12:44 Freq: Status: Active Protocol: Document 12/01/21 12:00 DCW (Rec: 12/01/21 12:44 DCW [id number]) Therapeutic Exercises Sidelying Exercises External Rotation Sidelying Exercise Name ER Side left Comments AAROM abduction Sidelying Exercise Name 0-20 degrees Reps/Minutes x8 Sitting Exercises shoulder extension Sitting Exercise Name AAROM with wand Reps/Minutes 10x5 shoulder rolls Reps/Minutes 5x christine, 5x unil shoulder isometrics Sitting Exercise Name flexion, extension, abduction, ER, IR Equipment Used standing pushing ball into wall Reps/Minutes 5x10 Standing Exercises resisted extension Standing Exercise Name extension Side left Resistance TB1 Reps/Minutes 2x5 Comments clinic only resisted row Standing Exercise Name row Resistance TB1 Reps/Minutes 2x5 Comments clinic only resisted IR Standing Exercise Name IR Resistance TB1 Reps/Minutes 2x5 Comments max cues for set up; clinic only Manual Therapy Treatment Soft Tissue Mobilization 1 Body Location infraspinatus, suprasinatus, rhomboids, subscap, teres minor Mobilization Type Myofascial Release,Sustained Pressure Manual Techniques 1 Type PROM all planes Body Position Supine Comments pain-free ROM PT-OP-R Modalities Start: 07/26/21 12:44 Freq: Status: Active Protocol: Document 10/24/21 13:49 SAK (Rec: 10/24/21 14:46 SAK [id number]) Hot Pack/Cold Pack Treatment Cold Pack Location L shoulder Patient Position Hooklying Treatment Duration (minutes) 7 PT-OP-T Assessment and Plan Start: 07/26/21 12:44 Freq: Status: Active Protocol: Document 12/01/21 12:00 DCW (Rec: 12/01/21 12:44 DCW [id number]) Physical Therapy Assessment Goals Three Impairment QuickDash - 70% impairment Scientific Research Associate Goal (LTG) Pt will score 45% or less impairment on QuickDash as a measure of improved ability to manage ADL's LTG Duration 12 weeks - 01/10/22 Two Impairment shoulder strength Short Term Goal (STG) Pt will improve her strength to be able to lift her arm to 90 degrees elevation to improve her ability to use her left arm in self-care activities. 09/06/21 - Pt lifts her arm to 55 degrees in flexion. STG Duration 6 weeks - 11/29/21 [facility] Goal (LTG) Nithya will improve her left shoulder strength to be able to lift a book from table height. LTG Duration 12 weeks - 01/10/22 One Impairment shoulder ROM Short Term Goal (STG) Nithya will improve her shoulder flexion PROM to 90 degrees 09/06/21 - GOAL MET STG Duration 6 weeks - 09/06/21 [facility] Goal (LTG) Nithya will improve her shoulder abduction AROM to 90 degrees. 10/17/21 -flexion remains limited and painful LTG Duration 12 weeks - 01/10/22 Assessment Summary Assessment Pt still very restricted with her ROM and shoulder strength, although is slowly improving. Physical Therapy Plan Frequency and Duration Frequency of Treatment 2x/Week Duration of Treatment 12 weeks Plan of Care Start Date 10/18/21 Plan of Care End Date 01/10/22 Therapeutic Interventions Therapeutic Interventions Aquatic Therapy,Home Exercise Program,Joint Mobilizations, Manual Therapy,Neuromuscular Re-education,Self-Care/Home Management,Soft Tissue Mobilization,Therapeutic Activities,Therapeutic Exercises Modalities Cold Pack/Ice Massage,Electric Stimulation,Hot Packs, Ultrasound Next Visit Focus/Plan Next Note Type Treatment Note Next Visit Plan Continue gentle progression of ROM and strengthening left shoulder per POC.
--- NOTE | 2021-12-18 12:43 | PT.OTN ---
Current Diagnoses Displaced fracture of greater tuberosity of left humerus, initial encounter for closed fracture (12/18/21) Unspecified dislocation of left shoulder joint, subsequent encounter (12/18/21) Physical Therapy Treatment Note PT-OP-A Visit Information Start: 07/26/21 12:44 Freq: Status: Active Protocol: Document 12/18/21 12:00 DCW (Rec: 12/18/21 12:42 DCW [id number]) Out-Patient Physical Therapy Visit Information Visit Information Visit Type Treatment Note Visit Start Time 12:00 Visit Stop Time 12:45 Total Visit Minutes 45 Visit Number 26 PT-OP-B Current Condition Start: 07/26/21 12:44 Freq: Status: Active Protocol: Document 07/26/21 15:15 AW (Rec: 07/26/21 12:55 AW [id number]) Current Condition History of Current Condition Onset Date April 2021 Current Complaints left shoulder pain History of Current Condition Nithya fell in April, resulting in comminuted left proximal humerus fracture with anterior dislocation. She has long-standing left knee pain which she feels may have contributed to her fall. Fracture was treated non- operatively and Rd was sent home in a soft sling after a brief hospital stay. Her sister was visiting from [place] at the time and extended her stay to help for a week but Nithya has been managing without assist at home since her sister left. She did have one additional fall within one week of leaving the hospital. She believes she was impaired with oxycodone at that time and denies falls since then. She had home health services - primarily OT - but she was discharged at the end of June. She can get dressed and shower without assist but is doing all overhead activities one-handed. She is currently driving even though she has trouble lifting her arm. Pain is mostly in her anterior and posterior shoulder. She denies neck pain or radiating symptoms to her arm. She lives alone in a single level home with 2 steps to enter using right rail at front of house. Prior Treatments and Tests MRI 07/06/21: 1. 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 2. Acromioclavicular joint osteoarthritis. 3. Possible Hill-Sachs deformity of the humeral head. Future Testing and Treatments Planned None identified Treatment Goals Patient/Caregiver Goals Generally, I want to be able to use my left arm. Specifically, I want to be able to hug my boyfriend. Prior Functional Status Baseline Function- ADL's Independent Baseline Function- Mobility Independent Current Functional Impairments (Reported) Functional Limitations- ADL's Limited use of left arm for most dressing and hygiene tasks Personal Factors Other Personal Factors That May Effect Depression, knee pain, and Therapy/Recovery PT-OP-C Subjective Start: 07/26/21 12:44 Freq: Status: Active Protocol: Document 12/18/21 12:00 DCW (Rec: 12/18/21 12:43 DCW [id number]) OP-PT Subjective Patient Comments Patient Comments I'm feeling pretty good today , I've had a bit of a break from therapy, an dso I'm not too sore. PT-OP-F Manual Assessment Start: 07/26/21 12:44 Freq: Status: Active Protocol: Document 07/26/21 15:15 AW (Rec: 07/26/21 17:06 AW [id number]) Manual Assessments Soft Tissue Assessment Soft Tissue Mobility Assessment Hypertonicity in left upper traps. Tenderness generally in all surrounding muscles. Generally decreased muscle mass left shoulder compared with right. Joint Mobility Assessment Joint Mobility Assessment Stiffness in all planes of motion left shoulder with significant guarding even with PROM. PT-OP-G Mobility & Gait Start: 07/26/21 12:44 Freq: Status: Active Protocol: Document 07/26/21 15:15 AW (Rec: 07/26/21 17:06 AW [id number]) OP Gait Assessment Comments Gait Comments Generally unsteady and with decreased confidence. PT-OP-J Posture/Palpation/Skin Start: 07/26/21 12:44 Freq: Status: Active Protocol: Document 07/26/21 15:15 AW (Rec: 07/26/21 17:06 AW [id number]) Posture Evaluation Comments Posture Comments Forward shoulder posture bilaterally. Protective of left shoulder. PT-OP-K Range of Motion Start: 07/26/21 12:44 Freq: Status: Active Protocol: Document 07/26/21 15:15 AW (Rec: 07/26/21 17:14 AW [id number]) Cervical Spine Range of Motion Cervical Spine Active Testing Position Sitting Flexion 30 Extension 30 Rotation Left 25 Rotation Right 25 Lateral Flexion Left 45 Lateral Flexion Right 50 Comments Pt denies neck pain with all movements Shoulder Goniometric Range of Motion Shoulder Left Passive Shoulder ROM WFL No Testing Position Sitting Flexion 45 Abduction 55 Internal Rotation Behind Back (text) to left hip Comments ER < neutral passively in supine with 45 degrees abduction Right Active Flexion 140 Abduction 150 External Rotation at 0 degrees Abduction 65 Internal Rotation Behind Back (text) T7 Elbow/Forearm Range of Motion Elbow/Forearm Left Active ROM Testing Position Supine Elbow Flexion (degrees) 115 Elbow Extension (degrees) 5 PT-OP-M Strength Start: 07/26/21 12:44 Freq: Status: Active Protocol: Document 07/26/21 15:15 AW (Rec: 07/26/21 17:14 AW [id number]) Shoulder Strength Shoulder Manual Muscle Testing Right Flexion 4+ Good+ Extension 4+ Good+ Abduction (C5) 4+ Good+ External Rotation 4+ Good+ Internal Rotation 4+ Good+ PT-OP-Q Treatments Start: 07/26/21 12:44 Freq: Status: Active Protocol: Document 12/18/21 12:00 DCW (Rec: 12/18/21 12:42 DCW [id number]) Therapeutic Exercises Supine Exercises flexion AROM Supine Exercise Name flexion AROM; 0-55 degrees Reps/Minutes 10SH x 8 Comments improving initiation and eccentric control AAROM Supine Exercise Name flexion /c PVC Reps/Minutes x5 ea rest breaks needed Comments better tolerated Sitting Exercises shoulder flex Sitting Exercise Name AAROM Flexion /c PVC Side left abduction AAROM Sitting Exercise Name AAROM Abduction /c PVC Side left shoulder isometrics Sitting Exercise Name flexion, extension, abduction, ER, IR Equipment Used standing pushing ball into wall Reps/Minutes 5x10 Standing Exercises resisted extension Standing Exercise Name extension Side left Resistance TB1 Reps/Minutes 2x5 Comments clinic only resisted row Standing Exercise Name row Resistance TB1 Reps/Minutes 2x5 Comments clinic only resisted IR Standing Exercise Name IR Resistance TB1 Reps/Minutes 2x5 Comments max cues for set up; clinic only Manual Therapy Treatment Soft Tissue Mobilization 1 Body Location infraspinatus, suprasinatus, rhomboids, subscap, teres minor Mobilization Type Myofascial Release,Sustained Pressure Manual Techniques 1 Type PROM all planes Body Position Supine Comments pain-free ROM PT-OP-R Modalities Start: 07/26/21 12:44 Freq: Status: Active Protocol: Document 10/24/21 13:49 SAK (Rec: 10/24/21 14:46 SAK [id number]) Hot Pack/Cold Pack Treatment Cold Pack Location L shoulder Patient Position Hooklying Treatment Duration (minutes) 7 PT-OP-T Assessment and Plan Start: 07/26/21 12:44 Freq: Status: Active Protocol: Document 12/18/21 12:00 DCW (Rec: 12/18/21 12:42 DCW [id number]) Physical Therapy Assessment Goals Three Impairment QuickDash - 70% impairment Rugby League Footballer Goal (LTG) Pt will score 45% or less impairment on QuickDash as a measure of improved ability to manage ADL's LTG Duration 12 weeks - 01/10/22 Two Impairment shoulder strength Short Term Goal (STG) Pt will improve her strength to be able to lift her arm to 90 degrees elevation to improve her ability to use her left arm in self-care activities. 09/06/21 - Pt lifts her arm to 55 degrees in flexion. STG Duration 6 weeks - 11/29/21 Rugby League Footballer Goal (LTG) Nithya will improve her left shoulder strength to be able to lift a book from table height. LTG Duration 12 weeks - 01/10/22 One Impairment shoulder ROM Short Term Goal (STG) Nithya will improve her shoulder flexion PROM to 90 degrees 09/06/21 - GOAL MET STG Duration 6 weeks - 09/06/21 [facility] Goal (LTG) Nithya will improve her shoulder abduction AROM to 90 degrees. 10/17/21 -flexion remains limited and painful LTG Duration 12 weeks - 01/10/22 Assessment Summary Assessment Pt showing good progress with AROM today after therapist- driven PROM and stretching. Able to get shoulder flexion > 90? in supine. Physical Therapy Plan Frequency and Duration Frequency of Treatment 2x/Week Duration of Treatment 12 weeks Plan of Care Start Date 10/18/21 Plan of Care End Date 01/10/22 Therapeutic Interventions Therapeutic Interventions Aquatic Therapy,Home Exercise Program,Joint Mobilizations, Manual Therapy,Neuromuscular Re-education,Self-Care/Home Management,Soft Tissue Mobilization,Therapeutic Activities,Therapeutic Exercises Modalities Cold Pack/Ice Massage,Electric Stimulation,Hot Packs, Ultrasound Next Visit Focus/Plan Next Note Type Treatment Note Next Visit Plan Continue gentle progression of ROM and strengthening left shoulder per POC.
--- NOTE | 2021-12-20 12:05 | PT.OTN ---
Current Diagnoses Displaced fracture of greater tuberosity of left humerus, initial encounter for closed fracture (12/20/21) Unspecified dislocation of left shoulder joint, subsequent encounter (12/20/21) Physical Therapy Treatment Note PT-OP-A Visit Information Start: 07/26/21 12:44 Freq: Status: Active Protocol: Document 12/20/21 11:36 AW (Rec: 12/20/21 12:05 AW [id number]) Out-Patient Physical Therapy Visit Information Visit Information Visit Type Treatment Note Visit Start Time 11:15 Visit Stop Time 11:53 Total Visit Minutes 38 Visit Number 27 Number of FORENSIC IDENTIFICATION SPECIALIST Visits 0 Evaluation Information Evaluation Date 07/26/21 PT-OP-B Current Condition Start: 07/26/21 12:44 Freq: Status: Active Protocol: Document 07/26/21 15:15 AW (Rec: 07/26/21 12:55 AW [id number]) Current Condition History of Current Condition Onset Date April 2021 Current Complaints left shoulder pain History of Current Condition Nithya fell in April, resulting in comminuted left proximal humerus fracture with anterior dislocation. She has long-standing left knee pain which she feels may have contributed to her fall. Fracture was treated non- operatively and Rd was sent home in a soft sling after a brief hospital stay. Her sister was visiting from [place] at the time and extended her stay to help for a week but Nithya has been managing without assist at home since her sister left. She did have one additional fall within one week of leaving the hospital. She believes she was impaired with oxycodone at that time and denies falls since then. She had home health services - primarily OT - but she was discharged at the end of June. She can get dressed and shower without assist but is doing all overhead activities one-handed. She is currently driving even though she has trouble lifting her arm. Pain is mostly in her anterior and posterior shoulder. She denies neck pain or radiating symptoms to her arm. She lives alone in a single level home with 2 steps to enter using right rail at front of house. Prior Treatments and Tests MRI 07/06/21: 1. 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 2. Acromioclavicular joint osteoarthritis. 3. Possible Hill-Sachs deformity of the humeral head. Future Testing and Treatments Planned None identified Treatment Goals Patient/Caregiver Goals Generally, I want to be able to use my left arm. Specifically, I want to be able to hug my boyfriend. Prior Functional Status Baseline Function- ADL's Independent Baseline Function- Mobility Independent Current Functional Impairments (Reported) Functional Limitations- ADL's Limited use of left arm for most dressing and hygiene tasks Personal Factors Other Personal Factors That May Effect Depression, knee pain, and Therapy/Recovery PT-OP-C Subjective Start: 07/26/21 12:44 Freq: Status: Active Protocol: Document 12/20/21 11:36 AW (Rec: 12/20/21 12:05 AW [id number]) OP-PT Subjective Patient Comments Patient Comments I've been carrying groceries with both hands. PT-OP-F Manual Assessment Start: 07/26/21 12:44 Freq: Status: Active Protocol: Document 07/26/21 15:15 AW (Rec: 07/26/21 17:06 AW [id number]) Manual Assessments Soft Tissue Assessment Soft Tissue Mobility Assessment Hypertonicity in left upper traps. Tenderness generally in all surrounding muscles. Generally decreased muscle mass left shoulder compared with right. Joint Mobility Assessment Joint Mobility Assessment Stiffness in all planes of motion left shoulder with significant guarding even with PROM. PT-OP-G Mobility & Gait Start: 07/26/21 12:44 Freq: Status: Active Protocol: Document 07/26/21 15:15 AW (Rec: 07/26/21 17:06 AW [id number]) OP Gait Assessment Comments Gait Comments Generally unsteady and with decreased confidence. PT-OP-J Posture/Palpation/Skin Start: 07/26/21 12:44 Freq: Status: Active Protocol: Document 07/26/21 15:15 AW (Rec: 07/26/21 17:06 AW [id number]) Posture Evaluation Comments Posture Comments Forward shoulder posture bilaterally. Protective of left shoulder. PT-OP-K Range of Motion Start: 07/26/21 12:44 Freq: Status: Active Protocol: Document 07/26/21 15:15 AW (Rec: 07/26/21 17:14 AW [id number]) Cervical Spine Range of Motion Cervical Spine Active Testing Position Sitting Flexion 30 Extension 30 Rotation Left 25 Rotation Right 25 Lateral Flexion Left 45 Lateral Flexion Right 50 Comments Pt denies neck pain with all movements Shoulder Goniometric Range of Motion Shoulder Left Passive Shoulder ROM WFL No Testing Position Sitting Flexion 45 Abduction 55 Internal Rotation Behind Back (text) to left hip Comments ER < neutral passively in supine with 45 degrees abduction Right Active Flexion 140 Abduction 150 External Rotation at 0 degrees Abduction 65 Internal Rotation Behind Back (text) T7 Elbow/Forearm Range of Motion Elbow/Forearm Left Active ROM Testing Position Supine Elbow Flexion (degrees) 115 Elbow Extension (degrees) 5 PT-OP-M Strength Start: 07/26/21 12:44 Freq: Status: Active Protocol: Document 07/26/21 15:15 AW (Rec: 07/26/21 17:14 AW [id number]) Shoulder Strength Shoulder Manual Muscle Testing Right Flexion 4+ Good+ Extension 4+ Good+ Abduction (C5) 4+ Good+ External Rotation 4+ Good+ Internal Rotation 4+ Good+ PT-OP-Q Treatments Start: 07/26/21 12:44 Freq: Status: Active Protocol: Document 12/20/21 11:36 AW (Rec: 12/20/21 12:05 AW [id number]) Therapeutic Exercises Supine Exercises protraction Supine Exercise Name protraction Side left Resistance AROM Reps/Minutes 2x12 flexion AROM Supine Exercise Name flexion AROM; 0-110 degrees Reps/Minutes 10SH x 8 Comments smooth initation, good eccentric control Sidelying Exercises External Rotation Sidelying Exercise Name ER Side left Comments AAROM abduction Sidelying Exercise Name 0-20 degrees Reps/Minutes x5 Sitting Exercises shoulder rolls Reps/Minutes 5x christine, 5x unil Standing Exercises malloy carry Standing Exercise Name malloy carry Side bilateral Resistance 3# db Reps/Minutes 200 ft Manual Therapy Treatment Soft Tissue Mobilization 1 Body Location infraspinatus, suprasinatus, rhomboids, subscap, teres minor Mobilization Type Myofascial Release,Sustained Pressure Manual Techniques 1 Type PROM all planes Body Position Supine Comments pain-free ROM PT-OP-R Modalities Start: 07/26/21 12:44 Freq: Status: Active Protocol: Document 10/24/21 13:49 SAK (Rec: 10/24/21 14:46 SAK [id number]) Hot Pack/Cold Pack Treatment Cold Pack Location L shoulder Patient Position Hooklying Treatment Duration (minutes) 7 PT-OP-T Assessment and Plan Start: 07/26/21 12:44 Freq: Status: Active Protocol: Document 12/20/21 11:36 AW (Rec: 12/20/21 12:05 AW [id number]) Physical Therapy Assessment Goals Three Impairment QuickDash - 70% impairment [facility] Goal (LTG) Pt will score 45% or less impairment on QuickDash as a measure of improved ability to manage ADL's LTG Duration 12 weeks - 01/10/22 Two Impairment shoulder strength Short Term Goal (STG) Pt will improve her strength to be able to lift her arm to 90 degrees elevation to improve her ability to use her left arm in self-care activities. 09/06/21 - Pt lifts her arm to 55 degrees in flexion. STG Duration 6 weeks - 11/29/21 [facility] Goal (LTG) Nithya will improve her left shoulder strength to be able to lift a book from table height. LTG Duration 12 weeks - 01/10/22 One Impairment shoulder ROM Short Term Goal (STG) Nithya will improve her shoulder flexion PROM to 90 degrees 09/06/21 - GOAL MET STG Duration 6 weeks - 09/06/21 [employer] Goal (LTG) Nithya will improve her shoulder abduction AROM to 90 degrees. 10/17/21 -flexion remains limited and painful LTG Duration 12 weeks - 01/10/22 Assessment Summary Assessment Pt improved AROM shoulder flexion in supine to 110 degrees but with quick approach to fatigue. Pt was unable to tolerate much AAROM with wand or strengthening today. Physical Therapy Plan Frequency and Duration Frequency of Treatment 2x/Week Duration of Treatment 12 weeks Plan of Care Start Date 10/18/21 Plan of Care End Date 01/10/22 Therapeutic Interventions Therapeutic Interventions Aquatic Therapy,Home Exercise Program,Joint Mobilizations, Manual Therapy,Neuromuscular Re-education,Self-Care/Home Management,Soft Tissue Mobilization,Therapeutic Activities,Therapeutic Exercises Modalities Cold Pack/Ice Massage,Electric Stimulation,Hot Packs, Ultrasound Next Visit Focus/Plan Next Note Type Treatment Note Next Visit Plan Continue gentle progression of ROM and strengthening left shoulder per POC.
--- NOTE | 2021-12-29 16:34 | PT.OTN ---
Current Diagnoses Displaced fracture of greater tuberosity of left humerus, initial encounter for closed fracture (12/29/21) Unspecified dislocation of left shoulder joint, subsequent encounter (12/29/21) Physical Therapy Treatment Note PT-OP-A Visit Information Start: 07/26/21 12:44 Freq: Status: Active Protocol: Document 12/29/21 14:36 LRN (Rec: 12/29/21 15:22 LRN [id number]) Out-Patient Physical Therapy Visit Information Visit Information Visit Type Treatment Note Visit Start Time 14:36 Visit Stop Time 15:29 Total Visit Minutes 53 Visit Number 28 Evaluation Information Evaluation Date 07/26/21 PT-OP-B Current Condition Start: 07/26/21 12:44 Freq: Status: Active Protocol: Document 07/26/21 15:15 AW (Rec: 07/26/21 12:55 AW [id number]) Current Condition History of Current Condition Onset Date April 2021 Current Complaints left shoulder pain History of Current Condition Nithya fell in April, resulting in comminuted left proximal humerus fracture with anterior dislocation. She has long-standing left knee pain which she feels may have contributed to her fall. Fracture was treated non- operatively and Rd was sent home in a soft sling after a brief hospital stay. Her sister was visiting from [place] at the time and extended her stay to help for a week but Nithya has been managing without assist at home since her sister left. She did have one additional fall within one week of leaving the hospital. She believes she was impaired with oxycodone at that time and denies falls since then. She had home health services - primarily OT - but she was discharged at the end of June. She can get dressed and shower without assist but is doing all overhead activities one-handed. She is currently driving even though she has trouble lifting her arm. Pain is mostly in her anterior and posterior shoulder. She denies neck pain or radiating symptoms to her arm. She lives alone in a single level home with 2 steps to enter using right rail at front of house. Prior Treatments and Tests MRI 07/06/21: 1. 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 2. Acromioclavicular joint osteoarthritis. 3. Possible Hill-Sachs deformity of the humeral head. Future Testing and Treatments Planned None identified Treatment Goals Patient/Caregiver Goals Generally, I want to be able to use my left arm. Specifically, I want to be able to hug my boyfriend. Prior Functional Status Baseline Function- ADL's Independent Baseline Function- Mobility Independent Current Functional Impairments (Reported) Functional Limitations- ADL's Limited use of left arm for most dressing and hygiene tasks Personal Factors Other Personal Factors That May Effect Depression, knee pain, and Therapy/Recovery PT-OP-C Subjective Start: 07/26/21 12:44 Freq: Status: Active Protocol: Document 12/29/21 14:36 LRN (Rec: 12/29/21 15:22 LRN [id number]) OP-PT Subjective Patient Comments Patient Comments Having a good day today. Able to move L arm more than ever. PT-OP-F Manual Assessment Start: 07/26/21 12:44 Freq: Status: Active Protocol: Document 07/26/21 15:15 AW (Rec: 07/26/21 17:06 AW [id number]) Manual Assessments Soft Tissue Assessment Soft Tissue Mobility Assessment Hypertonicity in left upper traps. Tenderness generally in all surrounding muscles. Generally decreased muscle mass left shoulder compared with right. Joint Mobility Assessment Joint Mobility Assessment Stiffness in all planes of motion left shoulder with significant guarding even with PROM. PT-OP-G Mobility & Gait Start: 07/26/21 12:44 Freq: Status: Active Protocol: Document 07/26/21 15:15 AW (Rec: 07/26/21 17:06 AW [id number]) OP Gait Assessment Comments Gait Comments Generally unsteady and with decreased confidence. PT-OP-J Posture/Palpation/Skin Start: 07/26/21 12:44 Freq: Status: Active Protocol: Document 07/26/21 15:15 AW (Rec: 07/26/21 17:06 AW [id number]) Posture Evaluation Comments Posture Comments Forward shoulder posture bilaterally. Protective of left shoulder. PT-OP-K Range of Motion Start: 07/26/21 12:44 Freq: Status: Active Protocol: Document 07/26/21 15:15 AW (Rec: 07/26/21 17:14 AW [id number]) Cervical Spine Range of Motion Cervical Spine Active Testing Position Sitting Flexion 30 Extension 30 Rotation Left 25 Rotation Right 25 Lateral Flexion Left 45 Lateral Flexion Right 50 Comments Pt denies neck pain with all movements Shoulder Goniometric Range of Motion Shoulder Left Passive Shoulder ROM WFL No Testing Position Sitting Flexion 45 Abduction 55 Internal Rotation Behind Back (text) to left hip Comments ER < neutral passively in supine with 45 degrees abduction Right Active Flexion 140 Abduction 150 External Rotation at 0 degrees Abduction 65 Internal Rotation Behind Back (text) T7 Elbow/Forearm Range of Motion Elbow/Forearm Left Active ROM Testing Position Supine Elbow Flexion (degrees) 115 Elbow Extension (degrees) 5 PT-OP-M Strength Start: 07/26/21 12:44 Freq: Status: Active Protocol: Document 07/26/21 15:15 AW (Rec: 07/26/21 17:14 AW [id number]) Shoulder Strength Shoulder Manual Muscle Testing Right Flexion 4+ Good+ Extension 4+ Good+ Abduction (C5) 4+ Good+ External Rotation 4+ Good+ Internal Rotation 4+ Good+ PT-OP-Q Treatments Start: 07/26/21 12:44 Freq: Status: Active Protocol: Document 12/29/21 14:36 LRN (Rec: 12/29/21 15:22 LRN [id number]) Therapeutic Exercises Supine Exercises Lat pull down Supine Exercise Name Lat Pull down (90 deg's flex to hips) Reps/Minutes 10x protraction Supine Exercise Name protraction Side left Resistance AROM Reps/Minutes 2x12 flexion AROM Supine Exercise Name flexion AROM; 0-117 degrees Reps/Minutes 10SH x 8 Comments smooth initation, good eccentric control AAROM Supine Exercise Name flexion /c PVC Reps/Minutes x5 ea rest breaks needed Comments better tolerated Sidelying Exercises abduction Sidelying Exercise Name 0-20 degrees Reps/Minutes x10 Comments Pt notes at one point in arc she has pain, then passes point. Sitting Exercises AA Shldr ER Sitting Exercise Name AAROM shoulder ER Side left Reps/Minutes 10x shoulder extension Sitting Exercise Name Manual resisted shoulder ext Side left Reps/Minutes 10x shoulder flex Sitting Exercise Name AAROM flexipn Side left Reps/Minutes 15x abduction AAROM Sitting Exercise Name AAROM Abduction Side left Manual Therapy Treatment Soft Tissue Mobilization 1 Body Location infraspinatus, suprasinatus, rhomboids, subscap, teres minor Mobilization Type Myofascial Release,Sustained Pressure PT-OP-R Modalities Start: 07/26/21 12:44 Freq: Status: Active Protocol: Document 12/29/21 14:36 LRN (Rec: 12/29/21 15:22 LRN [id number]) Hot Pack/Cold Pack Treatment Cold Pack Location L shoulder Patient Position Sitting Treatment Duration (minutes) 8 PT-OP-T Assessment and Plan Start: 07/26/21 12:44 Freq: Status: Active Protocol: Document 12/29/21 14:36 LRN (Rec: 12/29/21 15:22 LRN [id number]) Physical Therapy Assessment Goals Three Impairment QuickDash - 70% impairment [employer] Goal (LTG) Pt will score 45% or less impairment on QuickDash as a measure of improved ability to manage ADL's LTG Duration 12 weeks - 01/10/22 Two Impairment shoulder strength Short Term Goal (STG) Pt will improve her strength to be able to lift her arm to 90 degrees elevation to improve her ability to use her left arm in self-care activities. 09/06/21 - Pt lifts her arm to 55 degrees in flexion. STG Duration 6 weeks - 11/29/21 Long-Term Goal (LTG) Nithya will improve her left shoulder strength to be able to lift a book from table height. LTG Duration 12 weeks - 01/10/22 One Impairment shoulder ROM Short Term Goal (STG) Nithya will improve her shoulder flexion PROM to 90 degrees 09/06/21 - GOAL MET STG Duration 6 weeks - 09/06/21 Long-Term Goal (LTG) Nithya will improve her shoulder abduction AROM to 90 degrees. 10/17/21 -flexion remains limited and painful LTG Duration 12 weeks - 01/10/22 Assessment Summary Assessment Improved L shoulder AROM to 117 deg's flex with cane. Good tolerance to active strengthening of added supine lat pull down and active shoulder ER. Pt has minimal palpable anterior and middle deltoid and ER to neutral. Pt seems to have difficulty with commanding her arm to move in verbally directed movement, but sometimes able to move spontaneously. Pt would probably benefit from HEP handouts for strengthening. Physical Therapy Plan Frequency and Duration Frequency of Treatment 2x/Week Duration of Treatment 12 weeks Plan of Care Start Date 10/18/21 Plan of Care End Date 01/10/22 Next Visit Focus/Plan Next Note Type Treatment Note Next Visit Plan Continue gentle progression of ROM and strengthening left shoulder per POC. HEP for strengthening as she is progressed.
--- NOTE | 2022-01-04 16:07 | PT.OTN ---
Current Diagnoses Displaced fracture of greater tuberosity of left humerus, initial encounter for closed fracture (01/04/22) Unspecified dislocation of left shoulder joint, subsequent encounter (01/04/22) Physical Therapy Treatment Note PT-OP-A Visit Information Start: 07/26/21 12:44 Freq: Status: Active Protocol: Document 01/04/22 15:57 AMB (Rec: 01/04/22 16:07 AMB [id number]) Out-Patient Physical Therapy Visit Information Visit Information Visit Type Treatment Note Visit Start Time 14:30 Visit Stop Time 15:15 Total Visit Minutes 45 Visit Number 29 PT-OP-B Current Condition Start: 07/26/21 12:44 Freq: Status: Active Protocol: Document 07/26/21 15:15 AW (Rec: 07/26/21 12:55 AW [id number]) Current Condition History of Current Condition Onset Date April 2021 Current Complaints left shoulder pain History of Current Condition Nithya fell in April, resulting in comminuted left proximal humerus fracture with anterior dislocation. She has long-standing left knee pain which she feels may have contributed to her fall. Fracture was treated non- operatively and Rd was sent home in a soft sling after a brief hospital stay. Her sister was visiting from [place] at the time and extended her stay to help for a week but Nithya has been managing without assist at home since her sister left. She did have one additional fall within one week of leaving the hospital. She believes she was impaired with oxycodone at that time and denies falls since then. She had home health services - primarily OT - but she was discharged at the end of June. She can get dressed and shower without assist but is doing all overhead activities one-handed. She is currently driving even though she has trouble lifting her arm. Pain is mostly in her anterior and posterior shoulder. She denies neck pain or radiating symptoms to her arm. She lives alone in a single level home with 2 steps to enter using right rail at front of house. Prior Treatments and Tests MRI 07/06/21: 1. 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 2. Acromioclavicular joint osteoarthritis. 3. Possible Hill-Sachs deformity of the humeral head. Future Testing and Treatments Planned None identified Treatment Goals Patient/Caregiver Goals Generally, I want to be able to use my left arm. Specifically, I want to be able to hug my boyfriend. Prior Functional Status Baseline Function- ADL's Independent Baseline Function- Mobility Independent Current Functional Impairments (Reported) Functional Limitations- ADL's Limited use of left arm for most dressing and hygiene tasks Personal Factors Other Personal Factors That May Effect Depression, knee pain, and Therapy/Recovery PT-OP-C Subjective Start: 07/26/21 12:44 Freq: Status: Active Protocol: Document 01/04/22 15:57 AMB (Rec: 01/04/22 16:07 AMB [id number]) OP-PT Subjective Patient Comments Patient Comments Had a really good day last week at PT, but then PT-OP-F Manual Assessment Start: 07/26/21 12:44 Freq: Status: Active Protocol: Document 07/26/21 15:15 AW (Rec: 07/26/21 17:06 AW [id number]) Manual Assessments Soft Tissue Assessment Soft Tissue Mobility Assessment Hypertonicity in left upper traps. Tenderness generally in all surrounding muscles. Generally decreased muscle mass left shoulder compared with right. Joint Mobility Assessment Joint Mobility Assessment Stiffness in all planes of motion left shoulder with significant guarding even with PROM. PT-OP-G Mobility & Gait Start: 07/26/21 12:44 Freq: Status: Active Protocol: Document 07/26/21 15:15 AW (Rec: 07/26/21 17:06 AW [id number]) OP Gait Assessment Comments Gait Comments Generally unsteady and with decreased confidence. PT-OP-J Posture/Palpation/Skin Start: 07/26/21 12:44 Freq: Status: Active Protocol: Document 07/26/21 15:15 AW (Rec: 07/26/21 17:06 AW [id number]) Posture Evaluation Comments Posture Comments Forward shoulder posture bilaterally. Protective of left shoulder. PT-OP-K Range of Motion Start: 07/26/21 12:44 Freq: Status: Active Protocol: Document 07/26/21 15:15 AW (Rec: 07/26/21 17:14 AW [id number]) Cervical Spine Range of Motion Cervical Spine Active Testing Position Sitting Flexion 30 Extension 30 Rotation Left 25 Rotation Right 25 Lateral Flexion Left 45 Lateral Flexion Right 50 Comments Pt denies neck pain with all movements Shoulder Goniometric Range of Motion Shoulder Left Passive Shoulder ROM WFL No Testing Position Sitting Flexion 45 Abduction 55 Internal Rotation Behind Back (text) to left hip Comments ER < neutral passively in supine with 45 degrees abduction Right Active Flexion 140 Abduction 150 External Rotation at 0 degrees Abduction 65 Internal Rotation Behind Back (text) T7 Elbow/Forearm Range of Motion Elbow/Forearm Left Active ROM Testing Position Supine Elbow Flexion (degrees) 115 Elbow Extension (degrees) 5 PT-OP-M Strength Start: 07/26/21 12:44 Freq: Status: Active Protocol: Document 07/26/21 15:15 AW (Rec: 07/26/21 17:14 AW [id number]) Shoulder Strength Shoulder Manual Muscle Testing Right Flexion 4+ Good+ Extension 4+ Good+ Abduction (C5) 4+ Good+ External Rotation 4+ Good+ Internal Rotation 4+ Good+ PT-OP-Q Treatments Start: 07/26/21 12:44 Freq: Status: Active Protocol: Document 01/04/22 15:57 AMB (Rec: 01/04/22 16:07 AMB [id number]) Therapeutic Exercises Sitting Exercises AA Shldr ER Sitting Exercise Name AAROM shoulder ER Side left Reps/Minutes 10x shoulder extension Sitting Exercise Name Manual resisted shoulder ext Side left Reps/Minutes 10x Standing Exercises isometric abduction Reps/Minutes 5x5 isometric adduction Standing Exercise Name isometric adduction Side bilateral Equipment Used [email or web address] poles Reps/Minutes 5SH x 5 Comments pt using cane at home Manual Therapy Treatment Taping 1 Body Location L shoulder Type of Tape Kinesio Tape Comments Y from distal deltoid around GH joint. I from ant shoulder to scapula Self-Care/Home Management Treatment Education Other Education Educated re: anatomy of shoulder, MRI, speed of recovery importance of HEP, PT-OP-R Modalities Start: 07/26/21 12:44 Freq: Status: Active Protocol: Document 12/29/21 14:36 LRN (Rec: 12/29/21 15:22 LRN [id number]) Hot Pack/Cold Pack Treatment Cold Pack Location L shoulder Patient Position Sitting Treatment Duration (minutes) 8 PT-OP-T Assessment and Plan Start: 07/26/21 12:44 Freq: Status: Active Protocol: Document 01/04/22 15:57 AMB (Rec: 01/04/22 16:07 AMB [id number]) Physical Therapy Assessment Goals Three Impairment QuickDash - 70% impairment Intermediate Goal (LTG) Pt will score 45% or less impairment on QuickDash as a measure of improved ability to manage ADL's LTG Duration 12 weeks - 01/10/22 Two Impairment shoulder strength Short Term Goal (STG) Pt will improve her strength to be able to lift her arm to 90 degrees elevation to improve her ability to use her left arm in self-care activities. 09/06/21 - Pt lifts her arm to 55 degrees in flexion. STG Duration 6 weeks - 11/29/21 Intermediate Goal (LTG) Nithya will improve her left shoulder strength to be able to lift a book from table height. LTG Duration 12 weeks - 01/10/22 One Impairment shoulder ROM Short Term Goal (STG) Nithya will improve her shoulder flexion PROM to 90 degrees 09/06/21 - GOAL MET STG Duration 6 weeks - 09/06/21 Intermediate Goal (LTG) Nithya will improve her shoulder abduction AROM to 90 degrees. 10/17/21 -flexion remains limited and painful LTG Duration 12 weeks - 01/10/22 Assessment Summary Assessment Nithya is concerned about her progress especially with shoulder abduction strength. She continues to note weakness in shoulder abduction. Discussed MRI and encouraged her to follow up with Dr. Ricks since she has had many visits of PT. She has improved, but she is wondering how much more improvement is possible. Physical Therapy Plan Frequency and Duration Frequency of Treatment 2x/Week Duration of Treatment 12 weeks Plan of Care Start Date 10/18/21 Plan of Care End Date 01/10/22 Next Visit Focus/Plan Next Note Type Progress Note Next Visit Plan Continue gentle progression of ROM and strengthening left shoulder per POC. HEP for strengthening as she is progressed.
--- NOTE | 2022-01-10 14:32 | PT.OTN ---
Current Diagnoses Displaced fracture of greater tuberosity of left humerus, initial encounter for closed fracture (01/10/22) Unspecified dislocation of left shoulder joint, subsequent encounter (01/10/22) Physical Therapy Treatment Note PT-OP-A Visit Information Start: 07/26/21 12:44 Freq: Status: Active Protocol: Document 01/10/22 13:45 DCW (Rec: 01/10/22 14:32 DCW [id number]) Out-Patient Physical Therapy Visit Information Visit Information Visit Type Progress Note Visit Start Time 13:45 Visit Stop Time 14:30 Total Visit Minutes 45 Visit Number 30 Number of GEOMORPHOLOGY TEACHER Visits 0 Evaluation Information Evaluation Date 07/26/21 PT-OP-B Current Condition Start: 07/26/21 12:44 Freq: Status: Active Protocol: Document 07/26/21 15:15 AW (Rec: 07/26/21 12:55 AW [id number]) Current Condition History of Current Condition Onset Date April 2021 Current Complaints left shoulder pain History of Current Condition Nithya fell in April, resulting in comminuted left proximal humerus fracture with anterior dislocation. She has long-standing left knee pain which she feels may have contributed to her fall. Fracture was treated non- operatively and Rd was sent home in a soft sling after a brief hospital stay. Her sister was visiting from [place] at the time and extended her stay to help for a week but Nithya has been managing without assist at home since her sister left. She did have one additional fall within one week of leaving the hospital. She believes she was impaired with oxycodone at that time and denies falls since then. She had home health services - primarily OT - but she was discharged at the end of June. She can get dressed and shower without assist but is doing all overhead activities one-handed. She is currently driving even though she has trouble lifting her arm. Pain is mostly in her anterior and posterior shoulder. She denies neck pain or radiating symptoms to her arm. She lives alone in a single level home with 2 steps to enter using right rail at front of house. Prior Treatments and Tests MRI 07/06/21: 1. 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 2. Acromioclavicular joint osteoarthritis. 3. Possible Hill-Sachs deformity of the humeral head. Future Testing and Treatments Planned None identified Treatment Goals Patient/Caregiver Goals Generally, I want to be able to use my left arm. Specifically, I want to be able to hug my boyfriend. Prior Functional Status Baseline Function- ADL's Independent Baseline Function- Mobility Independent Current Functional Impairments (Reported) Functional Limitations- ADL's Limited use of left arm for most dressing and hygiene tasks Personal Factors Other Personal Factors That May Effect Depression, knee pain, and Therapy/Recovery PT-OP-C Subjective Start: 07/26/21 12:44 Freq: Status: Active Protocol: Document 01/10/22 13:45 DCW (Rec: 01/10/22 14:32 DCW [id number]) OP-PT Subjective Patient Comments Patient Comments Pt notes her shoulder has been hurting a lot more, and she is getting discouraged with feelings like she is going backwards. PT-OP-F Manual Assessment Start: 07/26/21 12:44 Freq: Status: Active Protocol: Document 01/10/22 13:45 DCW (Rec: 01/10/22 14:01 DCW [id number]) Manual Assessments Soft Tissue Assessment Soft Tissue Mobility Assessment Hypertonicity in left shoulder girdle. Generally decreased muscle mass left shoulder compared with right. Joint Mobility Assessment Joint Mobility Assessment Stiffness in all planes of motion left shoulder with significant guarding even with PROM. PT-OP-G Mobility & Gait Start: 07/26/21 12:44 Freq: Status: Active Protocol: Document 07/26/21 15:15 AW (Rec: 07/26/21 17:06 AW [id number]) OP Gait Assessment Comments Gait Comments Generally unsteady and with decreased confidence. PT-OP-J Posture/Palpation/Skin Start: 07/26/21 12:44 Freq: Status: Active Protocol: Document 01/10/22 13:45 DCW (Rec: 01/10/22 14:01 DCW [id number]) Posture Evaluation Comments Posture Comments Forward shoulder posture bilaterally. Protective of left shoulder. PT-OP-K Range of Motion Start: 07/26/21 12:44 Freq: Status: Active Protocol: Document 01/10/22 13:45 DCW (Rec: 01/10/22 14:01 DCW [id number]) Cervical Spine Range of Motion Cervical Spine Active Testing Position Sitting Flexion 35 Extension 34 Rotation Left 45 Rotation Right 35 Lateral Flexion Left 37 Lateral Flexion Right 22 Comments Pt denies neck pain with all movements Shoulder Goniometric Range of Motion Shoulder Left Passive Shoulder ROM WFL No Testing Position Sitting Flexion 54 Abduction 68 External Rotation at 45 degrees 15 Abduction Internal Rotation Behind Back (text) to left PSIS Elbow/Forearm Range of Motion Elbow/Forearm Left Active ROM Testing Position Sitting Elbow Flexion (degrees) 148 Elbow Extension (degrees) 5 PT-OP-M Strength Start: 07/26/21 12:44 Freq: Status: Active Protocol: Document 01/10/22 13:45 DCW (Rec: 01/10/22 14:01 DCW [id number]) Shoulder Strength Shoulder Manual Muscle Testing Left Flexion 2- Poor- Abduction (C5) 2- Poor- External Rotation 2 Poor Internal Rotation 3- Fair- Right Flexion 4+ Good+ Extension 4+ Good+ Abduction (C5) 4+ Good+ External Rotation 4+ Good+ Internal Rotation 4+ Good+ PT-OP-Q Treatments Start: 07/26/21 12:44 Freq: Status: Active Protocol: Document 01/10/22 13:45 DCW (Rec: 01/10/22 14:32 DCW [id number]) Therapeutic Exercises Sitting Exercises AA Shldr ER Sitting Exercise Name AAROM shoulder ER Side left Reps/Minutes 10x shoulder flex Sitting Exercise Name AAROM flexion Side left Reps/Minutes 15x abduction AAROM Sitting Exercise Name AAROM Abduction Side left Standing Exercises 1 Standing Exercise Name AAROM /c PVC Comments Flexion and abduction Manual Therapy Treatment Soft Tissue Mobilization 1 Body Location infraspinatus, suprasinatus, rhomboids, subscap, teres minor Mobilization Type Myofascial Release,Sustained Pressure Joint Mobilizations 1 Joint GH AP Grade III Body Position Hooklying Manual Techniques 1 Type PROM all planes Body Position Supine Comments pain-free ROM PT-OP-R Modalities Start: 07/26/21 12:44 Freq: Status: Active Protocol: Document 12/29/21 14:36 LRN (Rec: 12/29/21 15:22 LRN [id number]) Hot Pack/Cold Pack Treatment Cold Pack Location L shoulder Patient Position Sitting Treatment Duration (minutes) 8 PT-OP-T Assessment and Plan Start: 07/26/21 12:44 Freq: Status: Active Protocol: Document 01/10/22 13:45 DCW (Rec: 01/10/22 14:32 [facility] [id number]) Physical Therapy Assessment Impairments Impairments Functional Activities,Pain, Posture,ROM,Soft Tissue Mobility,Strength Goals Three Impairment QuickDash - 70% impairment Print Cutter Goal (LTG) Pt will score 45% or less impairment on QuickDash as a measure of improved ability to manage ADL's LTG Duration 03/12/22 Two Impairment shoulder strength Short Term Goal (STG) Pt will improve her strength to be able to lift her arm to 90 degrees elevation to improve her ability to use her left arm in self-care activities. 09/06/21 - Pt lifts her arm to 55 degrees in flexion. STG Duration 02/10/22 Print Cutter Goal (LTG) Nithya will improve her left shoulder strength to be able to lift a book from table height. LTG Duration 03/12/22 One Impairment shoulder ROM Short Term Goal (STG) Nithya will improve her shoulder flexion PROM to 90 degrees 09/06/21 - GOAL MET STG Duration Met [facility]ci Goal (LTG) Nithya will improve her shoulder abduction AROM to 90 degrees. 10/17/21 -flexion remains limited and painful LTG Duration 03/12/22 Assessment Summary Assessment Pt making very slow progress since initial evaluation, still very limited with both passive and active shoulder ROM. Will likely benefit from skilled therapy focusing more on aggressive ROM with therapist and self-ROM at home . Physical Therapy Plan Frequency and Duration Frequency of Treatment 2x/Week Duration of Treatment 2 months Plan of Care Start Date 01/10/22 Plan of Care End Date 03/12/22 Next Visit Focus/Plan Next Note Type Treatment Note Next Visit Plan Continue gentle progression of ROM and strengthening left shoulder per POC. HEP for strengthening as she is progressed.
--- NOTE | 2022-01-10 14:32 | PT.OPPOC ---
Physical, Occupational & Speech Therapy At [facility] Current Diagnoses Displaced fracture of greater tuberosity of left humerus, initial encounter for closed fracture (01/10/22) Unspecified dislocation of left shoulder joint, subsequent encounter (01/10/22) Visit Care Team Role Provider Type Nick Witt MD Family Provider Physician Primary Care Provider Specialty: Internal Medicine Address: [address] [place] [address], [id number] Email: [email or web address] Kenneth Burkett MD Attending Provider Physician Referring Provider Specialty: Orthopedics Orthopedic Surgery Address: [address] [place] [address], [id number] Email: [email or web address] Plan Of Care PT-OP-T Assessment and Plan Start: 07/26/21 12:44 Freq: Status: Active Protocol: Document 01/10/22 13:45 DCW (Rec: 01/10/22 14:32 DCW [id number]) Physical Therapy Assessment Impairments Impairments Functional Activities,Pain, Posture,ROM,Soft Tissue Mobility,Strength Goals Three Impairment QuickDash - 70% impairment Snf Goal (LTG) Pt will score 45% or less impairment on QuickDash as a measure of improved ability to manage ADL's LTG Duration 03/12/22 Two Impairment shoulder strength Short Term Goal (STG) Pt will improve her strength to be able to lift her arm to 90 degrees elevation to improve her ability to use her left arm in self-care activities. 09/06/21 - Pt lifts her arm to 55 degrees in flexion. STG Duration 02/10/22 Snf Goal (LTG) Nithya will improve her left shoulder strength to be able to lift a book from table height. LTG Duration 03/12/22 One Impairment shoulder ROM Short Term Goal (STG) Nithya will improve her shoulder flexion PROM to 90 degrees 09/06/21 - GOAL MET STG Duration Met Supervisor Braiding Goal (LTG) Nithya will improve her shoulder abduction AROM to 90 degrees. 10/17/21 -flexion remains limited and painful LTG Duration 03/12/22 Assessment Summary Assessment Pt making very slow progress since initial evaluation, still very limited with both passive and active shoulder ROM. Will likely benefit from skilled therapy focusing more on aggressive ROM with therapist and self-ROM at home . Physical Therapy Plan Frequency and Duration Frequency of Treatment 2x/Week Duration of Treatment 2 months Plan of Care Start Date 01/10/22 Plan of Care End Date 03/12/22 Next Visit Focus/Plan Next Note Type Treatment Note Next Visit Plan Continue gentle progression of ROM and strengthening left shoulder per POC. HEP for strengthening as she is progressed. Plan of Care Dates Plan of Care Start Date 01/10/22 Plan of Care End Date 03/12/22 Electronically Signed by: Clayton Cortés, PT 01/10/22 9162 If you are in agreement with this Plan of Care, please return a signed and dated copy. I have reviewed this Plan of Care and certify that the skilled therapy services above are required to meet the patient?s needs. Physician Signature Date Printed Name and Credentials Clinical Instructor Signature Printed Name and Credentials
--- NOTE | 2022-01-12 14:29 | PT.OTN ---
Current Diagnoses Displaced fracture of greater tuberosity of left humerus, initial encounter for closed fracture (01/12/22) Unspecified dislocation of left shoulder joint, subsequent encounter (01/12/22) Physical Therapy Treatment Note PT-OP-A Visit Information Start: 07/26/21 12:44 Freq: Status: Active Protocol: Document 01/12/22 13:45 DCW (Rec: 01/12/22 14:28 DCW [id number]) Out-Patient Physical Therapy Visit Information Visit Information Visit Type Treatment Note Visit Start Time 13:45 Visit Stop Time 14:30 Total Visit Minutes 45 Visit Number 31 Number of SOLE BLACKER Visits 0 Evaluation Information Evaluation Date 07/26/21 PT-OP-B Current Condition Start: 07/26/21 12:44 Freq: Status: Active Protocol: Document 07/26/21 15:15 AW (Rec: 07/26/21 12:55 AW [id number]) Current Condition History of Current Condition Onset Date April 2021 Current Complaints left shoulder pain History of Current Condition Nithya fell in April, resulting in comminuted left proximal humerus fracture with anterior dislocation. She has long-standing left knee pain which she feels may have contributed to her fall. Fracture was treated non- operatively and Rd was sent home in a soft sling after a brief hospital stay. Her sister was visiting from [place] at the time and extended her stay to help for a week but Nithya has been managing without assist at home since her sister left. She did have one additional fall within one week of leaving the hospital. She believes she was impaired with oxycodone at that time and denies falls since then. She had home health services - primarily OT - but she was discharged at the end of June. She can get dressed and shower without assist but is doing all overhead activities one-handed. She is currently driving even though she has trouble lifting her arm. Pain is mostly in her anterior and posterior shoulder. She denies neck pain or radiating symptoms to her arm. She lives alone in a single level home with 2 steps to enter using right rail at front of house. Prior Treatments and Tests MRI 07/06/21: 1. 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 2. Acromioclavicular joint osteoarthritis. 3. Possible Hill-Sachs deformity of the humeral head. Future Testing and Treatments Planned None identified Treatment Goals Patient/Caregiver Goals Generally, I want to be able to use my left arm. Specifically, I want to be able to hug my boyfriend. Prior Functional Status Baseline Function- ADL's Independent Baseline Function- Mobility Independent Current Functional Impairments (Reported) Functional Limitations- ADL's Limited use of left arm for most dressing and hygiene tasks Personal Factors Other Personal Factors That May Effect Depression, knee pain, and Therapy/Recovery PT-OP-C Subjective Start: 07/26/21 12:44 Freq: Status: Active Protocol: Document 01/12/22 13:45 DCW (Rec: 01/12/22 14:29 DCW [id number]) OP-PT Subjective Patient Comments Patient Comments Pt notes some low back stiffness today PT-OP-F Manual Assessment Start: 07/26/21 12:44 Freq: Status: Active Protocol: Document 01/10/22 13:45 DCW (Rec: 01/10/22 14:01 DCW [id number]) Manual Assessments Soft Tissue Assessment Soft Tissue Mobility Assessment Hypertonicity in left shoulder girdle. Generally decreased muscle mass left shoulder compared with right. Joint Mobility Assessment Joint Mobility Assessment Stiffness in all planes of motion left shoulder with significant guarding even with PROM. PT-OP-G Mobility & Gait Start: 07/26/21 12:44 Freq: Status: Active Protocol: Document 07/26/21 15:15 AW (Rec: 07/26/21 17:06 AW [id number]) OP Gait Assessment Comments Gait Comments Generally unsteady and with decreased confidence. PT-OP-J Posture/Palpation/Skin Start: 07/26/21 12:44 Freq: Status: Active Protocol: Document 01/10/22 13:45 DCW (Rec: 01/10/22 14:01 DCW [id number]) Posture Evaluation Comments Posture Comments Forward shoulder posture bilaterally. Protective of left shoulder. PT-OP-K Range of Motion Start: 07/26/21 12:44 Freq: Status: Active Protocol: Document 01/10/22 13:45 DCW (Rec: 01/10/22 14:01 DCW [id number]) Cervical Spine Range of Motion Cervical Spine Active Testing Position Sitting Flexion 35 Extension 34 Rotation Left 45 Rotation Right 35 Lateral Flexion Left 37 Lateral Flexion Right 22 Comments Pt denies neck pain with all movements Shoulder Goniometric Range of Motion Shoulder Left Passive Shoulder ROM WFL No Testing Position Sitting Flexion 54 Abduction 68 External Rotation at 45 degrees 15 Abduction Internal Rotation Behind Back (text) to left PSIS Elbow/Forearm Range of Motion Elbow/Forearm Left Active ROM Testing Position Sitting Elbow Flexion (degrees) 148 Elbow Extension (degrees) 5 PT-OP-M Strength Start: 07/26/21 12:44 Freq: Status: Active Protocol: Document 01/10/22 13:45 DCW (Rec: 01/10/22 14:01 DCW [id number]) Shoulder Strength Shoulder Manual Muscle Testing Left Flexion 2- Poor- Abduction (C5) 2- Poor- External Rotation 2 Poor Internal Rotation 3- Fair- Right Flexion 4+ Good+ Extension 4+ Good+ Abduction (C5) 4+ Good+ External Rotation 4+ Good+ Internal Rotation 4+ Good+ PT-OP-Q Treatments Start: 07/26/21 12:44 Freq: Status: Active Protocol: Document 01/12/22 13:45 DCW (Rec: 01/12/22 14:28 DCW [id number]) Therapeutic Exercises Sitting Exercises AA Shldr ER Sitting Exercise Name AAROM shoulder ER Side left Comments Pulleys shoulder flex Sitting Exercise Name AAROM flexion Side left Reps/Minutes 15x abduction AAROM Sitting Exercise Name AAROM Abduction Side left Standing Exercises 1 Standing Exercise Name AAROM /c PVC Comments Flexion and abduction Manual Therapy Treatment Soft Tissue Mobilization 1 Body Location infraspinatus, suprasinatus, rhomboids, subscap, teres minor Mobilization Type Myofascial Release,Sustained Pressure Joint Mobilizations 1 Joint GH Direction A->P, Sup->Inf Grade III Body Position Hooklying Manual Techniques 1 Type PROM all planes Body Position Supine Comments pain-free ROM PT-OP-R Modalities Start: 07/26/21 12:44 Freq: Status: Active Protocol: Document 12/29/21 14:36 LRN (Rec: 12/29/21 15:22 LRN [id number]) Hot Pack/Cold Pack Treatment Cold Pack Location L shoulder Patient Position Sitting Treatment Duration (minutes) 8 PT-OP-T Assessment and Plan Start: 07/26/21 12:44 Freq: Status: Active Protocol: Document 01/12/22 13:45 DCW (Rec: 01/12/22 14:28 DCW [id number]) Physical Therapy Assessment Impairments Impairments Functional Activities,Pain, Posture,ROM,Soft Tissue Mobility,Strength Goals Three Impairment QuickDash - 70% impairment Safety Supervisor Goal (LTG) Pt will score 45% or less impairment on QuickDash as a measure of improved ability to manage ADL's LTG Duration 03/12/22 Two Impairment shoulder strength Short Term Goal (STG) Pt will improve her strength to be able to lift her arm to 90 degrees elevation to improve her ability to use her left arm in self-care activities. 09/06/21 - Pt lifts her arm to 55 degrees in flexion. STG Duration 02/10/22 [facility] Goal (LTG) Nithya will improve her left shoulder strength to be able to lift a book from table height. LTG Duration 03/12/22 One Impairment shoulder ROM Short Term Goal (STG) Nithya will improve her shoulder flexion PROM to 90 degrees 09/06/21 - GOAL MET STG Duration Met [facility] Goal (LTG) Nithya will improve her shoulder abduction AROM to 90 degrees. 10/17/21 -flexion remains limited and painful LTG Duration 03/12/22 Assessment Summary Assessment Pt showing some increased mobility in shoulder after slightly more aggressive PROM last visit, although still very limited with AROM due to stiffness and weakness. Physical Therapy Plan Frequency and Duration Frequency of Treatment 2x/Week Duration of Treatment 2 months Plan of Care Start Date 01/10/22 Plan of Care End Date 03/12/22 Next Visit Focus/Plan Next Note Type Treatment Note Next Visit Plan Continue gentle progression of ROM and strengthening left shoulder per POC. HEP for strengthening as she is progressed.
--- NOTE | 2022-01-16 15:14 | PT.OTN ---
Current Diagnoses Displaced fracture of greater tuberosity of left humerus, initial encounter for closed fracture (01/16/22) Unspecified dislocation of left shoulder joint, subsequent encounter (01/16/22) Physical Therapy Treatment Note PT-OP-A Visit Information Start: 07/26/21 12:44 Freq: Status: Active Protocol: Document 01/16/22 14:30 DCW (Rec: 01/16/22 15:14 DCW [id number]) Out-Patient Physical Therapy Visit Information Visit Information Visit Type Treatment Note Visit Start Time 14:30 Visit Stop Time 15:00 Total Visit Minutes 30 Visit Number 32 Number of INSTRUCTIONAL PARAPROFESSIONAL Visits 0 Evaluation Information Evaluation Date 07/26/21 PT-OP-B Current Condition Start: 07/26/21 12:44 Freq: Status: Active Protocol: Document 07/26/21 15:15 AW (Rec: 07/26/21 12:55 AW [id number]) Current Condition History of Current Condition Onset Date April 2021 Current Complaints left shoulder pain History of Current Condition Nithya fell in April, resulting in comminuted left proximal humerus fracture with anterior dislocation. She has long-standing left knee pain which she feels may have contributed to her fall. Fracture was treated non- operatively and Rd was sent home in a soft sling after a brief hospital stay. Her sister was visiting from [place] at the time and extended her stay to help for a week but Nithya has been managing without assist at home since her sister left. She did have one additional fall within one week of leaving the hospital. She believes she was impaired with oxycodone at that time and denies falls since then. She had home health services - primarily OT - but she was discharged at the end of June. She can get dressed and shower without assist but is doing all overhead activities one-handed. She is currently driving even though she has trouble lifting her arm. Pain is mostly in her anterior and posterior shoulder. She denies neck pain or radiating symptoms to her arm. She lives alone in a single level home with 2 steps to enter using right rail at front of house. Prior Treatments and Tests MRI 07/06/21: 1. 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 2. Acromioclavicular joint osteoarthritis. 3. Possible Hill-Sachs deformity of the humeral head. Future Testing and Treatments Planned None identified Treatment Goals Patient/Caregiver Goals Generally, I want to be able to use my left arm. Specifically, I want to be able to hug my boyfriend. Prior Functional Status Baseline Function- ADL's Independent Baseline Function- Mobility Independent Current Functional Impairments (Reported) Functional Limitations- ADL's Limited use of left arm for most dressing and hygiene tasks Personal Factors Other Personal Factors That May Effect Depression, knee pain, and Therapy/Recovery PT-OP-C Subjective Start: 07/26/21 12:44 Freq: Status: Active Protocol: Document 01/16/22 14:30 DCW (Rec: 01/16/22 15:14 DCW [id number]) OP-PT Subjective Patient Comments Patient Comments New referral was sent over for pt from Dr Burkett, noting severe r/c tear, recommending continued PT, focus on anterior deltoid strengthening . PT-OP-F Manual Assessment Start: 07/26/21 12:44 Freq: Status: Active Protocol: Document 01/10/22 13:45 DCW (Rec: 01/10/22 14:01 DCW [id number]) Manual Assessments Soft Tissue Assessment Soft Tissue Mobility Assessment Hypertonicity in left shoulder girdle. Generally decreased muscle mass left shoulder compared with right. Joint Mobility Assessment Joint Mobility Assessment Stiffness in all planes of motion left shoulder with significant guarding even with PROM. PT-OP-G Mobility & Gait Start: 07/26/21 12:44 Freq: Status: Active Protocol: Document 07/26/21 15:15 AW (Rec: 07/26/21 17:06 AW [id number]) OP Gait Assessment Comments Gait Comments Generally unsteady and with decreased confidence. PT-OP-J Posture/Palpation/Skin Start: 07/26/21 12:44 Freq: Status: Active Protocol: Document 01/10/22 13:45 DCW (Rec: 01/10/22 14:01 DCW [id number]) Posture Evaluation Comments Posture Comments Forward shoulder posture bilaterally. Protective of left shoulder. PT-OP-K Range of Motion Start: 07/26/21 12:44 Freq: Status: Active Protocol: Document 01/10/22 13:45 DCW (Rec: 01/10/22 14:01 DCW [id number]) Cervical Spine Range of Motion Cervical Spine Active Testing Position Sitting Flexion 35 Extension 34 Rotation Left 45 Rotation Right 35 Lateral Flexion Left 37 Lateral Flexion Right 22 Comments Pt denies neck pain with all movements Shoulder Goniometric Range of Motion Shoulder Left Passive Shoulder ROM WFL No Testing Position Sitting Flexion 54 Abduction 68 External Rotation at 45 degrees 15 Abduction Internal Rotation Behind Back (text) to left PSIS Elbow/Forearm Range of Motion Elbow/Forearm Left Active ROM Testing Position Sitting Elbow Flexion (degrees) 148 Elbow Extension (degrees) 5 PT-OP-M Strength Start: 07/26/21 12:44 Freq: Status: Active Protocol: Document 01/10/22 13:45 DCW (Rec: 01/10/22 14:01 DCW [id number]) Shoulder Strength Shoulder Manual Muscle Testing Left Flexion 2- Poor- Abduction (C5) 2- Poor- External Rotation 2 Poor Internal Rotation 3- Fair- Right Flexion 4+ Good+ Extension 4+ Good+ Abduction (C5) 4+ Good+ External Rotation 4+ Good+ Internal Rotation 4+ Good+ PT-OP-Q Treatments Start: 07/26/21 12:44 Freq: Status: Active Protocol: Document 01/16/22 14:30 DCW (Rec: 01/16/22 15:14 DCW [id number]) Self-Care/Home Management Treatment Education Other Education Results from ortho appt yesterday, treatment possibilities, progression, potential surgical outcomes PT-OP-R Modalities Start: 07/26/21 12:44 Freq: Status: Active Protocol: Document 12/29/21 14:36 LRN (Rec: 12/29/21 15:22 LRN [id number]) Hot Pack/Cold Pack Treatment Cold Pack Location L shoulder Patient Position Sitting Treatment Duration (minutes) 8 PT-OP-T Assessment and Plan Start: 07/26/21 12:44 Freq: Status: Active Protocol: Document 01/16/22 14:30 DCW (Rec: 01/16/22 15:14 DCW [id number]) Physical Therapy Assessment Impairments Impairments Functional Activities,Pain, Posture,ROM,Soft Tissue Mobility,Strength Goals Three Impairment QuickDash - 70% impairment Nursing Home Goal (LTG) Pt will score 45% or less impairment on QuickDash as a measure of improved ability to manage ADL's LTG Duration 03/12/22 Two Impairment shoulder strength Short Term Goal (STG) Pt will improve her strength to be able to lift her arm to 90 degrees elevation to improve her ability to use her left arm in self-care activities. 09/06/21 - Pt lifts her arm to 55 degrees in flexion. STG Duration 02/10/22 Nursing Home Goal (LTG) Nithya will improve her left shoulder strength to be able to lift a book from table height. LTG Duration 03/12/22 One Impairment shoulder ROM Short Term Goal (STG) Nithya will improve her shoulder flexion PROM to 90 degrees 09/06/21 - GOAL MET STG Duration Met Nursing Home Goal (LTG) Nithya will improve her shoulder abduction AROM to 90 degrees. 10/17/21 -flexion remains limited and painful LTG Duration 03/12/22 Assessment Summary Assessment Entirety of session today spent counseling patient on treatment possibilities and potential outcomes. Pt was told by ortho yesterday that best option was reverse shoulder replacement, therapist and patient discussed her current lack of progress with conservative treatment, how she would not be able to accept it if her current level of function was as good as she could be. Pt leaning toward shoulder replacement, unsure if she wants to continue with therapy to maintain PROM, will take the next week to think about it, interested in getting second opinion from her primary PT next week as well. Physical Therapy Plan Frequency and Duration Frequency of Treatment 2x/Week Duration of Treatment 2 months Plan of Care Start Date 01/10/22 Plan of Care End Date 03/12/22 Next Visit Focus/Plan Next Note Type Treatment Note Next Visit Plan Continue gentle progression of ROM and strengthening left shoulder per POC. HEP for strengthening as she is progressed.
--- NOTE | 2022-01-23 17:09 | PT.OTN ---
Current Diagnoses Displaced fracture of greater tuberosity of left humerus, initial encounter for closed fracture (01/23/22) Unspecified dislocation of left shoulder joint, subsequent encounter (01/23/22) Physical Therapy Treatment Note PT-OP-A Visit Information Start: 07/26/21 12:44 Freq: Status: Active Protocol: Document 01/23/22 14:13 AW (Rec: 01/23/22 17:09 AW [id number]) Out-Patient Physical Therapy Visit Information Visit Information Visit Type Treatment Note Visit Start Time 15:15 Visit Stop Time 16:00 Total Visit Minutes 45 Visit Number 33 Number of OPTIMIZATION MANAGER Visits 0 Evaluation Information Evaluation Date 07/26/21 PT-OP-B Current Condition Start: 07/26/21 12:44 Freq: Status: Active Protocol: Document 07/26/21 15:15 AW (Rec: 07/26/21 12:55 AW [id number]) Current Condition History of Current Condition Onset Date April 2021 Current Complaints left shoulder pain History of Current Condition Nithya fell in April, resulting in comminuted left proximal humerus fracture with anterior dislocation. She has long-standing left knee pain which she feels may have contributed to her fall. Fracture was treated non- operatively and Rd was sent home in a soft sling after a brief hospital stay. Her sister was visiting from [place] at the time and extended her stay to help for a week but Nithya has been managing without assist at home since her sister left. She did have one additional fall within one week of leaving the hospital. She believes she was impaired with oxycodone at that time and denies falls since then. She had home health services - primarily OT - but she was discharged at the end of June. She can get dressed and shower without assist but is doing all overhead activities one-handed. She is currently driving even though she has trouble lifting her arm. Pain is mostly in her anterior and posterior shoulder. She denies neck pain or radiating symptoms to her arm. She lives alone in a single level home with 2 steps to enter using right rail at front of house. Prior Treatments and Tests MRI 07/06/21: 1. 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 2. Acromioclavicular joint osteoarthritis. 3. Possible Hill-Sachs deformity of the humeral head. Future Testing and Treatments Planned None identified Treatment Goals Patient/Caregiver Goals Generally, I want to be able to use my left arm. Specifically, I want to be able to hug my boyfriend. Prior Functional Status Baseline Function- ADL's Independent Baseline Function- Mobility Independent Current Functional Impairments (Reported) Functional Limitations- ADL's Limited use of left arm for most dressing and hygiene tasks Personal Factors Other Personal Factors That May Effect Depression, knee pain, and Therapy/Recovery PT-OP-C Subjective Start: 07/26/21 12:44 Freq: Status: Active Protocol: Document 01/23/22 14:13 AW (Rec: 01/23/22 17:09 AW [id number]) OP-PT Subjective Patient Comments Patient Comments I'm feeling fairly perky since last week. PT-OP-F Manual Assessment Start: 07/26/21 12:44 Freq: Status: Active Protocol: Document 01/10/22 13:45 DCW (Rec: 01/10/22 14:01 DCW [id number]) Manual Assessments Soft Tissue Assessment Soft Tissue Mobility Assessment Hypertonicity in left shoulder girdle. Generally decreased muscle mass left shoulder compared with right. Joint Mobility Assessment Joint Mobility Assessment Stiffness in all planes of motion left shoulder with significant guarding even with PROM. PT-OP-G Mobility & Gait Start: 07/26/21 12:44 Freq: Status: Active Protocol: Document 07/26/21 15:15 AW (Rec: 07/26/21 17:06 AW [id number]) OP Gait Assessment Comments Gait Comments Generally unsteady and with decreased confidence. PT-OP-J Posture/Palpation/Skin Start: 07/26/21 12:44 Freq: Status: Active Protocol: Document 01/10/22 13:45 DCW (Rec: 01/10/22 14:01 DCW [id number]) Posture Evaluation Comments Posture Comments Forward shoulder posture bilaterally. Protective of left shoulder. PT-OP-K Range of Motion Start: 07/26/21 12:44 Freq: Status: Active Protocol: Document 01/10/22 13:45 DCW (Rec: 01/10/22 14:01 DCW [id number]) Cervical Spine Range of Motion Cervical Spine Active Testing Position Sitting Flexion 35 Extension 34 Rotation Left 45 Rotation Right 35 Lateral Flexion Left 37 Lateral Flexion Right 22 Comments Pt denies neck pain with all movements Shoulder Goniometric Range of Motion Shoulder Left Passive Shoulder ROM WFL No Testing Position Sitting Flexion 54 Abduction 68 External Rotation at 45 degrees 15 Abduction Internal Rotation Behind Back (text) to left PSIS Elbow/Forearm Range of Motion Elbow/Forearm Left Active ROM Testing Position Sitting Elbow Flexion (degrees) 148 Elbow Extension (degrees) 5 PT-OP-M Strength Start: 07/26/21 12:44 Freq: Status: Active Protocol: Document 01/10/22 13:45 DCW (Rec: 01/10/22 14:01 DCW [id number]) Shoulder Strength Shoulder Manual Muscle Testing Left Flexion 2- Poor- Abduction (C5) 2- Poor- External Rotation 2 Poor Internal Rotation 3- Fair- Right Flexion 4+ Good+ Extension 4+ Good+ Abduction (C5) 4+ Good+ External Rotation 4+ Good+ Internal Rotation 4+ Good+ PT-OP-Q Treatments Start: 07/26/21 12:44 Freq: Status: Active Protocol: Document 01/23/22 14:13 AW (Rec: 01/23/22 17:09 AW [id number]) Therapeutic Exercises Sitting Exercises shoulder flex Sitting Exercise Name AAROM flexion Side left Equipment Used pulleys Reps/Minutes 15x abduction AAROM Sitting Exercise Name AAROM Abduction Side left Equipment Used pulleys Standing Exercises resisted extension Standing Exercise Name extension Side left Resistance TB1 Reps/Minutes 2x5 Comments clinic only resisted row Standing Exercise Name row Resistance TB1 Reps/Minutes 2x5 Comments clinic only 1 Standing Exercise Name AAROM /c PVC Comments Flexion and abduction Manual Therapy Treatment Soft Tissue Mobilization 1 Body Location infraspinatus, suprasinatus, rhomboids, subscap, teres minor Mobilization Type Myofascial Release,Sustained Pressure Manual Techniques 1 Type PROM all planes Body Position Supine Comments pain-free ROM Self-Care/Home Management Treatment Education Other Education Continued discussion on treatment options including possibility of reverse TSA. Pt is feeling good about current progress but will weigh current function against expected rehab outcomes from TSA. PT-OP-R Modalities Start: 07/26/21 12:44 Freq: Status: Active Protocol: Document 12/29/21 14:36 LRN (Rec: 12/29/21 15:22 LRN [id number]) Hot Pack/Cold Pack Treatment Cold Pack Location L shoulder Patient Position Sitting Treatment Duration (minutes) 8 PT-OP-T Assessment and Plan Start: 07/26/21 12:44 Freq: Status: Active Protocol: Document 01/23/22 14:13 AW (Rec: 01/23/22 17:09 AW [id number]) Physical Therapy Assessment Impairments Impairments Functional Activities,Pain, Posture,ROM,Soft Tissue Mobility,Strength Goals Three Impairment QuickDash - 70% impairment Continuous Linter Drier Operator Goal (LTG) Pt will score 45% or less impairment on QuickDash as a measure of improved ability to manage ADL's LTG Duration 03/12/22 Two Impairment shoulder strength Short Term Goal (STG) Pt will improve her strength to be able to lift her arm to 90 degrees elevation to improve her ability to use her left arm in self-care activities. 09/06/21 - Pt lifts her arm to 55 degrees in flexion. STG Duration 02/10/22 Longterm Goal (LTG) Nithya will improve her left shoulder strength to be able to lift a book from table height. LTG Duration 03/12/22 One Impairment shoulder ROM Short Term Goal (STG) Nithya will improve her shoulder flexion PROM to 90 degrees 09/06/21 - GOAL MET STG Duration Met Longterm Goal (LTG) Nithya will improve her shoulder abduction AROM to 90 degrees. 10/17/21 -flexion remains limited and painful LTG Duration 03/12/22 Assessment Summary Assessment Nithya would like to avoid surgery if at all possible but understands it may be her best option for improving function. Discussed options again at length today. Plan to continue through current plan of care and to continually reassess. Physical Therapy Plan Frequency and Duration Frequency of Treatment 2x/Week Duration of Treatment 2 months Plan of Care Start Date 01/10/22 Plan of Care End Date 03/12/22 Next Visit Focus/Plan Next Note Type Treatment Note Next Visit Plan Continue gentle progression of ROM and strengthening left shoulder per POC. HEP for strengthening as she is progressed.
--- NOTE | 2022-01-26 14:27 | PT.OTN ---
Current Diagnoses Displaced fracture of greater tuberosity of left humerus, initial encounter for closed fracture (01/26/22) Unspecified dislocation of left shoulder joint, subsequent encounter (01/26/22) Physical Therapy Treatment Note PT-OP-A Visit Information Start: 07/26/21 12:44 Freq: Status: Active Protocol: Document 01/26/22 13:46 DCW (Rec: 01/26/22 14:27 DCW [id number]) Out-Patient Physical Therapy Visit Information Visit Information Visit Type Treatment Note Visit Start Time 13:46 Visit Stop Time 14:30 Total Visit Minutes 44 Visit Number 34 Number of LEGAL FINANCIAL SPECIALIST Visits 0 Evaluation Information Evaluation Date 07/26/21 PT-OP-B Current Condition Start: 07/26/21 12:44 Freq: Status: Active Protocol: Document 07/26/21 15:15 AW (Rec: 07/26/21 12:55 AW [id number]) Current Condition History of Current Condition Onset Date April 2021 Current Complaints left shoulder pain History of Current Condition Nithya fell in April, resulting in comminuted left proximal humerus fracture with anterior dislocation. She has long-standing left knee pain which she feels may have contributed to her fall. Fracture was treated non- operatively and Rd was sent home in a soft sling after a brief hospital stay. Her sister was visiting from [place] at the time and extended her stay to help for a week but Nithya has been managing without assist at home since her sister left. She did have one additional fall within one week of leaving the hospital. She believes she was impaired with oxycodone at that time and denies falls since then. She had home health services - primarily OT - but she was discharged at the end of June. She can get dressed and shower without assist but is doing all overhead activities one-handed. She is currently driving even though she has trouble lifting her arm. Pain is mostly in her anterior and posterior shoulder. She denies neck pain or radiating symptoms to her arm. She lives alone in a single level home with 2 steps to enter using right rail at front of house. Prior Treatments and Tests MRI 07/06/21: 1. 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 2. Acromioclavicular joint osteoarthritis. 3. Possible Hill-Sachs deformity of the humeral head. Future Testing and Treatments Planned None identified Treatment Goals Patient/Caregiver Goals Generally, I want to be able to use my left arm. Specifically, I want to be able to hug my boyfriend. Prior Functional Status Baseline Function- ADL's Independent Baseline Function- Mobility Independent Current Functional Impairments (Reported) Functional Limitations- ADL's Limited use of left arm for most dressing and hygiene tasks Personal Factors Other Personal Factors That May Effect Depression, knee pain, and Therapy/Recovery PT-OP-C Subjective Start: 07/26/21 12:44 Freq: Status: Active Protocol: Document 01/26/22 13:46 DCW (Rec: 01/26/22 14:27 DCW [id number]) OP-PT Subjective Patient Comments Patient Comments It's doing well, you've all really worked wonders with it. Pt notes that she has decided that she isn't going to [place]raz[place] into any surgery, is happy with her current progression in PT, and would like to continue with more conservative treatment. PT-OP-F Manual Assessment Start: 07/26/21 12:44 Freq: Status: Active Protocol: Document 01/10/22 13:45 DCW (Rec: 01/10/22 14:01 DCW [id number]) Manual Assessments Soft Tissue Assessment Soft Tissue Mobility Assessment Hypertonicity in left shoulder girdle. Generally decreased muscle mass left shoulder compared with right. Joint Mobility Assessment Joint Mobility Assessment Stiffness in all planes of motion left shoulder with significant guarding even with PROM. PT-OP-G Mobility & Gait Start: 07/26/21 12:44 Freq: Status: Active Protocol: Document 07/26/21 15:15 AW (Rec: 07/26/21 17:06 AW [id number]) OP Gait Assessment Comments Gait Comments Generally unsteady and with decreased confidence. PT-OP-J Posture/Palpation/Skin Start: 07/26/21 12:44 Freq: Status: Active Protocol: Document 01/10/22 13:45 DCW (Rec: 01/10/22 14:01 DCW [id number]) Posture Evaluation Comments Posture Comments Forward shoulder posture bilaterally. Protective of left shoulder. PT-OP-K Range of Motion Start: 07/26/21 12:44 Freq: Status: Active Protocol: Document 01/10/22 13:45 DCW (Rec: 01/10/22 14:01 [facility] [id number]) Cervical Spine Range of Motion Cervical Spine Active Testing Position Sitting Flexion 35 Extension 34 Rotation Left 45 Rotation Right 35 Lateral Flexion Left 37 Lateral Flexion Right 22 Comments Pt denies neck pain with all movements Shoulder Goniometric Range of Motion Shoulder Left Passive Shoulder ROM WFL No Testing Position Sitting Flexion 54 Abduction 68 External Rotation at 45 degrees 15 Abduction Internal Rotation Behind Back (text) to left PSIS Elbow/Forearm Range of Motion Elbow/Forearm Left Active ROM Testing Position Sitting Elbow Flexion (degrees) 148 Elbow Extension (degrees) 5 PT-OP-M Strength Start: 07/26/21 12:44 Freq: Status: Active Protocol: Document 01/10/22 13:45 DCW (Rec: 01/10/22 14:01 [facility] [id number]) Shoulder Strength Shoulder Manual Muscle Testing Left Flexion 2- Poor- Abduction (C5) 2- Poor- External Rotation 2 Poor Internal Rotation 3- Fair- Right Flexion 4+ Good+ Extension 4+ Good+ Abduction (C5) 4+ Good+ External Rotation 4+ Good+ Internal Rotation 4+ Good+ PT-OP-Q Treatments Start: 07/26/21 12:44 Freq: Status: Active Protocol: Document 01/26/22 13:46 DCW (Rec: 01/26/22 14:27 [facility] [id number]) Therapeutic Exercises Supine Exercises flexion AROM Supine Exercise Name flexion AROM Side bilateral Resistance 1# Sitting Exercises shoulder flex Sitting Exercise Name AAROM flexion Side left Equipment Used pulleys Reps/Minutes 15x abduction AAROM Sitting Exercise Name AAROM Abduction Side left Equipment Used pulleys Standing Exercises Flexion Standing Exercise Name Standing flexion Side bilateral Resistance 1# Comments Visual cues to limit UT recruitment resisted extension Standing Exercise Name extension Side left Resistance TB2 Reps/Minutes 2x5 Comments clinic only resisted row Standing Exercise Name row Resistance TB2 Reps/Minutes 2x5 Comments clinic only Manual Therapy Treatment Soft Tissue Mobilization 1 Body Location infraspinatus, suprasinatus, rhomboids, subscap, teres minor Mobilization Type Myofascial Release,Sustained Pressure Joint Mobilizations 1 Joint GH Direction A->P, Sup->Inf Grade III Body Position Hooklying Manual Techniques 1 Type PROM all planes Body Position Supine Comments pain-free ROM PT-OP-R Modalities Start: 07/26/21 12:44 Freq: Status: Active Protocol: Document 12/29/21 14:36 LRN (Rec: 12/29/21 15:22 LRN [id number]) Hot Pack/Cold Pack Treatment Cold Pack Location L shoulder Patient Position Sitting Treatment Duration (minutes) 8 PT-OP-T Assessment and Plan Start: 07/26/21 12:44 Freq: Status: Active Protocol: Document 01/26/22 13:46 DCW (Rec: 01/26/22 14:27 DCW [id number]) Physical Therapy Assessment Impairments Impairments Functional Activities,Pain, Posture,ROM,Soft Tissue Mobility,Strength Goals Three Impairment QuickDash - 70% impairment Mcfp Goal (LTG) Pt will score 45% or less impairment on QuickDash as a measure of improved ability to manage ADL's LTG Duration 03/12/22 Two Impairment shoulder strength Short Term Goal (STG) Pt will improve her strength to be able to lift her arm to 90 degrees elevation to improve her ability to use her left arm in self-care activities. 09/06/21 - Pt lifts her arm to 55 degrees in flexion. STG Duration 02/10/22 Mcfp Goal (LTG) Nithya will improve her left shoulder strength to be able to lift a book from table height. LTG Duration 03/12/22 One Impairment shoulder ROM Short Term Goal (STG) Nithya will improve her shoulder flexion PROM to 90 degrees 09/06/21 - GOAL MET STG Duration Met Mcfp Goal (LTG) Nithya will improve her shoulder abduction AROM to 90 degrees. 10/17/21 -flexion remains limited and painful LTG Duration 03/12/22 Assessment Summary Assessment Pt overall in a much better place mentally this week than last, much more optimistic about current progress, and working more with her HEP. Some improvement with PROM, addition of anterior deltoid strengthening in supine Physical Therapy Plan Frequency and Duration Frequency of Treatment 2x/Week Duration of Treatment 2 months Plan of Care Start Date 01/10/22 Plan of Care End Date 03/12/22 Next Visit Focus/Plan Next Note Type Treatment Note Next Visit Plan Continue gentle progression of ROM and strengthening left shoulder per POC. HEP for strengthening as she is progressed.
--- NOTE | 2022-02-02 14:30 | PT.OTN ---
Current Diagnoses Displaced fracture of greater tuberosity of left humerus, initial encounter for closed fracture (02/02/22) Unspecified dislocation of left shoulder joint, subsequent encounter (02/02/22) Physical Therapy Treatment Note PT-OP-A Visit Information Start: 07/26/21 12:44 Freq: Status: Active Protocol: Document 02/02/22 13:45 DCW (Rec: 02/02/22 14:29 DCW [id number]) Out-Patient Physical Therapy Visit Information Visit Information Visit Type Treatment Note Visit Start Time 13:45 Visit Stop Time 14:30 Total Visit Minutes 45 Visit Number 35 Number of CONFERENCE SERVICE COORDINATOR Visits 0 Evaluation Information Evaluation Date 07/26/21 PT-OP-B Current Condition Start: 07/26/21 12:44 Freq: Status: Active Protocol: Document 07/26/21 15:15 AW (Rec: 07/26/21 12:55 AW [id number]) Current Condition History of Current Condition Onset Date April 2021 Current Complaints left shoulder pain History of Current Condition Nithya fell in April, resulting in comminuted left proximal humerus fracture with anterior dislocation. She has long-standing left knee pain which she feels may have contributed to her fall. Fracture was treated non- operatively and Rd was sent home in a soft sling after a brief hospital stay. Her sister was visiting from [place] at the time and extended her stay to help for a week but Nithya has been managing without assist at home since her sister left. She did have one additional fall within one week of leaving the hospital. She believes she was impaired with oxycodone at that time and denies falls since then. She had home health services - primarily OT - but she was discharged at the end of June. She can get dressed and shower without assist but is doing all overhead activities one-handed. She is currently driving even though she has trouble lifting her arm. Pain is mostly in her anterior and posterior shoulder. She denies neck pain or radiating symptoms to her arm. She lives alone in a single level home with 2 steps to enter using right rail at front of house. Prior Treatments and Tests MRI 07/06/21: 1. 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 2. Acromioclavicular joint osteoarthritis. 3. Possible Hill-Sachs deformity of the humeral head. Future Testing and Treatments Planned None identified Treatment Goals Patient/Caregiver Goals Generally, I want to be able to use my left arm. Specifically, I want to be able to hug my boyfriend. Prior Functional Status Baseline Function- ADL's Independent Baseline Function- Mobility Independent Current Functional Impairments (Reported) Functional Limitations- ADL's Limited use of left arm for most dressing and hygiene tasks Personal Factors Other Personal Factors That May Effect Depression, knee pain, and Therapy/Recovery PT-OP-C Subjective Start: 07/26/21 12:44 Freq: Status: Active Protocol: Document 02/02/22 13:45 DCW (Rec: 02/02/22 14:30 DCW [id number]) OP-PT Subjective Patient Comments Patient Comments Pt reports she is feeling pretty good today PT-OP-F Manual Assessment Start: 07/26/21 12:44 Freq: Status: Active Protocol: Document 01/10/22 13:45 DCW (Rec: 01/10/22 14:01 DCW [id number]) Manual Assessments Soft Tissue Assessment Soft Tissue Mobility Assessment Hypertonicity in left shoulder girdle. Generally decreased muscle mass left shoulder compared with right. Joint Mobility Assessment Joint Mobility Assessment Stiffness in all planes of motion left shoulder with significant guarding even with PROM. PT-OP-G Mobility & Gait Start: 07/26/21 12:44 Freq: Status: Active Protocol: Document 07/26/21 15:15 AW (Rec: 07/26/21 17:06 AW [id number]) OP Gait Assessment Comments Gait Comments Generally unsteady and with decreased confidence. PT-OP-J Posture/Palpation/Skin Start: 07/26/21 12:44 Freq: Status: Active Protocol: Document 01/10/22 13:45 DCW (Rec: 01/10/22 14:01 DCW [id number]) Posture Evaluation Comments Posture Comments Forward shoulder posture bilaterally. Protective of left shoulder. PT-OP-K Range of Motion Start: 07/26/21 12:44 Freq: Status: Active Protocol: Document 01/10/22 13:45 DCW (Rec: 01/10/22 14:01 DCW [id number]) Cervical Spine Range of Motion Cervical Spine Active Testing Position Sitting Flexion 35 Extension 34 Rotation Left 45 Rotation Right 35 Lateral Flexion Left 37 Lateral Flexion Right 22 Comments Pt denies neck pain with all movements Shoulder Goniometric Range of Motion Shoulder Left Passive Shoulder ROM WFL No Testing Position Sitting Flexion 54 Abduction 68 External Rotation at 45 degrees 15 Abduction Internal Rotation Behind Back (text) to left PSIS Elbow/Forearm Range of Motion Elbow/Forearm Left Active ROM Testing Position Sitting Elbow Flexion (degrees) 148 Elbow Extension (degrees) 5 PT-OP-M Strength Start: 07/26/21 12:44 Freq: Status: Active Protocol: Document 01/10/22 13:45 DCW (Rec: 01/10/22 14:01 DCW [id number]) Shoulder Strength Shoulder Manual Muscle Testing Left Flexion 2- Poor- Abduction (C5) 2- Poor- External Rotation 2 Poor Internal Rotation 3- Fair- Right Flexion 4+ Good+ Extension 4+ Good+ Abduction (C5) 4+ Good+ External Rotation 4+ Good+ Internal Rotation 4+ Good+ PT-OP-Q Treatments Start: 07/26/21 12:44 Freq: Status: Active Protocol: Document 02/02/22 13:45 DCW (Rec: 02/02/22 14:29 DCW [id number]) Therapeutic Exercises Supine Exercises flexion AROM Supine Exercise Name flexion AROM Side bilateral Resistance 1# Sitting Exercises shoulder flex Sitting Exercise Name AAROM flexion Side left Equipment Used pulleys Reps/Minutes 15x abduction AAROM Sitting Exercise Name AAROM Abduction Side left Equipment Used pulleys Standing Exercises resisted extension Standing Exercise Name extension Side left Resistance TB 2 Reps/Minutes 2x5 Comments clinic only resisted row Standing Exercise Name rows Resistance TB 2 Reps/Minutes 2x5 Comments clinic only 1 Standing Exercise Name AAROM /c PVC Comments Flexion and abduction Manual Therapy Treatment Soft Tissue Mobilization 1 Body Location infraspinatus, suprasinatus, rhomboids, subscap, teres minor Mobilization Type Myofascial Release,Sustained Pressure Joint Mobilizations 1 Joint GH Direction A->P, Sup->Inf Grade III Body Position Hooklying Manual Techniques 1 Type PROM all planes Body Position Supine Comments pain-free ROM Self-Care/Home Management Treatment Education Other Education Training with use of Thera- cane, self-STM techniques PT-OP-R Modalities Start: 07/26/21 12:44 Freq: Status: Active Protocol: Document 12/29/21 14:36 LRN (Rec: 12/29/21 15:22 LRN [id number]) Hot Pack/Cold Pack Treatment Cold Pack Location L shoulder Patient Position Sitting Treatment Duration (minutes) 8 PT-OP-T Assessment and Plan Start: 07/26/21 12:44 Freq: Status: Active Protocol: Document 02/02/22 13:45 DCW (Rec: 02/02/22 14:29 DCW [id number]) Physical Therapy Assessment Impairments Impairments Functional Activities,Pain, Posture,ROM,Soft Tissue Mobility,Strength Goals Three Impairment QuickDash - 70% impairment Search Engine Marketing Strategist Goal (LTG) Pt will score 45% or less impairment on QuickDash as a measure of improved ability to manage ADL's LTG Duration 03/12/22 Two Impairment shoulder strength Short Term Goal (STG) Pt will improve her strength to be able to lift her arm to 90 degrees elevation to improve her ability to use her left arm in self-care activities. 09/06/21 - Pt lifts her arm to 55 degrees in flexion. STG Duration 02/10/22 Snf Goal (LTG) Nithya will improve her left shoulder strength to be able to lift a book from table height. LTG Duration 03/12/22 One Impairment shoulder ROM Short Term Goal (STG) Nithya will improve her shoulder flexion PROM to 90 degrees 09/06/21 - GOAL MET STG Duration Met Search Engine Marketing Strategist Goal (LTG) Nithya will improve her shoulder abduction AROM to 90 degrees. 10/17/21 -flexion remains limited and painful LTG Duration 03/12/22 Assessment Summary Assessment Pt brought in her own Thera- cane today to ask questions about how to best perform self -STM to help improve her ROM and tone. Pt showing some slight improvement with PROM. Physical Therapy Plan Frequency and Duration Frequency of Treatment 2x/Week Duration of Treatment 2 months Plan of Care Start Date 01/10/22 Plan of Care End Date 03/12/22 Next Visit Focus/Plan Next Note Type Treatment Note Next Visit Plan Continue gentle progression of ROM and strengthening left shoulder per POC. HEP for strengthening as she is progressed.
--- NOTE | 2022-02-07 15:16 | PT.OTN ---
Current Diagnoses Displaced fracture of greater tuberosity of left humerus, initial encounter for closed fracture (02/07/22) Unspecified dislocation of left shoulder joint, subsequent encounter (02/07/22) Physical Therapy Treatment Note PT-OP-A Visit Information Start: 07/26/21 12:44 Freq: Status: Active Protocol: Document 02/07/22 14:30 DCW (Rec: 02/07/22 15:15 DCW [id number]) Out-Patient Physical Therapy Visit Information Visit Information Visit Type Treatment Note Visit Start Time 14:30 Visit Stop Time 15:15 Total Visit Minutes 45 Visit Number 36 Number of STEEL DETAILER Visits 0 Evaluation Information Evaluation Date 07/26/21 PT-OP-B Current Condition Start: 07/26/21 12:44 Freq: Status: Active Protocol: Document 07/26/21 15:15 AW (Rec: 07/26/21 12:55 AW [id number]) Current Condition History of Current Condition Onset Date April 2021 Current Complaints left shoulder pain History of Current Condition Nithya fell in April, resulting in comminuted left proximal humerus fracture with anterior dislocation. She has long-standing left knee pain which she feels may have contributed to her fall. Fracture was treated non- operatively and Rd was sent home in a soft sling after a brief hospital stay. Her sister was visiting from [place] at the time and extended her stay to help for a week but Nithya has been managing without assist at home since her sister left. She did have one additional fall within one week of leaving the hospital. She believes she was impaired with oxycodone at that time and denies falls since then. She had home health services - primarily OT - but she was discharged at the end of June. She can get dressed and shower without assist but is doing all overhead activities one-handed. She is currently driving even though she has trouble lifting her arm. Pain is mostly in her anterior and posterior shoulder. She denies neck pain or radiating symptoms to her arm. She lives alone in a single level home with 2 steps to enter using right rail at front of house. Prior Treatments and Tests MRI 07/06/21: 1. 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 2. Acromioclavicular joint osteoarthritis. 3. Possible Hill-Sachs deformity of the humeral head. Future Testing and Treatments Planned None identified Treatment Goals Patient/Caregiver Goals Generally, I want to be able to use my left arm. Specifically, I want to be able to hug my boyfriend. Prior Functional Status Baseline Function- ADL's Independent Baseline Function- Mobility Independent Current Functional Impairments (Reported) Functional Limitations- ADL's Limited use of left arm for most dressing and hygiene tasks Personal Factors Other Personal Factors That May Effect Depression, knee pain, and Therapy/Recovery PT-OP-C Subjective Start: 07/26/21 12:44 Freq: Status: Active Protocol: Document 02/07/22 14:30 DCW (Rec: 02/07/22 15:16 DCW [id number]) OP-PT Subjective Patient Comments Patient Comments Pt feeling pretty good today. PT-OP-F Manual Assessment Start: 07/26/21 12:44 Freq: Status: Active Protocol: Document 01/10/22 13:45 DCW (Rec: 01/10/22 14:01 DCW [id number]) Manual Assessments Soft Tissue Assessment Soft Tissue Mobility Assessment Hypertonicity in left shoulder girdle. Generally decreased muscle mass left shoulder compared with right. Joint Mobility Assessment Joint Mobility Assessment Stiffness in all planes of motion left shoulder with significant guarding even with PROM. PT-OP-G Mobility & Gait Start: 07/26/21 12:44 Freq: Status: Active Protocol: Document 07/26/21 15:15 AW (Rec: 07/26/21 17:06 AW [id number]) OP Gait Assessment Comments Gait Comments Generally unsteady and with decreased confidence. PT-OP-J Posture/Palpation/Skin Start: 07/26/21 12:44 Freq: Status: Active Protocol: Document 01/10/22 13:45 DCW (Rec: 01/10/22 14:01 DCW [id number]) Posture Evaluation Comments Posture Comments Forward shoulder posture bilaterally. Protective of left shoulder. PT-OP-K Range of Motion Start: 07/26/21 12:44 Freq: Status: Active Protocol: Document 01/10/22 13:45 DCW (Rec: 01/10/22 14:01 DCW [id number]) Cervical Spine Range of Motion Cervical Spine Active Testing Position Sitting Flexion 35 Extension 34 Rotation Left 45 Rotation Right 35 Lateral Flexion Left 37 Lateral Flexion Right 22 Comments Pt denies neck pain with all movements Shoulder Goniometric Range of Motion Shoulder Left Passive Shoulder ROM WFL No Testing Position Sitting Flexion 54 Abduction 68 External Rotation at 45 degrees 15 Abduction Internal Rotation Behind Back (text) to left PSIS Elbow/Forearm Range of Motion Elbow/Forearm Left Active ROM Testing Position Sitting Elbow Flexion (degrees) 148 Elbow Extension (degrees) 5 PT-OP-M Strength Start: 07/26/21 12:44 Freq: Status: Active Protocol: Document 01/10/22 13:45 DCW (Rec: 01/10/22 14:01 DCW [id number]) Shoulder Strength Shoulder Manual Muscle Testing Left Flexion 2- Poor- Abduction (C5) 2- Poor- External Rotation 2 Poor Internal Rotation 3- Fair- Right Flexion 4+ Good+ Extension 4+ Good+ Abduction (C5) 4+ Good+ External Rotation 4+ Good+ Internal Rotation 4+ Good+ PT-OP-Q Treatments Start: 07/26/21 12:44 Freq: Status: Active Protocol: Document 02/07/22 14:30 DCW (Rec: 02/07/22 15:15 DCW [id number]) Cardio Equipment Upper Body Ergometer (UBE) Duration (Minutes) 5 Seat Position 16 Height 2 Therapeutic Exercises Supine Exercises AAROM Supine Exercise Name flexion /c PVC Side bilateral Sitting Exercises shoulder flex Sitting Exercise Name AAROM flexion Side left Equipment Used pulleys Reps/Minutes 15x abduction AAROM Sitting Exercise Name AAROM Abduction Side left Equipment Used pulleys Standing Exercises Flexion Standing Exercise Name Standing flexion Side bilateral Resistance 1# Comments Visual cues to limit UT recruitment resisted extension Standing Exercise Name extension Side left Resistance TB 2 Reps/Minutes 2x5 Comments clinic only resisted row Standing Exercise Name rows Resistance TB 2 Reps/Minutes 2x5 Comments clinic only 1 Standing Exercise Name AAROM /c PVC Comments Flexion and abduction Manual Therapy Treatment Soft Tissue Mobilization 1 Body Location infraspinatus, suprasinatus, rhomboids, subscap, teres minor Mobilization Type Myofascial Release,Sustained Pressure Joint Mobilizations 1 Joint GH Direction A->P, Sup->Inf Grade III Body Position Hooklying Manual Techniques 1 Type PROM all planes Body Position Supine Comments pain-free ROM PT-OP-R Modalities Start: 07/26/21 12:44 Freq: Status: Active Protocol: Document 12/29/21 14:36 LRN (Rec: 12/29/21 15:22 LRN [id number]) Hot Pack/Cold Pack Treatment Cold Pack Location L shoulder Patient Position Sitting Treatment Duration (minutes) 8 PT-OP-T Assessment and Plan Start: 07/26/21 12:44 Freq: Status: Active Protocol: Document 02/07/22 14:30 DCW (Rec: 02/07/22 15:15 DCW [id number]) Physical Therapy Assessment Impairments Impairments Functional Activities,Pain, Posture,ROM,Soft Tissue Mobility,Strength Goals Three Impairment QuickDash - 70% impairment Prison Goal (LTG) Pt will score 45% or less impairment on QuickDash as a measure of improved ability to manage ADL's LTG Duration 03/12/22 Two Impairment shoulder strength Short Term Goal (STG) Pt will improve her strength to be able to lift her arm to 90 degrees elevation to improve her ability to use her left arm in self-care activities. 09/06/21 - Pt lifts her arm to 55 degrees in flexion. STG Duration 02/10/22 Cook Chill Technician Goal (LTG) Nithya will improve her left shoulder strength to be able to lift a book from table height. LTG Duration 03/12/22 One Impairment shoulder ROM Short Term Goal (STG) Nithya will improve her shoulder flexion PROM to 90 degrees 09/06/21 - GOAL MET STG Duration Met Prison Goal (LTG) Nithya will improve her shoulder abduction AROM to 90 degrees. 10/17/21 -flexion remains limited and painful LTG Duration 03/12/22 Assessment Summary Assessment Pt showing some good progress with active ROM, tolerated addition of UBE. Pt happy with recent progress. Physical Therapy Plan Frequency and Duration Frequency of Treatment 2x/Week Duration of Treatment 2 months Plan of Care Start Date 01/10/22 Plan of Care End Date 03/12/22 Next Visit Focus/Plan Next Note Type Treatment Note Next Visit Plan Continue gentle progression of ROM and strengthening left shoulder per POC. HEP for strengthening as she is progressed.
--- NOTE | 2022-02-14 09:31 | PT.OTN ---
Current Diagnoses Displaced fracture of greater tuberosity of left humerus, initial encounter for closed fracture (02/14/22) Unspecified dislocation of left shoulder joint, subsequent encounter (02/14/22) Physical Therapy Treatment Note PT-OP-A Visit Information Start: 07/26/21 12:44 Freq: Status: Active Protocol: Document 02/14/22 08:20 [facility] (Rec: 02/14/22 09:31 [facility] [id number]) Out-Patient Physical Therapy Visit Information Visit Information Visit Type Treatment Note Visit Start Time 08:21 Visit Stop Time 09:02 Total Visit Minutes 41 Visit Number 37 Number of CANDY SUPERVISOR Visits 0 PT-OP-B Current Condition Start: 07/26/21 12:44 Freq: Status: Active Protocol: Document 07/26/21 15:15 AW (Rec: 07/26/21 12:55 AW [id number]) Current Condition History of Current Condition Onset Date April 2021 Current Complaints left shoulder pain History of Current Condition Nithya fell in April, resulting in comminuted left proximal humerus fracture with anterior dislocation. She has long-standing left knee pain which she feels may have contributed to her fall. Fracture was treated non- operatively and Rd was sent home in a soft sling after a brief hospital stay. Her sister was visiting from [place] at the time and extended her stay to help for a week but Nithya has been managing without assist at home since her sister left. She did have one additional fall within one week of leaving the hospital. She believes she was impaired with oxycodone at that time and denies falls since then. She had home health services - primarily OT - but she was discharged at the end of June. She can get dressed and shower without assist but is doing all overhead activities one-handed. She is currently driving even though she has trouble lifting her arm. Pain is mostly in her anterior and posterior shoulder. She denies neck pain or radiating symptoms to her arm. She lives alone in a single level home with 2 steps to enter using right rail at front of house. Prior Treatments and Tests MRI 07/06/21: 1. 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 2. Acromioclavicular joint osteoarthritis. 3. Possible Hill-Sachs deformity of the humeral head. Future Testing and Treatments Planned None identified Treatment Goals Patient/Caregiver Goals Generally, I want to be able to use my left arm. Specifically, I want to be able to hug my boyfriend. Prior Functional Status Baseline Function- ADL's Independent Baseline Function- Mobility Independent Current Functional Impairments (Reported) Functional Limitations- ADL's Limited use of left arm for most dressing and hygiene tasks Personal Factors Other Personal Factors That May Effect Depression, knee pain, and Therapy/Recovery PT-OP-C Subjective Start: 07/26/21 12:44 Freq: Status: Active Protocol: Document 02/14/22 08:20 [facility] (Rec: 02/14/22 09:31 [facility] [id number]) OP-PT Subjective Patient Comments Patient Comments Pt reports she isn't sure her shoulder will ever get better. She has been compliant w/HEP. She saw MD and he said her only option is TSA reverse. PT-OP-F Manual Assessment Start: 07/26/21 12:44 Freq: Status: Active Protocol: Document 01/10/22 13:45 [facility] (Rec: 01/10/22 14:01 [facility] [id number]) Manual Assessments Soft Tissue Assessment Soft Tissue Mobility Assessment Hypertonicity in left shoulder girdle. Generally decreased muscle mass left shoulder compared with right. Joint Mobility Assessment Joint Mobility Assessment Stiffness in all planes of motion left shoulder with significant guarding even with PROM. PT-OP-G Mobility & Gait Start: 07/26/21 12:44 Freq: Status: Active Protocol: Document 07/26/21 15:15 AW (Rec: 07/26/21 17:06 AW [id number]) OP Gait Assessment Comments Gait Comments Generally unsteady and with decreased confidence. PT-OP-J Posture/Palpation/Skin Start: 07/26/21 12:44 Freq: Status: Active Protocol: Document 01/10/22 13:45 [facility] (Rec: 01/10/22 14:01 [facility] [id number]) Posture Evaluation Comments Posture Comments Forward shoulder posture bilaterally. Protective of left shoulder. PT-OP-K Range of Motion Start: 07/26/21 12:44 Freq: Status: Active Protocol: Document 01/10/22 13:45 [facility] (Rec: 01/10/22 14:01 [facility] [id number]) Cervical Spine Range of Motion Cervical Spine Active Testing Position Sitting Flexion 35 Extension 34 Rotation Left 45 Rotation Right 35 Lateral Flexion Left 37 Lateral Flexion Right 22 Comments Pt denies neck pain with all movements Shoulder Goniometric Range of Motion Shoulder Left Passive Shoulder ROM WFL No Testing Position Sitting Flexion 54 Abduction 68 External Rotation at 45 degrees 15 Abduction Internal Rotation Behind Back (text) to left PSIS Elbow/Forearm Range of Motion Elbow/Forearm Left Active ROM Testing Position Sitting Elbow Flexion (degrees) 148 Elbow Extension (degrees) 5 PT-OP-M Strength Start: 07/26/21 12:44 Freq: Status: Active Protocol: Document 01/10/22 13:45 [facility] (Rec: 01/10/22 14:01 [facility] [id number]) Shoulder Strength Shoulder Manual Muscle Testing Left Flexion 2- Poor- Abduction (C5) 2- Poor- External Rotation 2 Poor Internal Rotation 3- Fair- Right Flexion 4+ Good+ Extension 4+ Good+ Abduction (C5) 4+ Good+ External Rotation 4+ Good+ Internal Rotation 4+ Good+ PT-OP-Q Treatments Start: 07/26/21 12:44 Freq: Status: Active Protocol: Document 02/14/22 08:20 [facility] (Rec: 02/14/22 09:31 [facility] [id number]) Cardio Equipment Upper Body Ergometer (UBE) Duration (Minutes) 5 Seat Position 16 Height 2 Therapeutic Exercises Supine Exercises ER Side left Equipment Used towel at side Reps/Minutes 10 protraction Supine Exercise Name chest press to protraction Side left Equipment Used 1# Reps/Minutes 8 flexion AROM Supine Exercise Name flexion AROM Side bilateral Resistance 2#, 1# Reps/Minutes 5 reps ea Sidelying Exercises abduction Sidelying Exercise Name AAROM Reps/Minutes x10 Sitting Exercises shoulder flex Sitting Exercise Name AAROM flexion Side left Equipment Used pulleys Reps/Minutes 15x abduction AAROM Sitting Exercise Name AAROM Abduction Side left Equipment Used pulleys Standing Exercises resisted extension Standing Exercise Name extension Side bilateral Resistance TB 2 Reps/Minutes 5 Comments clinic only-stopped d/t discomfort resisted row Standing Exercise Name rows Side bilateral Resistance TB 2 Reps/Minutes 10 Comments clinic only 1 Standing Exercise Name lean back from treadmill rail Side bilateral Reps/Minutes 20 sec x2 Manual Therapy Treatment Soft Tissue Mobilization 1 Body Location pec, teres, UT, LS Mobilization Type Myofascial Release,Rolling, Sustained Pressure Comments w/PROM flex & abd Joint Mobilizations 1 Joint GH Direction A->P, Sup->Inf Grade III Body Position Hooklying PT-OP-R Modalities Start: 07/26/21 12:44 Freq: Status: Active Protocol: Document 12/29/21 14:36 [facility] (Rec: 12/29/21 15:22 [facility] [id number]) Hot Pack/Cold Pack Treatment Cold Pack Location L shoulder Patient Position Sitting Treatment Duration (minutes) 8 PT-OP-T Assessment and Plan Start: 07/26/21 12:44 Freq: Status: Active Protocol: Document 02/14/22 08:20 [facility] (Rec: 02/14/22 09:31 [facility] [id number]) Physical Therapy Assessment Goals Three Impairment QuickDash - 70% impairment Halfway Goal (LTG) Pt will score 45% or less impairment on QuickDash as a measure of improved ability to manage ADL's LTG Duration 03/12/22 Two Impairment shoulder strength Short Term Goal (STG) Pt will improve her strength to be able to lift her arm to 90 degrees elevation to improve her ability to use her left arm in self-care activities. 09/06/21 - Pt lifts her arm to 55 degrees in flexion. STG Duration 02/10/22 Survey Methodologist Goal (LTG) Nithya will improve her left shoulder strength to be able to lift a book from table height. LTG Duration 03/12/22 One Impairment shoulder ROM Short Term Goal (STG) Nithya will improve her shoulder flexion PROM to 90 degrees 09/06/21 - GOAL MET STG Duration Met Halfway Goal (LTG) Nithya will improve her shoulder abduction AROM to 90 degrees. 10/17/21 -flexion remains limited and painful LTG Duration 03/12/22 Assessment Summary Assessment Pt did well with exercises today but did still require cues w/exercises to dec UT engagement. Pt still very limited in her ROM. Physical Therapy Plan Frequency and Duration Frequency of Treatment 2x/Week Duration of Treatment 2 months Plan of Care Start Date 01/10/22 Plan of Care End Date 03/12/22 Next Visit Focus/Plan Next Note Type Treatment Note Next Visit Plan Continue gentle progression of ROM and strengthening left shoulder per POC. HEP for strengthening as she is progressed.
--- NOTE | 2022-02-20 15:16 | PT.OTN ---
Current Diagnoses Displaced fracture of greater tuberosity of left humerus, initial encounter for closed fracture (02/20/22) Unspecified dislocation of left shoulder joint, subsequent encounter (02/20/22) Physical Therapy Treatment Note PT-OP-A Visit Information Start: 07/26/21 12:44 Freq: Status: Active Protocol: Document 02/20/22 14:32 [facility] (Rec: 02/20/22 15:15 [facility] [id number]) Out-Patient Physical Therapy Visit Information Visit Information Visit Type Treatment Note Visit Start Time 14:32 Visit Stop Time 15:15 Total Visit Minutes 43 Visit Number 38 Number of COLORIST FORMULATOR Visits 0 Evaluation Information Evaluation Date 07/26/21 PT-OP-B Current Condition Start: 07/26/21 12:44 Freq: Status: Active Protocol: Document 07/26/21 15:15 AW (Rec: 07/26/21 12:55 AW [id number]) Current Condition History of Current Condition Onset Date April 2021 Current Complaints left shoulder pain History of Current Condition Nithya fell in April, resulting in comminuted left proximal humerus fracture with anterior dislocation. She has long-standing left knee pain which she feels may have contributed to her fall. Fracture was treated non- operatively and Rd was sent home in a soft sling after a brief hospital stay. Her sister was visiting from [place] at the time and extended her stay to help for a week but Nithya has been managing without assist at home since her sister left. She did have one additional fall within one week of leaving the hospital. She believes she was impaired with oxycodone at that time and denies falls since then. She had home health services - primarily OT - but she was discharged at the end of June. She can get dressed and shower without assist but is doing all overhead activities one-handed. She is currently driving even though she has trouble lifting her arm. Pain is mostly in her anterior and posterior shoulder. She denies neck pain or radiating symptoms to her arm. She lives alone in a single level home with 2 steps to enter using right rail at front of house. Prior Treatments and Tests MRI 07/06/21: 1. 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 2. Acromioclavicular joint osteoarthritis. 3. Possible Hill-Sachs deformity of the humeral head. Future Testing and Treatments Planned None identified Treatment Goals Patient/Caregiver Goals Generally, I want to be able to use my left arm. Specifically, I want to be able to hug my boyfriend. Prior Functional Status Baseline Function- ADL's Independent Baseline Function- Mobility Independent Current Functional Impairments (Reported) Functional Limitations- ADL's Limited use of left arm for most dressing and hygiene tasks Personal Factors Other Personal Factors That May Effect Depression, knee pain, and Therapy/Recovery PT-OP-C Subjective Start: 07/26/21 12:44 Freq: Status: Active Protocol: Document 02/20/22 14:32 [facility] (Rec: 02/20/22 15:15 [facility] [id number]) OP-PT Subjective Patient Comments Patient Comments I've been doing pretty well. PT-OP-F Manual Assessment Start: 07/26/21 12:44 Freq: Status: Active Protocol: Document 01/10/22 13:45 [facility] (Rec: 01/10/22 14:01 [facility] [id number]) Manual Assessments Soft Tissue Assessment Soft Tissue Mobility Assessment Hypertonicity in left shoulder girdle. Generally decreased muscle mass left shoulder compared with right. Joint Mobility Assessment Joint Mobility Assessment Stiffness in all planes of motion left shoulder with significant guarding even with PROM. PT-OP-G Mobility & Gait Start: 07/26/21 12:44 Freq: Status: Active Protocol: Document 07/26/21 15:15 AW (Rec: 07/26/21 17:06 AW [id number]) OP Gait Assessment Comments Gait Comments Generally unsteady and with decreased confidence. PT-OP-J Posture/Palpation/Skin Start: 07/26/21 12:44 Freq: Status: Active Protocol: Document 01/10/22 13:45 [facility] (Rec: 01/10/22 14:01 [facility] [id number]) Posture Evaluation Comments Posture Comments Forward shoulder posture bilaterally. Protective of left shoulder. PT-OP-K Range of Motion Start: 07/26/21 12:44 Freq: Status: Active Protocol: Document 01/10/22 13:45 [facility] (Rec: 01/10/22 14:01 [facility] [id number]) Cervical Spine Range of Motion Cervical Spine Active Testing Position Sitting Flexion 35 Extension 34 Rotation Left 45 Rotation Right 35 Lateral Flexion Left 37 Lateral Flexion Right 22 Comments Pt denies neck pain with all movements Shoulder Goniometric Range of Motion Shoulder Left Passive Shoulder ROM WFL No Testing Position Sitting Flexion 54 Abduction 68 External Rotation at 45 degrees 15 Abduction Internal Rotation Behind Back (text) to left PSIS Elbow/Forearm Range of Motion Elbow/Forearm Left Active ROM Testing Position Sitting Elbow Flexion (degrees) 148 Elbow Extension (degrees) 5 PT-OP-M Strength Start: 07/26/21 12:44 Freq: Status: Active Protocol: Document 01/10/22 13:45 [facility] (Rec: 01/10/22 14:01 [facility] [id number]) Shoulder Strength Shoulder Manual Muscle Testing Left Flexion 2- Poor- Abduction (C5) 2- Poor- External Rotation 2 Poor Internal Rotation 3- Fair- Right Flexion 4+ Good+ Extension 4+ Good+ Abduction (C5) 4+ Good+ External Rotation 4+ Good+ Internal Rotation 4+ Good+ PT-OP-Q Treatments Start: 07/26/21 12:44 Freq: Status: Active Protocol: Document 02/20/22 14:32 [facility] (Rec: 02/20/22 15:15 [facility] [id number]) Cardio Equipment Upper Body Ergometer (UBE) Duration (Minutes) 5 Seat Position 14 Height 2 Therapeutic Exercises Supine Exercises flexion AROM Supine Exercise Name flexion AROM Side bilateral Resistance 1# Reps/Minutes 5 reps ea Sitting Exercises shoulder flex Sitting Exercise Name AAROM flexion Side left Equipment Used pulleys Reps/Minutes 15x abduction AAROM Sitting Exercise Name AAROM Abduction Side left Equipment Used pulleys Standing Exercises Flexion Standing Exercise Name Standing flexion Side bilateral Resistance 1# Comments Visual cues to limit UT recruitment resisted extension Standing Exercise Name extension Side bilateral Resistance TB 2 Reps/Minutes 5 Comments clinic only resisted row Standing Exercise Name rows Side bilateral Resistance TB 2 Reps/Minutes 10 Comments clinic only 1 Standing Exercise Name lean back from treadmill rail Side bilateral Reps/Minutes 20 sec x2 Manual Therapy Treatment Soft Tissue Mobilization 1 Body Location infraspinatus, suprasinatus, rhomboids, subscap, teres minor Mobilization Type Myofascial Release,Sustained Pressure Joint Mobilizations 1 Joint GH Direction A->P, Sup->Inf Grade III Body Position Hooklying Manual Techniques 1 Type PROM all planes Body Position Supine Comments pain-free ROM PT-OP-R Modalities Start: 07/26/21 12:44 Freq: Status: Active Protocol: Document 12/29/21 14:36 [facility] (Rec: 12/29/21 15:22 [facility] [id number]) Hot Pack/Cold Pack Treatment Cold Pack Location L shoulder Patient Position Sitting Treatment Duration (minutes) 8 PT-OP-T Assessment and Plan Start: 07/26/21 12:44 Freq: Status: Active Protocol: Document 02/20/22 14:32 [facility] (Rec: 02/20/22 15:15 [facility] [id number]) Physical Therapy Assessment Impairments Impairments Functional Activities,Pain, Posture,ROM,Soft Tissue Mobility,Strength Goals Three Impairment QuickDash - 70% impairment Bend Sorter Goal (LTG) Pt will score 45% or less impairment on QuickDash as a measure of improved ability to manage ADL's LTG Duration 03/12/22 Two Impairment shoulder strength Short Term Goal (STG) Pt will improve her strength to be able to lift her arm to 90 degrees elevation to improve her ability to use her left arm in self-care activities. 09/06/21 - Pt lifts her arm to 55 degrees in flexion. STG Duration 02/10/22 Bend Sorter Goal (LTG) Nithya will improve her left shoulder strength to be able to lift a book from table height. LTG Duration 03/12/22 One Impairment shoulder ROM Short Term Goal (STG) Nithya will improve her shoulder flexion PROM to 90 degrees 09/06/21 - GOAL MET STG Duration Met Bend Sorter Goal (LTG) Nithya will improve her shoulder abduction AROM to 90 degrees. 10/17/21 -flexion remains limited and painful LTG Duration 03/12/22 Assessment Summary Assessment PROM slowly improving, however pt greatly struggling showing any AROM improvement. Continued compensatory use of L UT. Physical Therapy Plan Frequency and Duration Frequency of Treatment 2x/Week Duration of Treatment 2 months Plan of Care Start Date 01/10/22 Plan of Care End Date 03/12/22 Next Visit Focus/Plan Next Note Type Treatment Note Next Visit Plan Continue gentle progression of ROM and strengthening left shoulder per POC. HEP for strengthening as she is progressed.
--- NOTE | 2022-02-26 16:02 | PT.OTN ---
Current Diagnoses Displaced fracture of greater tuberosity of left humerus, initial encounter for closed fracture (02/26/22) Unspecified dislocation of left shoulder joint, subsequent encounter (02/26/22) Physical Therapy Treatment Note PT-OP-A Visit Information Start: 07/26/21 12:44 Freq: Status: Active Protocol: Document 02/26/22 15:17 DCW (Rec: 02/26/22 16:02 DCW [id number]) Out-Patient Physical Therapy Visit Information Visit Information Visit Type Treatment Note Visit Start Time 15:17 Visit Stop Time 16:00 Total Visit Minutes 43 Visit Number 39 Number of WELDING TESTER Visits 0 Evaluation Information Evaluation Date 07/26/21 PT-OP-B Current Condition Start: 07/26/21 12:44 Freq: Status: Active Protocol: Document 07/26/21 15:15 AW (Rec: 07/26/21 12:55 AW [id number]) Current Condition History of Current Condition Onset Date April 2021 Current Complaints left shoulder pain History of Current Condition Nithya fell in April, resulting in comminuted left proximal humerus fracture with anterior dislocation. She has long-standing left knee pain which she feels may have contributed to her fall. Fracture was treated non- operatively and Rd was sent home in a soft sling after a brief hospital stay. Her sister was visiting from [place] at the time and extended her stay to help for a week but Nithya has been managing without assist at home since her sister left. She did have one additional fall within one week of leaving the hospital. She believes she was impaired with oxycodone at that time and denies falls since then. She had home health services - primarily OT - but she was discharged at the end of June. She can get dressed and shower without assist but is doing all overhead activities one-handed. She is currently driving even though she has trouble lifting her arm. Pain is mostly in her anterior and posterior shoulder. She denies neck pain or radiating symptoms to her arm. She lives alone in a single level home with 2 steps to enter using right rail at front of house. Prior Treatments and Tests MRI 07/06/21: 1. 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 2. Acromioclavicular joint osteoarthritis. 3. Possible Hill-Sachs deformity of the humeral head. Future Testing and Treatments Planned None identified Treatment Goals Patient/Caregiver Goals Generally, I want to be able to use my left arm. Specifically, I want to be able to hug my boyfriend. Prior Functional Status Baseline Function- ADL's Independent Baseline Function- Mobility Independent Current Functional Impairments (Reported) Functional Limitations- ADL's Limited use of left arm for most dressing and hygiene tasks Personal Factors Other Personal Factors That May Effect Depression, knee pain, and Therapy/Recovery PT-OP-C Subjective Start: 07/26/21 12:44 Freq: Status: Active Protocol: Document 02/26/22 15:17 DCW (Rec: 02/26/22 16:02 DCW [id number]) OP-PT Subjective Patient Comments Patient Comments Pt reports she is feeling pretty good today. I've been trying to work it a little more. PT-OP-F Manual Assessment Start: 07/26/21 12:44 Freq: Status: Active Protocol: Document 01/10/22 13:45 DCW (Rec: 01/10/22 14:01 DCW [id number]) Manual Assessments Soft Tissue Assessment Soft Tissue Mobility Assessment Hypertonicity in left shoulder girdle. Generally decreased muscle mass left shoulder compared with right. Joint Mobility Assessment Joint Mobility Assessment Stiffness in all planes of motion left shoulder with significant guarding even with PROM. PT-OP-G Mobility & Gait Start: 07/26/21 12:44 Freq: Status: Active Protocol: Document 07/26/21 15:15 AW (Rec: 07/26/21 17:06 AW [id number]) OP Gait Assessment Comments Gait Comments Generally unsteady and with decreased confidence. PT-OP-J Posture/Palpation/Skin Start: 07/26/21 12:44 Freq: Status: Active Protocol: Document 01/10/22 13:45 DCW (Rec: 01/10/22 14:01 DCW [id number]) Posture Evaluation Comments Posture Comments Forward shoulder posture bilaterally. Protective of left shoulder. PT-OP-K Range of Motion Start: 07/26/21 12:44 Freq: Status: Active Protocol: Document 01/10/22 13:45 DCW (Rec: 01/10/22 14:01 DCW [id number]) Cervical Spine Range of Motion Cervical Spine Active Testing Position Sitting Flexion 35 Extension 34 Rotation Left 45 Rotation Right 35 Lateral Flexion Left 37 Lateral Flexion Right 22 Comments Pt denies neck pain with all movements Shoulder Goniometric Range of Motion Shoulder Left Passive Shoulder ROM WFL No Testing Position Sitting Flexion 54 Abduction 68 External Rotation at 45 degrees 15 Abduction Internal Rotation Behind Back (text) to left PSIS Elbow/Forearm Range of Motion Elbow/Forearm Left Active ROM Testing Position Sitting Elbow Flexion (degrees) 148 Elbow Extension (degrees) 5 PT-OP-M Strength Start: 07/26/21 12:44 Freq: Status: Active Protocol: Document 01/10/22 13:45 DCW (Rec: 01/10/22 14:01 DCW [id number]) Shoulder Strength Shoulder Manual Muscle Testing Left Flexion 2- Poor- Abduction (C5) 2- Poor- External Rotation 2 Poor Internal Rotation 3- Fair- Right Flexion 4+ Good+ Extension 4+ Good+ Abduction (C5) 4+ Good+ External Rotation 4+ Good+ Internal Rotation 4+ Good+ PT-OP-Q Treatments Start: 07/26/21 12:44 Freq: Status: Active Protocol: Document 02/26/22 15:17 DCW (Rec: 02/26/22 16:02 DCW [id number]) Cardio Equipment Upper Body Ergometer (UBE) Duration (Minutes) 5 Seat Position 14 Height 2 Therapeutic Exercises Supine Exercises flexion AROM Supine Exercise Name flexion AAROM /c PVC Side bilateral Sitting Exercises shoulder flex Sitting Exercise Name AAROM flexion Side left Equipment Used pulleys Reps/Minutes 15x abduction AAROM Sitting Exercise Name AAROM Abduction Side left Equipment Used pulleys Standing Exercises Flexion Standing Exercise Name Standing flexion Side bilateral Resistance 1# Comments Visual cues to limit UT recruitment resisted extension Standing Exercise Name extension Side bilateral Resistance TB 2 Reps/Minutes 5 Comments clinic only resisted row Standing Exercise Name rows Side bilateral Resistance TB 2 Reps/Minutes 10 Comments clinic only 1 Standing Exercise Name lean back from treadmill rail Side bilateral Reps/Minutes 20 sec x2 Manual Therapy Treatment Soft Tissue Mobilization 1 Body Location infraspinatus, suprasinatus, rhomboids, subscap, teres minor Mobilization Type Myofascial Release,Sustained Pressure Joint Mobilizations 1 Joint GH Direction A->P, Sup->Inf Grade III Body Position Hooklying Manual Techniques 1 Type PROM all planes Body Position Supine Comments pain-free ROM PT-OP-R Modalities Start: 07/26/21 12:44 Freq: Status: Active Protocol: Document 12/29/21 14:36 LRN (Rec: 12/29/21 15:22 LRN [id number]) Hot Pack/Cold Pack Treatment Cold Pack Location L shoulder Patient Position Sitting Treatment Duration (minutes) 8 PT-OP-T Assessment and Plan Start: 07/26/21 12:44 Freq: Status: Active Protocol: Document 02/26/22 15:17 DCW (Rec: 02/26/22 16:02 DCW [id number]) Physical Therapy Assessment Impairments Impairments Functional Activities,Pain, Posture,ROM,Soft Tissue Mobility,Strength Goals Three Impairment QuickDash - 70% impairment [employer] Supervisor Goal (LTG) Pt will score 45% or less impairment on QuickDash as a measure of improved ability to manage ADL's LTG Duration 03/12/22 Two Impairment shoulder strength Short Term Goal (STG) Pt will improve her strength to be able to lift her arm to 90 degrees elevation to improve her ability to use her left arm in self-care activities. 09/06/21 - Pt lifts her arm to 55 degrees in flexion. STG Duration 02/10/22 Longterm Goal (LTG) Nithya will improve her left shoulder strength to be able to lift a book from table height. LTG Duration 03/12/22 One Impairment shoulder ROM Short Term Goal (STG) Nithya will improve her shoulder flexion PROM to 90 degrees 09/06/21 - GOAL MET STG Duration Met [employer] Supervisor Goal (LTG) Nithya will improve her shoulder abduction AROM to 90 degrees. 10/17/21 -flexion remains limited and painful LTG Duration 03/12/22 Assessment Summary Assessment Pt still unsure if she wants to go through surgery or not, she would much prefer to avoid , but is noticing overall a lack of improvement with abduction. Pt tolerated treatment well today, PROM slowly improving Physical Therapy Plan Frequency and Duration Frequency of Treatment 2x/Week Plan of Care Start Date 01/10/22 Plan of Care End Date 03/12/22 Therapeutic Interventions Therapeutic Interventions Aquatic Therapy,Home Exercise Program,Joint Mobilizations, Manual Therapy,Neuromuscular Re-education,Self-Care/Home Management,Soft Tissue Mobilization,Therapeutic Activities,Therapeutic Exercises Modalities Cold Pack/Ice Massage,Electric Stimulation,Hot Packs, Ultrasound Next Visit Focus/Plan Next Note Type Treatment Note Next Visit Plan Continue gentle progression of ROM and strengthening left shoulder per POC. HEP for strengthening as she is progressed.
--- NOTE | 2022-03-05 11:10 | PT.OTN ---
Current Diagnoses Displaced fracture of greater tuberosity of left humerus, initial encounter for closed fracture (03/05/22) Unspecified dislocation of left shoulder joint, subsequent encounter (03/05/22) Physical Therapy Treatment Note PT-OP-A Visit Information Start: 07/26/21 12:44 Freq: Status: Active Protocol: Document 03/05/22 10:58 SAK (Rec: 03/05/22 11:10 SAK [id number]) Out-Patient Physical Therapy Visit Information Visit Information Visit Type Treatment Note Visit Start Time 09:06 Visit Stop Time 09:50 Total Visit Minutes 44 Visit Number 40 Evaluation Information Evaluation Date 07/26/21 PT-OP-B Current Condition Start: 07/26/21 12:44 Freq: Status: Active Protocol: Document 07/26/21 15:15 AW (Rec: 07/26/21 12:55 AW [id number]) Current Condition History of Current Condition Onset Date April 2021 Current Complaints left shoulder pain History of Current Condition Nithya fell in April, resulting in comminuted left proximal humerus fracture with anterior dislocation. She has long-standing left knee pain which she feels may have contributed to her fall. Fracture was treated non- operatively and Rd was sent home in a soft sling after a brief hospital stay. Her sister was visiting from [place] at the time and extended her stay to help for a week but Nithya has been managing without assist at home since her sister left. She did have one additional fall within one week of leaving the hospital. She believes she was impaired with oxycodone at that time and denies falls since then. She had home health services - primarily OT - but she was discharged at the end of June. She can get dressed and shower without assist but is doing all overhead activities one-handed. She is currently driving even though she has trouble lifting her arm. Pain is mostly in her anterior and posterior shoulder. She denies neck pain or radiating symptoms to her arm. She lives alone in a single level home with 2 steps to enter using right rail at front of house. Prior Treatments and Tests MRI 07/06/21: 1. 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 2. Acromioclavicular joint osteoarthritis. 3. Possible Hill-Sachs deformity of the humeral head. Future Testing and Treatments Planned None identified Treatment Goals Patient/Caregiver Goals Generally, I want to be able to use my left arm. Specifically, I want to be able to hug my boyfriend. Prior Functional Status Baseline Function- ADL's Independent Baseline Function- Mobility Independent Current Functional Impairments (Reported) Functional Limitations- ADL's Limited use of left arm for most dressing and hygiene tasks Personal Factors Other Personal Factors That May Effect Depression, knee pain, and Therapy/Recovery PT-OP-C Subjective Start: 07/26/21 12:44 Freq: Status: Active Protocol: Document 03/05/22 10:58 SAK (Rec: 03/05/22 11:10 SAK [id number]) OP-PT Subjective Patient Comments Patient Comments Frustrated that I still can't lift my arm very well. I want to do whatever I can to not have surgery. PT-OP-F Manual Assessment Start: 07/26/21 12:44 Freq: Status: Active Protocol: Document 01/10/22 13:45 DCW (Rec: 01/10/22 14:01 DCW [id number]) Manual Assessments Soft Tissue Assessment Soft Tissue Mobility Assessment Hypertonicity in left shoulder girdle. Generally decreased muscle mass left shoulder compared with right. Joint Mobility Assessment Joint Mobility Assessment Stiffness in all planes of motion left shoulder with significant guarding even with PROM. PT-OP-G Mobility & Gait Start: 07/26/21 12:44 Freq: Status: Active Protocol: Document 07/26/21 15:15 AW (Rec: 07/26/21 17:06 AW [id number]) OP Gait Assessment Comments Gait Comments Generally unsteady and with decreased confidence. PT-OP-J Posture/Palpation/Skin Start: 07/26/21 12:44 Freq: Status: Active Protocol: Document 01/10/22 13:45 DCW (Rec: 01/10/22 14:01 DCW [id number]) Posture Evaluation Comments Posture Comments Forward shoulder posture bilaterally. Protective of left shoulder. PT-OP-K Range of Motion Start: 07/26/21 12:44 Freq: Status: Active Protocol: Document 01/10/22 13:45 DCW (Rec: 01/10/22 14:01 DCW [id number]) Cervical Spine Range of Motion Cervical Spine Active Testing Position Sitting Flexion 35 Extension 34 Rotation Left 45 Rotation Right 35 Lateral Flexion Left 37 Lateral Flexion Right 22 Comments Pt denies neck pain with all movements Shoulder Goniometric Range of Motion Shoulder Left Passive Shoulder ROM WFL No Testing Position Sitting Flexion 54 Abduction 68 External Rotation at 45 degrees 15 Abduction Internal Rotation Behind Back (text) to left PSIS Elbow/Forearm Range of Motion Elbow/Forearm Left Active ROM Testing Position Sitting Elbow Flexion (degrees) 148 Elbow Extension (degrees) 5 PT-OP-M Strength Start: 07/26/21 12:44 Freq: Status: Active Protocol: Document 01/10/22 13:45 DCW (Rec: 01/10/22 14:01 DCW [id number]) Shoulder Strength Shoulder Manual Muscle Testing Left Flexion 2- Poor- Abduction (C5) 2- Poor- External Rotation 2 Poor Internal Rotation 3- Fair- Right Flexion 4+ Good+ Extension 4+ Good+ Abduction (C5) 4+ Good+ External Rotation 4+ Good+ Internal Rotation 4+ Good+ PT-OP-Q Treatments Start: 07/26/21 12:44 Freq: Status: Active Protocol: Document 03/05/22 10:58 [facility] (Rec: 03/05/22 11:10 [facility] [id number]) Cardio Equipment Upper Body Ergometer (UBE) Duration (Minutes) 6 RPM 90 Seat Position 14 Height 2 Other fwd 3 min, bckwd 3 min Gym Equipment Cable Column (Body Solid) scapular shrug Details verbal and tactile cues Resistance 20,10 Reps/Time 5,5 lat pull Details verbal and tactile cues Resistance 20 Reps/Time 10x Therapeutic Exercises Supine Exercises pec stretch Reps/Minutes 2x30 Comments manual flexion AROM Supine Exercise Name flexion AAROM /c PVC Side bilateral Sitting Exercises shoulder flex Sitting Exercise Name AAROM flexion Side left Equipment Used pulleys Reps/Minutes 15x Comments tactile cues for upward scapular rotation abduction AAROM Sitting Exercise Name AAROM Abduction Side left Equipment Used pulleys Comments tactile cues for upward scapular rotation Standing Exercises Flexion Standing Exercise Name Standing flexion Side bilateral Resistance 1# Comments Visual cues to limit UT recruitment resisted extension Standing Exercise Name extension Side bilateral Resistance TB 2 Reps/Minutes 10x Comments clinic only, verbal and tactile cues resisted row Standing Exercise Name rows Side bilateral Resistance TB 2 Reps/Minutes 10 Comments clinic only, verbal and tactile cues 1 Standing Exercise Name lean back from treadmill rail Side bilateral Reps/Minutes 20 sec x2 Manual Therapy Treatment Soft Tissue Mobilization 1 Body Location infraspinatus, suprasinatus, rhomboids, subscap, teres minor Mobilization Type Myofascial Release,Sustained Pressure Joint Mobilizations 1 Joint GH Direction A->P, Sup->Inf Grade III Body Position Hooklying Taping 1 Body Location L shoulder Type of Tape Kinesio Tape Comments I strip T10 diagonally across scapula to front of shoulder with 50% stretch Manual Techniques 1 Type PROM all planes Body Position Supine Comments pain-free ROM PT-OP-R Modalities Start: 07/26/21 12:44 Freq: Status: Active Protocol: Document 12/29/21 14:36 LRN (Rec: 12/29/21 15:22 LRN [id number]) Hot Pack/Cold Pack Treatment Cold Pack Location L shoulder Patient Position Sitting Treatment Duration (minutes) 8 PT-OP-T Assessment and Plan Start: 07/26/21 12:44 Freq: Status: Active Protocol: Document 03/05/22 10:58 SAK (Rec: 03/05/22 11:10 SAK [id number]) Physical Therapy Assessment Impairments Impairments Functional Activities,Pain, Posture,ROM,Soft Tissue Mobility,Strength Goals Three Impairment QuickDash - 70% impairment Detention Goal (LTG) Pt will score 45% or less impairment on QuickDash as a measure of improved ability to manage ADL's LTG Duration 03/12/22 Two Impairment shoulder strength Short Term Goal (STG) Pt will improve her strength to be able to lift her arm to 90 degrees elevation to improve her ability to use her left arm in self-care activities. 09/06/21 - Pt lifts her arm to 55 degrees in flexion. STG Duration 02/10/22 Detention Goal (LTG) Nithya will improve her left shoulder strength to be able to lift a book from table height. LTG Duration 03/12/22 One Impairment shoulder ROM Short Term Goal (STG) Nithya will improve her shoulder flexion PROM to 90 degrees 09/06/21 - GOAL MET STG Duration Met Detention Goal (LTG) Nithya will improve her shoulder abduction AROM to 90 degrees. 10/17/21 -flexion remains limited and painful LTG Duration 03/12/22 Assessment Summary Assessment Patient tolerated PT well but ROM remains limited at this time, she is not wanting to have surgery but hasn't made any final decision. Emphasis on scapular movement and stabilization with all ther ex , continues to have difficulty with inhibiting UT. Physical Therapy Plan Frequency and Duration Frequency of Treatment 2x/Week Duration of treatment (weeks) 8 Plan of Care Start Date 01/10/22 Plan of Care End Date 03/12/22 Therapeutic Interventions Therapeutic Interventions Aquatic Therapy,Home Exercise Program,Joint Mobilizations, Manual Therapy,Neuromuscular Re-education,Self-Care/Home Management,Soft Tissue Mobilization,Therapeutic Activities,Therapeutic Exercises Modalities Cold Pack/Ice Massage,Electric Stimulation,Hot Packs, Ultrasound Next Visit Focus/Plan Next Note Type Re-Evaluation Next Visit Plan Reassess with primary PT next session, discuss POC.
--- NOTE | 2022-03-12 16:35 | PT.OTRE ---
Current Diagnoses Displaced fracture of greater tuberosity of left humerus, initial encounter for closed fracture (03/12/22) Unspecified dislocation of left shoulder joint, subsequent encounter (03/12/22) Past Medical History (Last Reviewed 09/28/21 @ 13:13 by Edna Carter MD) Anxiety Arthritis Depression History of urinary incontinence Hyperlipidemia Hypothyroidism Surgical History (Last Reviewed 09/28/21 @ 13:13 by Edna Carter MD) History of dilatation and curettage History of throat surgery Visit Care Team Role Provider Type Nick Witt MD Family Provider Physician Primary Care Provider Specialty: Internal Medicine Address: [address] [place] [address], [id number] Email: [email or web address] [email or web address] Kenneth Burkett MD Attending Provider Physician Referring Provider Specialty: Orthopedics Orthopedic Surgery Address: [address] [place] [address], [id number] Email: [email or web address] Physical Therapy Re-Evaluation PT-OP-A Visit Information Start: 07/26/21 12:44 Freq: Status: Active Protocol: Document 03/12/22 15:16 SAK (Rec: 03/12/22 16:34 SAK [id number]) Out-Patient Physical Therapy Visit Information Visit Information Visit Type Treatment Note Visit Note liked kinesiotape, took off yesterday. Visit Start Time 15:16 Visit Stop Time 16:01 Total Visit Minutes 45 Visit Number 45 Evaluation Information Evaluation Date 07/26/21 PT-OP-B Current Condition Start: 07/26/21 12:44 Freq: Status: Active Protocol: Document 07/26/21 15:15 AW (Rec: 07/26/21 12:55 AW [id number]) Current Condition History of Current Condition Onset Date April 2021 Current Complaints left shoulder pain History of Current Condition Nithya fell in April, resulting in comminuted left proximal humerus fracture with anterior dislocation. She has long-standing left knee pain which she feels may have contributed to her fall. Fracture was treated non- operatively and Rd was sent home in a soft sling after a brief hospital stay. Her sister was visiting from [place] at the time and extended her stay to help for a week but Nithya has been managing without assist at home since her sister left. She did have one additional fall within one week of leaving the hospital. She believes she was impaired with oxycodone at that time and denies falls since then. She had home health services - primarily OT - but she was discharged at the end of June. She can get dressed and shower without assist but is doing all overhead activities one-handed. She is currently driving even though she has trouble lifting her arm. Pain is mostly in her anterior and posterior shoulder. She denies neck pain or radiating symptoms to her arm. She lives alone in a single level home with 2 steps to enter using right rail at front of house. Prior Treatments and Tests MRI 07/06/21: 1. 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 2. Acromioclavicular joint osteoarthritis. 3. Possible Hill-Sachs deformity of the humeral head. Future Testing and Treatments Planned None identified Treatment Goals Patient/Caregiver Goals Generally, I want to be able to use my left arm. Specifically, I want to be able to hug my boyfriend. Prior Functional Status Baseline Function- ADL's Independent Baseline Function- Mobility Independent Current Functional Impairments (Reported) Functional Limitations- ADL's Limited use of left arm for most dressing and hygiene tasks Personal Factors Other Personal Factors That May Effect Depression, knee pain, and Therapy/Recovery PT-OP-C Subjective Start: 07/26/21 12:44 Freq: Status: Active Protocol: Document 03/05/22 10:58 SAK (Rec: 03/05/22 11:10 [facility] [id number]) OP-PT Subjective Patient Comments Patient Comments Frustrated that I still can't lift my arm very well. I want to do whatever I can to not have surgery. PT-OP-F Manual Assessment Start: 07/26/21 12:44 Freq: Status: Active Protocol: Document 01/10/22 13:45 DCW (Rec: 01/10/22 14:01 DCW [id number]) Manual Assessments Soft Tissue Assessment Soft Tissue Mobility Assessment Hypertonicity in left shoulder girdle. Generally decreased muscle mass left shoulder compared with right. Joint Mobility Assessment Joint Mobility Assessment Stiffness in all planes of motion left shoulder with significant guarding even with PROM. PT-OP-G Mobility & Gait Start: 07/26/21 12:44 Freq: Status: Active Protocol: Document 07/26/21 15:15 AW (Rec: 07/26/21 17:06 AW [id number]) OP Gait Assessment Comments Gait Comments Generally unsteady and with decreased confidence. PT-OP-J Posture/Palpation/Skin Start: 07/26/21 12:44 Freq: Status: Active Protocol: Document 01/10/22 13:45 DCW (Rec: 01/10/22 14:01 DCW [id number]) Posture Evaluation Comments Posture Comments Forward shoulder posture bilaterally. Protective of left shoulder. PT-OP-K Range of Motion Start: 07/26/21 12:44 Freq: Status: Active Protocol: Document 01/10/22 13:45 DCW (Rec: 01/10/22 14:01 DCW [id number]) Cervical Spine Range of Motion Cervical Spine Active Testing Position Sitting Flexion 35 Extension 34 Rotation Left 45 Rotation Right 35 Lateral Flexion Left 37 Lateral Flexion Right 22 Comments Pt denies neck pain with all movements Shoulder Goniometric Range of Motion Shoulder Measured in Degrees Left Passive Shoulder ROM WFL No Testing Position Sitting Flexion 54 Abduction 68 External Rotation at 45 degrees 15 Abduction Internal Rotation Behind Back (text) to left PSIS Elbow/Forearm Range of Motion Elbow/Forearm Measured in Degrees Left Active ROM Testing Position Sitting Elbow Flexion (degrees) 148 Elbow Extension (degrees) 5 PT-OP-M Strength Start: 07/26/21 12:44 Freq: Status: Active Protocol: Document 01/10/22 13:45 DCW (Rec: 01/10/22 14:01 DCW [id number]) Shoulder Strength Shoulder Manual Muscle Testing Left Flexion 2- Poor- Abduction (C5) 2- Poor- External Rotation 2 Poor Internal Rotation 3- Fair- Right Flexion 4+ Good+ Extension 4+ Good+ Abduction (C5) 4+ Good+ External Rotation 4+ Good+ Internal Rotation 4+ Good+ PT-OP-Q Treatments Start: 07/26/21 12:44 Freq: Status: Active Protocol: Document 03/12/22 15:16 SAK (Rec: 03/12/22 16:34 SAK [id number]) Cardio Equipment Upper Body Ergometer (UBE) Duration (Minutes) 6 RPM 90 Seat Position 14 Height 2 Other fwd 3 min, bckwd 3 min Therapeutic Exercises Supine Exercises pec stretch Reps/Minutes 2x30 Comments manual ER Side left Equipment Used towel under elbow Reps/Minutes 10 Comments contract/relax flexion AROM Supine Exercise Name flexion AAROM /c PVC Side bilateral Sitting Exercises trunk rotation Reps/Minutes 2x30 shoulder extension Sitting Exercise Name from flexion, facing away from band Side left Equipment Used L2 TB Reps/Minutes 10x shoulder flex Sitting Exercise Name AAROM flexion Side left Equipment Used pulleys Reps/Minutes 15x Comments tactile cues for upward scapular rotation abduction AAROM Sitting Exercise Name AAROM Abduction Side left Equipment Used pulleys Comments tactile cues for upward scapular rotation closed chain ER Sitting Exercise Name closed chain ER Equipment Used PT stabilizes L shoulder and pt turns away Reps/Minutes x5 Comments cued scapular retraction samantha Sitting Exercise Name pulleys - scaption and flexion Reps/Minutes 10x, then 2x30 holds with PT assist Standing Exercises resisted extension Standing Exercise Name extension Side bilateral Resistance TB 2 Reps/Minutes 10x Comments verbal and tactile cues resisted row Standing Exercise Name rows Side bilateral Resistance TB 2 Reps/Minutes 10 Comments verbal and tactile cues table slide Standing Exercise Name scaption/abduction Reps/Minutes 10 1 Standing Exercise Name lean back from treadmill rail Side bilateral Reps/Minutes 20 sec x2 Manual Therapy Treatment Soft Tissue Mobilization 1 Body Location infraspinatus, suprasinatus, rhomboids, subscap, teres minor Mobilization Type Myofascial Release,Sustained Pressure Joint Mobilizations 1 Joint GH Direction A->P, Sup->Inf Grade III Body Position Hooklying Taping 1 Comments not done due to running out of time Manual Techniques 1 Type PROM all planes Body Position Supine Comments pain-free ROM Self-Care/Home Management Treatment Education Patient Education Home Exercise Program,Posture Other Education issued HEP update for row and shld ext with band; issued L1 and L1 TB and loop for use in door. Further education regarding importance of keeping shoulder down (prevent UT activation); patient dmeonstrated good understanding. PT-OP-R Modalities Start: 07/26/21 12:44 Freq: Status: Active Protocol: Document 12/29/21 14:36 LRN (Rec: 12/29/21 15:22 LRN [id number]) Hot Pack/Cold Pack Treatment Cold Pack Location L shoulder Patient Position Sitting Treatment Duration (minutes) 8 PT-OP-T Assessment and Plan Start: 07/26/21 12:44 Freq: Status: Active Protocol: Document 03/12/22 15:16 ENOC (Rec: 03/12/22 16:34 SAK [id number]) Physical Therapy Assessment Impairments Impairments Functional Activities,Pain, Posture,ROM,Soft Tissue Mobility,Strength Goals Three Impairment QuickDash - 70% impairment Residential Goal (LTG) Pt will score 45% or less impairment on QuickDash as a measure of improved ability to manage ADL's 03/12/22: goal met at 32%. New goal of decreased to no greater than 20% LTG Duration Two Impairment shoulder strength Short Term Goal (STG) Pt will improve her strength to be able to lift her arm to 90 degrees elevation to improve her ability to use her left arm in self-care activities. 09/06/21 - Pt lifts her arm to 55 degrees in flexion. 03/12/22: still very limited at 60 degrees. STG Duration 02/10/22 Contact Center Agent Goal (LTG) Nithya will improve her left shoulder strength to be able to lift a book from table height. 03/12/22: can lift book or other small items but not higher than waist level. New goal of being able to lift it overhead LTG Duration One Impairment shoulder ROM Impairment function-limited by ROM deficits Short Term Goal (STG) Nithya will improve her shoulder flexion PROM to 90 degrees 09/06/21 - GOAL MET STG Duration Met Residential Goal (LTG) Nithya will improve her shoulder abduction AROM to 90 degrees and flexion to 120 degrees, ER to 60 deg 10/17/21 -flexion remains limited and painful 03/12/22: PROM with pulleys 147 deg abd, 151 flex. AROM abduction 27, flex 60 with compensation, ER 27 deg, improved today with contract relax technique to 56 passive LTG Duration Assessment Summary Assessment Patient demonstrating most improvement in PROM but strength remains very limited and frustrating for patient inability to lift her hand overhead for purposes of ADL's . She can now reach behind her back without difficulty. She is demonstrating improved awareness of compensation and of correct scapular movement and stabilization. She has now obtained pulleys for home use. Feel she has potential for further improvement with continued skilled PT. She is highly motivated and agrees with POC. She is adamant about trying to avoid shoulder surgery. Physical Therapy Plan Frequency and Duration Frequency of Treatment 2x/Week Duration of treatment (weeks) 8 Plan of Care Start Date 01/10/22 Plan of Care End Date 03/12/22 Therapeutic Interventions Therapeutic Interventions Aquatic Therapy,Home Exercise Program,Joint Mobilizations, Manual Therapy,Neuromuscular Re-education,Self-Care/Home Management,Soft Tissue Mobilization,Therapeutic Activities,Therapeutic Exercises Modalities Cold Pack/Ice Massage,Electric Stimulation,Hot Packs, Ultrasound Next Visit Focus/Plan Next Note Type Treatment Note Next Visit Plan Continue PT for progression of ROM, strengthening, and HEP instruction, manual therapy for improved soft tissue and joint mobility to help patient regain active functional use of her left UE.
--- NOTE | 2022-03-12 16:35 | PT.OPPOC ---
Physical, Occupational & Speech Therapy At [facility] Current Diagnoses Displaced fracture of greater tuberosity of left humerus, initial encounter for closed fracture (03/12/22) Unspecified dislocation of left shoulder joint, subsequent encounter (03/12/22) Visit Care Team Role Provider Type Nick Witt MD Family Provider Physician Primary Care Provider Specialty: Internal Medicine Address: [address] [place] [address], [address] Email: [email or web address] Kenneth Burkett MD Attending Provider Physician Referring Provider Specialty: Orthopedics Orthopedic Surgery Address: [address] [place] [address], [id number] Email: [email or web address] Of [email or web address] PT-OP-T Assessment and Plan Start: 07/26/21 12:44 Freq: Status: Active Protocol: Document 03/12/22 15:16 SAK (Rec: 03/12/22 16:34 SAK [id number]) Physical Therapy Assessment Impairments Impairments Functional Activities,Pain, Posture,ROM,Soft Tissue Mobility,Strength Goals Three Impairment QuickDash - 70% impairment Detention Goal (LTG) Pt will score 45% or less impairment on QuickDash as a measure of improved ability to manage ADL's 03/12/22: goal met at 32%. New goal of decreased to no greater than 20% LTG Duration Two Impairment shoulder strength Short Term Goal (STG) Pt will improve her strength to be able to lift her arm to 90 degrees elevation to improve her ability to use her left arm in self-care activities. 09/06/21 - Pt lifts her arm to 55 degrees in flexion. 03/12/22: still very limited at 60 degrees. STG Duration 02/10/22 Executive Relations Specialist Goal (LTG) Nithya will improve her left shoulder strength to be able to lift a book from table height. 03/12/22: can lift book or other small items but not higher than waist level. New goal of being able to lift it overhead LTG Duration One Impairment shoulder ROM Impairment function-limited by ROM deficits Short Term Goal (STG) Nithya will improve her shoulder flexion PROM to 90 degrees 09/06/21 - GOAL MET STG Duration Met Detention Goal (LTG) Nithya will improve her shoulder abduction AROM to 90 degrees and flexion to 120 degrees, ER to 60 deg 10/17/21 -flexion remains limited and painful 03/12/22: PROM with pulleys 147 deg abd, 151 flex. AROM abduction 27, flex 60 with compensation, ER 27 deg, improved today with contract relax technique to 56 passive LTG Duration Assessment Summary Assessment Patient demonstrating most improvement in PROM but strength remains very limited and frustrating for patient inability to lift her hand overhead for purposes of ADL's . She can now reach behind her back without difficulty. She is demonstrating improved awareness of compensation and of correct scapular movement and stabilization. She has now obtained pulleys for home use. Feel she has potential for further improvement with continued skilled PT. She is highly motivated and agrees with POC. She is adamant about trying to avoid shoulder surgery. Physical Therapy Plan Frequency and Duration Frequency of Treatment 2x/Week Duration of treatment (weeks) 8 Plan of Care Start Date 01/10/22 Plan of Care End Date 03/12/22 Therapeutic Interventions Therapeutic Interventions Aquatic Therapy,Home Exercise Program,Joint Mobilizations, Manual Therapy,Neuromuscular Re-education,Self-Care/Home Management,Soft Tissue Mobilization,Therapeutic Activities,Therapeutic Exercises Modalities Cold Pack/Ice Massage,Electric Stimulation,Hot Packs, Ultrasound Next Visit Focus/Plan Next Note Type Treatment Note Next Visit Plan Continue PT for progression of ROM, strengthening, and HEP instruction, manual therapy for improved soft tissue and joint mobility to help patient regain active functional use of her left UE. Plan of Care Dates Plan of Care Start Date 01/10/22 Plan of Care End Date 03/12/22 Electronically Signed by: Inocencia Rene, PT 03/12/22 6215 If you are in agreement with this Plan of Care, please return a signed and dated copy. I have reviewed this Plan of Care and certify that the skilled therapy services above are required to meet the patient?s needs. Physician Signature Date Printed Name and Credentials Clinical Instructor Signature Printed Name and Credentials
--- NOTE | 2022-03-20 15:14 | PT.OTN ---
Current Diagnoses Displaced fracture of greater tuberosity of left humerus, initial encounter for closed fracture (03/20/22) Unspecified dislocation of left shoulder joint, subsequent encounter (03/20/22) Physical Therapy Treatment Note PT-OP-A Visit Information Start: 07/26/21 12:44 Freq: Status: Active Protocol: Document 03/20/22 14:33 DCW (Rec: 03/20/22 15:14 DCW [id number]) Out-Patient Physical Therapy Visit Information Visit Information Visit Type Treatment Note Visit Start Time 14:33 Visit Stop Time 15:15 Total Visit Minutes 46 Visit Number 42 Evaluation Information Evaluation Date 07/26/21 PT-OP-B Current Condition Start: 07/26/21 12:44 Freq: Status: Active Protocol: Document 07/26/21 15:15 AW (Rec: 07/26/21 12:55 AW [id number]) Current Condition History of Current Condition Onset Date April 2021 Current Complaints left shoulder pain History of Current Condition Nithya fell in April, resulting in comminuted left proximal humerus fracture with anterior dislocation. She has long-standing left knee pain which she feels may have contributed to her fall. Fracture was treated non- operatively and Rd was sent home in a soft sling after a brief hospital stay. Her sister was visiting from [place] at the time and extended her stay to help for a week but Nithya has been managing without assist at home since her sister left. She did have one additional fall within one week of leaving the hospital. She believes she was impaired with oxycodone at that time and denies falls since then. She had home health services - primarily OT - but she was discharged at the end of June. She can get dressed and shower without assist but is doing all overhead activities one-handed. She is currently driving even though she has trouble lifting her arm. Pain is mostly in her anterior and posterior shoulder. She denies neck pain or radiating symptoms to her arm. She lives alone in a single level home with 2 steps to enter using right rail at front of house. Prior Treatments and Tests MRI 07/06/21: 1. 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 2. Acromioclavicular joint osteoarthritis. 3. Possible Hill-Sachs deformity of the humeral head. Future Testing and Treatments Planned None identified Treatment Goals Patient/Caregiver Goals Generally, I want to be able to use my left arm. Specifically, I want to be able to hug my boyfriend. Prior Functional Status Baseline Function- ADL's Independent Baseline Function- Mobility Independent Current Functional Impairments (Reported) Functional Limitations- ADL's Limited use of left arm for most dressing and hygiene tasks Personal Factors Other Personal Factors That May Effect Depression, knee pain, and Therapy/Recovery PT-OP-C Subjective Start: 07/26/21 12:44 Freq: Status: Active Protocol: Document 03/20/22 14:33 DCW (Rec: 03/20/22 15:14 DCW [id number]) OP-PT Subjective Patient Comments Patient Comments I'm not sure I'm actually getting better. PT-OP-F Manual Assessment Start: 07/26/21 12:44 Freq: Status: Active Protocol: Document 01/10/22 13:45 DCW (Rec: 01/10/22 14:01 DCW [id number]) Manual Assessments Soft Tissue Assessment Soft Tissue Mobility Assessment Hypertonicity in left shoulder girdle. Generally decreased muscle mass left shoulder compared with right. Joint Mobility Assessment Joint Mobility Assessment Stiffness in all planes of motion left shoulder with significant guarding even with PROM. PT-OP-G Mobility & Gait Start: 07/26/21 12:44 Freq: Status: Active Protocol: Document 07/26/21 15:15 AW (Rec: 07/26/21 17:06 AW [id number]) OP Gait Assessment Comments Gait Comments Generally unsteady and with decreased confidence. PT-OP-J Posture/Palpation/Skin Start: 07/26/21 12:44 Freq: Status: Active Protocol: Document 01/10/22 13:45 DCW (Rec: 01/10/22 14:01 DCW [id number]) Posture Evaluation Comments Posture Comments Forward shoulder posture bilaterally. Protective of left shoulder. PT-OP-K Range of Motion Start: 07/26/21 12:44 Freq: Status: Active Protocol: Document 01/10/22 13:45 DCW (Rec: 01/10/22 14:01 DCW [id number]) Cervical Spine Range of Motion Cervical Spine Active Testing Position Sitting Flexion 35 Extension 34 Rotation Left 45 Rotation Right 35 Lateral Flexion Left 37 Lateral Flexion Right 22 Comments Pt denies neck pain with all movements Shoulder Goniometric Range of Motion Shoulder Left Passive Shoulder ROM WFL No Testing Position Sitting Flexion 54 Abduction 68 External Rotation at 45 degrees 15 Abduction Internal Rotation Behind Back (text) to left PSIS Elbow/Forearm Range of Motion Elbow/Forearm Left Active ROM Testing Position Sitting Elbow Flexion (degrees) 148 Elbow Extension (degrees) 5 PT-OP-M Strength Start: 07/26/21 12:44 Freq: Status: Active Protocol: Document 01/10/22 13:45 DCW (Rec: 01/10/22 14:01 DCW [id number]) Shoulder Strength Shoulder Manual Muscle Testing Left Flexion 2- Poor- Abduction (C5) 2- Poor- External Rotation 2 Poor Internal Rotation 3- Fair- Right Flexion 4+ Good+ Extension 4+ Good+ Abduction (C5) 4+ Good+ External Rotation 4+ Good+ Internal Rotation 4+ Good+ PT-OP-Q Treatments Start: 07/26/21 12:44 Freq: Status: Active Protocol: Document 03/20/22 14:33 DCW (Rec: 03/20/22 15:14 DCW [id number]) Cardio Equipment Upper Body Ergometer (UBE) Duration (Minutes) 6 RPM 60 Seat Position 14 Height 2.5 Other fwd 3 min, bkwd 3 min Therapeutic Exercises Sitting Exercises shoulder flex Sitting Exercise Name AAROM flexion Side left Equipment Used pulleys Reps/Minutes 15x Comments tactile cues for upward scapular rotation abduction AAROM Sitting Exercise Name AAROM Abduction Side left Equipment Used pulleys Comments tactile cues for upward scapular rotation Standing Exercises Flexion Standing Exercise Name Standing flexion Side bilateral Resistance 1# Comments Visual cues to limit UT recruitment resisted extension Standing Exercise Name extension Side bilateral Resistance TB 2 Reps/Minutes 10x Comments verbal and tactile cues resisted row Standing Exercise Name rows Side bilateral Resistance TB 2 Reps/Minutes 10 Comments verbal and tactile cues 1 Standing Exercise Name lean back from treadmill rail Side bilateral Reps/Minutes 20 sec x2 Manual Therapy Treatment Soft Tissue Mobilization 1 Body Location infraspinatus, suprasinatus, rhomboids, subscap, teres minor Mobilization Type Myofascial Release,Sustained Pressure Joint Mobilizations 1 Joint GH Direction A->P, Sup->Inf Grade III Body Position Hooklying Manual Techniques 1 Type PROM all planes Body Position Supine Comments pain-free ROM PT-OP-R Modalities Start: 07/26/21 12:44 Freq: Status: Active Protocol: Document 12/29/21 14:36 LRN (Rec: 12/29/21 15:22 LRN [id number]) Hot Pack/Cold Pack Treatment Cold Pack Location L shoulder Patient Position Sitting Treatment Duration (minutes) 8 PT-OP-T Assessment and Plan Start: 07/26/21 12:44 Freq: Status: Active Protocol: Document 03/20/22 14:33 DCW (Rec: 03/20/22 15:14 DCW [id number]) Physical Therapy Assessment Impairments Impairments Functional Activities,Pain, Posture,ROM,Soft Tissue Mobility,Strength Goals Three Impairment QuickDash - 70% impairment Blanching Machine Operator Goal (LTG) Pt will score 45% or less impairment on QuickDash as a measure of improved ability to manage ADL's 03/12/22: goal met at 32%. New goal of decreased to no greater than 20% LTG Duration Two Impairment shoulder strength Short Term Goal (STG) Pt will improve her strength to be able to lift her arm to 90 degrees elevation to improve her ability to use her left arm in self-care activities. 09/06/21 - Pt lifts her arm to 55 degrees in flexion. 03/12/22: still very limited at 60 degrees. STG Duration 02/10/22 Blanching Machine Operator Goal (LTG) Nithya will improve her left shoulder strength to be able to lift a book from table height. 03/12/22: can lift book or other small items but not higher than waist level. New goal of being able to lift it overhead LTG Duration One Impairment shoulder ROM Impairment function-limited by ROM deficits Short Term Goal (STG) Nithya will improve her shoulder flexion PROM to 90 degrees 09/06/21 - GOAL MET STG Duration Met Detention Goal (LTG) Nithya will improve her shoulder abduction AROM to 90 degrees and flexion to 120 degrees, ER to 60 deg 10/17/21 -flexion remains limited and painful 03/12/22: PROM with pulleys 147 deg abd, 151 flex. AROM abduction 27, flex 60 with compensation, ER 27 deg, improved today with contract relax technique to 56 passive LTG Duration Assessment Summary Assessment Pt PROM continues to display improvement, still struggling with AROM/strength. Tolerated treatment well today. Physical Therapy Plan Frequency and Duration Frequency of Treatment 2x/Week Duration of treatment (weeks) 8 Plan of Care Start Date 03/12/22 Plan of Care End Date 05/12/22 Therapeutic Interventions Therapeutic Interventions Aquatic Therapy,Home Exercise Program,Joint Mobilizations, Manual Therapy,Neuromuscular Re-education,Self-Care/Home Management,Soft Tissue Mobilization,Therapeutic Activities,Therapeutic Exercises Modalities Cold Pack/Ice Massage,Electric Stimulation,Hot Packs, Ultrasound Next Visit Focus/Plan Next Note Type Treatment Note Next Visit Plan Continue PT for progression of ROM, strengthening, and HEP instruction, manual therapy for improved soft tissue and joint mobility to help patient regain active functional use of her left UE.
--- NOTE | 2022-03-26 14:00 | PT.OTN ---
Current Diagnoses Displaced fracture of greater tuberosity of left humerus, initial encounter for closed fracture (03/26/22) Unspecified dislocation of left shoulder joint, subsequent encounter (03/26/22) Physical Therapy Treatment Note PT-OP-A Visit Information Start: 07/26/21 12:44 Freq: Status: Active Protocol: Document 03/26/22 08:13 SAK (Rec: 03/26/22 09:02 SAK [id number]) Out-Patient Physical Therapy Visit Information Visit Information Visit Type Treatment Note Visit Start Time 08:15 Visit Stop Time 08:59 Total Visit Minutes 44 Visit Number 43 Evaluation Information Evaluation Date 07/26/21 PT-OP-B Current Condition Start: 07/26/21 12:44 Freq: Status: Active Protocol: Document 07/26/21 15:15 AW (Rec: 07/26/21 12:55 AW [id number]) Current Condition History of Current Condition Onset Date April 2021 Current Complaints left shoulder pain History of Current Condition Nithya fell in April, resulting in comminuted left proximal humerus fracture with anterior dislocation. She has long-standing left knee pain which she feels may have contributed to her fall. Fracture was treated non- operatively and Rd was sent home in a soft sling after a brief hospital stay. Her sister was visiting from [place] at the time and extended her stay to help for a week but Nithya has been managing without assist at home since her sister left. She did have one additional fall within one week of leaving the hospital. She believes she was impaired with oxycodone at that time and denies falls since then. She had home health services - primarily OT - but she was discharged at the end of June. She can get dressed and shower without assist but is doing all overhead activities one-handed. She is currently driving even though she has trouble lifting her arm. Pain is mostly in her anterior and posterior shoulder. She denies neck pain or radiating symptoms to her arm. She lives alone in a single level home with 2 steps to enter using right rail at front of house. Prior Treatments and Tests MRI 07/06/21: 1. 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 2. Acromioclavicular joint osteoarthritis. 3. Possible Hill-Sachs deformity of the humeral head. Future Testing and Treatments Planned None identified Treatment Goals Patient/Caregiver Goals Generally, I want to be able to use my left arm. Specifically, I want to be able to hug my boyfriend. Prior Functional Status Baseline Function- ADL's Independent Baseline Function- Mobility Independent Current Functional Impairments (Reported) Functional Limitations- ADL's Limited use of left arm for most dressing and hygiene tasks Personal Factors Other Personal Factors That May Effect Depression, knee pain, and Therapy/Recovery PT-OP-C Subjective Start: 07/26/21 12:44 Freq: Status: Active Protocol: Document 03/26/22 08:13 SAK (Rec: 03/26/22 09:02 SAK [id number]) OP-PT Subjective Patient Comments Patient Comments I think my limited ROM is related to my diet; trying to figure out how much I can change. Did poorly with exercises over the weekend. PT-OP-F Manual Assessment Start: 07/26/21 12:44 Freq: Status: Active Protocol: Document 01/10/22 13:45 DCW (Rec: 01/10/22 14:01 DCW [id number]) Manual Assessments Soft Tissue Assessment Soft Tissue Mobility Assessment Hypertonicity in left shoulder girdle. Generally decreased muscle mass left shoulder compared with right. Joint Mobility Assessment Joint Mobility Assessment Stiffness in all planes of motion left shoulder with significant guarding even with PROM. PT-OP-G Mobility & Gait Start: 07/26/21 12:44 Freq: Status: Active Protocol: Document 07/26/21 15:15 AW (Rec: 07/26/21 17:06 AW [id number]) OP Gait Assessment Comments Gait Comments Generally unsteady and with decreased confidence. PT-OP-J Posture/Palpation/Skin Start: 07/26/21 12:44 Freq: Status: Active Protocol: Document 01/10/22 13:45 DCW (Rec: 01/10/22 14:01 DCW [id number]) Posture Evaluation Comments Posture Comments Forward shoulder posture bilaterally. Protective of left shoulder. PT-OP-K Range of Motion Start: 07/26/21 12:44 Freq: Status: Active Protocol: Document 01/10/22 13:45 DCW (Rec: 01/10/22 14:01 DCW [id number]) Cervical Spine Range of Motion Cervical Spine Active Testing Position Sitting Flexion 35 Extension 34 Rotation Left 45 Rotation Right 35 Lateral Flexion Left 37 Lateral Flexion Right 22 Comments Pt denies neck pain with all movements Shoulder Goniometric Range of Motion Shoulder Left Passive Shoulder ROM WFL No Testing Position Sitting Flexion 54 Abduction 68 External Rotation at 45 degrees 15 Abduction Internal Rotation Behind Back (text) to left PSIS Elbow/Forearm Range of Motion Elbow/Forearm Left Active ROM Testing Position Sitting Elbow Flexion (degrees) 148 Elbow Extension (degrees) 5 PT-OP-M Strength Start: 07/26/21 12:44 Freq: Status: Active Protocol: Document 01/10/22 13:45 DCW (Rec: 01/10/22 14:01 DCW [id number]) Shoulder Strength Shoulder Manual Muscle Testing Left Flexion 2- Poor- Abduction (C5) 2- Poor- External Rotation 2 Poor Internal Rotation 3- Fair- Right Flexion 4+ Good+ Extension 4+ Good+ Abduction (C5) 4+ Good+ External Rotation 4+ Good+ Internal Rotation 4+ Good+ PT-OP-Q Treatments Start: 07/26/21 12:44 Freq: Status: Active Protocol: Document 03/26/22 08:13 [facility] (Rec: 03/26/22 09:02 SAK [id number]) Cardio Equipment Upper Body Ergometer (UBE) Duration (Minutes) 6 RPM 60 Seat Position 14 Height 2.5 Other fwd 3 min, bkwd 3 min Therapeutic Exercises Supine Exercises delta sh IR/ER Supine Exercise Name elbow flexed 90 deg Equipment Used towel roll Reps/Minutes 10x rhytmic stab Supine Exercise Name ball held toward ceiling Resistance manual Equipment Used 55 cm ball Reps/Minutes 2 min Comments PT manual resistance chest press Reps/Minutes 10x Comments small foam roll ER Side left Equipment Used towel under elbow Reps/Minutes 10 Comments contract/relax protraction Supine Exercise Name chest press to protraction Side left Equipment Used 1# Reps/Minutes 8 Sitting Exercises shoulder flex Sitting Exercise Name AAROM flexion Side left Equipment Used pulleys Reps/Minutes 15x Comments tactile cues for upward scapular rotation abduction AAROM Sitting Exercise Name AAROM Abduction Side left Equipment Used pulleys Comments tactile cues for upward scapular rotation Standing Exercises armswing Standing Exercise Name with gait, and standing with poles Reps/Minutes 300 m walking, 1 min standing alternating with poles ball roll Standing Exercise Name fwd/bck, side to side, circles Equipment Used 55 cm ball on table Reps/Minutes 10x each shld ext Reps/Minutes 10x5 Comments holding wand, thumbs fwd, verbal and tactile cues for scap retraction wall posture Standing Exercise Name wall posture Comments focus scapular stab resisted extension Standing Exercise Name extension Side bilateral Resistance TB 2 Reps/Minutes 10x Comments verbal and tactile cues resisted row Standing Exercise Name rows Side bilateral Resistance TB 2 Reps/Minutes 10 Comments verbal and tactile cues Therapeutic Activity Therapeutic Activity counter wiping Reps/Minutes 1 min Comments washcloth Manual Therapy Treatment Soft Tissue Mobilization 1 Body Location infraspinatus, suprasinatus, rhomboids, subscap, teres minor Mobilization Type Myofascial Release,Sustained Pressure PT-OP-R Modalities Start: 07/26/21 12:44 Freq: Status: Active Protocol: Document 12/29/21 14:36 LRN (Rec: 12/29/21 15:22 LRN [id number]) Hot Pack/Cold Pack Treatment Cold Pack Location L shoulder Patient Position Sitting Treatment Duration (minutes) 8 PT-OP-T Assessment and Plan Start: 07/26/21 12:44 Freq: Status: Active Protocol: Document 03/26/22 08:13 SAK (Rec: 03/26/22 09:02 SAK [id number]) Physical Therapy Assessment Impairments Impairments Functional Activities,Pain, Posture,ROM,Soft Tissue Mobility,Strength Goals Three Impairment QuickDash - 70% impairment Custodial Goal (LTG) Pt will score 45% or less impairment on QuickDash as a measure of improved ability to manage ADL's 03/12/22: goal met at 32%. New goal of decreased to no greater than 20% LTG Duration Two Impairment shoulder strength Short Term Goal (STG) Pt will improve her strength to be able to lift her arm to 90 degrees elevation to improve her ability to use her left arm in self-care activities. 09/06/21 - Pt lifts her arm to 55 degrees in flexion. 03/12/22: still very limited at 60 degrees. STG Duration 02/10/22 Custodial Goal (LTG) Nithya will improve her left shoulder strength to be able to lift a book from table height. 03/12/22: can lift book or other small items but not higher than waist level. New goal of being able to lift it overhead LTG Duration One Impairment shoulder ROM Impairment function-limited by ROM deficits Short Term Goal (STG) Nithya will improve her shoulder flexion PROM to 90 degrees 09/06/21 - GOAL MET STG Duration Met Research Group Director Goal (LTG) Nithya will improve her shoulder abduction AROM to 90 degrees and flexion to 120 degrees, ER to 60 deg 10/17/21 -flexion remains limited and painful 03/12/22: PROM with pulleys 147 deg abd, 151 flex. AROM abduction 27, flex 60 with compensation, ER 27 deg, improved today with contract relax technique to 56 passive LTG Duration Assessment Summary Assessment Patient demonstrated improved scapular activation during theraband ex though with mod verbal and tactile cues req. Patient verbalized understanding of need to increase functional use of her left UE as she tends to favor it. Physical Therapy Plan Frequency and Duration Frequency of Treatment 2x/Week Duration of treatment (weeks) 8 Plan of Care Start Date 03/12/22 Plan of Care End Date 05/07/22 Therapeutic Interventions Therapeutic Interventions Aquatic Therapy,Home Exercise Program,Joint Mobilizations, Manual Therapy,Neuromuscular Re-education,Self-Care/Home Management,Soft Tissue Mobilization,Therapeutic Activities,Therapeutic Exercises Modalities Cold Pack/Ice Massage,Electric Stimulation,Hot Packs, Ultrasound Next Visit Focus/Plan Next Note Type Treatment Note Next Visit Plan Continue PT for progression of ROM, strengthening, and HEP instruction, manual therapy for improved soft tissue and joint mobility to help patient regain active functional use of her left UE.
--- NOTE | 2022-03-26 14:00 | PT.OTN ---
Current Diagnoses Displaced fracture of greater tuberosity of left humerus, initial encounter for closed fracture (03/26/22) Unspecified dislocation of left shoulder joint, subsequent encounter (03/26/22) Physical Therapy Treatment Note PT-OP-A Visit Information Start: 07/26/21 12:44 Freq: Status: Active Protocol: Document 03/26/22 08:13 SAK (Rec: 03/26/22 09:02 SAK [id number]) Out-Patient Physical Therapy Visit Information Visit Information Visit Type Treatment Note Visit Start Time 08:15 Visit Stop Time 08:59 Total Visit Minutes 44 Visit Number 43 Evaluation Information Evaluation Date 07/26/21 PT-OP-B Current Condition Start: 07/26/21 12:44 Freq: Status: Active Protocol: Document 07/26/21 15:15 AW (Rec: 07/26/21 12:55 AW [id number]) Current Condition History of Current Condition Onset Date April 2021 Current Complaints left shoulder pain History of Current Condition Nithya fell in April, resulting in comminuted left proximal humerus fracture with anterior dislocation. She has long-standing left knee pain which she feels may have contributed to her fall. Fracture was treated non- operatively and Rd was sent home in a soft sling after a brief hospital stay. Her sister was visiting from [place] at the time and extended her stay to help for a week but Nithya has been managing without assist at home since her sister left. She did have one additional fall within one week of leaving the hospital. She believes she was impaired with oxycodone at that time and denies falls since then. She had home health services - primarily OT - but she was discharged at the end of June. She can get dressed and shower without assist but is doing all overhead activities one-handed. She is currently driving even though she has trouble lifting her arm. Pain is mostly in her anterior and posterior shoulder. She denies neck pain or radiating symptoms to her arm. She lives alone in a single level home with 2 steps to enter using right rail at front of house. Prior Treatments and Tests MRI 07/06/21: 1. 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 2. Acromioclavicular joint osteoarthritis. 3. Possible Hill-Sachs deformity of the humeral head. Future Testing and Treatments Planned None identified Treatment Goals Patient/Caregiver Goals Generally, I want to be able to use my left arm. Specifically, I want to be able to hug my boyfriend. Prior Functional Status Baseline Function- ADL's Independent Baseline Function- Mobility Independent Current Functional Impairments (Reported) Functional Limitations- ADL's Limited use of left arm for most dressing and hygiene tasks Personal Factors Other Personal Factors That May Effect Depression, knee pain, and Therapy/Recovery PT-OP-C Subjective Start: 07/26/21 12:44 Freq: Status: Active Protocol: Document 03/26/22 08:13 SAK (Rec: 03/26/22 09:02 SAK [id number]) OP-PT Subjective Patient Comments Patient Comments I think my limited ROM is related to my diet; trying to figure out how much I can change. Did poorly with exercises over the weekend. PT-OP-F Manual Assessment Start: 07/26/21 12:44 Freq: Status: Active Protocol: Document 01/10/22 13:45 DCW (Rec: 01/10/22 14:01 DCW [id number]) Manual Assessments Soft Tissue Assessment Soft Tissue Mobility Assessment Hypertonicity in left shoulder girdle. Generally decreased muscle mass left shoulder compared with right. Joint Mobility Assessment Joint Mobility Assessment Stiffness in all planes of motion left shoulder with significant guarding even with PROM. PT-OP-G Mobility & Gait Start: 07/26/21 12:44 Freq: Status: Active Protocol: Document 07/26/21 15:15 AW (Rec: 07/26/21 17:06 AW [id number]) OP Gait Assessment Comments Gait Comments Generally unsteady and with decreased confidence. PT-OP-J Posture/Palpation/Skin Start: 07/26/21 12:44 Freq: Status: Active Protocol: Document 01/10/22 13:45 DCW (Rec: 01/10/22 14:01 DCW [id number]) Posture Evaluation Comments Posture Comments Forward shoulder posture bilaterally. Protective of left shoulder. PT-OP-K Range of Motion Start: 07/26/21 12:44 Freq: Status: Active Protocol: Document 01/10/22 13:45 DCW (Rec: 01/10/22 14:01 DCW [id number]) Cervical Spine Range of Motion Cervical Spine Active Testing Position Sitting Flexion 35 Extension 34 Rotation Left 45 Rotation Right 35 Lateral Flexion Left 37 Lateral Flexion Right 22 Comments Pt denies neck pain with all movements Shoulder Goniometric Range of Motion Shoulder Left Passive Shoulder ROM WFL No Testing Position Sitting Flexion 54 Abduction 68 External Rotation at 45 degrees 15 Abduction Internal Rotation Behind Back (text) to left PSIS Elbow/Forearm Range of Motion Elbow/Forearm Left Active ROM Testing Position Sitting Elbow Flexion (degrees) 148 Elbow Extension (degrees) 5 PT-OP-M Strength Start: 07/26/21 12:44 Freq: Status: Active Protocol: Document 01/10/22 13:45 DCW (Rec: 01/10/22 14:01 DCW [id number]) Shoulder Strength Shoulder Manual Muscle Testing Left Flexion 2- Poor- Abduction (C5) 2- Poor- External Rotation 2 Poor Internal Rotation 3- Fair- Right Flexion 4+ Good+ Extension 4+ Good+ Abduction (C5) 4+ Good+ External Rotation 4+ Good+ Internal Rotation 4+ Good+ PT-OP-Q Treatments Start: 07/26/21 12:44 Freq: Status: Active Protocol: Document 03/26/22 08:13 [facility] (Rec: 03/26/22 09:02 SAK [id number]) Cardio Equipment Upper Body Ergometer (UBE) Duration (Minutes) 6 RPM 60 Seat Position 14 Height 2.5 Other fwd 3 min, bkwd 3 min Therapeutic Exercises Supine Exercises delta sh IR/ER Supine Exercise Name elbow flexed 90 deg Equipment Used towel roll Reps/Minutes 10x rhytmic stab Supine Exercise Name ball held toward ceiling Resistance manual Equipment Used 55 cm ball Reps/Minutes 2 min Comments PT manual resistance chest press Reps/Minutes 10x Comments small foam roll ER Side left Equipment Used towel under elbow Reps/Minutes 10 Comments contract/relax protraction Supine Exercise Name chest press to protraction Side left Equipment Used 1# Reps/Minutes 8 Sitting Exercises shoulder flex Sitting Exercise Name AAROM flexion Side left Equipment Used pulleys Reps/Minutes 15x Comments tactile cues for upward scapular rotation abduction AAROM Sitting Exercise Name AAROM Abduction Side left Equipment Used pulleys Comments tactile cues for upward scapular rotation Standing Exercises armswing Standing Exercise Name with gait, and standing with poles Reps/Minutes 300 m walking, 1 min standing alternating with poles ball roll Standing Exercise Name fwd/bck, side to side, circles Equipment Used 55 cm ball on table Reps/Minutes 10x each shld ext Reps/Minutes 10x5 Comments holding wand, thumbs fwd, verbal and tactile cues for scap retraction wall posture Standing Exercise Name wall posture Comments focus scapular stab resisted extension Standing Exercise Name extension Side bilateral Resistance TB 2 Reps/Minutes 10x Comments verbal and tactile cues resisted row Standing Exercise Name rows Side bilateral Resistance TB 2 Reps/Minutes 10 Comments verbal and tactile cues Therapeutic Activity Therapeutic Activity counter wiping Reps/Minutes 1 min Comments washcloth Manual Therapy Treatment Soft Tissue Mobilization 1 Body Location infraspinatus, suprasinatus, rhomboids, subscap, teres minor Mobilization Type Myofascial Release,Sustained Pressure PT-OP-R Modalities Start: 07/26/21 12:44 Freq: Status: Active Protocol: Document 12/29/21 14:36 LRN (Rec: 12/29/21 15:22 LRN [id number]) Hot Pack/Cold Pack Treatment Cold Pack Location L shoulder Patient Position Sitting Treatment Duration (minutes) 8 PT-OP-T Assessment and Plan Start: 07/26/21 12:44 Freq: Status: Active Protocol: Document 03/26/22 08:13 SAK (Rec: 03/26/22 09:02 SAK [id number]) Physical Therapy Assessment Impairments Impairments Functional Activities,Pain, Posture,ROM,Soft Tissue Mobility,Strength Goals Three Impairment QuickDash - 70% impairment Detention Goal (LTG) Pt will score 45% or less impairment on QuickDash as a measure of improved ability to manage ADL's 03/12/22: goal met at 32%. New goal of decreased to no greater than 20% LTG Duration Two Impairment shoulder strength Short Term Goal (STG) Pt will improve her strength to be able to lift her arm to 90 degrees elevation to improve her ability to use her left arm in self-care activities. 09/06/21 - Pt lifts her arm to 55 degrees in flexion. 03/12/22: still very limited at 60 degrees. STG Duration 02/10/22 Detention Goal (LTG) Nithya will improve her left shoulder strength to be able to lift a book from table height. 03/12/22: can lift book or other small items but not higher than waist level. New goal of being able to lift it overhead LTG Duration One Impairment shoulder ROM Impairment function-limited by ROM deficits Short Term Goal (STG) Nithya will improve her shoulder flexion PROM to 90 degrees 09/06/21 - GOAL MET STG Duration Met Maternal Child Nurse Goal (LTG) Nithya will improve her shoulder abduction AROM to 90 degrees and flexion to 120 degrees, ER to 60 deg 10/17/21 -flexion remains limited and painful 03/12/22: PROM with pulleys 147 deg abd, 151 flex. AROM abduction 27, flex 60 with compensation, ER 27 deg, improved today with contract relax technique to 56 passive LTG Duration Assessment Summary Assessment Patient demonstrated improved scapular activation during theraband ex though with mod verbal and tactile cues req. Patient verbalized understanding of need to increase functional use of her left UE as she tends to favor it including lack of arm swing with gait Physical Therapy Plan Frequency and Duration Frequency of Treatment 2x/Week Duration of treatment (weeks) 8 Plan of Care Start Date 03/12/22 Plan of Care End Date 05/07/22 Therapeutic Interventions Therapeutic Interventions Aquatic Therapy,Home Exercise Program,Joint Mobilizations, Manual Therapy,Neuromuscular Re-education,Self-Care/Home Management,Soft Tissue Mobilization,Therapeutic Activities,Therapeutic Exercises Modalities Cold Pack/Ice Massage,Electric Stimulation,Hot Packs, Ultrasound Next Visit Focus/Plan Next Note Type Treatment Note Next Visit Plan Continue PT for progression of ROM, strengthening, and HEP instruction, manual therapy for improved soft tissue and joint mobility to help patient regain active functional use of her left UE.
--- NOTE | 2022-04-03 12:26 | PT.OTN ---
Current Diagnoses Displaced fracture of greater tuberosity of left humerus, initial encounter for closed fracture (04/03/22) Unspecified dislocation of left shoulder joint, subsequent encounter (04/03/22) Physical Therapy Treatment Note PT-OP-A Visit Information Start: 07/26/21 12:44 Freq: Status: Active Protocol: Document 04/03/22 08:59 AW (Rec: 04/03/22 10:32 AW [id number]) Out-Patient Physical Therapy Visit Information Visit Information Visit Type Treatment Note Visit Start Time 09:45 Visit Stop Time 10:25 Total Visit Minutes 40 Visit Number 44 Evaluation Information Evaluation Date 07/26/21 PT-OP-B Current Condition Start: 07/26/21 12:44 Freq: Status: Active Protocol: Document 07/26/21 15:15 AW (Rec: 07/26/21 12:55 AW [id number]) Current Condition History of Current Condition Onset Date April 2021 Current Complaints left shoulder pain History of Current Condition Nithya fell in April, resulting in comminuted left proximal humerus fracture with anterior dislocation. She has long-standing left knee pain which she feels may have contributed to her fall. Fracture was treated non- operatively and Rd was sent home in a soft sling after a brief hospital stay. Her sister was visiting from [place] at the time and extended her stay to help for a week but Nithya has been managing without assist at home since her sister left. She did have one additional fall within one week of leaving the hospital. She believes she was impaired with oxycodone at that time and denies falls since then. She had home health services - primarily OT - but she was discharged at the end of June. She can get dressed and shower without assist but is doing all overhead activities one-handed. She is currently driving even though she has trouble lifting her arm. Pain is mostly in her anterior and posterior shoulder. She denies neck pain or radiating symptoms to her arm. She lives alone in a single level home with 2 steps to enter using right rail at front of house. Prior Treatments and Tests MRI 07/06/21: 1. 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 2. Acromioclavicular joint osteoarthritis. 3. Possible Hill-Sachs deformity of the humeral head. Future Testing and Treatments Planned None identified Treatment Goals Patient/Caregiver Goals Generally, I want to be able to use my left arm. Specifically, I want to be able to hug my boyfriend. Prior Functional Status Baseline Function- ADL's Independent Baseline Function- Mobility Independent Current Functional Impairments (Reported) Functional Limitations- ADL's Limited use of left arm for most dressing and hygiene tasks Personal Factors Other Personal Factors That May Effect Depression, knee pain, and Therapy/Recovery PT-OP-C Subjective Start: 07/26/21 12:44 Freq: Status: Active Protocol: Document 04/03/22 08:59 AW (Rec: 04/03/22 10:32 AW [id number]) OP-PT Subjective Patient Comments Patient Comments Pt feels re-dedicated to home program, is working with pulleys and bands at home, using left arm as much as possible. PT-OP-F Manual Assessment Start: 07/26/21 12:44 Freq: Status: Active Protocol: Document 01/10/22 13:45 DCW (Rec: 01/10/22 14:01 DCW [id number]) Manual Assessments Soft Tissue Assessment Soft Tissue Mobility Assessment Hypertonicity in left shoulder girdle. Generally decreased muscle mass left shoulder compared with right. Joint Mobility Assessment Joint Mobility Assessment Stiffness in all planes of motion left shoulder with significant guarding even with PROM. PT-OP-G Mobility & Gait Start: 07/26/21 12:44 Freq: Status: Active Protocol: Document 07/26/21 15:15 AW (Rec: 07/26/21 17:06 AW [id number]) OP Gait Assessment Comments Gait Comments Generally unsteady and with decreased confidence. PT-OP-J Posture/Palpation/Skin Start: 07/26/21 12:44 Freq: Status: Active Protocol: Document 01/10/22 13:45 DCW (Rec: 01/10/22 14:01 DCW [id number]) Posture Evaluation Comments Posture Comments Forward shoulder posture bilaterally. Protective of left shoulder. PT-OP-K Range of Motion Start: 07/26/21 12:44 Freq: Status: Active Protocol: Document 01/10/22 13:45 DCW (Rec: 01/10/22 14:01 DCW [id number]) Cervical Spine Range of Motion Cervical Spine Active Testing Position Sitting Flexion 35 Extension 34 Rotation Left 45 Rotation Right 35 Lateral Flexion Left 37 Lateral Flexion Right 22 Comments Pt denies neck pain with all movements Shoulder Goniometric Range of Motion Shoulder Left Passive Shoulder ROM WFL No Testing Position Sitting Flexion 54 Abduction 68 External Rotation at 45 degrees 15 Abduction Internal Rotation Behind Back (text) to left PSIS Elbow/Forearm Range of Motion Elbow/Forearm Left Active ROM Testing Position Sitting Elbow Flexion (degrees) 148 Elbow Extension (degrees) 5 PT-OP-M Strength Start: 07/26/21 12:44 Freq: Status: Active Protocol: Document 01/10/22 13:45 DCW (Rec: 01/10/22 14:01 DCW [id number]) Shoulder Strength Shoulder Manual Muscle Testing Left Flexion 2- Poor- Abduction (C5) 2- Poor- External Rotation 2 Poor Internal Rotation 3- Fair- Right Flexion 4+ Good+ Extension 4+ Good+ Abduction (C5) 4+ Good+ External Rotation 4+ Good+ Internal Rotation 4+ Good+ PT-OP-Q Treatments Start: 07/26/21 12:44 Freq: Status: Active Protocol: Document 04/03/22 08:59 AW (Rec: 04/03/22 10:32 AW [id number]) Therapeutic Exercises Supine Exercises rhytmic stab Supine Exercise Name ball held toward ceiling Resistance manual Equipment Used 55 cm ball Reps/Minutes 2 min Comments PT manual resistance protraction Supine Exercise Name chest press to protraction Side left Equipment Used 1# Reps/Minutes 8 Sitting Exercises shoulder flex Sitting Exercise Name AAROM flexion Side left Equipment Used pulleys Reps/Minutes 15x Comments tactile cues for upward scapular rotation Standing Exercises ball roll Standing Exercise Name fwd/bck, side to side, circles Equipment Used 55 cm ball on table Reps/Minutes 10x each shld ext Reps/Minutes 10x5 Comments holding wand, thumbs fwd, verbal and tactile cues for scap retraction Flexion Standing Exercise Name Standing flexion Side bilateral Resistance 1# Comments Visual cues to limit UT recruitment malloy carry Standing Exercise Name malloy carry Side bilateral Resistance 5# db Reps/Minutes 200 ft Comments focus on arm swing resisted extension Standing Exercise Name extension Side bilateral Resistance TB 2 Reps/Minutes 10x Comments verbal and tactile cues resisted row Standing Exercise Name rows Side bilateral Resistance TB 2 Reps/Minutes 10 Comments verbal and tactile cues Manual Therapy Treatment Soft Tissue Mobilization 1 Body Location infraspinatus, suprasinatus, rhomboids, subscap, teres minor Mobilization Type Myofascial Release,Sustained Pressure Joint Mobilizations 1 Joint GH Direction A->P, Sup->Inf Grade III Body Position Hooklying PT-OP-R Modalities Start: 07/26/21 12:44 Freq: Status: Active Protocol: Document 12/29/21 14:36 LRN (Rec: 12/29/21 15:22 LRN [id number]) Hot Pack/Cold Pack Treatment Cold Pack Location L shoulder Patient Position Sitting Treatment Duration (minutes) 8 PT-OP-T Assessment and Plan Start: 07/26/21 12:44 Freq: Status: Active Protocol: Document 04/03/22 08:59 AW (Rec: 04/03/22 10:32 AW [id number]) Physical Therapy Assessment Impairments Impairments Functional Activities,Pain, Posture,ROM,Soft Tissue Mobility,Strength Goals Three Impairment QuickDash - 70% impairment Piano Case And Bench Assembler Goal (LTG) Pt will score 45% or less impairment on QuickDash as a measure of improved ability to manage ADL's 03/12/22: goal met at 32%. New goal of decreased to no greater than 20% LTG Duration Two Impairment shoulder strength Short Term Goal (STG) Pt will improve her strength to be able to lift her arm to 90 degrees elevation to improve her ability to use her left arm in self-care activities. 09/06/21 - Pt lifts her arm to 55 degrees in flexion. 03/12/22: still very limited at 60 degrees. STG Duration 02/10/22 Piano Case And Bench Assembler Goal (LTG) Nithya will improve her left shoulder strength to be able to lift a book from table height. 03/12/22: can lift book or other small items but not higher than waist level. New goal of being able to lift it overhead LTG Duration One Impairment shoulder ROM Impairment function-limited by ROM deficits Short Term Goal (STG) Nithya will improve her shoulder flexion PROM to 90 degrees 09/06/21 - GOAL MET STG Duration Met Piano Case And Bench Assembler Goal (LTG) Nithya will improve her shoulder abduction AROM to 90 degrees and flexion to 120 degrees, ER to 60 deg 10/17/21 -flexion remains limited and painful 03/12/22: PROM with pulleys 147 deg abd, 151 flex. AROM abduction 27, flex 60 with compensation, ER 27 deg, improved today with contract relax technique to 56 passive LTG Duration Assessment Summary Assessment Continued work on arm swing in gait today with 5# dumbbells held in malloy carry. Pt notes she is able to hold her mug under the faucet and fill it using left hand. She is now able to hug her boyfriend. ROM and strength gains have been slow but steady. Physical Therapy Plan Frequency and Duration Frequency of Treatment 2x/Week Duration of treatment (weeks) 8 Plan of Care Start Date 03/12/22 Plan of Care End Date 05/07/22 Therapeutic Interventions Therapeutic Interventions Aquatic Therapy,Home Exercise Program,Joint Mobilizations, Manual Therapy,Neuromuscular Re-education,Self-Care/Home Management,Soft Tissue Mobilization,Therapeutic Activities,Therapeutic Exercises Modalities Cold Pack/Ice Massage,Electric Stimulation,Hot Packs, Ultrasound Next Visit Focus/Plan Next Note Type Treatment Note Next Visit Plan Continue PT for progression of ROM, strengthening, and HEP instruction, manual therapy for improved soft tissue and joint mobility to help patient regain active functional use of her left UE.
--- NOTE | 2022-04-11 16:03 | PT.OTN ---
Current Diagnoses Displaced fracture of greater tuberosity of left humerus, initial encounter for closed fracture (04/11/22) Unspecified dislocation of left shoulder joint, subsequent encounter (04/11/22) Physical Therapy Treatment Note PT-OP-A Visit Information Start: 07/26/21 12:44 Freq: Status: Active Protocol: Document 04/11/22 15:20 AW (Rec: 04/11/22 16:03 AW [id number]) Out-Patient Physical Therapy Visit Information Visit Information Visit Type Treatment Note Visit Start Time 15:20 Visit Stop Time 16:00 Total Visit Minutes 40 Visit Number 45 Evaluation Information Evaluation Date 07/26/21 PT-OP-B Current Condition Start: 07/26/21 12:44 Freq: Status: Active Protocol: Document 07/26/21 15:15 AW (Rec: 07/26/21 12:55 AW [id number]) Current Condition History of Current Condition Onset Date April 2021 Current Complaints left shoulder pain History of Current Condition Nithya fell in April, resulting in comminuted left proximal humerus fracture with anterior dislocation. She has long-standing left knee pain which she feels may have contributed to her fall. Fracture was treated non- operatively and Rd was sent home in a soft sling after a brief hospital stay. Her sister was visiting from [place] at the time and extended her stay to help for a week but Nithya has been managing without assist at home since her sister left. She did have one additional fall within one week of leaving the hospital. She believes she was impaired with oxycodone at that time and denies falls since then. She had home health services - primarily OT - but she was discharged at the end of June. She can get dressed and shower without assist but is doing all overhead activities one-handed. She is currently driving even though she has trouble lifting her arm. Pain is mostly in her anterior and posterior shoulder. She denies neck pain or radiating symptoms to her arm. She lives alone in a single level home with 2 steps to enter using right rail at front of house. Prior Treatments and Tests MRI 07/06/21: 1. 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 2. Acromioclavicular joint osteoarthritis. 3. Possible Hill-Sachs deformity of the humeral head. Future Testing and Treatments Planned None identified Treatment Goals Patient/Caregiver Goals Generally, I want to be able to use my left arm. Specifically, I want to be able to hug my boyfriend. Prior Functional Status Baseline Function- ADL's Independent Baseline Function- Mobility Independent Current Functional Impairments (Reported) Functional Limitations- ADL's Limited use of left arm for most dressing and hygiene tasks Personal Factors Other Personal Factors That May Effect Depression, knee pain, and Therapy/Recovery PT-OP-C Subjective Start: 07/26/21 12:44 Freq: Status: Active Protocol: Document 04/11/22 15:20 AW (Rec: 04/11/22 16:03 AW [id number]) OP-PT Subjective Patient Comments Patient Comments It's hard to remember to use my left arm more because I'm right handed but I'm trying. PT-OP-F Manual Assessment Start: 07/26/21 12:44 Freq: Status: Active Protocol: Document 01/10/22 13:45 DCW (Rec: 01/10/22 14:01 DCW [id number]) Manual Assessments Soft Tissue Assessment Soft Tissue Mobility Assessment Hypertonicity in left shoulder girdle. Generally decreased muscle mass left shoulder compared with right. Joint Mobility Assessment Joint Mobility Assessment Stiffness in all planes of motion left shoulder with significant guarding even with PROM. PT-OP-G Mobility & Gait Start: 07/26/21 12:44 Freq: Status: Active Protocol: Document 07/26/21 15:15 AW (Rec: 07/26/21 17:06 AW [id number]) OP Gait Assessment Comments Gait Comments Generally unsteady and with decreased confidence. PT-OP-J Posture/Palpation/Skin Start: 07/26/21 12:44 Freq: Status: Active Protocol: Document 01/10/22 13:45 DCW (Rec: 01/10/22 14:01 DCW [id number]) Posture Evaluation Comments Posture Comments Forward shoulder posture bilaterally. Protective of left shoulder. PT-OP-K Range of Motion Start: 07/26/21 12:44 Freq: Status: Active Protocol: Document 01/10/22 13:45 DCW (Rec: 01/10/22 14:01 DCW [id number]) Cervical Spine Range of Motion Cervical Spine Active Testing Position Sitting Flexion 35 Extension 34 Rotation Left 45 Rotation Right 35 Lateral Flexion Left 37 Lateral Flexion Right 22 Comments Pt denies neck pain with all movements Shoulder Goniometric Range of Motion Shoulder Left Passive Shoulder ROM WFL No Testing Position Sitting Flexion 54 Abduction 68 External Rotation at 45 degrees 15 Abduction Internal Rotation Behind Back (text) to left PSIS Elbow/Forearm Range of Motion Elbow/Forearm Left Active ROM Testing Position Sitting Elbow Flexion (degrees) 148 Elbow Extension (degrees) 5 PT-OP-M Strength Start: 07/26/21 12:44 Freq: Status: Active Protocol: Document 01/10/22 13:45 DCW (Rec: 01/10/22 14:01 DCW [id number]) Shoulder Strength Shoulder Manual Muscle Testing Left Flexion 2- Poor- Abduction (C5) 2- Poor- External Rotation 2 Poor Internal Rotation 3- Fair- Right Flexion 4+ Good+ Extension 4+ Good+ Abduction (C5) 4+ Good+ External Rotation 4+ Good+ Internal Rotation 4+ Good+ PT-OP-Q Treatments Start: 07/26/21 12:44 Freq: Status: Active Protocol: Document 04/11/22 15:20 AW (Rec: 04/11/22 16:03 AW [id number]) Cardio Equipment Upper Body Ergometer (UBE) Duration (Minutes) 6 RPM 60 Seat Position 14 Height 2.5 Other fwd 3 min, bkwd 3 min Therapeutic Exercises Sitting Exercises shoulder flex Sitting Exercise Name AAROM flexion Side left Equipment Used pulleys Reps/Minutes 15x Comments tactile cues for upward scapular rotation abduction AAROM Sitting Exercise Name AAROM Abduction Side left Equipment Used pulleys Comments tactile cues for upward scapular rotation closed chain ER Sitting Exercise Name closed chain ER Equipment Used PT stabilizes L shoulder and pt turns away Reps/Minutes x5 Comments cued scapular retraction Standing Exercises ball roll Standing Exercise Name fwd/bck, side to side, circles Equipment Used 55 cm ball on table Reps/Minutes 10x each Flexion Standing Exercise Name Standing flexion Side bilateral Resistance 1# Comments Visual cues to limit UT recruitment malloy carry Standing Exercise Name malloy carry Side bilateral Resistance 5# db Reps/Minutes 200 ft Comments focus on arm swing wall posture Standing Exercise Name wall posture Comments focus scapular stab resisted extension Standing Exercise Name extension Side bilateral Resistance TB 2 Reps/Minutes 10x Comments verbal and tactile cues resisted row Standing Exercise Name rows Side bilateral Resistance TB 2 Reps/Minutes 10 Comments verbal and tactile cues Manual Therapy Treatment Soft Tissue Mobilization 1 Body Location UT primarily Mobilization Type Myofascial Release,Sustained Pressure Joint Mobilizations 1 Joint GH Direction A->P, Sup->Inf Grade III Body Position Hooklying PT-OP-R Modalities Start: 07/26/21 12:44 Freq: Status: Active Protocol: Document 12/29/21 14:36 LRN (Rec: 12/29/21 15:22 LRN [id number]) Hot Pack/Cold Pack Treatment Cold Pack Location L shoulder Patient Position Sitting Treatment Duration (minutes) 8 PT-OP-T Assessment and Plan Start: 07/26/21 12:44 Freq: Status: Active Protocol: Document 04/11/22 15:20 AW (Rec: 04/11/22 16:03 AW [id number]) Physical Therapy Assessment Impairments Impairments Functional Activities,Pain, Posture,ROM,Soft Tissue Mobility,Strength Goals Three Impairment QuickDash - 70% impairment Insurance Adjuster Goal (LTG) Pt will score 45% or less impairment on QuickDash as a measure of improved ability to manage ADL's 03/12/22: goal met at 32%. New goal of decreased to no greater than 20% LTG Duration Two Impairment shoulder strength Short Term Goal (STG) Pt will improve her strength to be able to lift her arm to 90 degrees elevation to improve her ability to use her left arm in self-care activities. 09/06/21 - Pt lifts her arm to 55 degrees in flexion. 03/12/22: still very limited at 60 degrees. STG Duration 02/10/22 Half-Way Goal (LTG) Nithya will improve her left shoulder strength to be able to lift a book from table height. 03/12/22: can lift book or other small items but not higher than waist level. New goal of being able to lift it overhead LTG Duration One Impairment shoulder ROM Impairment function-limited by ROM deficits Short Term Goal (STG) Nithya will improve her shoulder flexion PROM to 90 degrees 09/06/21 - GOAL MET STG Duration Met Insurance Adjuster Goal (LTG) Nithya will improve her shoulder abduction AROM to 90 degrees and flexion to 120 degrees, ER to 60 deg 10/17/21 -flexion remains limited and painful 03/12/22: PROM with pulleys 147 deg abd, 151 flex. AROM abduction 27, flex 60 with compensation, ER 27 deg, improved today with contract relax technique to 56 passive LTG Duration Assessment Summary Assessment Pt does well with exercises in clinic. PROM is improving and pt is now able to lift 1# with LUE to ~50 degrees in flexion. She would like to play piano again. PT encouraged her to try and report back. Physical Therapy Plan Frequency and Duration Frequency of Treatment 2x/Week Duration of treatment (weeks) 8 Plan of Care Start Date 03/12/22 Plan of Care End Date 05/07/22 Therapeutic Interventions Therapeutic Interventions Aquatic Therapy,Home Exercise Program,Joint Mobilizations, Manual Therapy,Neuromuscular Re-education,Self-Care/Home Management,Soft Tissue Mobilization,Therapeutic Activities,Therapeutic Exercises Modalities Cold Pack/Ice Massage,Electric Stimulation,Hot Packs, Ultrasound Next Visit Focus/Plan Next Note Type Treatment Note Next Visit Plan Consider piano simulation? Continue PT for progression of ROM, strengthening, and HEP instruction, manual therapy for improved soft tissue and joint mobility to help patient regain active functional use of her left UE.
--- NOTE | 2022-04-16 16:12 | PT.OTN ---
Current Diagnoses Displaced fracture of greater tuberosity of left humerus, initial encounter for closed fracture (04/16/22) Unspecified dislocation of left shoulder joint, subsequent encounter (04/16/22) Physical Therapy Treatment Note PT-OP-A Visit Information Start: 07/26/21 12:44 Freq: Status: Active Protocol: Document 04/16/22 15:14 SAK (Rec: 04/16/22 16:12 SAK [id number]) Out-Patient Physical Therapy Visit Information Visit Information Visit Type Treatment Note Visit Start Time 15:15 Visit Stop Time 16:00 Total Visit Minutes 40 Visit Number 46 Evaluation Information Evaluation Date 07/26/21 PT-OP-B Current Condition Start: 07/26/21 12:44 Freq: Status: Active Protocol: Document 07/26/21 15:15 AW (Rec: 07/26/21 12:55 AW [id number]) Current Condition History of Current Condition Onset Date April 2021 Current Complaints left shoulder pain History of Current Condition Nithya fell in April, resulting in comminuted left proximal humerus fracture with anterior dislocation. She has long-standing left knee pain which she feels may have contributed to her fall. Fracture was treated non- operatively and Rd was sent home in a soft sling after a brief hospital stay. Her sister was visiting from [place] at the time and extended her stay to help for a week but Nithya has been managing without assist at home since her sister left. She did have one additional fall within one week of leaving the hospital. She believes she was impaired with oxycodone at that time and denies falls since then. She had home health services - primarily OT - but she was discharged at the end of June. She can get dressed and shower without assist but is doing all overhead activities one-handed. She is currently driving even though she has trouble lifting her arm. Pain is mostly in her anterior and posterior shoulder. She denies neck pain or radiating symptoms to her arm. She lives alone in a single level home with 2 steps to enter using right rail at front of house. Prior Treatments and Tests MRI 07/06/21: 1. 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 2. Acromioclavicular joint osteoarthritis. 3. Possible Hill-Sachs deformity of the humeral head. Future Testing and Treatments Planned None identified Treatment Goals Patient/Caregiver Goals Generally, I want to be able to use my left arm. Specifically, I want to be able to hug my boyfriend. Prior Functional Status Baseline Function- ADL's Independent Baseline Function- Mobility Independent Current Functional Impairments (Reported) Functional Limitations- ADL's Limited use of left arm for most dressing and hygiene tasks Personal Factors Other Personal Factors That May Effect Depression, knee pain, and Therapy/Recovery PT-OP-C Subjective Start: 07/26/21 12:44 Freq: Status: Active Protocol: Document 04/16/22 15:14 SAK (Rec: 04/16/22 16:12 SAK [id number]) OP-PT Subjective Patient Comments Patient Comments No new c/o regarding her shoulder, just has a couple appointments left in PT. Having her left knee x-rayed today due to persistent pain. Not a good week for doing her exercises due to other things going on for her. PT-OP-F Manual Assessment Start: 07/26/21 12:44 Freq: Status: Active Protocol: Document 01/10/22 13:45 DCW (Rec: 01/10/22 14:01 DCW [id number]) Manual Assessments Soft Tissue Assessment Soft Tissue Mobility Assessment Hypertonicity in left shoulder girdle. Generally decreased muscle mass left shoulder compared with right. Joint Mobility Assessment Joint Mobility Assessment Stiffness in all planes of motion left shoulder with significant guarding even with PROM. PT-OP-G Mobility & Gait Start: 07/26/21 12:44 Freq: Status: Active Protocol: Document 07/26/21 15:15 AW (Rec: 07/26/21 17:06 AW [id number]) OP Gait Assessment Comments Gait Comments Generally unsteady and with decreased confidence. PT-OP-J Posture/Palpation/Skin Start: 07/26/21 12:44 Freq: Status: Active Protocol: Document 01/10/22 13:45 DCW (Rec: 01/10/22 14:01 DCW [id number]) Posture Evaluation Comments Posture Comments Forward shoulder posture bilaterally. Protective of left shoulder. PT-OP-K Range of Motion Start: 07/26/21 12:44 Freq: Status: Active Protocol: Document 01/10/22 13:45 DCW (Rec: 01/10/22 14:01 DCW [id number]) Cervical Spine Range of Motion Cervical Spine Active Testing Position Sitting Flexion 35 Extension 34 Rotation Left 45 Rotation Right 35 Lateral Flexion Left 37 Lateral Flexion Right 22 Comments Pt denies neck pain with all movements Shoulder Goniometric Range of Motion Shoulder Left Passive Shoulder ROM WFL No Testing Position Sitting Flexion 54 Abduction 68 External Rotation at 45 degrees 15 Abduction Internal Rotation Behind Back (text) to left PSIS Elbow/Forearm Range of Motion Elbow/Forearm Left Active ROM Testing Position Sitting Elbow Flexion (degrees) 148 Elbow Extension (degrees) 5 PT-OP-M Strength Start: 07/26/21 12:44 Freq: Status: Active Protocol: Document 01/10/22 13:45 DCW (Rec: 01/10/22 14:01 DCW [id number]) Shoulder Strength Shoulder Manual Muscle Testing Left Flexion 2- Poor- Abduction (C5) 2- Poor- External Rotation 2 Poor Internal Rotation 3- Fair- Right Flexion 4+ Good+ Extension 4+ Good+ Abduction (C5) 4+ Good+ External Rotation 4+ Good+ Internal Rotation 4+ Good+ PT-OP-Q Treatments Start: 07/26/21 12:44 Freq: Status: Active Protocol: Document 04/16/22 15:14 SAK (Rec: 04/16/22 16:12 SAK [id number]) Cardio Equipment Upper Body Ergometer (UBE) Duration (Minutes) 6 RPM 60 Seat Position 14 Height 2.5-3.5 Other fwd 3 min, bkwd 3 min Therapeutic Exercises Supine Exercises serratus Supine Exercise Name punch Equipment Used wand Reps/Minutes 10x chest press Reps/Minutes 10x Comments wand AAROM Supine Exercise Name flexion /c PVC Reps/Minutes 10x Sitting Exercises forearm pron/sup Reps/Minutes 10x2 Comments verbal and tactile cues, mirror for visual feedback ER Equipment Used wand Reps/Minutes 10x2 Comments verbal and tactile cues, mirror for visual feedback shoulder flex Sitting Exercise Name AAROM flexion Side left Equipment Used pulleys Reps/Minutes 15x Comments tactile cues for upward scapular rotation abduction AAROM Sitting Exercise Name AAROM Abduction Side left Equipment Used pulleys Comments tactile cues for upward scapular rotation Standing Exercises bicep curl Equipment Used wand Reps/Minutes 10x3 Comments mirror for visual feedback malloy carry Standing Exercise Name malloy carry Side bilateral Resistance 5# db Reps/Minutes 200 ft Comments focus on arm swing wall posture Standing Exercise Name wall posture Comments focus scapular stab resisted extension Standing Exercise Name extension Side bilateral Resistance TB 2 Reps/Minutes 10x Comments verbal and tactile cues resisted row Standing Exercise Name rows Side bilateral Resistance TB 2 Reps/Minutes 10 Comments verbal and tactile cues PT-OP-R Modalities Start: 07/26/21 12:44 Freq: Status: Active Protocol: Document 12/29/21 14:36 LRN (Rec: 12/29/21 15:22 LRN [id number]) Hot Pack/Cold Pack Treatment Cold Pack Location L shoulder Patient Position Sitting Treatment Duration (minutes) 8 PT-OP-T Assessment and Plan Start: 07/26/21 12:44 Freq: Status: Active Protocol: Document 04/16/22 15:14 SAK (Rec: 04/16/22 16:12 SAK [id number]) Physical Therapy Assessment Impairments Impairments Functional Activities,Pain, Posture,ROM,Soft Tissue Mobility,Strength Goals Three Impairment QuickDash - 70% impairment Carroter Goal (LTG) Pt will score 45% or less impairment on QuickDash as a measure of improved ability to manage ADL's 03/12/22: goal met at 32%. New goal of decreased to no greater than 20% LTG Duration Two Impairment shoulder strength Short Term Goal (STG) Pt will improve her strength to be able to lift her arm to 90 degrees elevation to improve her ability to use her left arm in self-care activities. 09/06/21 - Pt lifts her arm to 55 degrees in flexion. 03/12/22: still very limited at 60 degrees. STG Duration 02/10/22 Carroter Goal (LTG) Nithya will improve her left shoulder strength to be able to lift a book from table height. 03/12/22: can lift book or other small items but not higher than waist level. New goal of being able to lift it overhead LTG Duration One Impairment shoulder ROM Impairment function-limited by ROM deficits Short Term Goal (STG) Nithya will improve her shoulder flexion PROM to 90 degrees 09/06/21 - GOAL MET STG Duration Met Correction Goal (LTG) Nithya will improve her shoulder abduction AROM to 90 degrees and flexion to 120 degrees, ER to 60 deg 10/17/21 -flexion remains limited and painful 03/12/22: PROM with pulleys 147 deg abd, 151 flex. AROM abduction 27, flex 60 with compensation, ER 27 deg, improved today with contract relax technique to 56 passive LTG Duration Assessment Summary Assessment Patient needed moderate cues for technique, decreased compensation; use of verbal, tactile, and visual cues to improve performance of ther ex . By end of session demonstrating improved understanding of technique. Physical Therapy Plan Frequency and Duration Frequency of Treatment 2x/Week Duration of treatment (weeks) 8 Plan of Care Start Date 03/12/22 Plan of Care End Date 05/07/22 Therapeutic Interventions Therapeutic Interventions Aquatic Therapy,Home Exercise Program,Joint Mobilizations, Manual Therapy,Neuromuscular Re-education,Self-Care/Home Management,Soft Tissue Mobilization,Therapeutic Activities,Therapeutic Exercises Modalities Cold Pack/Ice Massage,Electric Stimulation,Hot Packs, Ultrasound Next Visit Focus/Plan Next Note Type Treatment Note Next Visit Plan Consider piano simulation as patient wants to return to playing piano. Continue PT for progression of ROM, strengthening, and HEP instruction, manual therapy for improved soft tissue and joint mobility to help patient regain active functional use of her left UE. Use of tactile, verbal, and visual cues.
--- NOTE | 2022-04-18 11:14 | PT.OTN ---
Current Diagnoses Displaced fracture of greater tuberosity of left humerus, initial encounter for closed fracture (04/18/22) Unspecified dislocation of left shoulder joint, subsequent encounter (04/18/22) Physical Therapy Treatment Note PT-OP-A Visit Information Start: 07/26/21 12:44 Freq: Status: Active Protocol: Document 04/18/22 10:30 DCW (Rec: 04/18/22 11:14 DCW [id number]) Out-Patient Physical Therapy Visit Information Visit Information Visit Type Treatment Note Visit Start Time 10:30 Visit Stop Time 11:15 Total Visit Minutes 45 Visit Number 47 Number of TERMITE RENEWAL INSPECTOR Visits 0 Evaluation Information Evaluation Date 07/26/21 PT-OP-B Current Condition Start: 07/26/21 12:44 Freq: Status: Active Protocol: Document 07/26/21 15:15 AW (Rec: 07/26/21 12:55 AW [id number]) Current Condition History of Current Condition Onset Date April 2021 Current Complaints left shoulder pain History of Current Condition Nithya fell in April, resulting in comminuted left proximal humerus fracture with anterior dislocation. She has long-standing left knee pain which she feels may have contributed to her fall. Fracture was treated non- operatively and Rd was sent home in a soft sling after a brief hospital stay. Her sister was visiting from [place] at the time and extended her stay to help for a week but Nithya has been managing without assist at home since her sister left. She did have one additional fall within one week of leaving the hospital. She believes she was impaired with oxycodone at that time and denies falls since then. She had home health services - primarily OT - but she was discharged at the end of June. She can get dressed and shower without assist but is doing all overhead activities one-handed. She is currently driving even though she has trouble lifting her arm. Pain is mostly in her anterior and posterior shoulder. She denies neck pain or radiating symptoms to her arm. She lives alone in a single level home with 2 steps to enter using right rail at front of house. Prior Treatments and Tests MRI 07/06/21: 1. 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 2. Acromioclavicular joint osteoarthritis. 3. Possible Hill-Sachs deformity of the humeral head. Future Testing and Treatments Planned None identified Treatment Goals Patient/Caregiver Goals Generally, I want to be able to use my left arm. Specifically, I want to be able to hug my boyfriend. Prior Functional Status Baseline Function- ADL's Independent Baseline Function- Mobility Independent Current Functional Impairments (Reported) Functional Limitations- ADL's Limited use of left arm for most dressing and hygiene tasks Personal Factors Other Personal Factors That May Effect Depression, knee pain, and Therapy/Recovery PT-OP-C Subjective Start: 07/26/21 12:44 Freq: Status: Active Protocol: Document 04/18/22 10:30 DCW (Rec: 04/18/22 11:14 DCW [id number]) OP-PT Subjective Patient Comments Patient Comments Pt notes she is feeling alright, I don't really feel like I've passed any sort of threshhold on this shoulder yet. PT-OP-F Manual Assessment Start: 07/26/21 12:44 Freq: Status: Active Protocol: Document 01/10/22 13:45 DCW (Rec: 01/10/22 14:01 DCW [id number]) Manual Assessments Soft Tissue Assessment Soft Tissue Mobility Assessment Hypertonicity in left shoulder girdle. Generally decreased muscle mass left shoulder compared with right. Joint Mobility Assessment Joint Mobility Assessment Stiffness in all planes of motion left shoulder with significant guarding even with PROM. PT-OP-G Mobility & Gait Start: 07/26/21 12:44 Freq: Status: Active Protocol: Document 07/26/21 15:15 AW (Rec: 07/26/21 17:06 AW [id number]) OP Gait Assessment Comments Gait Comments Generally unsteady and with decreased confidence. PT-OP-J Posture/Palpation/Skin Start: 07/26/21 12:44 Freq: Status: Active Protocol: Document 01/10/22 13:45 DCW (Rec: 01/10/22 14:01 DCW [id number]) Posture Evaluation Comments Posture Comments Forward shoulder posture bilaterally. Protective of left shoulder. PT-OP-K Range of Motion Start: 07/26/21 12:44 Freq: Status: Active Protocol: Document 01/10/22 13:45 DCW (Rec: 01/10/22 14:01 DCW [id number]) Cervical Spine Range of Motion Cervical Spine Active Testing Position Sitting Flexion 35 Extension 34 Rotation Left 45 Rotation Right 35 Lateral Flexion Left 37 Lateral Flexion Right 22 Comments Pt denies neck pain with all movements Shoulder Goniometric Range of Motion Shoulder Left Passive Shoulder ROM WFL No Testing Position Sitting Flexion 54 Abduction 68 External Rotation at 45 degrees 15 Abduction Internal Rotation Behind Back (text) to left PSIS Elbow/Forearm Range of Motion Elbow/Forearm Left Active ROM Testing Position Sitting Elbow Flexion (degrees) 148 Elbow Extension (degrees) 5 PT-OP-M Strength Start: 07/26/21 12:44 Freq: Status: Active Protocol: Document 01/10/22 13:45 DCW (Rec: 01/10/22 14:01 DCW [id number]) Shoulder Strength Shoulder Manual Muscle Testing Left Flexion 2- Poor- Abduction (C5) 2- Poor- External Rotation 2 Poor Internal Rotation 3- Fair- Right Flexion 4+ Good+ Extension 4+ Good+ Abduction (C5) 4+ Good+ External Rotation 4+ Good+ Internal Rotation 4+ Good+ PT-OP-Q Treatments Start: 07/26/21 12:44 Freq: Status: Active Protocol: Document 04/18/22 10:30 DCW (Rec: 04/18/22 11:14 DCW [id number]) Cardio Equipment Upper Body Ergometer (UBE) Duration (Minutes) 6 RPM 60 Seat Position 14 Height 2.5-3.5 Other fwd 3 min, bkwd 3 min Therapeutic Exercises Standing Exercises Abduction Standing Exercise Name Shoulder Abduction Side bilateral Resistance 1# bicep curl Equipment Used 1# Reps/Minutes 10x3 Comments Manual cues to get arm into neutral ER Flexion Standing Exercise Name Standing flexion Side bilateral Resistance 1# Comments Visual cues to limit UT recruitment malloy carry Standing Exercise Name malloy carry Side bilateral Resistance 5# db Reps/Minutes 340 ft Comments focus on arm swing resisted extension Standing Exercise Name extension Side bilateral Resistance TB 2 Reps/Minutes 10x Comments verbal and tactile cues resisted row Standing Exercise Name rows Side bilateral Resistance TB 2 Reps/Minutes 10 Comments verbal and tactile cues Manual Therapy Treatment Soft Tissue Mobilization 1 Body Location UT primarily Mobilization Type Myofascial Release,Sustained Pressure Joint Mobilizations 1 Joint GH Direction A->P, Sup->Inf Grade III Body Position Hooklying PT-OP-R Modalities Start: 07/26/21 12:44 Freq: Status: Active Protocol: Document 12/29/21 14:36 LRN (Rec: 12/29/21 15:22 LRN [id number]) Hot Pack/Cold Pack Treatment Cold Pack Location L shoulder Patient Position Sitting Treatment Duration (minutes) 8 PT-OP-T Assessment and Plan Start: 07/26/21 12:44 Freq: Status: Active Protocol: Document 04/18/22 10:30 DCW (Rec: 04/18/22 11:14 DCW [id number]) Physical Therapy Assessment Assessment Summary Assessment Pt continues to struggle with all AROM, shill improving some with PROM. Struggled a lot today just holding R arm into neutral ER to attempt biceps curls. Physical Therapy Plan Frequency and Duration Frequency of Treatment 2x/Week Duration of treatment (weeks) 8 Plan of Care Start Date 03/12/22 Plan of Care End Date 05/07/22 Therapeutic Interventions Therapeutic Interventions Aquatic Therapy,Home Exercise Program,Joint Mobilizations, Manual Therapy,Neuromuscular Re-education,Self-Care/Home Management,Soft Tissue Mobilization,Therapeutic Activities,Therapeutic Exercises Modalities Cold Pack/Ice Massage,Electric Stimulation,Hot Packs, Ultrasound Next Visit Focus/Plan Next Note Type Treatment Note Next Visit Plan Consider piano simulation as patient wants to return to playing piano. Continue PT for progression of ROM, strengthening, and HEP instruction, manual therapy for improved soft tissue and joint mobility to help patient regain active functional use of her left UE. Use of tactile, verbal, and visual cues.
--- NOTE | 2022-04-24 14:12 | PT.OTN ---
Current Diagnoses Displaced fracture of greater tuberosity of left humerus, initial encounter for closed fracture (04/24/22) Unspecified dislocation of left shoulder joint, subsequent encounter (04/24/22) Physical Therapy Treatment Note PT-OP-A Visit Information Start: 07/26/21 12:44 Freq: Status: Active Protocol: Document 04/24/22 12:51 AW (Rec: 04/24/22 14:12 AW [id number]) Out-Patient Physical Therapy Visit Information Visit Information Visit Type Treatment Note Visit Start Time 13:30 Visit Stop Time 14:15 Total Visit Minutes 45 Visit Number 48 Number of STEEL GRINDER Visits 0 Evaluation Information Evaluation Date 07/26/21 PT-OP-B Current Condition Start: 07/26/21 12:44 Freq: Status: Active Protocol: Document 07/26/21 15:15 AW (Rec: 07/26/21 12:55 AW [id number]) Current Condition History of Current Condition Onset Date April 2021 Current Complaints left shoulder pain History of Current Condition Nithya fell in April, resulting in comminuted left proximal humerus fracture with anterior dislocation. She has long-standing left knee pain which she feels may have contributed to her fall. Fracture was treated non- operatively and Rd was sent home in a soft sling after a brief hospital stay. Her sister was visiting from [place] at the time and extended her stay to help for a week but Nithya has been managing without assist at home since her sister left. She did have one additional fall within one week of leaving the hospital. She believes she was impaired with oxycodone at that time and denies falls since then. She had home health services - primarily OT - but she was discharged at the end of June. She can get dressed and shower without assist but is doing all overhead activities one-handed. She is currently driving even though she has trouble lifting her arm. Pain is mostly in her anterior and posterior shoulder. She denies neck pain or radiating symptoms to her arm. She lives alone in a single level home with 2 steps to enter using right rail at front of house. Prior Treatments and Tests MRI 07/06/21: 1. 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 2. Acromioclavicular joint osteoarthritis. 3. Possible Hill-Sachs deformity of the humeral head. Future Testing and Treatments Planned None identified Treatment Goals Patient/Caregiver Goals Generally, I want to be able to use my left arm. Specifically, I want to be able to hug my boyfriend. Prior Functional Status Baseline Function- ADL's Independent Baseline Function- Mobility Independent Current Functional Impairments (Reported) Functional Limitations- ADL's Limited use of left arm for most dressing and hygiene tasks Personal Factors Other Personal Factors That May Effect Depression, knee pain, and Therapy/Recovery PT-OP-C Subjective Start: 07/26/21 12:44 Freq: Status: Active Protocol: Document 04/24/22 12:51 AW (Rec: 04/24/22 14:12 AW [id number]) OP-PT Subjective Patient Comments Patient Comments Pt had left knee x-ray and will likely see ortho next. Continuing PT-OP-F Manual Assessment Start: 07/26/21 12:44 Freq: Status: Active Protocol: Document 01/10/22 13:45 DCW (Rec: 01/10/22 14:01 DCW [id number]) Manual Assessments Soft Tissue Assessment Soft Tissue Mobility Assessment Hypertonicity in left shoulder girdle. Generally decreased muscle mass left shoulder compared with right. Joint Mobility Assessment Joint Mobility Assessment Stiffness in all planes of motion left shoulder with significant guarding even with PROM. PT-OP-G Mobility & Gait Start: 07/26/21 12:44 Freq: Status: Active Protocol: Document 07/26/21 15:15 AW (Rec: 07/26/21 17:06 AW [id number]) OP Gait Assessment Comments Gait Comments Generally unsteady and with decreased confidence. PT-OP-J Posture/Palpation/Skin Start: 07/26/21 12:44 Freq: Status: Active Protocol: Document 01/10/22 13:45 DCW (Rec: 01/10/22 14:01 DCW [id number]) Posture Evaluation Comments Posture Comments Forward shoulder posture bilaterally. Protective of left shoulder. PT-OP-K Range of Motion Start: 07/26/21 12:44 Freq: Status: Active Protocol: Document 01/10/22 13:45 DCW (Rec: 01/10/22 14:01 DCW [id number]) Cervical Spine Range of Motion Cervical Spine Active Testing Position Sitting Flexion 35 Extension 34 Rotation Left 45 Rotation Right 35 Lateral Flexion Left 37 Lateral Flexion Right 22 Comments Pt denies neck pain with all movements Shoulder Goniometric Range of Motion Shoulder Left Passive Shoulder ROM WFL No Testing Position Sitting Flexion 54 Abduction 68 External Rotation at 45 degrees 15 Abduction Internal Rotation Behind Back (text) to left PSIS Elbow/Forearm Range of Motion Elbow/Forearm Left Active ROM Testing Position Sitting Elbow Flexion (degrees) 148 Elbow Extension (degrees) 5 PT-OP-M Strength Start: 07/26/21 12:44 Freq: Status: Active Protocol: Document 01/10/22 13:45 DCW (Rec: 01/10/22 14:01 DCW [id number]) Shoulder Strength Shoulder Manual Muscle Testing Left Flexion 2- Poor- Abduction (C5) 2- Poor- External Rotation 2 Poor Internal Rotation 3- Fair- Right Flexion 4+ Good+ Extension 4+ Good+ Abduction (C5) 4+ Good+ External Rotation 4+ Good+ Internal Rotation 4+ Good+ PT-OP-Q Treatments Start: 07/26/21 12:44 Freq: Status: Active Protocol: Document 04/24/22 12:51 AW (Rec: 04/24/22 14:12 AW [id number]) Cardio Equipment Upper Body Ergometer (UBE) Duration (Minutes) 6 RPM 60 Seat Position 14 Height 3.5 Other fwd 3 min, bkwd 3 min Therapeutic Exercises Sitting Exercises forearm pron/sup Reps/Minutes 10x2 Comments verbal and tactile cues, mirror for visual feedback AROM flexion Sitting Exercise Name AROM flexion Reps/Minutes 5SH x 10 Comments cues for scapular stability samantha Sitting Exercise Name pulleys - scaption and flexion Standing Exercises bicep curl Equipment Used 1# Reps/Minutes 10x3 Comments Manual cues to get arm into neutral ER Flexion Standing Exercise Name Standing flexion; flexion 45- 90 (start in bent fwd position Side bilateral Resistance 1# Comments Visual cues to limit UT recruitment isometric abduction Reps/Minutes 5x5 at wall malloy carry Standing Exercise Name malloy carry Side bilateral Resistance 5# db Reps/Minutes 340 ft Comments focus on arm swing resisted row Standing Exercise Name rows Side bilateral Resistance TB 2 Reps/Minutes 10 Comments verbal and tactile cues Manual Therapy Treatment Soft Tissue Mobilization 1 Body Location UT primarily Mobilization Type Myofascial Release,Sustained Pressure PT-OP-R Modalities Start: 07/26/21 12:44 Freq: Status: Active Protocol: Document 12/29/21 14:36 LRN (Rec: 07/29/22 15:22 LRN [id number]) Hot Pack/Cold Pack Treatment Cold Pack Location L shoulder Patient Position Sitting Treatment Duration (minutes) 8 PT-OP-T Assessment and Plan Start: 07/26/21 12:44 Freq: Status: Active Protocol: Document 04/24/22 12:51 AW (Rec: 04/24/22 14:12 AW [id number]) Physical Therapy Assessment Goals Three Impairment QuickDash - 70% impairment Security Assessor Goal (LTG) Pt will score 45% or less impairment on QuickDash as a measure of improved ability to manage ADL's 03/12/22: goal met at 32%. New goal of decreased to no greater than 20% LTG Duration Two Impairment shoulder strength Short Term Goal (STG) Pt will improve her strength to be able to lift her arm to 90 degrees elevation to improve her ability to use her left arm in self-care activities. 09/06/21 - Pt lifts her arm to 55 degrees in flexion. 03/12/22: still very limited at 60 degrees. STG Duration 02/10/22 Correction Goal (LTG) Nithya will improve her left shoulder strength to be able to lift a book from table height. 03/12/22: can lift book or other small items but not higher than waist level. New goal of being able to lift it overhead LTG Duration One Impairment shoulder ROM Impairment function-limited by ROM deficits Short Term Goal (STG) Nithya will improve her shoulder flexion PROM to 90 degrees 09/06/21 - GOAL MET STG Duration Met Correction Goal (LTG) Nithya will improve her shoulder abduction AROM to 90 degrees and flexion to 120 degrees, ER to 60 deg 10/17/21 -flexion remains limited and painful 03/12/22: PROM with pulleys 147 deg abd, 151 flex. AROM abduction 27, flex 60 with compensation, ER 27 deg, improved today with contract relax technique to 56 passive LTG Duration Assessment Summary Assessment Nithya continues to lack AROM. Attempted to flex and abduct from 20-45 degrees starting position by leaning which was most effective in flexion for working 45-90 degree ROM. Physical Therapy Plan Frequency and Duration Frequency of Treatment 2x/Week Duration of treatment (weeks) 8 Plan of Care Start Date 03/12/22 Plan of Care End Date 05/07/22 Therapeutic Interventions Therapeutic Interventions Aquatic Therapy,Home Exercise Program,Joint Mobilizations, Manual Therapy,Neuromuscular Re-education,Self-Care/Home Management,Soft Tissue Mobilization,Therapeutic Activities,Therapeutic Exercises Modalities Cold Pack/Ice Massage,Electric Stimulation,Hot Packs, Ultrasound Next Visit Focus/Plan Next Note Type Treatment Note Next Visit Plan Consider piano simulation as patient wants to return to playing piano. Continue PT for progression of ROM, strengthening, and HEP instruction, manual therapy for improved soft tissue and joint mobility to help patient regain active functional use of her left UE. Use of tactile, verbal, and visual cues.
--- NOTE | 2022-05-11 11:08 | PT.OTN ---
Current Diagnoses Displaced fracture of greater tuberosity of left humerus, initial encounter for closed fracture (05/11/22) Unspecified dislocation of left shoulder joint, subsequent encounter (05/11/22) Physical Therapy Treatment Note PT-OP-A Visit Information Start: 07/26/21 12:44 Freq: Status: Active Protocol: Document 05/11/22 10:30 DCW (Rec: 05/11/22 11:08 DCW [id number]) Out-Patient Physical Therapy Visit Information Visit Information Visit Type Discharge Summary Visit Start Time 10:30 Visit Stop Time 11:00 Total Visit Minutes 30 Visit Number 49 Number of ESTHETICIAN/OWNER Visits 0 Evaluation Information Evaluation Date 07/26/21 PT-OP-B Current Condition Start: 07/26/21 12:44 Freq: Status: Active Protocol: Document 07/26/21 15:15 AW (Rec: 07/26/21 12:55 AW [id number]) Current Condition History of Current Condition Onset Date April 2021 Current Complaints left shoulder pain History of Current Condition Nithya fell in April, resulting in comminuted left proximal humerus fracture with anterior dislocation. She has long-standing left knee pain which she feels may have contributed to her fall. Fracture was treated non- operatively and Rd was sent home in a soft sling after a brief hospital stay. Her sister was visiting from [place] at the time and extended her stay to help for a week but Nithya has been managing without assist at home since her sister left. She did have one additional fall within one week of leaving the hospital. She believes she was impaired with oxycodone at that time and denies falls since then. She had home health services - primarily OT - but she was discharged at the end of June. She can get dressed and shower without assist but is doing all overhead activities one-handed. She is currently driving even though she has trouble lifting her arm. Pain is mostly in her anterior and posterior shoulder. She denies neck pain or radiating symptoms to her arm. She lives alone in a single level home with 2 steps to enter using right rail at front of house. Prior Treatments and Tests MRI 07/06/21: 1. 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 2. Acromioclavicular joint osteoarthritis. 3. Possible Hill-Sachs deformity of the humeral head. Future Testing and Treatments Planned None identified Treatment Goals Patient/Caregiver Goals Generally, I want to be able to use my left arm. Specifically, I want to be able to hug my boyfriend. Prior Functional Status Baseline Function- ADL's Independent Baseline Function- Mobility Independent Current Functional Impairments (Reported) Functional Limitations- ADL's Limited use of left arm for most dressing and hygiene tasks Personal Factors Other Personal Factors That May Effect Depression, knee pain, and Therapy/Recovery PT-OP-C Subjective Start: 07/26/21 12:44 Freq: Status: Active Protocol: Document 05/11/22 10:30 DCW (Rec: 05/11/22 11:08 DCW [id number]) OP-PT Subjective Patient Comments Patient Comments Pt feels she is plateauing, would like to follow-up with ortho again to determine best course for future. PT-OP-F Manual Assessment Start: 07/26/21 12:44 Freq: Status: Active Protocol: Document 05/11/22 10:30 DCW (Rec: 05/11/22 10:42 DCW [id number]) Manual Assessments Soft Tissue Assessment Soft Tissue Mobility Assessment Hypertonicity in left shoulder girdle. Generally decreased muscle mass left shoulder compared with right. Joint Mobility Assessment Joint Mobility Assessment Stiffness in all planes of motion left shoulder with significant guarding even with PROM. PT-OP-G Mobility & Gait Start: 07/26/21 12:44 Freq: Status: Active Protocol: Document 07/26/21 15:15 AW (Rec: 07/26/21 17:06 AW [id number]) OP Gait Assessment Comments Gait Comments Generally unsteady and with decreased confidence. PT-OP-J Posture/Palpation/Skin Start: 07/26/21 12:44 Freq: Status: Active Protocol: Document 01/10/22 13:45 DCW (Rec: 01/10/22 14:01 DCW [id number]) Posture Evaluation Comments Posture Comments Forward shoulder posture bilaterally. Protective of left shoulder. PT-OP-K Range of Motion Start: 07/26/21 12:44 Freq: Status: Active Protocol: Document 05/11/22 10:30 DCW (Rec: 05/11/22 10:42 DCW [id number]) Cervical Spine Range of Motion Cervical Spine Active Testing Position Sitting Flexion 35 Extension 36 Rotation Left 49 Rotation Right 52 Lateral Flexion Left 37 Lateral Flexion Right 35 Comments Pt denies neck pain with all movements Shoulder Goniometric Range of Motion Shoulder Left Active Shoulder ROM WFL No Testing Position Sitting Flexion 58 Abduction 22 Internal Rotation Behind Back (text) T12 Comments Pt unable to perform any active ER in 0 degress abduction Left Passive Shoulder ROM WFL No Testing Position Sitting Flexion 105 Abduction 92 External Rotation at 45 degrees 33 Abduction PT-OP-M Strength Start: 07/26/21 12:44 Freq: Status: Active Protocol: Document 05/11/22 10:30 DCW (Rec: 05/11/22 10:42 DCW [id number]) Shoulder Strength Shoulder Manual Muscle Testing Left Flexion 2- Poor- Abduction (C5) 2- Poor- External Rotation 2 Poor Internal Rotation 3+ Fair+ Right Flexion 4+ Good+ Extension 4+ Good+ Abduction (C5) 4+ Good+ External Rotation 4+ Good+ Internal Rotation 4+ Good+ PT-OP-Q Treatments Start: 07/26/21 12:44 Freq: Status: Active Protocol: Document 05/11/22 10:30 DCW (Rec: 05/11/22 11:08 DCW [id number]) Manual Therapy Treatment Other Other Manual Treatments ROM, MMT, testing Self-Care/Home Management Treatment Education Other Education Long discussion involving pt's options going forward, overall improvement, and progress plateau PT-OP-R Modalities Start: 07/26/21 12:44 Freq: Status: Active Protocol: Document 12/29/21 14:36 LRN (Rec: 12/29/21 15:22 LRN [id number]) Hot Pack/Cold Pack Treatment Cold Pack Location L shoulder Patient Position Sitting Treatment Duration (minutes) 8 PT-OP-T Assessment and Plan Start: 07/26/21 12:44 Freq: Status: Active Protocol: Document 05/11/22 10:30 DCW (Rec: 05/11/22 11:08 DCW [id number]) Physical Therapy Assessment Impairments Impairments Functional Activities,Pain, Posture,ROM,Soft Tissue Mobility,Strength Goals Three Impairment QuickDash - 70% impairment Jail Goal (LTG) Pt will score 45% or less impairment on QuickDash as a measure of improved ability to manage ADL's 03/12/22: goal met at 32%. New goal of decreased to no greater than 20% LTG Duration Two Impairment shoulder strength Short Term Goal (STG) Pt will improve her strength to be able to lift her arm to 90 degrees elevation to improve her ability to use her left arm in self-care activities. 09/06/21 - Pt lifts her arm to 55 degrees in flexion. 03/12/22: still very limited at 60 degrees. STG Duration 02/10/22 Fabric Sourcer Goal (LTG) Nithya will improve her left shoulder strength to be able to lift a book from table height. 03/12/22: can lift book or other small items but not higher than waist level. New goal of being able to lift it overhead LTG Duration One Impairment shoulder ROM Impairment function-limited by ROM deficits Short Term Goal (STG) Nithya will improve her shoulder flexion PROM to 90 degrees 09/06/21 - GOAL MET STG Duration Met Jail Goal (LTG) Nithya will improve her shoulder abduction AROM to 90 degrees and flexion to 120 degrees, ER to 60 deg 10/17/21 -flexion remains limited and painful 03/12/22: PROM with pulleys 147 deg abd, 151 flex. AROM abduction 27, flex 60 with compensation, ER 27 deg, improved today with contract relax technique to 56 passive LTG Duration Progress Towards Goals Progress Towards Goals Slow Progress due to Medical Issues Assessment Summary Assessment Pt's overall progress, specifically AROM/muscle strength, has largely plateaued. After therapist and patient discussion today, both are in agreement with patient discharge at this time to explore other avenues of treatment. Physical Therapy Plan Frequency and Duration Frequency of Treatment 1x/Week Plan of Care Start Date 05/11/22 Plan of Care End Date 05/12/22 Therapeutic Interventions Therapeutic Interventions Aquatic Therapy,Home Exercise Program,Joint Mobilizations, Manual Therapy,Neuromuscular Re-education,Self-Care/Home Management,Soft Tissue Mobilization,Therapeutic Activities,Therapeutic Exercises Modalities Cold Pack/Ice Massage,Electric Stimulation,Hot Packs, Ultrasound Discharge Physical Therapy Discharge Reasons Plateau in Progress Next Visit Focus/Plan Next Note Type Discharge Summary
--- NOTE | 2022-05-11 11:09 | PT.OPPOC ---
Physical, Occupational & Speech Therapy At Current Diagnoses Displaced fracture of greater tuberosity of left humerus, initial encounter for closed fracture (05/11/22) Unspecified dislocation of left shoulder joint, subsequent encounter (05/11/22) Visit Care Team Role Provider Type Nick Witt MD Family Provider Physician Primary Care Provider Specialty: Internal Medicine Address: [address] [place] [address], [id number] Email: [email or web address] Kenneth Burkett MD Attending Provider Physician Referring Provider Specialty: Orthopedics Orthopedic Surgery Address: [address] [place] [address], [id number] Email: [email or web address] Plan Of Care PT-OP-T Assessment and Plan Start: 07/26/21 12:44 Freq: Status: Active Protocol: Document 05/11/22 10:30 DCW (Rec: 05/11/22 11:08 DCW [id number]) Physical Therapy Assessment Impairments Impairments Functional Activities,Pain, Posture,ROM,Soft Tissue Mobility,Strength Goals Three Impairment QuickDash - 70% impairment Fdc Goal (LTG) Pt will score 45% or less impairment on QuickDash as a measure of improved ability to manage ADL's 03/12/22: goal met at 32%. New goal of decreased to no greater than 20% LTG Duration Two Impairment shoulder strength Short Term Goal (STG) Pt will improve her strength to be able to lift her arm to 90 degrees elevation to improve her ability to use her left arm in self-care activities. 09/06/21 - Pt lifts her arm to 55 degrees in flexion. 03/12/22: still very limited at 60 degrees. STG Duration 02/10/22 Survey Technician Goal (LTG) Nithya will improve her left shoulder strength to be able to lift a book from table height. 03/12/22: can lift book or other small items but not higher than waist level. New goal of being able to lift it overhead LTG Duration One Impairment shoulder ROM Impairment function-limited by ROM deficits Short Term Goal (STG) Nithya will improve her shoulder flexion PROM to 90 degrees 09/06/21 - GOAL MET STG Duration Met Fdc Goal (LTG) Nithya will improve her shoulder abduction AROM to 90 degrees and flexion to 120 degrees, ER to 60 deg 10/17/21 -flexion remains limited and painful 03/12/22: PROM with pulleys 147 deg abd, 151 flex. AROM abduction 27, flex 60 with compensation, ER 27 deg, improved today with contract relax technique to 56 passive LTG Duration Progress Towards Goals Progress Towards Goals Slow Progress due to Medical Issues Assessment Summary Assessment Pt's overall progress, specifically AROM/muscle strength, has largely plateaued. After therapist and patient discussion today, both are in agreement with patient discharge at this time to explore other avenues of treatment. Physical Therapy Plan Frequency and Duration Frequency of Treatment 1x/Week Plan of Care Start Date 05/11/22 Plan of Care End Date 05/12/22 Therapeutic Interventions Therapeutic Interventions Aquatic Therapy,Home Exercise Program,Joint Mobilizations, Manual Therapy,Neuromuscular Re-education,Self-Care/Home Management,Soft Tissue Mobilization,Therapeutic Activities,Therapeutic Exercises Modalities Cold Pack/Ice Massage,Electric Stimulation,Hot Packs, Ultrasound Discharge Physical Therapy Discharge Reasons Plateau in Progress Next Visit Focus/Plan Next Note Type Discharge Summary Plan of Care Dates Plan of Care Start Date 05/11/22 Plan of Care End Date 05/12/22 Electronically Signed by: Clayton Cortés, PT 05/11/22 [id number] If you are in agreement with this Plan of Care, please return a signed and dated copy. I have reviewed this Plan of Care and certify that the skilled therapy services above are required to meet the patient?s needs. Physician Signature Date Printed Name and Credentials Clinical Instructor Signature Printed Name and Credentials
== END 2022-05-15 14:17 | disposition home or self-care (01) ==
LOC: PHYS 10:30
PROVIDERS: Family Provider Internal Medicine; PCP Internal Medicine; Referring Provider Orthopaedic Surgery; Visit Provider Orthopaedic Surgery
DX: S43.005D Unspecified dislocation of left shoulder joint, subsequent encounter (principal); S42.252A Displaced fracture of greater tuberosity of left humerus, initial encounter for closed fracture
CPT/HCPCS: 97010; 97110; 97140; 97162; 97535

== ENCOUNTER → 2022-08-16 15:00 | Outpatient (CLI) | payer OTHER, SELFPAY ==
[2021-04-14 22:20] VITALS: BMI 35.4
--- NOTE | 2022-08-16 | DI.MG.S_ITS ---
BILATERAL DIGITAL SCREENING MAMMOGRAM 3D/2D WITH CAD: 08/16/2022 CLINICAL: Routine screening. Family history of breast cancer. Comparison is made to exams dated: 08/03/2021 mammogram, 06/14/2020 mammogram, and 08/29/2018 mammogram - [facility]. There are scattered areas of fibroglandular density in both breasts (category b / 25%-50% glandular tissue). Current study was also evaluated with a Computer Aided Detection (CAD) system. There are benign calcifications in both breasts. There also is a biopsy clip in the right breast. No significant masses, calcifications, or other findings are seen in either breast. There has been no significant interval change. IMPRESSION: BENIGN There is no mammographic evidence of malignancy. A 1 year screening mammogram is recommended. Based on the Tyrer Cuzick model (a risk assessment model) the patient's lifetime risk is 4.4% and her 10 year risk is 0.0%. According to the ACR, ACS, and NCCN guidelines, an annual breast MRI exam along with mammogram is recommended if the patient's lifetime risk is 20% or greater. This exam was interpreted at Station ID: [id number]. NOTE: For mammograms, a report in lay terms will be sent to the patient. Approximately 15% of breast malignancies will not be visualized mammographically. In the management of a palpable breast mass, a negative mammogram must not discourage biopsy of a clinically suspicious lesion. Electronically Signed By: Pretty white/joseph:08/17/2022 08:56:26 letter sent: Normal Exam ACR BI-RADS Category 2: Benign Finding(s) [id number]
== END ==
PROVIDERS: Family Provider Internal Medicine; PCP Student in an Organized Health Care Education/Training Program; Referring Provider Student in an Organized Health Care Education/Training Program; Visit Provider Student in an Organized Health Care Education/Training Program
DX: Z12.31 Encounter for screening mammogram for malignant neoplasm of breast (principal); Z80.3 Family history of malignant neoplasm of breast
CPT/HCPCS: 77063; 77067